=== PATIENT | female | born 1940 | race Caucasian/White ===

== ENCOUNTER 2017-04-09 18:56 | Emergency (ER) | payer MEDICARE, OTHER ==
--- NOTE | 2017-04-09 20:33 | EDM.PDOC ---
ED HPI GENERAL MEDICAL PROBLEM - General Chief Complaint: Neurological Problem Stated Complaint: CONFUSED JUST RELEASED FROM THE HOSPITAL MONDAY Time Seen by Provider: 04/09/17 19:30 Source of Information: Reports: Patient, Family, RN Notes Reviewed History Limitations: Reports: Altered Mental Status (Patient is confused, and unable to meaningfully contribute to her history) - History of Present Illness INITIAL COMMENTS - FREE TEXT/NARRATIVE: The patient underwent a lumbar fusion for scoliosis per Dr. Humphreys on Monday , 04/04/2017. She was discharged home on 04/07/2017 with prescriptions for [place] 5/325, 1 tab po Q4 hrs and Valium 5 mg po Q6 hrs. The family now brings the patient to the ED because of confusion and sleepiness since yesterday, 04/08/2017. She has had decreased oral intake. Fearing that her symptoms were due to overmedication, her last Valium dose was last night, although she has continued to receive [place]. The family also notes that her metformin has not been restarted since she was discharged, and may not have been given during her entire hospitalization. Here in the ED, Accu-Chek is 148. She appears to be in atrial fibrillation on the monitor, although she states that she is unaware of any palpitations. The patient's PCP is Hawa Ralph. - Related Data Allergies Allergy/AdvReac Type Severity Reaction Status Date / Time contrast dye Allergy Hives Uncoded 04/09/17 20:29 Home Meds: Home Meds Omeprazole 20 mg PO DAILY 03/21/16 [History] metFORMIN [Glucophage] 500 mg PO DAILY 03/21/16 [History] Calcium Citrate/Vitamin D3 [Citracal + D Maximum [place]] 1 tab PO DAILY [History] Cyanocobalamin (Vitamin B12) [Vitamin B12] 1,000 mcg PO DAILY 04/09/17 [History] Diazepam [Valium] 5 mg PO Q6H PRN 04/09/17 [History] Forteo. 20 mcg SUBCUT DAILY 04/09/17 [History] Furosemide [Lasix] 20 mg PO DAILY PRN 04/09/17 [History] Hydrocodone/Acetaminophen [Hydrocodon-Acetaminophen 5-325] 1 - 2 tab PO Q4H PRN 04/09/17 [History] Lisinopril [Zestril] 40 mg PO DAILY 04/09/17 [History] Nicotine [Nicotine Patch] 1 patch TOP Q24H 04/09/17 [History] Polyethylene Glycol 3350 [MiraLAX] 17 gm PO DAILY 04/09/17 [History] Pravastatin [Pravachol] 20 mg PO BEDTIME 04/09/17 [History] Sennosides/Docusate Sodium [Senna-Docusate Sodium] 1 tab PO BID 04/09/17 [ History] Past Medical History Cardiovascular History: Reports: High Cholesterol, Hypertension Gastrointestinal History: Reports: GERD Genitourinary History: Reports: Urinary Incontinence (stress incontinence) [employer] History: Reports: Musculoskeletal History: Reports: Back Pain, Chronic (scoliosis) Endocrine/Metabolic History: Reports: Diabetes, Type II - Past Surgical History HEENT Surgical History: Reports: Cataract Surgery, Tonsillectomy GI Surgical History: Reports: Cholecystectomy Neurological Surgical History: Reports: Lumbar Spine (fusion) Musculoskeletal Surgical History: Reports: Knee Replacement (bilateral) Social & Family History - Tobacco Use Smoking Status *Q: Current Every Day Smoker Years of Tobacco use: 63 Packs/Tins Daily: 0.5 Packs/Tins Daily Comment: Down from 1 ppd - Alcohol Use Alcohol Use History: No - Recreational Drug Use Recreational Drug Use: No - Living Situation & Occupation Living situation: Reports: , with Family (Son) Occupation: Retired ED ROS GENERAL - Review of Systems Review Of Systems: See Below Constitutional: Reports: No Symptoms HEENT: Reports: No Symptoms Respiratory: Reports: No Symptoms Cardiovascular: Reports: No Symptoms Endocrine: Reports: No Symptoms GI/Abdominal: Reports: No Symptoms : Reports: No Symptoms Musculoskeletal: Reports: No Symptoms Skin: Reports: No Symptoms Neurological: Reports: No Symptoms Psychiatric: Reports: No Symptoms Hematologic/Lymphatic: Reports: No Symptoms Immunologic: Reports: No Symptoms ED EXAM, GENERAL - Physical Exam Exam: See Below Exam Limited By: No Limitations General Appearance: Alert, WD/WN, No Apparent Distress Eye Exam: Bilateral Eye: Normal Inspection Ears: Normal External Exam, Hearing Grossly Normal Nose: Normal Inspection, No Blood Throat/Mouth: Normal Inspection, Normal Lips, Normal Voice, No Airway Compromise Head: Atraumatic, Normocephalic Neck: Normal Inspection, Full Range of Motion Respiratory/Chest: No Respiratory Distress, Lungs Clear, Normal Breath Sounds, No Accessory Muscle Use. No: Crackles, Rhonchi, Wheezing Cardiovascular: Normal Peripheral Pulses, No Gallop, No JVD, No Murmur, No Rub, Tachycardia, Irregularly Irregular, Other (Distant heart tones) Peripheral Pulses: 3+: Radial (L), Radial (R) GI/Abdominal: Normal Bowel Sounds, Soft, Non-Tender, No Organomegaly, No Distention, No Abnormal Bruit, No Mass (Female) Exam: Deferred Rectal (Female) Exam: Deferred Extremities: Normal Inspection, Normal Range of Motion, No Pedal Edema, Normal Capillary Refill Neurological: No Motor/Sensory Deficits, Confused, Other (Somnolent, but arousable to verbal tonight) Psychiatric: Normal Affect Skin Exam: Warm, Dry, Intact, Normal Color, No Rash EKG INTERPRETATION EKG Date: 04/09/17 Time: 19:48 Rhythm: A-Fib Rate (Beats/Min): 126 [place]: Normal P-Wave: Absent QRS: Normal (Single PVC) ST-T: Normal QT: Normal Comparison: Change From Previous EKG (03/21/2016) Course - Vital Signs Last Recorded V/S: Last Vital Signs Temp 36.7 C 04/09/17 20:29 Pulse 130 H 04/09/17 20:29 Resp 24 H 04/09/17 20:29 BP 115/76 04/09/17 20:29 Pulse Ox 79 L 04/09/17 20:29 - Orders/Labs/Meds Orders: Active Orders 24 hr Category Date Time Status EKG Documentation Completion [RC] STAT Care 04/09/17 19:42 Active Chest 1V Frontal [CR] Stat Exams 04/09/17 19:44 Taken CULTURE BLOOD [BC] Stat Lab 04/09/17 20:15 Received CULTURE BLOOD [BC] Stat Lab 04/09/17 20:25 Received Diltiazem 125 mg Med 04/09/17 20:45 Active Sodium Chloride 0.9% [Normal Saline] 100 ml IV TITRATE Blood Culture x2 Reflex Set [OM.PC] Stat Oth 04/09/17 19:42 Ordered Medication Orders Diltiazem HCl 125 mg/ Sodium (Chloride) 125 mls @ 10 mls/hr IV TITRATE KAYLEE; 10 MG/HR PRN Reason: Protocol Last Admin: 04/09/17 21:13 Dose: 10 mg/hr, 10 mls/hr Labs: Laboratory Tests 04/09/17 04/09/17 04/09/17 Range/Units 19:35 19:35 19:35 WBC 13.27 H (3.98-10.04) K/mm3 RBC 3.10 L (3.98-5.22) M/mm3 Hgb 9.4 L (11.2-15.7) gm/L Hct 28.4 L (34.1-44.9) % MCV 91.6 (79.4-94.8) fl MCH 30.3 (25.6-32.2) pg MCHC 33.1 (32.2-35.5) g/dl RDW Std Deviation 43.7 (36.4-46.3) fL Plt Count 392 H (182-369) K/mm3 MPV 9.8 (9.4-12.3) fl Neutrophils % (Manual) 68 H (40-60) % Band Neutrophils % 0 (0-10) % Lymphocytes % (Manual) 17 L (20-40) % Atypical Lymphs % 0 % Monocytes % (Manual) 15 H (2-10) % Eosinophils % (Manual) 0 L (0.7-5.8) % Basophils % (Manual) 0 L (0.1-1.2) Platelet Estimate Adequate Polychromasia Few Anisocytosis 1+ slight Macrocytosis 1+ slight Ovalocytes Few RBC Morph Comment Not Reportable PT 12.9 (8.0-13.0) SECONDS INR 1.17 APTT 32 (22-36) SECONDS D-Dimer, Quantitative 2.39 H (0.19-0.59) mg/L Puncture Site ABG pH (7.35-7.45) ABG pCO2 (35.0-45.0) mmHg ABG pO2 (80.0-100.0) mmHg ABG HCO3 (22.0-26.0) meq/L ABG O2 Saturation (96.0-97.0) % ABG Base Excess (-2-2.0) A-a Gradient mmHg FiO2 (21.00-100.00) % Sodium 132 L (136-145) mEq/L Potassium 4.0 (3.5-5.1) mEq/L Chloride 94 L (98-107) mEq/L Carbon Dioxide 28 (21-32) mEq/L Anion Gap 14.0 (5-15) BUN 49 H (7-18) mg/dL Creatinine 1.7 H (0.55-1.02) mg/dL Est Cr Clr Drug Dosing TNP Estimated GFR (MDRD) 29 (>60) mL/min BUN/Creatinine Ratio 28.8 H (14-18) Glucose 115 (83-115) mg/dL POC Glucose (83-110) mg/dL Lactic Acid (0.4-2.0) mmol/L Calcium 9.9 (8.5-10.1) mg/dL Total Bilirubin 0.6 (0.2-1.0) mg/dL AST 41 H (15-37) U/L ALT 19 (14-59) U/L Alkaline Phosphatase 73 (46-116) U/L Troponin I 0.572 H* (0.00-0.056) ng/mL NT-Pro-B Natriuret Pep 77221 H (0-450) pg/mL Total Protein 6.4 (6.4-8.2) g/dl Albumin 3.1 L (3.4-5.0) g/dl Globulin 3.3 gm/dL Albumin/Globulin Ratio 0.9 L (1-2) 04/09/17 04/09/17 04/09/17 Range/Units 19:37 19:53 20:15 WBC (3.98-10.04) K/mm3 RBC (3.98-5.22) M/mm3 Hgb (11.2-15.7) gm/L Hct (34.1-44.9) % MCV (79.4-94.8) fl MCH (25.6-32.2) pg MCHC (32.2-35.5) g/dl RDW Std Deviation (36.4-46.3) fL Plt Count (182-369) K/mm3 MPV (9.4-12.3) fl Neutrophils % (Manual) (40-60) % Band Neutrophils % (0-10) % Lymphocytes % (Manual) (20-40) % Atypical Lymphs % % Monocytes % (Manual) (2-10) % Eosinophils % (Manual) (0.7-5.8) % Basophils % (Manual) (0.1-1.2) Platelet Estimate Polychromasia Anisocytosis Macrocytosis Ovalocytes RBC Morph Comment PT (8.0-13.0) SECONDS INR APTT (22-36) SECONDS D-Dimer, Quantitative (0.19-0.59) mg/L Puncture Site Rt brachial ABG pH 7.40 (7.35-7.45) ABG pCO2 40.3 (35.0-45.0) mmHg ABG pO2 57.0 L (80.0-100.0) mmHg ABG HCO3 24.5 (22.0-26.0) meq/L ABG O2 Saturation 83.2 L (96.0-97.0) % ABG Base Excess 0.2 (-2-2.0) A-a Gradient 27 mmHg FiO2 21.00 (21.00-100.00) % Sodium (136-145) mEq/L Potassium (3.5-5.1) mEq/L Chloride (98-107) mEq/L Carbon Dioxide (21-32) mEq/L Anion Gap (5-15) BUN (7-18) mg/dL Creatinine (0.55-1.02) mg/dL Est Cr Clr Drug Dosing Estimated GFR (MDRD) (>60) mL/min BUN/Creatinine Ratio (14-18) Glucose (83-115) mg/dL POC Glucose 148 H (83-110) mg/dL Lactic Acid 1.3 (0.4-2.0) mmol/L Calcium (8.5-10.1) mg/dL Total Bilirubin (0.2-1.0) mg/dL AST (15-37) U/L ALT (14-59) U/L Alkaline Phosphatase (46-116) U/L Troponin I (0.00-0.056) ng/mL NT-Pro-B Natriuret Pep (0-450) pg/mL Total Protein (6.4-8.2) g/dl Albumin (3.4-5.0) g/dl Globulin gm/dL Albumin/Globulin Ratio (1-2) Meds: Medications Generic Name Dose Route Start Last Admin Trade Name Freq PRN Reason Stop Dose Admin Diltiazem HCl 125 mg/ Sodium 125 mls @ 10 mls/hr 04/09/17 20:45 04/09/17 21: 13 Chloride IV 10 mg/hr TITRATE KAYLEE 10 mls/hr Protocol Administration 10 MG/HR Discontinued Medications Generic Name Dose Route Start Last Admin Trade Name Lin PRN Reason Stop Dose Admin Aspirin 324 mg 04/09/17 20:39 04/09/17 21:17 Aspirin PO 04/09/17 20:40 324 mg ONETIME STA Administration Diltiazem HCl 10 mg 04/09/17 20:36 04/09/17 20:46 Diltiazem IVPUSH 04/09/17 20:37 10 mg ONETIME STA Administration Enoxaparin Sodium 65 mg 04/09/17 20:39 04/09/17 21:21 Lovenox SUBCUT 04/09/17 20:40 65 mg ONETIME STA Administration Metoprolol Tartrate 5 mg 04/09/17 20:39 Lopressor IVPUSH 04/09/17 20:40 ONETIME ONE - Re-Assessments/Exams Free Text/Narrative Re-Assessment/Exam: 04/09/17 20:29 Portable chest radiograph reviewed. There is likely cardiomegaly. No pulmonary vascular congestion. No pleural effusions seen on this AP view. No focal infiltrate. No pneumothorax. New lumbar fusion hardware since prior chest radiograph dated 03/21/2016. Formal read per the Radiologist pending. 04/09/17 20:40 The patient's WBC count is elevated at 13.27, but with 0% bandemia. Her H/H are depressed at 9.4/28.4, down from 11.8/35.2 on 03/21/2017. The patient's BUN/Cr are elevated at 49/1.7, down from 23/2.2 on 03/21/2016. The patient's ECG demonstrates atrial fibrillation at 126 BPM. This is new since her prior ECG dated 03/21/2016, however, the patient is not aware of her heartbeat, therefore the duration of her atrial fibrillation is unknown. I have ordered Cardizem 10 mg IVP and a Cardizem drip at 10 mg/hr, along with Lovenox 65 mg SQ. The patient's troponin is elevated at 0.572. Her troponin was normal on 2015. This elevation may be due at least in part to her renal insufficiency, however, I cannot exclude a recent coronary event. I have ordered aspirin 324 mg and Lopressor 5 mg IVP. The patient's D-dimer is elevated at 2.39. There are no prior D-dimer is for comparison. This elevation may be because of her recent lumbar surgery, however , I cannot rule out a PE, as the patient reports an allergy to iodinated contrast. I have therefore ordered the aforementioned Lovenox 65 mg SQ. The patient's BNP is substantially elevated at 20,036. There are no prior BNP's for comparison. As above, no pulmonary vascular congestion seen on the chest radiograph, to suggest decompensated CHF. This elevation is likely do to the patient's renal insufficiency. 04/09/17 21:05 Test results discussed with the patient and numerous family members. I am recommending that we transfer her to [place], as there are too many issues to be managed at this facility, and, as it turns out, we are on ICU diversion anyway. The family is in agreement. They like transfer to [facility], as that is where the patient's [facility] Di[facility] is. 04/09/17 21:[address] Monet, Hospitalist at [facility], at 21:17. The patient does not actually have a [employer]attle [employer]. She saw Dr. Padilla for a stress test. Dr. Monet feels the patient would be better served to return to [facility], where her lumbar surgery was performed, however, if [place] is unable or unwilling to accept the patient, Dr. Monet is willing to accept her. 04/09/17 21:[address] Coronel, emergency physician at [facility], at 21 :36. He accepts the patient for transfer. Departure - Departure Time of Disposition: 21:45 Disposition: DC/Tfer to Acute Hospital 02 Condition: Fair Clinical Impression: New onset atrial fibrillation, Elevated d-dimer, Elevated troponin, Chronic kidney disease, Lethargy - Discharge Information - My Orders Last 24 Hours: My Active Orders 04/09/17 19:42 EKG Documentation Completion [RC] STAT Blood Culture x2 Reflex Set [OM.PC] Stat 04/09/17 19:44 Chest 1V Frontal [CR] Stat 04/09/17 20:15 CULTURE BLOOD [BC] Stat 04/09/17 20:25 CULTURE BLOOD [BC] Stat 04/09/17 20:45 Diltiazem 125 mg Sodium Chloride 0.9% [Normal Saline] 100 ml IV TITRATE - Assessment/Plan Last 24 Hours: My Active Orders 04/09/17 19:42 EKG Documentation Completion [RC] STAT Blood Culture x2 Reflex Set [OM.PC] Stat 04/09/17 19:44 Chest 1V Frontal [CR] Stat 04/09/17 20:15 CULTURE BLOOD [BC] Stat 04/09/17 20:25 CULTURE BLOOD [BC] Stat 04/09/17 20:45 Diltiazem 125 mg Sodium Chloride 0.9% [Normal Saline] 100 ml IV TITRATE
[2017-04-09] MEDS ORDERED: Diltiazem 25 MG/5 ML SDV IVPUSH STA (20:36)
[2017-04-09] MEDS ORDERED: Enoxaparin 80 MG/0.8 ML Syringe SUBCUT STA (20:39)
[2017-04-09] MEDS ORDERED: Aspirin 81 MG Tab.Chew PO STA (20:39)
[2017-04-09] MEDS ORDERED: Metoprolol Tartrate 5 MG/5 ML SDV IVPUSH ONE (20:39)
[2017-04-09] MEDS ORDERED: Diltiazem 125 MG in Sodium Chloride 0.9% 100 ML IV SCH (20:45)
[2017-04-09 22:03] VITALS: BP 94/61
--- NOTE | 2017-04-10 09:47 | CR ---
Chest: Portable view of the chest was obtained. Comparison: Prior chest x-ray of 03/21/16. Previous lumbar spine surgery is noted as an interval change from previous exam. Vertebroplasty noted within the lower thoracic spine which is an interval change from prior study. Skin laura are present within the upper back. Heart size is normal. Tortuous thoracic aorta is seen. Lungs are clear. Scoliosis noted within the spine. Bony structures are slightly osteopenic. Impression: 1. Incidental findings as noted above. Nothing acute is appreciated. Diagnostic code #2
== END 2017-04-09 22:18 ==
LOC: JD.ED 18:56
DX: I48.91 Unspecified atrial fibrillation (principal); I12.9 Hypertensive chronic kidney disease with stage 1 through stage 4 chronic kidney disease, or unspecified chronic kidney disease; N18.9 Chronic kidney disease, unspecified; R79.89 Other specified abnormal findings of blood chemistry; R79.1 Abnormal coagulation profile; E78.00 Pure hypercholesterolemia, unspecified; E11.22 Type 2 diabetes mellitus with diabetic chronic kidney disease; F17.210 Nicotine dependence, cigarettes, uncomplicated; Z96.653 Presence of artificial knee joint, bilateral; Z79.899 Other long term (current) drug therapy; Z91.041 Radiographic dye allergy status
CPT/HCPCS: 36415; 36600; 71010; 80053; 82803; 82962; 83605; 83880; 84484; 85025; 85379; 85610; 85730; 87040; 93005; 99285; A9270; J1650; J3490; J7030; 93010

== ENCOUNTER 2018-07-23 09:15 | Emergency (ER) | payer MEDICARE, OTHER ==
[2018-07-23 09:32] VITALS: BP 164/99
[2018-07-23] MEDS ORDERED: Sodium Chloride 0.9% 10 ML Syringe FLUSH PRN (09:47)
--- NOTE | 2018-07-23 10:16 | CT ---
Head CT Technique: Multiple axial sections through the brain were obtained. Intravenous contrast was not utilized. Comparison: Prior head CT study of 03/21/16. Findings: Skin lesion showing calcification is noted within the upper right parietal region which appears fairly similar to prior study having maximum measurements of around 2.0 cm. Several other smaller scalp lesions are also noted which appears stable. Ventricles along with basal cisterns and sulci over the convexities are mildly prominent. Diminished density is noted within the periventricular and subcortical white matter compatible with small vessel ischemic demyelination change. No other abnormal parenchymal densities are seen. No evidence of intracranial hemorrhage. No midline shift or mass effect is seen. Atherosclerotic calcification is seen within the carotid siphon and within the vertebral vessels. Rounded soft tissue finding is seen inferiorly within the right maxillary sinus compatible with incidental retention cyst is noted. No acute calvarial abnormality is seen. Impression: 1. Senescent change as noted above. Other incidental findings. 2. Nothing acute is appreciated on noncontrast head CT exam. Diagnostic code #2
--- NOTE | 2018-07-23 10:19 | CR ---
Chest: Portable view of the chest was obtained. Comparison: Prior chest x-ray of 04/09/17. Heart is mildly enlarged. Tortuous thoracic aorta is seen. Questionable nodule behind the aorta noted within the left upper lung measuring 1.5 cm. Lungs otherwise are clear. Previous spine surgery is noted. Impression: 1. Possible 1.5 cm nodule posterior to the aorta. Noncontrast chest CT recommended to further evaluate. 2. Other incidental findings. Nothing acute is otherwise seen. Diagnostic code #9
--- NOTE | 2018-07-23 12:49 | EDM.PDOC ---
ED HPI GENERAL MEDICAL PROBLEM - General Chief Complaint: Cardiovascular Problem Stated Complaint: RETAINING FLUIDS /DIZZY Time Seen by Provider: 07/23/18 09:26 Source of Information: Reports: Patient, Family History Limitations: Reports: No Limitations - History of Present Illness INITIAL COMMENTS - FREE TEXT/NARRATIVE: The patient presents with dizziness and confusion. She also has some nausea. Her daughter called her this morning and felt she was confused. The patient also told her she was dizzy and off balance slightly. They went to the walk in clinic and she was sent over here. She denies fever, chills, cough, congestion , runny nose, chest pain or shortness of breath. She was diagnosed with A-fib a while back. She was taken off of her metformin and her lasix was stopped. She has no edema in her legs. Onset: Gradual Duration: Hour(s): Improves with: Reports: None Worsens with: Reports: None Associated Symptoms: Denies: Chest Pain, Cough, Fever/Chills, Headaches, Nausea/ Vomiting, Shortness of Breath - Related Data Allergies Allergy/AdvReac Type Severity Reaction Status Date / Time contrast dye Allergy Hives Uncoded 04/09/17 20:29 Home Meds: Home Meds Calcium Citrate/Vitamin D3 [Citracal + D Maximum Caplet] 1 tab PO DAILY [History] Cyanocobalamin (Vitamin B12) [Vitamin B12] 1,000 mcg PO DAILY 04/09/17 [History] Forteo. 20 mcg SUBCUT DAILY 04/09/17 [History] Furosemide [Lasix] 20 mg PO BID PRN 04/09/17 [History] Pravastatin [Pravachol] 20 mg PO BEDTIME 04/09/17 [History] Apixaban [Eliquis] 2.5 mg PO BID 07/23/18 [History] Diltiazem [Dilacor XR] 240 mg pe PO DAILY 07/23/18 [History] Metoprolol Succinate [Toprol Xl] 50 mg PO DAILY 07/23/18 [History] Potassium Chloride 20 meq PO DAILY 07/23/18 [History] Past Medical History Cardiovascular History: Reports: High Cholesterol, Hypertension Gastrointestinal History: Reports: GERD Genitourinary History: Reports: Urinary Incontinence [employer] History: Reports: Musculoskeletal History: Reports: Back Pain, Chronic Other Musculoskeletal History: back surgery Endocrine/Metabolic History: Reports: Diabetes, Type II, Obesity/BMI 30+ - Past Surgical History HEENT Surgical History: Reports: Cataract Surgery, Tonsillectomy GI Surgical History: Reports: Cholecystectomy Neurological Surgical History: Reports: Lumbar Spine Other Neurological Surgeries/Procedures: back surgery Musculoskeletal Surgical History: Reports: Knee Replacement Social & Family History - Tobacco Use Smoking Status *Q: Current Every Day Smoker Years of Tobacco use: 70 Packs/Tins Daily: 0.2 - Caffeine Use Caffeine Use: Reports: Soda - Recreational Drug Use Recreational Drug Use: No - Living Situation & Occupation Living situation: Reports: , with Family (Son) Occupation: Retired ED ROS GENERAL - Review of Systems Review Of Systems: See Below Constitutional: Reports: No Symptoms HEENT: Reports: Vertigo Respiratory: Reports: No Symptoms Cardiovascular: Reports: No Symptoms Endocrine: Reports: No Symptoms GI/Abdominal: Reports: No Symptoms : Reports: No Symptoms Musculoskeletal: Reports: No Symptoms ED EXAM, GENERAL - Physical Exam Exam: See Below Exam Limited By: No Limitations General Appearance: Alert, No Apparent Distress Ears: Normal External Exam Nose: Normal Inspection Head: Atraumatic, Normocephalic Neck: Normal Inspection, Supple, Non-Tender Respiratory/Chest: No Respiratory Distress, Lungs Clear, Normal Breath Sounds Cardiovascular: Regular Rate, Rhythm, No Edema, No Murmur GI/Abdominal: Soft, Non-Tender, No Organomegaly, No Mass Back Exam: Normal Inspection Extremities: Normal Inspection EKG INTERPRETATION EKG Date: 07/23/18 Time: 10:26 Rhythm: A-Fib Rate (Beats/Min): 101 Valentine: Normal QRS: Normal ST-T: Normal QT: Normal Course - Vital Signs Last Recorded V/S: Last Vital Signs Temp 98.6 F 07/23/18 09:28 Pulse 105 H 07/23/18 09:28 Resp 16 07/23/18 09:28 BP 164/99 H 07/23/18 09:28 Pulse Ox 92 L 07/23/18 09:28 - Orders/Labs/Meds Orders: Active Orders 24 hr Category Date Time Status Cardiac Monitoring [RC] . DIRECTED Care 07/23/18 09:47 Active EKG Documentation Completion [RC] STAT Care 07/23/18 09:49 Active Oxygen Therapy [RC] PRN Care 07/23/18 09:48 Active Peripheral IV Care [RC] . DIRECTED Care 07/23/18 09:48 Active PRO B-TYPE NATRIUR PEPT,BNPPRO [CHEM] Stat Lab 07/23/18 10:26 Received Peripheral IV Insertion Adult [OM.PC] Stat Oth 07/23/18 09:47 Ordered Labs: Laboratory Tests 07/23/18 07/23/18 07/23/18 Range/Units 10:26 10:26 10:26 WBC 6.44 (3.98-10.04) K/mm3 RBC 4.05 (3.98-5.22) M/mm3 Hgb 12.0 (11.2-15.7) gm/L Hct 38.6 (34.1-44.9) % MCV 95.3 H (79.4-94.8) fl MCH 29.6 (25.6-32.2) pg MCHC 31.1 L (32.2-35.5) g/dl RDW Std Deviation 52.7 H (36.4-46.3) fL Plt Count 204 (182-369) K/mm3 MPV 10.7 (9.4-12.3) fl Neut % (Auto) 79.2 H (34.0-71.1) % Lymph % (Auto) 9.5 L (19.3-51.7) % [place] % (Auto) 9.3 (4.7-12.5) % Eos % (Auto) 1.1 (0.7-5.8) Baso % (Auto) 0.3 (0.1-1.2) % Neut # (Auto) 5.10 (1.56-6.13) K/mm3 Lymph # (Auto) 0.61 L (1.18-3.74) K/mm3 [place] # (Auto) 0.60 H (0.24-0.36) K/mm3 Eos # (Auto) 0.07 (0.04-0.36) K/mm3 Baso # (Auto) 0.02 (0.01-0.08) K/mm3 Manual Slide Review Normal smear ESR 28 H (0-20) mm/hr Sodium 139 (136-145) mEq/L Potassium 3.9 (3.5-5.1) mEq/L Chloride 101 (98-107) mEq/L Carbon Dioxide 31 (21-32) mEq/L Anion Gap 10.9 (5-15) BUN 23 H (7-18) mg/dL Creatinine 2.1 H (0.55-1.02) mg/dL Est Cr Clr Drug Dosing 17.67 mL/min Estimated GFR (MDRD) 23 (>60) mL/min BUN/Creatinine Ratio 11.0 L (14-18) Glucose 99 (83-115) mg/dL Calcium 8.9 (8.5-10.1) mg/dL Total Bilirubin 0.6 (0.2-1.0) mg/dL AST 20 (15-37) U/L ALT 15 (14-59) U/L Alkaline Phosphatase 78 (46-116) U/L Troponin I < 0.017 (0.00-0.056) ng/mL C-Reactive Protein 0.6 (<1.0) mg/dL Total Protein 6.7 (6.4-8.2) g/dl Albumin 3.4 (3.4-5.0) g/dl Globulin 3.3 gm/dL Albumin/Globulin Ratio 1.0 (1-2) Urine Color (Yellow) Urine Appearance (Clear) Urine pH (5.0-8.0) Ur Specific [place] (1.005-1.030) Urine Protein (Negative) Urine Glucose (UA) (Negative) Urine Ketones (Negative) Urine Occult Blood (Negative) Urine Nitrite (Negative) Urine Bilirubin (Negative) Urine Urobilinogen (0.2-1.0) Ur Leukocyte Esterase (Negative) Urine RBC (0-5) /hpf Urine WBC (0-5) /hpf Ur Epithelial Cells (0-5) /hpf Amorphous Sediment (NOT SEEN) /hpf Urine Bacteria (FEW) /hpf Hyaline Casts (0-5) /lpf Urine Mucus (FEW) /hpf // Range/Units 11:13 WBC (3.98-10.04) K/mm3 RBC (3.98-5.22) M/mm3 Hgb (11.2-15.7) gm/L Hct (34.1-44.9) % MCV (79.4-94.8) fl MCH (25.6-32.2) pg MCHC (32.2-35.5) g/dl RDW Std Deviation (36.4-46.3) fL Plt Count (182-369) K/mm3 MPV (9.4-12.3) fl Neut % (Auto) (34.0-71.1) % Lymph % (Auto) (19.3-51.7) % [place] % (Auto) (4.7-12.5) % Eos % (Auto) (0.7-5.8) Baso % (Auto) (0.1-1.2) % Neut # (Auto) (1.56-6.13) K/mm3 Lymph # (Auto) (1.18-3.74) K/mm3 [place] # (Auto) (0.24-0.36) K/mm3 Eos # (Auto) (0.04-0.36) K/mm3 Baso # (Auto) (0.01-0.08) K/mm3 Manual Slide Review ESR (0-20) mm/hr Sodium (136-145) mEq/L Potassium (3.5-5.1) mEq/L Chloride (98-107) mEq/L Carbon Dioxide (21-32) mEq/L Anion Gap (5-15) BUN (7-18) mg/dL Creatinine (0.55-1.02) mg/dL Est Cr Clr Drug Dosing mL/min Estimated GFR (MDRD) (>60) mL/min BUN/Creatinine Ratio (14-18) Glucose (83-115) mg/dL Calcium (8.5-10.1) mg/dL Total Bilirubin (0.2-1.0) mg/dL AST (15-37) U/L ALT (14-59) U/L Alkaline Phosphatase (46-116) U/L Troponin I (0.00-0.056) ng/mL C-Reactive Protein (<1.0) mg/dL Total Protein (6.4-8.2) g/dl Albumin (3.4-5.0) g/dl Globulin gm/dL Albumin/Globulin Ratio (1-2) Urine Color Yellow (Yellow) Urine Appearance Slt cloudy H (Clear) Urine pH 6.0 (5.0-8.0) Ur Specific [place] 1.020 (1.005-1.030) Urine Protein 1+ H (Negative) Urine Glucose (UA) Negative (Negative) Urine Ketones Negative (Negative) Urine Occult Blood Negative (Negative) Urine Nitrite Negative (Negative) Urine Bilirubin Negative (Negative) Urine Urobilinogen 0.2 (0.2-1.0) Ur Leukocyte Esterase Negative (Negative) Urine RBC 0-5 (0-5) /hpf Urine WBC 0-5 (0-5) /hpf Ur Epithelial Cells 5-10 H (0-5) /hpf Amorphous Sediment Few H (NOT SEEN) /hpf Urine Bacteria Few (FEW) /hpf Hyaline Casts 0-5 (0-5) /lpf Urine Mucus Few (FEW) /hpf Meds: Medications Discontinued Medications Generic Name Dose Route Start Last Admin Trade Name Freq PRN Reason Stop Dose Admin Sodium Chloride 10 ml 07/23/18 09:47 07/23/18 10:27 Saline Flush FLUSH 10 ml ASDIRECTED PRN Administration Keep Vein Open - Re-Assessments/Exams Free Text/Narrative Re-Assessment/Exam: 07/23/18 12:50 I ordered an IV saline lock, EGK, CXR, labs, UA and a CT of her head. Her EKG shows A-fib with no acute changes. Her CXR shows a 1.5cm nodule behind the aorta but no thing acute. I have ordered a CT of her chest. Her CBC looks good. Her creatinine is elevated at 2.1. Her GFR was low at 23. She was at 1.7 about a month ago. She is going to follow up with a liaison officer. Her troponin was negative. Her UA shows no UTI. The CT of her chest shows senescent change. Nothing acute is seen. I am waiting on the CT of her chest. 07/23/18 12:52 She is not confused now and she is doing good. I am not sure what cause the symptoms this morning. I will have her follow up with her doctor within a week. 07/23/18 16:[address] looks good. Departure - Departure Time of Disposition: 13:00 Disposition: Home, Self-Care 01 Condition: Good Clinical Impression: Dizziness, Confusion Instructions: Confusion Referrals: Valery Ralph MD [Primary Care Provider] - 1 Week Forms: ED Department Discharge Additional Instructions: Keep taking your medication as prescribed. Follow up with Dr Ralph or one of her partners in 1 week. Please return if you are worse. - My Orders Last 24 Hours: My Active Orders 07/23/18 09:47 Cardiac Monitoring [RC] . DIRECTED Peripheral IV Insertion Adult [OM.PC] Stat 07/23/18 09:48 Oxygen Therapy [RC] PRN Peripheral IV Care [RC] . DIRECTED 07/23/18 09:49 EKG Documentation Completion [RC] STAT 07/23/18 10:26 PRO B-TYPE NATRIUR PEPT,BNPPRO [CHEM] Stat - Assessment/Plan Last 24 Hours: My Active Orders 07/23/18 09:47 Cardiac Monitoring [RC] . DIRECTED Peripheral IV Insertion Adult [OM.PC] Stat 07/23/18 09:48 Oxygen Therapy [RC] PRN Peripheral IV Care [RC] . DIRECTED 07/23/18 09:49 EKG Documentation Completion [RC] STAT 07/23/18 10:26 PRO B-TYPE NATRIUR PEPT,BNPPRO [CHEM] Stat
--- NOTE | 2018-07-23 13:28 | CT ---
CT chest Technique: Multiple axial sections through the chest were obtained. Intravenous contrast was not utilized. Comparison: Prior chest x-ray performed earlier on the same day (9:59 AM). Findings: Atherosclerotic calcification is noted within the thoracic aorta and branch vessels. No mediastinal adenopathy or hilar adenopathy is seen. Mild coronary artery calcification is seen. No pericardial thickening is seen. Small portion of the visualized upper abdominal structures are within normal limits. Previous upper lumbar spine surgery is noted with orthopedic hardware in place. Lungs are clear. No nodule is confirmed as questioned on previous plain film study. This finding on chest x-ray is therefore most likely due to atherosclerotic plaque or vascular confluence as the etiology. Bone window settings show mild scattered degenerative change within the spine. Several areas of prior vertebroplasty are seen within the lower thoracic spine and upper lumbar spine. Impression: 1. Nodule seen on chest x-ray is not confirmed as a real finding on chest CT. Nodule seen on chest x-ray likely is caused by artifact from atherosclerotic calcification within the thoracic aorta or due to vascular confluence. 2. Other incidental findings. Nothing acute is seen. Diagnostic code #2
== END 2018-07-23 13:04 | disposition home or self-care (01) ==
LOC: JD.ED 09:15
DX: R41.0 Disorientation, unspecified (principal); R42 Dizziness and giddiness; K21.9 Gastro-esophageal reflux disease without esophagitis; E78.00 Pure hypercholesterolemia, unspecified; I10 Essential (primary) hypertension; F17.210 Nicotine dependence, cigarettes, uncomplicated; Z91.041 Radiographic dye allergy status; Z79.899 Other long term (current) drug therapy; Z79.01 Long term (current) use of anticoagulants
CPT/HCPCS: 36415; 70450; 70450-26; 71045; 71045-26; 71250; 71250-26; 80053; 81001; 83880; 84484; 85025; 85652; 86140; 93005; 93010; 99284; 99284-25

== ENCOUNTER 2018-07-24 14:19 | Inpatient (IN) | payer MEDICARE, OTHER ==
--- NOTE | 2018-07-24 15:23 | EDM.PDOC ---
ED HPI GENERAL MEDICAL PROBLEM - General Chief Complaint: Respiratory Problem Stated Complaint: DIZZINESS Time Seen by Provider: 07/24/18 14:48 Source of Information: Reports: Patient History Limitations: Reports: No Limitations - History of Present Illness INITIAL COMMENTS - FREE TEXT/NARRATIVE: 78-year-old female presents to the ED with many family members. Apparently she was seen through the ED last night. Chief complaint today is shortness of breath dizziness when she stands and central chest heaviness. Her shows that she is in atrial flutter with rapid ventricular rate up as high as 1 70/m. She apparently she has chronic age fibrillation and doesn't always take her medications as she supposed to. She is supposed to be on Cardizem 240 mg extended release daily. She is also on metoprolol succinate or atenolol 50 mg daily for rate control. Also on Eliquis 2.5 mg twice a day. She does have a productive sounding cough and a low-grade fever of 99.9 today. does not feel well no appetite .Short of breath .Was up most of last night. Denies any diarrhea. States she does have urinary frequency and she is on Lasix. Initial blood pressure was 107/87. However second blood pressure was 93/53. [employer] she is not a candidate for aggressive Cardizem management or nitro drip. Onset: Gradual Onset Date: 07/28/18 Duration: Day(s):, Getting Worse Location: Reports: Chest (Feeling more congested in her chest with central chest discomfort which I "Bri to be angina. This is due to rapid heart rate of 270/m due to atrial fib.) Quality: Reports: Ache, Pressure Severity: Moderate (Pressure central chest with no radiation rates it as a 4 out of 10.) Improves with: Reports: None Worsens with: Reports: Movement Context: Denies: Activity (Probably worse with exertion. Feels pretty lightheaded and dizzy with standing), Exercise, Lifting, Sick Contact, Trauma, Other Associated Symptoms: Reports: Chest Pain, Cough, cough w sputum, Fever/Chills, Loss of Appetite, Malaise, Shortness of Breath, Weakness. 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 20 mcg SUBCUT DAILY 04/09/17 [History] Furosemide [Lasix] 20 mg PO BID PRN 04/09/17 [History] Pravastatin [Pravachol] 20 mg PO BEDTIME 04/09/17 [History] Apixaban [Eliquis] 2.5 mg PO BID 07/23/18 [History] Diltiazem [Dilacor XR] 240 mg pe PO DAILY 07/23/18 [History] Metoprolol Succinate [Toprol Xl] 50 mg PO DAILY 07/23/18 [History] Potassium Chloride 20 meq PO DAILY 07/23/18 [History] Past Medical History Cardiovascular History: Reports: Afib (He is on diltiazem 240 mg extended release daily and atenolol 50 mg once daily for rate control. 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: Musculoskeletal History: Reports: Back Pain, Chronic Other Musculoskeletal History: back surgery Endocrine/Metabolic History: Reports: Diabetes, Type II, Obesity/BMI 30+ - Past Surgical History HEENT Surgical History: Reports: Cataract Surgery, Tonsillectomy GI Surgical History: Reports: Cholecystectomy Neurological Surgical History: Reports: Lumbar Spine Other Neurological Surgeries/Procedures: back surgery Musculoskeletal Surgical History: Reports: Knee Replacement Social & Family History - Tobacco Use Smoking Status *Q: Current Every Day Smoker Years of Tobacco use: 70 Packs/Tins Daily: 0.2 - Caffeine Use Caffeine Use: Reports: Coffee - Recreational Drug Use Recreational Drug Use: No - Living Situation & Occupation Living situation: Reports: , with Family (Son) Occupation: Retired ED ROS GENERAL - Review of Systems Review Of Systems: See Below Constitutional: Reports: Fever, Malaise, Weakness, Fatigue, Decreased Appetite HEENT: Reports: Glasses, Other Respiratory: Reports: Shortness of Breath (Has had previous cataract extractions.), Wheezing, Cough, Sputum. Denies: Pleuritic Chest Pain Cardiovascular: Reports: Chest Pain (Occasionally will get up a little bit of sputum but hasn't looked at the color.), Blood Pressure Problem ( Chest discomfort with the atrial for being so fast.), Dyspnea on Exertion ( apparently legs were quite edematous last week but now are better.), Edema ( Especially with standing today), Lightheadedness, Palpitations. Denies: Claudication, Orthopnea (often runs a bit on the low side ) Endocrine: Reports: Fatigue (She is aware of palpitations at times) GI/Abdominal: Reports: Constipation, Decreased Appetite : Reports: Frequency (Occasional positive constipation), Urgency (Post stress and urge components) Musculoskeletal: Reports: Joint Pain (Knees hips low back shoulders and neck at times) Skin: Reports: Bruising (Bruise easily as she is on aspirin and Eliquis.) Neurological: Reports: Dizziness, Difficulty Walking, Weakness (Due to weakness) . Denies: Confusion, Headache, Numbness, Pre-Existing Deficit, Seizure, Syncope , Tingling, Trouble Speaking, Change in Speech, Gait Disturbance Psychiatric: Denies: Agitation, Anxiety, Confusion, Cravings, Depression, Homicidal Ideation, Mood Lability, Suicidal Ideation Hematologic/Lymphatic: Reports: No Symptoms Immunologic: Reports: No Symptoms ED EXAM, GENERAL - Physical Exam Exam: See Below Exam Limited By: No Limitations General Appearance: Alert, WD/WN, Mild Distress, Other (She does have a temperature of 99.9 most apparent on filling her back and abdomen. Her face feels normal. She is obviously dyspneic at rest. Respiratory distress 23/m with sats of only 90% on room air.) Eye Exam: Bilateral Eye: Normal Inspection (Previous cataract extractions bilaterally.) Ears: Normal TMs Throat/Mouth: Normal Inspection, Normal Oropharynx, Other Head: Atraumatic (Tongue is slightly dry and coated), Normocephalic Neck: Normal Inspection, Limited Range of Motion, Tender Lateral (Tender laterally due to last arthritic changes.). No: Full Range of Motion Respiratory/Chest: Respiratory Distress, Decreased Breath Sounds (Tachypnea At rest 23-26/m.), Rales ( These breath sounds to the lower 40% lung meza bilaterally with rhonchi more in the right lung base and on the left. Also scattered rales throughout both posterior lung meza), Rhonchi. No: Pleural Rub Cardiovascular: No Edema, No Murmur, No Rub, Tachycardia, Irregularly Irregular (Monitor shows irregular regular rhythm compatible with atrial fibrillation with a rate anywhere from 100-170/m.). No: Normal Peripheral Pulses, Regular Rate, Rhythm Peripheral Pulses: 1+: Posterior Tibial (L) (Pulses are barely palpable in her feet. They're quite cool to touch), Posterior Tibial (R), Dorsalis Pedis (L), Dorsalis Pedis (R) GI/Abdominal: Normal Bowel Sounds, No Organomegaly (Mildly distended and tympanitic to percussion of her abdomen compliant about with mild aerophagia), No Abnormal Bruit, No Mass, Pelvis Stable, Distended Back Exam: Normal Inspection, Full Range of Motion, Other (Mild kyphosis thoracic spine). No: CVA Tenderness (L), CVA Tenderness (R) Extremities: Other. No: Pedal Edema (Evidence of posterior 30 changes both knees and both hips. No dependent edema.) Neurological: Alert, Oriented, CN II-XII Intact, Normal Cognition Psychiatric: Normal Affect, Normal Mood Skin Exam: Warm, Dry, Intact, Normal Color, No Rash EKG INTERPRETATION EKG Date: 07/24/18 Time: 15:28 Rhythm: A-Fib (Atrial fib with a rate of 96 270/m.) Rate (Beats/Min): 132 [place]: Normal P-Wave: Absent QRS: Other (Decreased voltage in the limb leads.) ST-T: Other (There is mild diffuse repolarization abnormality versus mild ST segment depression V2 to V6 cannot rule out ischemia in the anterior apical wall ) QT: Normal EKG Interpretation Comments: Abnormal ECG Course - Vital Signs Last Recorded V/S: Last Vital Signs Temp 37.2 C 07/24/18 16:01 Pulse 136 H 07/24/18 14:29 Resp 23 H 07/24/18 14:29 BP 107/87 07/24/18 14:29 Pulse Ox 90 L 07/24/18 14:29 - Orders/Labs/Meds Orders: Active Orders 24 hr Category Date Time Status EKG 12 Lead [EKG Documentation Completion] [RC] STAT Care 07/24/18 14:39 Active EKG Documentation Completion [RC] STAT Care 07/24/18 15:38 Active EKG Documentation Completion [RC] STAT Care 07/24/18 15:39 Active Oxygen Therapy [RC] ASDIRECTED Care 07/24/18 15:39 Active Peripheral IV Care [RC] Q2HR Care 07/24/18 15:40 Active Chest 1V Frontal [CR] Stat Exams 07/24/18 15:38 Taken CULTURE BLOOD [BC] Stat Lab 07/24/18 15:55 Received CULTURE BLOOD [BC] Stat Lab 07/24/18 16:01 Received Diltiazem 125 mg Med 07/24/18 15:45 Active Sodium Chloride 0.9% [Normal Saline] 100 ml IV TITRATE Sodium Chloride 0.9% [Saline Flush] Med 07/24/18 15:40 Active 10 ml FLUSH ASDIRECTED PRN Blood Culture x2 Reflex Set [OM.PC] Stat Oth 07/24/18 15:39 Ordered Peripheral IV Insertion Adult [OM.PC] Stat Oth 07/24/18 15:40 Ordered Medication Orders Diltiazem HCl 125 mg/ Sodium (Chloride) 125 mls @ 5 mls/hr IV TITRATE KAYLEE; Protocol Last Admin: 07/24/18 16:03 Dose: 5 mg/hr, 5 mls/hr Sodium Chloride (Saline Flush) 10 ml FLUSH ASDIRECTED PRN PRN Reason: Keep Vein Open Last Admin: 07/24/18 16:07 Dose: 10 ml Labs: Laboratory Tests 07/24/18 07/24/18 07/24/18 Range/Units 15:55 15:55 15:55 WBC 7.10 (3.98-10.04) K/mm3 RBC 4.34 (3.98-5.22) M/mm3 Hgb 12.8 (11.2-15.7) gm/L Hct 40.7 (34.1-44.9) % MCV 93.8 (79.4-94.8) fl MCH 29.5 (25.6-32.2) pg MCHC 31.4 L (32.2-35.5) g/dl RDW Std Deviation 52.2 H (36.4-46.3) fL Plt Count 197 (182-369) K/mm3 MPV 11.0 (9.4-12.3) fl Neutrophils % (Manual) 74 H (40-60) % Band Neutrophils % 1 (0-10) % Lymphocytes % (Manual) 17 L (20-40) % Atypical Lymphs % 0 % Monocytes % (Manual) 8 (2-10) % Eosinophils % (Manual) 0 L (0.7-5.8) % Basophils % (Manual) 0 L (0.1-1.2) Platelet Estimate Adequate RBC Morph Comment Normal ESR (0-20) mm/hr PT 12.5 H (9.5-12.1) SECONDS INR 1.15 APTT (24-31) SECONDS Sodium 135 L (136-145) mEq/L Potassium 4.1 (3.5-5.1) mEq/L Chloride 94 L (98-107) mEq/L Carbon Dioxide 30 (21-32) mEq/L Anion Gap 15.1 H (5-15) BUN 25 H (7-18) mg/dL Creatinine 2.1 H (0.55-1.02) mg/dL Est Cr Clr Drug Dosing 17.67 mL/min Estimated GFR (MDRD) 23 (>60) mL/min BUN/Creatinine Ratio 11.9 L (14-18) Glucose 107 (83-115) mg/dL Lactic Acid (0.4-2.0) mmol/L Calcium 9.9 (8.5-10.1) mg/dL Magnesium 1.2 L (1.8-2.4) mg/dl Total Bilirubin 0.8 (0.2-1.0) mg/dL AST 35 (15-37) U/L ALT 18 (14-59) U/L Alkaline Phosphatase 78 (46-116) U/L CK-MB (CK-2) 1.0 (0-3.6) ng/ml Troponin I 0.030 (0.00-0.056) ng/mL C-Reactive Protein 1.6 H* (<1.0) mg/dL NT-Pro-B Natriuret Pep (0-450) pg/mL Total Protein 7.0 (6.4-8.2) g/dl Albumin 3.6 (3.4-5.0) g/dl Globulin 3.4 gm/dL Albumin/Globulin Ratio 1.1 (1-2) Mycoplasma pneumon IgM Negative (NEGATIVE) 07/24/18 07/24/18 07/24/18 Range/Units 15:55 15:55 15:55 WBC (3.98-10.04) K/mm3 RBC (3.98-5.22) M/mm3 Hgb (11.2-15.7) gm/L Hct (34.1-44.9) % MCV (79.4-94.8) fl MCH (25.6-32.2) pg MCHC (32.2-35.5) g/dl RDW Std Deviation (36.4-46.3) fL Plt Count (182-369) K/mm3 MPV (9.4-12.3) fl Neutrophils % (Manual) (40-60) % Band Neutrophils % (0-10) % Lymphocytes % (Manual) (20-40) % Atypical Lymphs % % Monocytes % (Manual) (2-10) % Eosinophils % (Manual) (0.7-5.8) % Basophils % (Manual) (0.1-1.2) Platelet Estimate RBC Morph Comment ESR 22 H (0-20) mm/hr PT (9.5-12.1) SECONDS INR APTT 36 H (24-31) SECONDS Sodium (136-145) mEq/L Potassium (3.5-5.1) mEq/L Chloride (98-107) mEq/L Carbon Dioxide (21-32) mEq/L Anion Gap (5-15) BUN (7-18) mg/dL Creatinine (0.55-1.02) mg/dL Est Cr Clr Drug Dosing mL/min Estimated GFR (MDRD) (>60) mL/min BUN/Creatinine Ratio (14-18) Glucose (83-115) mg/dL Lactic Acid (0.4-2.0) mmol/L Calcium (8.5-10.1) mg/dL Magnesium (1.8-2.4) mg/dl Total Bilirubin (0.2-1.0) mg/dL AST (15-37) U/L ALT (14-59) U/L Alkaline Phosphatase (46-116) U/L CK-MB (CK-2) (0-3.6) ng/ml Troponin I (0.00-0.056) ng/mL C-Reactive Protein (<1.0) mg/dL NT-Pro-B Natriuret Pep 7414 H (0-450) pg/mL Total Protein (6.4-8.2) g/dl Albumin (3.4-5.0) g/dl Globulin gm/dL Albumin/Globulin Ratio (1-2) Mycoplasma pneumon IgM (NEGATIVE) 07/24/18 Range/Units 15:55 WBC (3.98-10.04) K/mm3 RBC (3.98-5.22) M/mm3 Hgb (11.2-15.7) gm/L Hct (34.1-44.9) % MCV (79.4-94.8) fl MCH (25.6-32.2) pg MCHC (32.2-35.5) g/dl RDW Std Deviation (36.4-46.3) fL Plt Count (182-369) K/mm3 MPV (9.4-12.3) fl Neutrophils % (Manual) (40-60) % Band Neutrophils % (0-10) % Lymphocytes % (Manual) (20-40) % Atypical Lymphs % % Monocytes % (Manual) (2-10) % Eosinophils % (Manual) (0.7-5.8) % Basophils % (Manual) (0.1-1.2) Platelet Estimate RBC Morph Comment ESR (0-20) mm/hr PT (9.5-12.1) SECONDS INR APTT (24-31) SECONDS Sodium (136-145) mEq/L Potassium (3.5-5.1) mEq/L Chloride (98-107) mEq/L Carbon Dioxide (21-32) mEq/L Anion Gap (5-15) BUN (7-18) mg/dL Creatinine (0.55-1.02) mg/dL Est Cr Clr Drug Dosing mL/min Estimated GFR (MDRD) (>60) mL/min BUN/Creatinine Ratio (14-18) Glucose (83-115) mg/dL Lactic Acid 1.4 (0.4-2.0) mmol/L Calcium (8.5-10.1) mg/dL Magnesium (1.8-2.4) mg/dl Total Bilirubin (0.2-1.0) mg/dL AST (15-37) U/L ALT (14-59) U/L Alkaline Phosphatase (46-116) U/L CK-MB (CK-2) (0-3.6) ng/ml Troponin I (0.00-0.056) ng/mL C-Reactive Protein (<1.0) mg/dL NT-Pro-B Natriuret Pep (0-450) pg/mL Total Protein (6.4-8.2) g/dl Albumin (3.4-5.0) g/dl Globulin gm/dL Albumin/Globulin Ratio (1-2) Mycoplasma pneumon IgM (NEGATIVE) Meds: Medications Generic Name Dose Route Start Last Admin Trade Name Freq PRN Reason Stop Dose Admin Diltiazem HCl 125 mg/ Sodium 125 mls @ 5 mls/hr 07/24/18 15:45 07/24/18 16:03 Chloride IV 5 mg/hr TITRATE KAYLEE 5 mls/hr Administration Protocol 5 MG/HR Sodium Chloride 10 ml 07/24/18 15:40 07/24/18 16:07 Saline Flush FLUSH 10 ml ASDIRECTED PRN Administration Keep Vein Open Discontinued Medications Generic Name Dose Route Start Last Admin Trade Name Freq PRN Reason Stop Dose Admin Acetaminophen 650 mg 07/24/18 15:41 07/24/18 16:01 Tylenol PO 07/24/18 15:42 650 mg NOW ONE Administration Diltiazem HCl 5 mg 07/24/18 15:40 07/24/18 16:02 Cardizem IVPUSH 07/24/18 15:41 5 mg ONETIME ONE Administration Furosemide 40 mg 07/24/18 15:52 07/24/18 16:11 Lasix IVPUSH 07/24/18 15:53 40 mg NOW ONE Administration Oseltamivir Phosphate 75 mg 07/24/18 16:26 07/24/18 16:46 Tamiflu PO 07/24/18 16:27 75 mg ONETIME ONE Administration - Radiology Interpretation Free Text/Narrative:: 78-year-old female presents to the ED for reevaluation of development of fever generalized weakness worsening cough and loss of appetite. On examination she was found to be in atrial fibrillation with rapid ventricular rate up to 1 70/ m. He has chronic atrial fibrillation and states that most time she remains to take her medications which is Cardizem 240 mg extended release daily with atenolol 50 mg daily. She's also on Eliquis 2.5 mg twice a day. Examination reveals her to be diffusely wheezy and few crackles in both bases suggestive of exacerbation of heart failure. She also experiencing retrosternal chest pressure which I interpreted as angina due to the rate. His rate is 135/m. She does indeed have a low-grade fever. Was 99.9. Therefore she will have a septic workup including influenza screen and mycoplasma screen. One view chest x-ray to be done. She'll be given 5 mg of Cardizem IV bolus since her blood pressure is 99 systolic. MB started on a drip at 5 mg per hour. - Re-Assessments/Exams Free Text/Narrative Re-Assessment/Exam: 07/24/18 16:24 chest x-ray done portably reveals marked cardiomegaly with blunted left costophrenic angle I believe from pericardial fat but could be also a bit of fluid. Rotated slightly to the right. There is a tortuous thoracic aorta. 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 There is very mild vascular congestion. No pleural effusions. Heart rate is currently down to 1 03/22/12 atrial fibrillation. Sats are 92-94% on 3 L/m. influenza A positive. Family members advised that she is influenza A positive and that should likely leave prior to becoming infected. She states her chest pressure discomfort is gone. She still has a terrible paroxysmal cough. 07/24/18 17:11 Labs reveal a normal white count at 7.10. Differential 74% neutrophils 1% band cells. Hemoglobin is 12.8 with hematocrit of 40.7. MCV is 93.8. Platelet callus 197,000. Sedimentation rate is 22. PT is 12.5 with an INR of 1.15. PTT is 36. Sodium 135 with a potassium of 4.1. Chloride 94 the bicarbonate 30. Anion gap is 15.1 minimally elevated BUN is 25 with a creatinine of 2.1. Glucose is 107 with a lactic acid of 1.4. Calcium is 9.9 with a magnesium of 1.2 by a quite low. Bilirubin is 0.8. AST is 35 ALT of 18. Alk phosphatase 78. CK-MB fraction is 1.0. Troponin I is less than 0.030. C- reactive protein is 1.6. BNP [place] elevated at 7414. Total protein is 7.0 with an albumin fraction of 3.6. Mycoplasma pneumonia IgM is negative. I have discussed the findings with the patient and her children were in the room. Stefano for admission to the hospital due to hypoxemia and congestive heart failure prognosis is always guarded when she has significant renal insufficiency and poor cardiac output. After discussion she is code level III which means DO NOT RESUSCITATE-DO NOT INTUBATE 07/24/18 18:40: Pressure dropped into the upper 80s and her heart rate is staying in the 60s. Therefore the Cardizem drip will be discontinued before she is admitted to the intensive care unit. I have discussed the case with Dr. Jenkins and Dr. Jenkins the hospitalist has seen her in the ED and agrees to admission to the intensive care unit. Of note she is influenza A positive and as noted above I did give her the first dose of Tamiflu 75 mg in the ED. She has voided a good deal with the 40 mg of Lasix IV as well. Departure - Departure Time of Disposition: 18:45 Disposition: Admitted As Inpatient 64 Condition: Poor Clinical Impression: Chronic atrial fibrillation with RVR, Influenza A, Acute febrile illness, Chronic renal insufficiency, stage IV (severe), Hypoxia Acute exacerbation of congestive heart failure Qualifiers: Heart failure type: diastolic Qualified Code(s): I50.33 - Acute on chronic diastolic (congestive) heart failure - Discharge Information - My Orders Last 24 Hours: My Active Orders 07/24/18 15:38 EKG Documentation Completion [RC] STAT Chest 1V Frontal [CR] Stat 07/24/18 15:39 EKG Documentation Completion [RC] STAT Oxygen Therapy [RC] ASDIRECTED Blood Culture x2 Reflex Set [OM.PC] Stat 07/24/18 15:40 Peripheral IV Care [RC] Q2HR Sodium Chloride 0.9% [Saline Flush] 10 ml FLUSH ASDIRECTED PRN Peripheral IV Insertion Adult [OM.PC] Stat 07/24/18 15:45 Diltiazem 125 mg Sodium Chloride 0.9% [Normal Saline] 100 ml IV TITRATE 07/24/18 15:55 CULTURE BLOOD [BC] Stat 07/24/18 16:01 CULTURE BLOOD [BC] Stat - Assessment/Plan Last 24 Hours: My Active Orders 07/24/18 15:38 EKG Documentation Completion [RC] STAT Chest 1V Frontal [CR] Stat 07/24/18 15:39 EKG Documentation Completion [RC] STAT Oxygen Therapy [RC] ASDIRECTED Blood Culture x2 Reflex Set [OM.PC] Stat 07/24/18 15:40 Peripheral IV Care [RC] Q2HR Sodium Chloride 0.9% [Saline Flush] 10 ml FLUSH ASDIRECTED PRN Peripheral IV Insertion Adult [OM.PC] Stat 07/24/18 15:45 Diltiazem 125 mg Sodium Chloride 0.9% [Normal Saline] 100 ml IV TITRATE 07/24/18 15:55 CULTURE BLOOD [BC] Stat 07/24/18 16:01 CULTURE BLOOD [BC] Stat
[2018-07-24] MEDS ORDERED: Sodium Chloride 0.9% 10 ML Syringe FLUSH PRN (15:40)
[2018-07-24] MEDS ORDERED: Diltiazem 50 MG/10 ML SDV IVPUSH ONE (15:40)
[2018-07-24] MEDS ORDERED: Acetaminophen 325 MG Tab PO ONE (15:41)
[2018-07-24] MEDS ORDERED: Furosemide 40 MG/4 ML VIAL IVPUSH ONE (15:52)
[2018-07-24] MEDS: Diltiazem 125 MG in Sodium Chloride 0.9% 100 ML IV SCH (16:03)
[2018-07-24] MEDS ORDERED: Oseltamivir 75 MG Cap PO ONE (16:26)
--- NOTE | 2018-07-24 19:42 | PCM.HP ---
H&P History of Present Illness - General Date of Service: 07/24/18 Admit Problem/Dx: Admission Diagnosis/Problem Admission Diagnosis/Problem Influenza due to influenza A virus Source of Information: Provider History Limitations: Reports: No Limitations - History of Present Illness Initial Comments - Free Text/Narative: 78 year old female with a PMH that includes chronic A Fib presents with A Fib with RVR. She complains of chest pain, it is associated with shortness of breath. Additionally the patient has been dizzy, she has tested positive for Influenza A. The patient has received TamiFlu in the ED. She has been started on a Cardizem drip, and will be admitted to ICU per protocol. It has been reported that the patient may be non compliant with her medical regimen. She was seen approximately 24 hours prior to returning to the ED. Code status, DNR/ DNI. Previous presentation, July 23, 2018 reported a change in meds. At that time, she reported no longer taking Metformin or Lasix. Onset of Symptoms: Reports: Gradual Duration of Symptoms: Reports: Day(s):, Getting Worse Location: Reports: Chest, Generalized Quality: Reports: Same as Previous Episode Improves with: Reports: Medication Worsens with: Reports: Other (medical non compliance) Associated Symptoms: Reports: Chest Pain, cough w sputum, Malaise, Nausea/ Vomiting, Shortness of Breath, Weakness Lower Back Pain Score (Numeric/FACES): 4 - Related Data Allergies/Adverse Reactions: Allergies Allergy/AdvReac Type Severity Reaction Status Date / Time contrast dye Allergy Hives Uncoded 07/24/18 22:19 Home Medications: Home Meds Calcium Citrate/Vitamin D3 [Citracal + D Maximum Caplet] 1 tab PO BEDTIME [History] Cyanocobalamin (Vitamin B12) [Vitamin B12] 1,000 mcg PO DAILY 04/09/17 [History] Forteo. 600 mcg SUBCUT DAILY 04/09/17 [History] Furosemide [Lasix] 20 mg PO BID 04/09/17 [History] Pravastatin [Pravachol] 20 mg PO BEDTIME 04/09/17 [History] Apixaban [Eliquis] 2.5 mg PO BID 07/23/18 [History] Diltiazem [Dilacor XR] 240 mg PO DAILY 07/23/18 [History] Metoprolol Succinate [Toprol Xl] 50 mg PO BEDTIME 07/23/18 [History] Potassium Chloride 20 meq PO DAILY 07/23/18 [History] Omeprazole 20 mg PO DAILY 07/24/18 [History] Past Medical History Cardiovascular History: Reports: Afib (He is on diltiazem 240 mg extended release daily and atenolol 50 mg once daily for rate control. 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: Musculoskeletal History: Reports: Back Pain, Chronic Other Musculoskeletal History: back surgery Endocrine/Metabolic History: Reports: Diabetes, Type II, Obesity/BMI 30+ - Past Surgical History HEENT Surgical History: Reports: Cataract Surgery, Tonsillectomy GI Surgical History: Reports: Cholecystectomy Neurological Surgical History: Reports: Lumbar Spine Other Neurological Surgeries/Procedures: back surgery Musculoskeletal Surgical History: Reports: Knee Replacement Social & Family History - Tobacco Use Smoking Status *Q: Current Every Day Smoker Years of Tobacco use: 70 Packs/Tins Daily: 0.2 - Caffeine Use Caffeine Use: Reports: Coffee - Recreational Drug Use Recreational Drug Use: No - Living Situation & Occupation Living situation: Reports: , with Family (Son) Occupation: Retired H&P Review of Systems - Review of Systems: Review Of Systems: See Below General: Reports: Malaise, Weakness, Fatigue HEENT: Reports: Sore Throat Pulmonary: Reports: Shortness of Breath, Wheezing, Cough, Sputum Cardiovascular: Reports: Palpitations, Lightheadedness Gastrointestinal: Reports: No Symptoms Genitourinary: Reports: No Symptoms Musculoskeletal: Reports: No Symptoms Skin: Reports: No Symptoms Psychiatric: Reports: Anxiety, Other (impulsive) Neurological: Reports: No Symptoms Hematologic/Lymphatic: Reports: No Symptoms Immunologic: Reports: No Symptoms Exam - Exam Exam: See Below - Vital Signs Vital Signs: Last Vital Signs Temp 37.2 C 07/24/18 16:01 Pulse 136 H 07/24/18 14:29 Resp 23 H 07/24/18 14:29 BP 107/87 07/24/18 14:29 Pulse Ox 90 L 07/24/18 14:29 Weight: 80.286 kg - Exam Quality Assessment: Supplemental Oxygen, DVT Prophylaxis General: Alert, Oriented, Cooperative, Mild Distress HEENT: Mucosa Moist & [place], Nares Patent, Normal Nasal Septum, Pupils Equal, Pupils Reactive, PERRLA Neck: Trachea Midline Lungs: Normal Respiratory Effort, Decreased Breath Sounds, Wheezing Cardiovascular: Regular Rate, Irregular Rhythm, Tachycardia GI/Abdominal Exam: Normal Bowel Sounds, Soft, Non-Tender, No Organomegaly, No Distention (Female) Exam: Deferred Rectal (Female) Exam: Deferred Back Exam: Normal Inspection Extremities: Normal Inspection, Non-Tender, Normal Capillary Refill Skin: Warm Neurological: Cranial Nerves Intact Neuro Extensive - Mental Status: Alert, Oriented x3 Neuro Extensive - Motor, Sensory, Reflexes: CN II-XII Intact Psychiatric: Alert, Anxious - Patient Data Lab Results Last 24 hrs: Laboratory Results - last 24 hr 07/24/18 07/24/18 07/24/18 Range/Units 15:55 15:55 15:55 WBC 7.10 (3.98-10.04) K/mm3 RBC 4.34 (3.98-5.22) M/mm3 Hgb 12.8 (11.2-15.7) gm/L Hct 40.7 (34.1-44.9) % MCV 93.8 (79.4-94.8) fl MCH 29.5 (25.6-32.2) pg MCHC 31.4 L (32.2-35.5) g/dl RDW Std Deviation 52.2 H (36.4-46.3) fL Plt Count 197 (182-369) K/mm3 MPV 11.0 (9.4-12.3) fl Neutrophils % (Manual) 74 H (40-60) % Band Neutrophils % 1 (0-10) % Lymphocytes % (Manual) 17 L (20-40) % Atypical Lymphs % 0 % Monocytes % (Manual) 8 (2-10) % Eosinophils % (Manual) 0 L (0.7-5.8) % Basophils % (Manual) 0 L (0.1-1.2) Platelet Estimate Adequate RBC Morph Comment Normal ESR (0-20) mm/hr PT 12.5 H (9.5-12.1) SECONDS INR 1.15 APTT (24-31) SECONDS Sodium 135 L (136-145) mEq/L Potassium 4.1 (3.5-5.1) mEq/L Chloride 94 L (98-107) mEq/L Carbon Dioxide 30 (21-32) mEq/L Anion Gap 15.1 H (5-15) BUN 25 H (7-18) mg/dL Creatinine 2.1 H (0.55-1.02) mg/dL Est Cr Clr Drug Dosing 17.67 mL/min Estimated GFR (MDRD) 23 (>60) mL/min BUN/Creatinine Ratio 11.9 L (14-18) Glucose 107 (83-115) mg/dL Lactic Acid (0.4-2.0) mmol/L Calcium 9.9 (8.5-10.1) mg/dL Magnesium 1.2 L (1.8-2.4) mg/dl Total Bilirubin 0.8 (0.2-1.0) mg/dL AST 35 (15-37) U/L ALT 18 (14-59) U/L Alkaline Phosphatase 78 (46-116) U/L CK-MB (CK-2) 1.0 (0-3.6) ng/ml Troponin I 0.030 (0.00-0.056) ng/mL C-Reactive Protein 1.6 H* (<1.0) mg/dL NT-Pro-B Natriuret Pep (0-450) pg/mL Total Protein 7.0 (6.4-8.2) g/dl Albumin 3.6 (3.4-5.0) g/dl Globulin 3.4 gm/dL Albumin/Globulin Ratio 1.1 (1-2) Mycoplasma pneumon IgM Negative (NEGATIVE) 07/24/18 07/24/18 07/24/18 Range/Units 15:55 15:55 15:55 WBC (3.98-10.04) K/mm3 RBC (3.98-5.22) M/mm3 Hgb (11.2-15.7) gm/L Hct (34.1-44.9) % MCV (79.4-94.8) fl MCH (25.6-32.2) pg MCHC (32.2-35.5) g/dl RDW Std Deviation (36.4-46.3) fL Plt Count (182-369) K/mm3 MPV (9.4-12.3) fl Neutrophils % (Manual) (40-60) % Band Neutrophils % (0-10) % Lymphocytes % (Manual) (20-40) % Atypical Lymphs % % Monocytes % (Manual) (2-10) % Eosinophils % (Manual) (0.7-5.8) % Basophils % (Manual) (0.1-1.2) Platelet Estimate RBC Morph Comment ESR 22 H (0-20) mm/hr PT (9.5-12.1) SECONDS INR APTT 36 H (24-31) SECONDS Sodium (136-145) mEq/L Potassium (3.5-5.1) mEq/L Chloride (98-107) mEq/L Carbon Dioxide (21-32) mEq/L Anion Gap (5-15) BUN (7-18) mg/dL Creatinine (0.55-1.02) mg/dL Est Cr Clr Drug Dosing mL/min Estimated GFR (MDRD) (>60) mL/min BUN/Creatinine Ratio (14-18) Glucose (83-115) mg/dL Lactic Acid (0.4-2.0) mmol/L Calcium (8.5-10.1) mg/dL Magnesium (1.8-2.4) mg/dl Total Bilirubin (0.2-1.0) mg/dL AST (15-37) U/L ALT (14-59) U/L Alkaline Phosphatase (46-116) U/L CK-MB (CK-2) (0-3.6) ng/ml Troponin I (0.00-0.056) ng/mL C-Reactive Protein (<1.0) mg/dL NT-Pro-B Natriuret Pep 7414 H (0-450) pg/mL Total Protein (6.4-8.2) g/dl Albumin (3.4-5.0) g/dl Globulin gm/dL Albumin/Globulin Ratio (1-2) Mycoplasma pneumon IgM (NEGATIVE) 07/24/18 Range/Units 15:55 WBC (3.98-10.04) K/mm3 RBC (3.98-5.22) M/mm3 Hgb (11.2-15.7) gm/L Hct (34.1-44.9) % MCV (79.4-94.8) fl MCH (25.6-32.2) pg MCHC (32.2-35.5) g/dl RDW Std Deviation (36.4-46.3) fL Plt Count (182-369) K/mm3 MPV (9.4-12.3) fl Neutrophils % (Manual) (40-60) % Band Neutrophils % (0-10) % Lymphocytes % (Manual) (20-40) % Atypical Lymphs % % Monocytes % (Manual) (2-10) % Eosinophils % (Manual) (0.7-5.8) % Basophils % (Manual) (0.1-1.2) Platelet Estimate RBC Morph Comment ESR (0-20) mm/hr PT (9.5-12.1) SECONDS INR APTT (24-31) SECONDS Sodium (136-145) mEq/L Potassium (3.5-5.1) mEq/L Chloride (98-107) mEq/L Carbon Dioxide (21-32) mEq/L Anion Gap (5-15) BUN (7-18) mg/dL Creatinine (0.55-1.02) mg/dL Est Cr Clr Drug Dosing mL/min Estimated GFR (MDRD) (>60) mL/min BUN/Creatinine Ratio (14-18) Glucose (83-115) mg/dL Lactic Acid 1.4 (0.4-2.0) mmol/L Calcium (8.5-10.1) mg/dL Magnesium (1.8-2.4) mg/dl Total Bilirubin (0.2-1.0) mg/dL AST (15-37) U/L ALT (14-59) U/L Alkaline Phosphatase (46-116) U/L CK-MB (CK-2) (0-3.6) ng/ml Troponin I (0.00-0.056) ng/mL C-Reactive Protein (<1.0) mg/dL NT-Pro-B Natriuret Pep (0-450) pg/mL Total Protein (6.4-8.2) g/dl Albumin (3.4-5.0) g/dl Globulin gm/dL Albumin/Globulin Ratio (1-2) Mycoplasma pneumon IgM (NEGATIVE) Result Diagrams: 07/26/18 06:12 07/26/18 06:12 [place] Results Last 24 hrs: Microbiology 07/24/18 15:49 Influenza Type A Antigen Screen - Final Nasal Aspirate, Unspecified Positive Influenza A Ag Influenza Type B Antigen Screen - Final NEGATIVE INFLUENZA B VIRUS AG - Problem List (1) Acute exacerbation of congestive heart failure SNOMED Code(s): 82036420 ICD Code: I50.9 - HEART FAILURE, UNSPECIFIED Status: Acute Current Visit : Yes Qualifiers: Heart failure type: diastolic Qualified Code(s): I50.33 - Acute on chronic diastolic (congestive) heart failure (2) Chronic renal insufficiency, stage IV (severe) SNOMED Code(s): 08048431 ICD Code: N18.4 - CHRONIC KIDNEY DISEASE, STAGE 4 (SEVERE) Status: Acute Current Visit: Yes (3) Hypoxia SNOMED Code(s): 614188736 ICD Code: R09.02 - HYPOXEMIA Status: Acute Current Visit: Yes (4) Influenza A SNOMED Code(s): 351947092 ICD Code: J10.1 - FLU DUE TO OTH IDENT INFLUENZA VIRUS W OTH RESP MANIFEST Status: Acute Current Visit: Yes (5) Confusion SNOMED Code(s): 715642836 ICD Code: R41.0 - DISORIENTATION, UNSPECIFIED Status: Acute Current Visit : No (6) Dizziness SNOMED Code(s): 275979128, 984158201 ICD Code: R42 - DIZZINESS AND GIDDINESS Status: Acute Current Visit: No Problem List Initiated/Reviewed/Updated: Yes Orders Last 24hrs: Active Orders 24 hr Category Date Time Status Admission Status [Patient Status] [ADT] Routine ADT 07/24/18 17:49 Active EKG 12 Lead [EKG Documentation Completion] [RC] STAT Care 07/24/18 14:39 Active EKG Documentation Completion [RC] STAT Care 07/24/18 15:38 Active EKG Documentation Completion [RC] STAT Care 07/24/18 15:39 Active Oxygen Therapy [RC] ASDIRECTED Care 07/24/18 15:39 Active Peripheral IV Care [RC] Q2HR Care 07/24/18 15:40 Active Chest 1V Frontal [CR] Stat Exams 07/24/18 15:38 Taken CULTURE BLOOD [BC] Stat Lab 07/24/18 15:55 Received CULTURE BLOOD [BC] Stat Lab 07/24/18 16:01 Received Diltiazem 125 mg Med 07/24/18 15:45 Active Sodium Chloride 0.9% [Normal Saline] 100 ml IV TITRATE Sodium Chloride 0.9% [Saline Flush] Med 07/24/18 15:40 Active 10 ml FLUSH ASDIRECTED PRN Blood Culture x2 Reflex Set [OM.PC] Stat Oth 07/24/18 15:39 Ordered Peripheral IV Insertion Adult [OM.PC] Stat Oth 07/24/18 15:40 Ordered Medication Orders Diltiazem HCl 125 mg/ Sodium (Chloride) 125 mls @ 5 mls/hr IV TITRATE KAYLEE; Protocol Last Admin: 07/24/18 16:03 Dose: 5 mg/hr, 5 mls/hr Sodium Chloride (Saline Flush) 10 ml FLUSH ASDIRECTED PRN PRN Reason: Keep Vein Open Last Admin: 07/24/18 16:07 Dose: 10 ml Assessment/Plan Comment:: Impression: Influenza A positive Query bacterial PNA Hypoxia Acute decompensated CHF, LVEF, unknown A fib with RVR; NOAC, Eliquis Acute on chronic kidney disease Chronic DM type 2, recent med changes HTN HLD GERD Tobacco dependence COPD Plan: TamiFlu, renal dose Resp work up Lasix gtt Cardizem gtt Restart home meds Daily Labs Diurese as tolerated Follow renal function 2D echo Droplet isolation Correct electrolytes Tobacco cessation CHF education Diabetic ed Consult PT/OT/CM DVT/GI prophylaxis
[2018-07-24] MEDS ORDERED: Levalbuterol HCl 1.25 MG/3 ML Neb NEB SCH (21:00)
[2018-07-24] MEDS: Ipratropium 0.02% 0.5 MG/2.5 ML Neb Soln NEB PRN (21:08)
[2018-07-24] MEDS: Furosemide 100 MG in Sodium Chloride 0.9% 90 ML IV SCH (21:10)
[2018-07-24] MEDS: Nicotine 21 MG/24 Hr Patch TRDERM SCH (21:10)
[2018-07-24] MEDS: Simvastatin 10 MG Tab PO SCH (21:17)
[2018-07-24] MEDS: Apixaban 5 MG Tab PO SCH (21:17)
[2018-07-24] MEDS: Temazepam 7.5 MG Cap PO PRN (21:18)
[2018-07-24] MEDS ORDERED: Magnesium Sulfate/Water 4 GM in Premix Bag 1 BAG IV ONE (23:30)
[2018-07-25] MEDS: Magnesium Sulfate/Water 2 GM in Premix Bag 1 BAG IV ONE ×2 (02:01→05:43)
[2018-07-25] MEDS: Levalbuterol HCl 1.25 MG/3 ML Neb NEB SCH ×4 (05:20→20:24)
[2018-07-25] MEDS: Ipratropium 0.02% 0.5 MG/2.5 ML Neb Soln NEB PRN (05:20)
--- NOTE | 2018-07-25 06:24 | CR ---
Chest: Frontal view of the chest was obtained utilizing portable technique. Comparison: Prior chest x-ray and chest CT dated 07/23/18. Heart size is slightly enlarged. Tortuous thoracic aorta is noted. Lungs are clear with no acute parenchymal change. Previous lumbar spine surgery is noted. Scoliosis is present within the spine. Degenerative change is noted within both shoulders. Impression: 1. Incidental findings. Nothing acute is appreciated on portable chest x-ray. Diagnostic code #2
[2018-07-25] MEDS: Pantoprazole 40 MG Tab.CR PO SCH (06:36)
[2018-07-25] MEDS ORDERED: Oseltamivir 30 MG Cap PO SCH (08:00)
[2018-07-25] MEDS: Nicotine 21 MG/24 Hr Patch TRDERM SCH (09:18)
[2018-07-25] MEDS: Apixaban 5 MG Tab PO SCH ×2 (09:19→20:37)
[2018-07-25] MEDS ORDERED: Sodium Chloride 0.9% 250 ML IV SCH (09:30)
[2018-07-25] MEDS ORDERED: Sodium Chloride 0.9% 250 ML IV ONE (09:45)
[2018-07-25] MEDS: Diltiazem 125 MG in Sodium Chloride 0.9% 100 ML IV SCH (09:49)
[2018-07-25] MEDS: Diltiazem IR 30 MG Tab PO SCH ×3 (09:51→20:37)
[2018-07-25] MEDS: Acetaminophen 325 MG Tab PO PRN (11:14)
[2018-07-25] MEDS ORDERED: Sodium Chloride 0.9% 1,000 ML IV ONE (11:59)
[2018-07-25] MEDS ORDERED: Sodium Chloride 0.9% 1,000 ML IV SCH ×3 (12:15→21:00)
[2018-07-25] MEDS: Norepinephrine 4 MG in Dextrose 5% in Water 246 ML IV SCH ×2 (12:39)
[2018-07-25] MEDS: Oseltamivir 30 MG Cap PO SCH (15:43)
--- NOTE | 2018-07-25 19:40 | PCM.PN ---
- General Info Date of Service: 07/25/18 Functional Status: Reports: Pain Controlled, Tolerating Diet, Ambulating, Urinating - Review of Systems General: Reports: Weakness, Malaise HEENT: Reports: No Symptoms Pulmonary: Reports: Shortness of Breath, Cough Cardiovascular: Reports: No Symptoms Gastrointestinal: Reports: No Symptoms Genitourinary: Reports: No Symptoms Musculoskeletal: Reports: No Symptoms Skin: Reports: No Symptoms Neurological: Reports: No Symptoms Psychiatric: Reports: No Symptoms - Patient Data Vitals - Most Recent: Last Vital Signs Temp 36.8 C 07/25/18 16:00 Pulse 82 07/25/18 18:51 Resp 16 07/25/18 16:00 BP 114/94 H 07/25/18 18:51 Pulse Ox 93 L 07/25/18 16:00 Weight - Most Recent: 76.476 kg I&O - Last 24 Hours: Intake & Output 07/25/18 07/25/18 07/25/18 06:59 14:59 22:59 Intake Total 177 320 685 Output Total 1000 425 425 Balance -823 -105 260 Lab Results Last 24 Hours: Laboratory Results - last 24 hr 07/24/18 07/25/18 07/25/18 Range/Units 21:35 04:25 04:25 WBC 11.22 H (3.98-10.04) K/mm3 RBC 4.37 (3.98-5.22) M/mm3 Hgb 13.0 (11.2-15.7) gm/L Hct 40.5 (34.1-44.9) % MCV 92.7 (79.4-94.8) fl MCH 29.7 (25.6-32.2) pg MCHC 32.1 L (32.2-35.5) g/dl RDW Std Deviation 51.9 H (36.4-46.3) fL Plt Count 190 (182-369) K/mm3 MPV 11.1 (9.4-12.3) fl Neut % (Auto) 85.3 H (34.0-71.1) % Lymph % (Auto) 7.0 L (19.3-51.7) % [place] % (Auto) 7.2 (4.7-12.5) % Eos % (Auto) 0 L (0.7-5.8) Baso % (Auto) 0.2 (0.1-1.2) % Neut # (Auto) 9.57 H (1.56-6.13) K/mm3 Lymph # (Auto) 0.79 L (1.18-3.74) K/mm3 [place] # (Auto) 0.81 H (0.24-0.36) K/mm3 Eos # (Auto) 0.00 L (0.04-0.36) K/mm3 Baso # (Auto) 0.02 (0.01-0.08) K/mm3 Manual Slide Review Abnormal smear Puncture Site ABG pH (7.35-7.45) ABG pCO2 (35.0-45.0) mmHg ABG pO2 (80.0-100.0) mmHg ABG HCO3 (22.0-26.0) meq/L ABG O2 Saturation (96.0-97.0) % ABG Base Excess (-2-2.0) A-a Gradient mmHg O2 Delivery Device Oxygen Flow Rate FiO2 (21.00-100.00) % Sodium 134 L (136-145) mEq/L Potassium 3.7 (3.5-5.1) mEq/L Chloride 93 L (98-107) mEq/L Carbon Dioxide 30 (21-32) mEq/L Anion Gap 14.7 (5-15) BUN 29 H (7-18) mg/dL Creatinine 2.4 H (0.55-1.02) mg/dL Est Cr Clr Drug Dosing 15.46 mL/min Estimated GFR (MDRD) 19 (>60) mL/min BUN/Creatinine Ratio 12.1 L (14-18) Glucose 125 H (83-115) mg/dL Lactic Acid (0.4-2.0) mmol/L Calcium 9.5 (8.5-10.1) mg/dL Magnesium 3.9 H (1.8-2.4) mg/dl Troponin I 0.033 (0.00-0.056) ng/mL C-Reactive Protein 2.7 H* (<1.0) mg/dL Urine Color Yellow (Yellow) Urine Appearance Clear (Clear) Urine pH 5.5 (5.0-8.0) Ur Specific Jermyn 1.020 (1.005-1.030) Urine Protein Negative (Negative) Urine Glucose (UA) Negative (Negative) Urine Ketones Negative (Negative) Urine Occult Blood Negative (Negative) Urine Nitrite Negative (Negative) Urine Bilirubin Negative (Negative) Urine Urobilinogen 0.2 (0.2-1.0) Ur Leukocyte Esterase Negative (Negative) Urine RBC 0-5 (0-5) /hpf Urine WBC 0-5 (0-5) /hpf Ur Epithelial Cells 0-5 (0-5) /hpf Urine Bacteria Not seen (FEW) /hpf Hyaline Casts 0-5 (0-5) /lpf Fine Granular Casts 0-5 (0-5) /lpf Urine Mucus Rare H (FEW) /hpf 07/25/18 07/25/18 07/25/18 Range/Units 04:25 06:13 13:04 WBC (3.98-10.04) K/mm3 RBC (3.98-5.22) M/mm3 Hgb (11.2-15.7) gm/L Hct (34.1-44.9) % MCV (79.4-94.8) fl MCH (25.6-32.2) pg MCHC (32.2-35.5) g/dl RDW Std Deviation (36.4-46.3) fL Plt Count (182-369) K/mm3 MPV (9.4-12.3) fl Neut % (Auto) (34.0-71.1) % Lymph % (Auto) (19.3-51.7) % [place] % (Auto) (4.7-12.5) % Eos % (Auto) (0.7-5.8) Baso % (Auto) (0.1-1.2) % Neut # (Auto) (1.56-6.13) K/mm3 Lymph # (Auto) (1.18-3.74) K/mm3 [place] # (Auto) (0.24-0.36) K/mm3 Eos # (Auto) (0.04-0.36) K/mm3 Baso # (Auto) (0.01-0.08) K/mm3 Manual Slide Review Puncture Site Rt radial ABG pH 7.46 H (7.35-7.45) ABG pCO2 39.9 (35.0-45.0) mmHg ABG pO2 64.0 L (80.0-100.0) mmHg ABG HCO3 27.8 H (22.0-26.0) meq/L ABG O2 Saturation 91.5 L (96.0-97.0) % ABG Base Excess 4.0 H (-2-2.0) A-a Gradient 91 mmHg O2 Delivery Device Nasal cannula Oxygen Flow Rate 3.0 FiO2 32.00 (21.00-100.00) % Sodium (136-145) mEq/L Potassium (3.5-5.1) mEq/L Chloride (98-107) mEq/L Carbon Dioxide (21-32) mEq/L Anion Gap (5-15) BUN (7-18) mg/dL Creatinine (0.55-1.02) mg/dL Est Cr Clr Drug Dosing mL/min Estimated GFR (MDRD) (>60) mL/min BUN/Creatinine Ratio (14-18) Glucose (83-115) mg/dL Lactic Acid 1.0 (0.4-2.0) mmol/L Calcium (8.5-10.1) mg/dL Magnesium 3.3 H (1.8-2.4) mg/dl Troponin I (0.00-0.056) ng/mL C-Reactive Protein (<1.0) mg/dL Urine Color (Yellow) Urine Appearance (Clear) Urine pH (5.0-8.0) Ur Specific Jermyn (1.005-1.030) Urine Protein (Negative) Urine Glucose (UA) (Negative) Urine Ketones (Negative) Urine Occult Blood (Negative) Urine Nitrite (Negative) Urine Bilirubin (Negative) Urine Urobilinogen (0.2-1.0) Ur Leukocyte Esterase (Negative) Urine RBC (0-5) /hpf Urine WBC (0-5) /hpf Ur Epithelial Cells (0-5) /hpf Urine Bacteria (FEW) /hpf Hyaline Casts (0-5) /lpf Fine Granular Casts (0-5) /lpf Urine Mucus (FEW) /hpf Roverto Results Last 24 Hours: Microbiology 07/24/18 16:01 Aerobic Blood Culture - Preliminary Blood - Venous NO GROWTH AFTER 1 DAY Anaerobic Blood Culture - Final 07/24/18 15:55 Aerobic Blood Culture - Preliminary Blood - Venous - Lab Draw NO GROWTH AFTER 1 DAY Anaerobic Blood Culture - Preliminary NO GROWTH AFTER 1 DAY 07/24/18 15:49 Influenza Type A Antigen Screen - Final Nasal Aspirate, Unspecified Positive Influenza A Ag Influenza Type B Antigen Screen - Final NEGATIVE INFLUENZA B VIRUS AG Med Orders - Current: Current Medications Acetaminophen (Tylenol) 650 mg PO Q4H PRN PRN Reason: Pain/Fever Last Admin: 07/25/18 11:14 Dose: 650 mg Apixaban (Eliquis) 2.5 mg PO BID [facility] Last Admin: 07/25/18 09:19 Dose: 2.5 mg Diltiazem HCl (Cardizem) 30 mg PO Q6H KAYLEE Last Admin: 07/25/18 15:43 Dose: 30 mg Diltiazem HCl 125 mg/ Sodium (Chloride) 125 mls @ 10 mls/hr IV TITRATE [facility]; Protocol Last Titration: 07/25/18 17:03 Dose: 2.5 mg/hr, 2.5 mls/hr Furosemide 100 mg/ Sodium (Chloride) 100 mls @ 4 mls/hr IV TITRATE KAYLEE Stop: 07/26/18 20:31 Last Admin: 07/24/18 21:10 Dose: 4 mls/hr Norepinephrine Bitartrate 4 mg (/ Dextrose/Water) 250 mls @ 7.5 mls/hr IV TITRATE [facility]; Protocol Last Titration: 07/25/18 19:37 Dose: 6 mcg/min, 22.5 mls/hr Ipratropium [place] (Atrovent) 0.5 mg NEB Q8HRRT PRN PRN Reason: Shortness of Breath Last Admin: 07/25/18 05:20 Dose: 0.5 mg Levalbuterol HCl (Xopenex) 1.25 mg NEB QIDRT [facility] Last Admin: 07/25/18 15:29 Dose: 1.25 mg Nicotine (Habitrol) 21 mg TRDERM DAILY [facility] Last Admin: 07/25/18 09:18 Dose: Not Given Oseltamivir Phosphate (Tamiflu) 30 mg PO Q24H [facility] Last Admin: 07/25/18 15:43 Dose: 30 mg Pantoprazole Sodium (Protonix) 40 mg PO DAILY@0700 [facility] Last Admin: 07/25/18 06:36 Dose: 40 mg Simvastatin (Zocor) 10 mg PO BEDTIME [facility] Last Admin: 07/24/18 21:17 Dose: 10 mg Sodium Chloride (Saline Flush) 10 ml FLUSH ASDIRECTED PRN PRN Reason: Keep Vein Open Last Admin: 07/24/18 16:07 Dose: 10 ml Temazepam (Restoril) 7.5 mg PO BEDTIME PRN PRN Reason: Insomnia Last Admin: 07/24/18 21:18 Dose: 7.5 mg Discontinued Medications Acetaminophen (Tylenol) 650 mg PO NOW ONE Stop: 07/24/18 15:42 Last Admin: 07/24/18 16:01 Dose: 650 mg Diltiazem HCl (Cardizem) 5 mg IVPUSH ONETIME ONE Stop: 07/24/18 15:41 Last Admin: 07/24/18 16:02 Dose: 5 mg Furosemide (Lasix) 40 mg IVPUSH NOW ONE Stop: 07/24/18 15:53 Last Admin: 07/24/18 16:11 Dose: 40 mg Magnesium Sulfate 4 gm/ Premix 100 mls @ 25 mls/hr IV ONETIME ONE Stop: 07/25/18 03:29 Last Admin: 07/24/18 23:25 Dose: 50 mls/hr Magnesium Sulfate 2 gm/ Premix 50 mls @ 25 mls/hr IV ONETIME ONE Stop: 07/25/18 05:29 Last Admin: 07/25/18 05:43 Dose: Not Given Sodium Chloride (Normal Saline) 250 mls @ 999 mls/hr IV ASDIRECTED KAYLEE Sodium Chloride (Normal Saline) 250 mls @ 999 mls/hr IV .BOLUS ONE Stop: 07/25/18 10:00 Last Admin: 07/25/18 09:51 Dose: 999 mls/hr Sodium Chloride (Normal Saline) 1,000 mls @ 999 mls/hr IV .BOLUS ONE Stop: 07/25/18 12:59 Last Admin: 07/25/18 12:07 Dose: 999 mls/hr Sodium Chloride (Normal Saline) 1,000 mls @ 75 mls/hr IV ASDIRECTED KAYLEE Levalbuterol HCl (Xopenex) 1.25 mg NEB QID [facility] Last Admin: 07/24/18 21:08 Dose: 1.25 mg Oseltamivir Phosphate (Tamiflu) 75 mg PO ONETIME ONE Stop: 07/24/18 16:27 Last Admin: 07/24/18 16:46 Dose: 75 mg - Exam Quality Assessment: Supplemental Oxygen, DVT Prophylaxis General: Alert, Oriented, Cooperative, No Acute Distress HEENT: Pupils Equal, Pupils Reactive, EOMI Neck: Trachea Midline, No JVD Lungs: Normal Respiratory Effort Cardiovascular: Regular Rate, Irregular Rhythm, Tachycardia GI/Abdominal Exam: Normal Bowel Sounds, Soft, Non-Tender, No Organomegaly, No Distention (Female) Exam: Deferred Back Exam: Normal Inspection Extremities: Normal Inspection, Non-Tender, Normal Capillary Refill Skin: Warm Neurological: No New Focal Deficit Psy/Mental Status: Alert, Normal Affect, Normal Mood - Problem List Review Problem List Initiated/Reviewed/Updated: Yes - My Orders Last 24 Hours: My Active Orders 07/24/18 20:16 Code Status [Resuscitation Status] Routine 07/24/18 20:18 RT Aerosol Therapy [RC] .PRN Ipratropium [Atrovent] 0.5 mg NEB Q8HRRT PRN 07/24/18 20:22 Urinary Catheter Assessment [RC] Q4HR 07/24/18 20:23 Isolation [COMM] Routine 07/24/18 20:24 Temazepam [Restoril] 7.5 mg PO BEDTIME PRN 07/24/18 20:30 Insert Enrique Catheter [Insert Urinary Catheter] [OM.PC] Q24H Furosemide [Lasix] 100 mg Sodium Chloride 0.9% [Normal Saline] 90 ml IV TITRATE 07/24/18 21:00 Apixaban [Eliquis] 2.5 mg PO BID Nicotine [Habitrol] 21 mg TRDERM DAILY Simvastatin [Zocor] 10 mg PO BEDTIME 07/24/18 21:35 STREP PNEUMONIAE ANTIGEN [MREF] Routine 07/24/18 21:46 RESPIRATORY PANEL Routine 07/24/18 22:59 RT Chest Physiotherapy [RC] ASDIRECTED 07/24/18 23:50 Up With Assistance [RC] ASDIRECTED Up ad Nicole [RC] ASDIRECTED 07/25/18 06:00 Levalbuterol HCl [Xopenex] 1.25 mg NEB QIDRT 07/25/18 07:00 Pantoprazole [ProTONIX] 40 mg PO DAILY@0700 07/25/18 09:30 Diltiazem IR [Cardizem] 30 mg PO Q6H 07/25/18 11:10 Acetaminophen [Tylenol] 650 mg PO Q4H PRN 07/25/18 12:30 Norepinephrine [Levophed] 4 mg Dextrose 5% in Water 246 ml IV TITRATE 07/25/18 16:00 Oseltamivir [Tamiflu] 30 mg PO Q24H 07/25/18 Breakfast Heart Healthy Diet [DIET] 07/25/18 Lunch Fluid Restriction [DIET] 07/26/18 05:00 BMP [BASIC METABOLIC PANEL,BMP] [CHEM] DAILY CBC WITH AUTO DIFF [HEME] DAILY CRP [C-REACTIVE PROTEIN] [CHEM] DAILY LACTIC ACID [CHEM] DAILY MAGNESIUM [CHEM] DAILY PRO B-TYPE NATRIUR PEPT,BNPPRO [CHEM] Routine 07/26/18 08:00 CXR [Chest 2V] [CR] Routine 07/27/18 05:00 BMP [BASIC METABOLIC PANEL,BMP] [CHEM] DAILY CBC WITH AUTO DIFF [HEME] DAILY CRP [C-REACTIVE PROTEIN] [CHEM] DAILY LACTIC ACID [CHEM] DAILY MAGNESIUM [CHEM] DAILY 07/28/18 05:00 BMP [BASIC METABOLIC PANEL,BMP] [CHEM] DAILY CBC WITH AUTO DIFF [HEME] DAILY CRP [C-REACTIVE PROTEIN] [CHEM] DAILY LACTIC ACID [CHEM] DAILY MAGNESIUM [CHEM] DAILY 07/29/18 05:00 BMP [BASIC METABOLIC PANEL,BMP] [CHEM] DAILY CBC WITH AUTO DIFF [HEME] DAILY CRP [C-REACTIVE PROTEIN] [CHEM] DAILY LACTIC ACID [CHEM] DAILY MAGNESIUM [CHEM] DAILY - Plan Plan:: Impression: Influenza A positive Query bacterial PNA Hypoxia Acute decompensated CHF, LVEF, unknown A fib with RVR; NOAC, Eliquis Acute on chronic kidney disease, fluid bolus as needed. Chronic DM type 2, recent med changes HTN HLD GERD Tobacco dependence COPD Plan: TamiFlu, renal dose Resp work up Lasix gtt, ~48 hours as tolerated 2 liter fluid restriction Cardizem gtt, 2.5-5 mg/ for rate control, avoid hypotension Titrate O2, keep sat >92% Restart home meds, resume Cardizem-->use shorter acting. Daily Labs Diurese as tolerated Follow renal function 2D echo Droplet isolation Correct electrolytes Tobacco cessation CHF education Diabetic ed Consult PT/OT/CM DVT/GI prophylaxis
[2018-07-25] MEDS: Furosemide 100 MG in Sodium Chloride 0.9% 90 ML IV SCH (19:59)
[2018-07-25] MEDS: Simvastatin 10 MG Tab PO SCH (20:37)
[2018-07-25] MEDS: Temazepam 7.5 MG Cap PO PRN (20:37)
[2018-07-25] MEDS ORDERED: DOPamine/Dextrose 5%-Water 400 MG/250 ML BAG IV SCH (20:45)
[2018-07-25] MEDS ORDERED: Temazepam 7.5 MG Cap PO ONE (23:03)
[2018-07-26] MEDS: Morphine 2 MG/ML Syringe IVPUSH PRN ×2 (00:32→15:56)
[2018-07-26] MEDS: Norepinephrine 4 MG in Dextrose 5% in Water 246 ML IV SCH ×6 (01:09→21:32)
[2018-07-26] MEDS: Diltiazem IR 30 MG Tab PO SCH ×4 (03:43→21:31)
[2018-07-26] MEDS: Levalbuterol HCl 1.25 MG/3 ML Neb NEB SCH ×4 (05:22→22:07)
[2018-07-26] MEDS: Pantoprazole 40 MG Tab.CR PO SCH (05:59)
[2018-07-26] MEDS: Acetaminophen 325 MG Tab PO PRN (07:10)
[2018-07-26] MEDS: Apixaban 5 MG Tab PO SCH ×2 (08:15→20:28)
--- NOTE | 2018-07-26 10:02 | CR ---
Chest: PA and lateral views of the chest were obtained. Comparison: Prior chest x-ray of 07/23/[address] of 07/23/18. Heart is mildly enlarged. Tortuous thoracic aorta is seen. Lungs show no acute parenchymal change. Prior lower thoracic and lumbar spine surgery is noted. Degenerative change and mild scoliosis are present within the thoracic spine. Impression: 1. Findings as noted above. Nothing acute is appreciated. Diagnostic code #2
[2018-07-26] MEDS: Nicotine 21 MG/24 Hr Patch TRDERM SCH ×2 (10:26→15:41)
[2018-07-26] MEDS: Potassium Chloride 20 MEQ Tab.ER PO SCH ×2 (10:57→20:29)
[2018-07-26] MEDS: Ondansetron 4 MG/2 ML SDV IVPUSH PRN ×2 (11:16→17:54)
--- NOTE | 2018-07-26 14:09 | PCM.PN ---
- General Info Date of Service: 07/26/18 Subjective Update: Patient tries to get up without assistance, needs redirection. Functional Status: Reports: Pain Controlled, Tolerating Diet, Ambulating, Urinating - Review of Systems General: Reports: Weakness HEENT: Reports: No Symptoms Pulmonary: Reports: No Symptoms Cardiovascular: Reports: No Symptoms Gastrointestinal: Reports: No Symptoms Genitourinary: Reports: No Symptoms Musculoskeletal: Reports: No Symptoms Skin: Reports: No Symptoms Neurological: Reports: No Symptoms Psychiatric: Reports: No Symptoms - Patient Data Vitals - Most Recent: Last Vital Signs Temp 36.3 C 07/26/18 08:00 Pulse 94 07/26/18 10:00 Resp 18 07/26/18 08:00 BP 87/52 L 07/26/18 12:00 Pulse Ox 95 07/26/18 11:00 Weight - Most Recent: 80.286 kg I&O - Last 24 Hours: Intake & Output 07/25/18 07/26/18 07/26/18 22:59 06:59 14:59 Intake Total 685 1195 Output Total 550 710 150 Balance 135 485 -150 Lab Results Last 24 Hours: Laboratory Results - last 24 hr 07/24/18 07/26/18 07/26/18 Range/Units 21:46 06:12 06:12 WBC 12.12 H (3.98-10.04) K/mm3 RBC 4.26 (3.98-5.22) M/mm3 Hgb 12.5 (11.2-15.7) gm/L Hct 39.4 (34.1-44.9) % MCV 92.5 (79.4-94.8) fl MCH 29.3 (25.6-32.2) pg MCHC 31.7 L (32.2-35.5) g/dl RDW Std Deviation 52.4 H (36.4-46.3) fL Plt Count 205 (182-369) K/mm3 MPV 11.4 (9.4-12.3) fl Neut % (Auto) 75.1 H (34.0-71.1) % Lymph % (Auto) 16.0 L (19.3-51.7) % [place] % (Auto) 8.3 (4.7-12.5) % Eos % (Auto) 0.1 L (0.7-5.8) Baso % (Auto) 0.2 (0.1-1.2) % Neut # (Auto) 9.11 H (1.56-6.13) K/mm3 Lymph # (Auto) 1.94 (1.18-3.74) K/mm3 [place] # (Auto) 1.00 H (0.24-0.36) K/mm3 Eos # (Auto) 0.01 L (0.04-0.36) K/mm3 Baso # (Auto) 0.02 (0.01-0.08) K/mm3 Sodium 131 L (136-145) mEq/L Potassium 3.3 L (3.5-5.1) mEq/L Chloride 92 L (98-107) mEq/L Carbon Dioxide 29 (21-32) mEq/L Anion Gap 13.3 (5-15) BUN 34 H (7-18) mg/dL Creatinine 2.8 H (0.55-1.02) mg/dL Est Cr Clr Drug Dosing 13.26 mL/min Estimated GFR (MDRD) 16 (>60) mL/min BUN/Creatinine Ratio 12.1 L (14-18) Glucose 159 H (83-115) mg/dL Lactic Acid (0.4-2.0) mmol/L Calcium 8.7 (8.5-10.1) mg/dL Magnesium 2.4 (1.8-2.4) mg/dl C-Reactive Protein 6.9 H* (<1.0) mg/dL NT-Pro-B Natriuret Pep (0-450) pg/mL Adenovirus (PCR) Not detected (Not Detected) B. pertussis DNA (PCR) Not detected (Not Detected) B.parapertussis DNA PCR Not detected (Not Detected) C. pneumoniae DNA (PCR) Not detected (Not Detected) Coronavirus (PCR) Not detected (Not Detected) Human Metapneumovir PCR Not detected (Not Detected) Influ A (H1N1/09) PCR Detected H (Not Detected) Influenza B (RT-PCR) Not detected (Not Detected) M. pneumoniae (PCR) Not detected (Not Detected) Parainfluen 1,2,3,4 PCR Not detected (Not Detected) RSV (PCR) Not detected (Not Detected) Entero/Rhino (PCR) Not detected (Not Detected) 07/26/18 07/26/18 Range/Units 06:12 06:12 WBC (3.98-10.04) K/mm3 RBC (3.98-5.22) M/mm3 Hgb (11.2-15.7) gm/L Hct (34.1-44.9) % MCV (79.4-94.8) fl MCH (25.6-32.2) pg MCHC (32.2-35.5) g/dl RDW Std Deviation (36.4-46.3) fL Plt Count (182-369) K/mm3 MPV (9.4-12.3) fl Neut % (Auto) (34.0-71.1) % Lymph % (Auto) (19.3-51.7) % [place] % (Auto) (4.7-12.5) % Eos % (Auto) (0.7-5.8) Baso % (Auto) (0.1-1.2) % Neut # (Auto) (1.56-6.13) K/mm3 Lymph # (Auto) (1.18-3.74) K/mm3 [place] # (Auto) (0.24-0.36) K/mm3 Eos # (Auto) (0.04-0.36) K/mm3 Baso # (Auto) (0.01-0.08) K/mm3 Sodium (136-145) mEq/L Potassium (3.5-5.1) mEq/L Chloride (98-107) mEq/L Carbon Dioxide (21-32) mEq/L Anion Gap (5-15) BUN (7-18) mg/dL Creatinine (0.55-1.02) mg/dL Est Cr Clr Drug Dosing mL/min Estimated GFR (MDRD) (>60) mL/min BUN/Creatinine Ratio (14-18) Glucose (83-115) mg/dL Lactic Acid 1.5 (0.4-2.0) mmol/L Calcium (8.5-10.1) mg/dL Magnesium (1.8-2.4) mg/dl C-Reactive Protein (<1.0) mg/dL NT-Pro-B Natriuret Pep 1165 H (0-450) pg/mL Adenovirus (PCR) (Not Detected) B. pertussis DNA (PCR) (Not Detected) B.parapertussis DNA PCR (Not Detected) C. pneumoniae DNA (PCR) (Not Detected) Coronavirus (PCR) (Not Detected) Human Metapneumovir PCR (Not Detected) Influ A (H1N1/09) PCR (Not Detected) Influenza B (RT-PCR) (Not Detected) M. pneumoniae (PCR) (Not Detected) Parainfluen 1,2,3,4 PCR (Not Detected) RSV (PCR) (Not Detected) Entero/Rhino (PCR) (Not Detected) [facility] Results Last 24 Hours: Microbiology 07/24/18 21:35 Streptococcus pneumoniae Antigen (M - Final Urine 07/24/18 16:01 Aerobic Blood Culture - Preliminary Blood - Venous NO GROWTH AFTER 1 DAY Anaerobic Blood Culture - Final 07/24/18 15:55 Aerobic Blood Culture - Preliminary Blood - Venous - Lab Draw NO GROWTH AFTER 1 DAY Anaerobic Blood Culture - Preliminary NO GROWTH AFTER 1 DAY Med Orders - Current: Current Medications Acetaminophen (Tylenol) 650 mg PO Q4H PRN PRN Reason: Pain/Fever Last Admin: 07/26/18 07:10 Dose: 650 mg Apixaban (Eliquis) 2.5 mg PO BID K[facility]LEE Last Admin: 07/26/18 08:15 Dose: 2.5 mg Diltiazem HCl (Cardizem) 30 mg PO Q6H [facility]LEE Last Admin: 07/26/18 08:15 Dose: 30 mg Diltiazem HCl 125 mg/ Sodium (Chloride) 125 mls @ 10 mls/hr IV TITRATE KAYLEE; Protocol Last Titration: 07/26/18 03:57 Dose: 0 mg/hr, 0 mls/hr Furosemide 100 mg/ Sodium (Chloride) 100 mls @ 4 mls/hr IV TITRATE [facility]LEE Stop: 07/26/18 20:31 Last Infusion: 07/26/18 01:15 Dose: 4 mls/hr Norepinephrine Bitartrate 4 mg (/ Dextrose/Water) 250 mls @ 7.5 mls/hr IV TITRATE KAYLEE; Protocol Last Admin: 07/26/18 10:23 Dose: 9 mcg/min, 33.75 mls/hr Dopamine HCl/Dextrose (Dopamine In D5w 400 Mg/250 Ml) 400 mg in 250 mls @ 8.604 mls/hr IV TITRATE KAYLEE; Protocol Ipratropium [place] (Atrovent) 0.5 mg NEB Q8HRRT PRN PRN Reason: Shortness of Breath Last Admin: 07/25/18 05:20 Dose: 0.5 mg Levalbuterol HCl (Xopenex) 1.25 mg NEB QIDRT [facility] Last Admin: 07/26/18 09:42 Dose: 1.25 mg Morphine Sulfate (Morphine) 2 mg IVPUSH Q6HR PRN PRN Reason: Dyspnea Last Admin: 07/26/18 00:32 Dose: 2 mg Nicotine (Habitrol) 21 mg TRDERM DAILY [facility] Last Admin: 07/26/18 10:26 Dose: Not Given Ondansetron HCl (Zofran) 4 mg IVPUSH Q6H PRN PRN Reason: Nausea Last Admin: 07/26/18 11:16 Dose: 4 mg Oseltamivir Phosphate (Tamiflu) 30 mg PO Q24H [facility] Last Admin: 07/25/18 15:43 Dose: 30 mg Pantoprazole Sodium (Protonix) 40 mg PO DAILY@0700 [facility] Last Admin: 07/26/18 05:59 Dose: 40 mg Potassium Chloride (Klor-Con M20) 40 meq PO BID [facility] Stop: 07/27/18 09:01 Last Admin: 07/26/18 10:57 Dose: 40 meq Simvastatin (Zocor) 10 mg PO BEDTIME [facility] Last Admin: 07/25/18 20:37 Dose: 10 mg Sodium Chloride (Saline Flush) 10 ml FLUSH ASDIRECTED PRN PRN Reason: Keep Vein Open Last Admin: 07/24/18 16:07 Dose: 10 ml Temazepam (Restoril) 7.5 mg PO BEDTIME PRN PRN Reason: Insomnia Last Admin: 07/25/18 20:37 Dose: 7.5 mg Discontinued Medications Acetaminophen (Tylenol) 650 mg PO NOW ONE Stop: 07/24/18 15:42 Last Admin: 07/24/18 16:01 Dose: 650 mg Diltiazem HCl (Cardizem) 5 mg IVPUSH ONETIME ONE Stop: 07/24/18 15:41 Last Admin: 07/24/18 16:02 Dose: 5 mg Furosemide (Lasix) 40 mg IVPUSH NOW ONE Stop: 07/24/18 15:53 Last Admin: 07/24/18 16:11 Dose: 40 mg Magnesium Sulfate 4 gm/ Premix 100 mls @ 25 mls/hr IV ONETIME ONE Stop: 07/25/18 03:29 Last Admin: 07/24/18 23:25 Dose: 50 mls/hr Magnesium Sulfate 2 gm/ Premix 50 mls @ 25 mls/hr IV ONETIME ONE Stop: 07/25/18 05:29 Last Admin: 07/25/18 05:43 Dose: Not Given Sodium Chloride (Normal Saline) 250 mls @ 999 mls/hr IV ASDIRECTED [facility]AYLEE Sodium Chloride (Normal Saline) 250 mls @ 999 mls/hr IV .BOLUS ONE Stop: 07/25/18 10:00 Last Admin: 07/25/18 09:51 Dose: 999 mls/hr Sodium Chloride (Normal Saline) 1,000 mls @ 999 mls/hr IV .BOLUS ONE Stop: 07/25/18 12:59 Last Admin: 07/25/18 12:07 Dose: 999 mls/hr Sodium Chloride (Normal Saline) 1,000 mls @ 75 mls/hr IV ASDIRECTED KAYLEE Sodium Chloride (Normal Saline) 1,000 mls @ 100 mls/hr IV ASDIRECTED [facility]LEE Stop: 07/26/18 01:00 Last Admin: 07/25/18 21:09 Dose: 100 mls/hr Levalbuterol HCl (Xopenex) 1.25 mg NEB QID [facility] Last Admin: 07/24/18 21:08 Dose: 1.25 mg Oseltamivir Phosphate (Tamiflu) 75 mg PO ONETIME ONE Stop: 07/24/18 16:27 Last Admin: 07/24/18 16:46 Dose: 75 mg Temazepam (Restoril) 7.5 mg PO ONETIME ONE Stop: 07/25/18 23:04 Last Admin: 07/25/18 23:38 Dose: 7.5 mg - Exam Quality Assessment: Supplemental Oxygen, DVT Prophylaxis General: Alert, Oriented, Cooperative, No Acute Distress HEENT: Pupils Equal, Pupils Reactive, EOMI Neck: Trachea Midline, No JVD Lungs: Normal Respiratory Effort, Decreased Breath Sounds Cardiovascular: Regular Rate, Irregular Rhythm, Tachycardia GI/Abdominal Exam: Normal Bowel Sounds, Soft, Non-Tender, No Organomegaly, No Distention (Female) Exam: Deferred Back Exam: Normal Inspection Extremities: Normal Inspection, Non-Tender, Normal Capillary Refill Skin: Warm Neurological: No New Focal Deficit, Normal Gait, Normal Speech Psy/Mental Status: Alert, Normal Affect, Normal Mood - Problem List & Annotations (1) Acute exacerbation of congestive heart failure SNOMED Code(s): 16075272 Code(s): I50.9 - HEART FAILURE, UNSPECIFIED Status: Acute Current Visit: Yes Qualifiers: Heart failure type: diastolic Qualified Code(s): I50.33 - Acute on chronic diastolic (congestive) heart failure (2) Chronic renal insufficiency, stage IV (severe) SNOMED Code(s): 38092905 Code(s): N18.4 - CHRONIC KIDNEY DISEASE, STAGE 4 (SEVERE) Status: Acute Current Visit: Yes (3) Hypoxia SNOMED Code(s): 001585768 Code(s): R09.02 - HYPOXEMIA Status: Acute Current Visit: Yes (4) Influenza A SNOMED Code(s): 194508710 Code(s): J10.1 - FLU DUE TO OTH IDENT INFLUENZA VIRUS W OTH RESP MANIFEST Status: Acute Current Visit: Yes (5) Confusion SNOMED Code(s): 609252467 Code(s): R41.0 - DISORIENTATION, UNSPECIFIED Status: Acute Current Visit : No (6) Dizziness SNOMED Code(s): 043567145, 461899614 Code(s): R42 - DIZZINESS AND GIDDINESS Status: Acute Current Visit: No - Problem List Review Problem List Initiated/Reviewed/Updated: Yes - My Orders Last 24 Hours: My Active Orders 07/25/18 16:00 Oseltamivir [Tamiflu] 30 mg PO Q24H 07/25/18 19:45 Morphine 2 mg IVPUSH Q6HR PRN 07/25/18 20:45 DOPamine/Dextrose 5%-Water [DOPamine in D5W 400 MG/250 ML] 400 mg in 250 ml IV TITRATE 07/26/18 09:45 Consult to Occupational Therapy [OT Evaluation and Treatment] [CONS] Routine Consult to Physical Therapy [PT Evaluation and Treatment] [CONS] Routine 07/26/18 10:00 Potassium Chloride [Klor-Con M20] 40 meq PO BID 07/26/18 11:06 Ondansetron [Zofran] 4 mg IVPUSH Q6H PRN 07/26/18 14:08 Echo Comp wo Cont [US] Routine 07/27/18 05:00 BMP [BASIC METABOLIC PANEL,BMP] [CHEM] DAILY CBC WITH AUTO DIFF [HEME] DAILY CRP [C-REACTIVE PROTEIN] [CHEM] DAILY LACTIC ACID [CHEM] DAILY MAGNESIUM [CHEM] DAILY 07/28/18 05:00 BMP [BASIC METABOLIC PANEL,BMP] [CHEM] DAILY CBC WITH AUTO DIFF [HEME] DAILY CRP [C-REACTIVE PROTEIN] [CHEM] DAILY LACTIC ACID [CHEM] DAILY MAGNESIUM [CHEM] DAILY 07/29/18 05:00 BMP [BASIC METABOLIC PANEL,BMP] [CHEM] DAILY CBC WITH AUTO DIFF [HEME] DAILY CRP [C-REACTIVE PROTEIN] [CHEM] DAILY LACTIC ACID [CHEM] DAILY MAGNESIUM [CHEM] DAILY - Plan Plan:: Impression: Influenza A positive Query bacterial PNA Hypoxia Acute decompensated CHF, LVEF, unknown A fib with RVR; NOAC, Eliquis Acute on chronic kidney disease Chronic DM type 2, recent med changes HTN HLD GERD Tobacco dependence COPD Plan: TamiFlu, renal dose Resp work up Lasix gtt, ~48 hours as tolerated 2 liter fluid restriction Cardizem gtt, 2.5-5 mg/ for rate control, avoid hypotension Titrate O2, keep sat >92% Restart home meds, resume Cardizem-->use shorter acting. Daily Labs Diurese as tolerated Follow renal function 2D echo Droplet isolation Correct electrolytes Tobacco cessation CHF education Diabetic ed Consult PT/OT/CM DVT/GI prophylaxis
[2018-07-26] MEDS: Oseltamivir 30 MG Cap PO SCH (15:39)
[2018-07-26] MEDS ORDERED: Scopolamine 1.5 MG Transdermal Patch TRDERM PRN (17:42)
[2018-07-26] MEDS ORDERED: LORazepam 2 MG/ML SDV IVPUSH PRN (17:42)
[2018-07-26] MEDS: Simvastatin 10 MG Tab PO SCH (20:28)
[2018-07-26] MEDS: Temazepam 7.5 MG Cap PO PRN (21:31)
[2018-07-27] MEDS: Diltiazem IR 30 MG Tab PO SCH ×4 (03:52→20:30)
[2018-07-27] MEDS: Ondansetron 4 MG/2 ML SDV IVPUSH PRN ×2 (03:52→10:00)
[2018-07-27] MEDS: Levalbuterol HCl 1.25 MG/3 ML Neb NEB SCH ×4 (05:20→20:04)
[2018-07-27] MEDS: Pantoprazole 40 MG Tab.CR PO SCH (06:03)
[2018-07-27] MEDS ORDERED: Metoclopramide 10 MG/2 ML SDV IVPUSH PRN (09:51)
[2018-07-27] MEDS ORDERED: Sodium Chloride 0.9% 1,000 ML IV SCH ×2 (10:00→20:30)
[2018-07-27] MEDS: Apixaban 5 MG Tab PO SCH ×2 (10:18→20:30)
[2018-07-27] MEDS: Potassium Chloride 20 MEQ Tab.ER PO SCH (10:19)
[2018-07-27] MEDS: Nicotine 21 MG/24 Hr Patch TRDERM SCH (10:20)
--- NOTE | 2018-07-27 11:48 | PCM.PN ---
- General Info Date of Service: 07/27/18 Subjective Update: Tolerates diet but has occasional N/V, will start IVF. Improving with PT with greater ability to ambulate. Functional Status: Reports: Pain Controlled, Tolerating Diet, Urinating - Review of Systems General: Reports: Weakness, Malaise HEENT: Reports: No Symptoms Pulmonary: Reports: No Symptoms Cardiovascular: Reports: No Symptoms Gastrointestinal: Reports: No Symptoms Genitourinary: Reports: No Symptoms Musculoskeletal: Reports: No Symptoms Skin: Reports: No Symptoms Neurological: Reports: No Symptoms Psychiatric: Reports: No Symptoms - Patient Data Vitals - Most Recent: Last Vital Signs Temp 36.5 C 07/27/18 09:32 Pulse 96 07/27/18 06:28 Resp 20 07/27/18 11:36 BP 91/60 07/27/18 11:36 Pulse Ox 95 07/27/18 11:36 Weight - Most Recent: 76.204 kg I&O - Last 24 Hours: Intake & Output 07/26/18 07/27/18 07/27/18 22:59 06:59 14:59 Intake Total 725 936 60 Output Total 640 450 120 Balance 85 486 -60 Lab Results Last 24 Hours: Laboratory Results - last 24 hr 07/26/18 07/26/18 07/27/18 Range/Units 21:02 21:02 05:25 WBC 7.28 (3.98-10.04) K/mm3 RBC 4.26 (3.98-5.22) M/mm3 Hgb 12.4 (11.2-15.7) gm/L Hct 39.4 (34.1-44.9) % MCV 92.5 (79.4-94.8) fl MCH 29.1 (25.6-32.2) pg MCHC 31.5 L (32.2-35.5) g/dl RDW Std Deviation 52.1 H (36.4-46.3) fL Plt Count 204 (182-369) K/mm3 MPV 11.5 (9.4-12.3) fl Neut % (Auto) 75.9 H (34.0-71.1) % Lymph % (Auto) 15.8 L (19.3-51.7) % [place] % (Auto) 7.6 (4.7-12.5) % Eos % (Auto) 0.1 L (0.7-5.8) Baso % (Auto) 0.3 (0.1-1.2) % Neut # (Auto) 5.53 (1.56-6.13) K/mm3 Lymph # (Auto) 1.15 L (1.18-3.74) K/mm3 [place] # (Auto) 0.55 H (0.24-0.36) K/mm3 Eos # (Auto) 0.01 L (0.04-0.36) K/mm3 Baso # (Auto) 0.02 (0.01-0.08) K/mm3 Sodium 131 L (136-145) mEq/L Potassium 4.1 (3.5-5.1) mEq/L Chloride 93 L (98-107) mEq/L Carbon Dioxide 29 (21-32) mEq/L Anion Gap 13.1 (5-15) BUN 33 H (7-18) mg/dL Creatinine 2.8 H (0.55-1.02) mg/dL Est Cr Clr Drug Dosing 13.26 mL/min Estimated GFR (MDRD) 16 (>60) mL/min BUN/Creatinine Ratio 11.8 L (14-18) Glucose 149 H (83-115) mg/dL Lactic Acid (0.4-2.0) mmol/L Calcium 9.1 (8.5-10.1) mg/dL Magnesium (1.8-2.4) mg/dl C-Reactive Protein (<1.0) mg/dL NT-Pro-B Natriuret Pep 714 H (0-450) pg/mL 07/27/18 07/27/18 Range/Units 05:25 05:25 WBC (3.98-10.04) K/mm3 RBC (3.98-5.22) M/mm3 Hgb (11.2-15.7) gm/L Hct (34.1-44.9) % MCV (79.4-94.8) fl MCH (25.6-32.2) pg MCHC (32.2-35.5) g/dl RDW Std Deviation (36.4-46.3) fL Plt Count (182-369) K/mm3 MPV (9.4-12.3) fl Neut % (Auto) (34.0-71.1) % Lymph % (Auto) (19.3-51.7) % [place] % (Auto) (4.7-12.5) % Eos % (Auto) (0.7-5.8) Baso % (Auto) (0.1-1.2) % Neut # (Auto) (1.56-6.13) K/mm3 Lymph # (Auto) (1.18-3.74) K/mm3 [place] # (Auto) (0.24-0.36) K/mm3 Eos # (Auto) (0.04-0.36) K/mm3 Baso # (Auto) (0.01-0.08) K/mm3 Sodium 131 L (136-145) mEq/L Potassium 4.5 (3.5-5.1) mEq/L Chloride 93 L (98-107) mEq/L Carbon Dioxide 29 (21-32) mEq/L Anion Gap 13.5 (5-15) BUN 33 H (7-18) mg/dL Creatinine 2.5 H (0.55-1.02) mg/dL Est Cr Clr Drug Dosing 14.85 mL/min Estimated GFR (MDRD) 19 (>60) mL/min BUN/Creatinine Ratio 13.2 L (14-18) Glucose 118 H (83-115) mg/dL Lactic Acid 0.9 (0.4-2.0) mmol/L Calcium 9.6 (8.5-10.1) mg/dL Magnesium 2.0 (1.8-2.4) mg/dl C-Reactive Protein 5.5 H* (<1.0) mg/dL NT-Pro-B Natriuret Pep (0-450) pg/mL [facility] Results Last 24 Hours: Microbiology 07/24/18 16:01 Aerobic Blood Culture - Preliminary Blood - Venous NO GROWTH AFTER 2 DAYS Anaerobic Blood Culture - Final 07/24/18 15:55 Aerobic Blood Culture - Preliminary Blood - Venous - Lab Draw NO GROWTH AFTER 2 DAYS Anaerobic Blood Culture - Preliminary NO GROWTH AFTER 2 DAYS 07/24/18 21:35 Streptococcus pneumoniae Antigen (M - Final Urine Med Orders - Current: Current Medications Acetaminophen (Tylenol) 650 mg PO Q4H PRN PRN Reason: Pain/Fever Last Admin: 07/26/18 07:10 Dose: 650 mg Apixaban (Eliquis) 2.5 mg PO BID KAYLEE Last Admin: 07/27/18 10:18 Dose: 2.5 mg Diltiazem HCl (Cardizem) 30 mg PO Q6H [facility]E Last Admin: 07/27/18 10:19 Dose: Not Given Diltiazem HCl 125 mg/ Sodium (Chloride) 125 mls @ 10 mls/hr IV TITRATE KAYLEE; Protocol Last Titration: 07/26/18 03:57 Dose: 0 mg/hr, 0 mls/hr Norepinephrine Bitartrate 4 mg (/ Dextrose/Water) 250 mls @ 7.5 mls/hr IV TITRATE KAYLEE; Protocol Last Titration: 07/27/18 11:37 Dose: 3 mcg/min, 11.25 mls/hr Dopamine HCl/Dextrose (Dopamine In D5w 400 Mg/250 Ml) 400 mg in 250 mls @ 8.604 mls/hr IV TITRATE KAYLEE; Protocol Sodium Chloride (Normal Saline) 1,000 mls @ 50 mls/hr IV ASDIRECTED KAYLEE Last Admin: 07/27/18 10:55 Dose: 50 mls/hr Ipratropium [place] (Atrovent) 0.5 mg NEB Q8HRRT PRN PRN Reason: Shortness of Breath Last Admin: 07/25/18 05:20 Dose: 0.5 mg Levalbuterol HCl (Xopenex) 1.25 mg NEB QIDRT [facility]E Last Admin: 07/27/18 09:41 Dose: 1.25 mg Lorazepam (Ativan) 0.25 mg IVPUSH Q6H PRN PRN Reason: Anxiety Metoclopramide HCl (Reglan) 10 mg IVPUSH Q6H PRN PRN Reason: Nausea/Vomiting Miscellaneous Information (Remove Patch) 1 ea TRDERM Q72H [facility]E Last Admin: 07/26/18 17:55 Dose: Not Given Morphine Sulfate (Morphine) 2 mg IVPUSH Q6HR PRN PRN Reason: Dyspnea Last Admin: 07/26/18 15:56 Dose: 2 mg Nicotine (Habitrol) 21 mg TRDERM DAILY [facility] Last Admin: 07/27/18 10:20 Dose: 21 mg Ondansetron HCl (Zofran) 4 mg IVPUSH Q6H PRN PRN Reason: Nausea Last Admin: 07/27/18 03:52 Dose: 4 mg Oseltamivir Phosphate (Tamiflu) 30 mg PO Q24H [facility] Last Admin: 07/26/18 15:39 Dose: 30 mg Pantoprazole Sodium (Protonix) 40 mg PO DAILY@0700 [facility] Last Admin: 07/27/18 06:03 Dose: 40 mg Scopolamine (Transderm-Scop) 1.5 mg TRDERM Q72H PRN PRN Reason: Nausea Last Admin: 07/26/18 17:54 Dose: 1.5 mg Simvastatin (Zocor) 10 mg PO BEDTIME [facility]E Last Admin: 07/26/18 20:28 Dose: 10 mg Sodium Chloride (Saline Flush) 10 ml FLUSH ASDIRECTED PRN PRN Reason: Keep Vein Open Last Admin: 07/24/18 16:07 Dose: 10 ml Temazepam (Restoril) 7.5 mg PO BEDTIME PRN PRN Reason: Insomnia Last Admin: 07/26/18 21:31 Dose: 7.5 mg Discontinued Medications Acetaminophen (Tylenol) 650 mg PO NOW ONE Stop: 07/24/18 15:42 Last Admin: 07/24/18 16:01 Dose: 650 mg Diltiazem HCl (Cardizem) 5 mg IVPUSH ONETIME ONE Stop: 07/24/18 15:41 Last Admin: 07/24/18 16:02 Dose: 5 mg Furosemide (Lasix) 40 mg IVPUSH NOW ONE Stop: 07/24/18 15:53 Last Admin: 07/24/18 16:11 Dose: 40 mg Furosemide 100 mg/ Sodium (Chloride) 100 mls @ 4 mls/hr IV TITRATE KAYLEE Stop: 07/26/18 20:31 Last Infusion: 07/26/18 01:15 Dose: 4 mls/hr Magnesium Sulfate 4 gm/ Premix 100 mls @ 25 mls/hr IV ONETIME ONE Stop: 07/25/18 03:29 Last Admin: 07/24/18 23:25 Dose: 50 mls/hr Magnesium Sulfate 2 gm/ Premix 50 mls @ 25 mls/hr IV ONETIME ONE Stop: 07/25/18 05:29 Last Admin: 07/25/18 05:43 Dose: Not Given Sodium Chloride (Normal Saline) 250 mls @ 999 mls/hr IV ASDIRECTED KAYLEE Sodium Chloride (Normal Saline) 250 mls @ 999 mls/hr IV .BOLUS ONE Stop: 07/25/18 10:00 Last Admin: 07/25/18 09:51 Dose: 999 mls/hr Sodium Chloride (Normal Saline) 1,000 mls @ 999 mls/hr IV .BOLUS ONE Stop: 07/25/18 12:59 Last Admin: 07/25/18 12:07 Dose: 999 mls/hr Sodium Chloride (Normal Saline) 1,000 mls @ 75 mls/hr IV ASDIRECTED KAYLEE Sodium Chloride (Normal Saline) 1,000 mls @ 100 mls/hr IV ASDIRECTED KAYLEE Stop: 07/26/18 01:00 Last Admin: 07/25/18 21:09 Dose: 100 mls/hr Levalbuterol HCl (Xopenex) 1.25 mg NEB QID [facility] Last Admin: 07/24/18 21:08 Dose: 1.25 mg Oseltamivir Phosphate (Tamiflu) 75 mg PO ONETIME ONE Stop: 07/24/18 16:27 Last Admin: 07/24/18 16:46 Dose: 75 mg Potassium Chloride (Klor-Con M20) 40 meq PO BID K[facility]LEE Stop: 07/27/18 09:01 Last Admin: 07/27/18 10:19 Dose: 40 meq Temazepam (Restoril) 7.5 mg PO ONETIME ONE Stop: 07/25/18 23:04 Last Admin: 07/25/18 23:38 Dose: 7.5 mg - Exam Quality Assessment: Supplemental Oxygen, DVT Prophylaxis General: Alert, Oriented, Cooperative HEENT: Pupils Equal, Pupils Reactive, EOMI Neck: Trachea Midline, No JVD Lungs: Normal Respiratory Effort, Decreased Breath Sounds Cardiovascular: Regular Rate, Irregular Rhythm GI/Abdominal Exam: Normal Bowel Sounds, Soft, Non-Tender, No Organomegaly, No Distention (Female) Exam: Deferred Back Exam: Normal Inspection Extremities: Normal Inspection, Non-Tender, Normal Capillary Refill Skin: Warm Neurological: No New Focal Deficit, Normal Gait, Normal Speech Psy/Mental Status: Alert, Anxious - Problem List Review Problem List Initiated/Reviewed/Updated: Yes - My Orders Last 24 Hours: My Active Orders 07/26/18 11:06 Ondansetron [Zofran] 4 mg IVPUSH Q6H PRN 07/26/18 17:00 Remove Patch 1 ea TRDERM Q72H 07/26/18 17:42 LORazepam [Ativan] 0.25 mg IVPUSH Q6H PRN Scopolamine [Transderm-Scop] 1.5 mg TRDERM Q72H PRN 07/27/18 09:51 Metoclopramide [Reglan] 10 mg IVPUSH Q6H PRN 07/27/18 10:00 Sodium Chloride 0.9% [Normal Saline] 1,000 ml IV ASDIRECTED 07/28/18 05:00 BMP [BASIC METABOLIC PANEL,BMP] [CHEM] DAILY CBC WITH AUTO DIFF [HEME] DAILY CRP [C-REACTIVE PROTEIN] [CHEM] DAILY LACTIC ACID [CHEM] DAILY MAGNESIUM [CHEM] DAILY 07/29/18 05:00 BMP [BASIC METABOLIC PANEL,BMP] [CHEM] DAILY CBC WITH AUTO DIFF [HEME] DAILY CRP [C-REACTIVE PROTEIN] [CHEM] DAILY LACTIC ACID [CHEM] DAILY MAGNESIUM [CHEM] DAILY - Plan Plan:: Impression: Influenza A positive Query bacterial PNA Hypoxia Acute decompensated CHF, LVEF, unknown; resolved A fib with RVR; NOAC, Eliquis Acute on chronic kidney disease, fluid bolus as needed. Hypotension--->bolus and IVF timed Chronic DM type 2, recent med changes HTN HLD GERD Tobacco dependence COPD Plan: TamiFlu, renal dose Resp work up Lasix gtt, ~48 hours as tolerated 2 liter fluid restriction Cardizem gtt, 2.5-5 mg/ for rate control, avoid hypotension Titrate O2, keep sat >92% Restart home meds, resume Cardizem-->use shorter acting. Daily Labs Diurese as tolerated Follow renal function 2D echo Droplet isolation Correct electrolytes Tobacco cessation CHF education Diabetic ed Consult PT/OT/CM DVT/GI prophylaxis LOS>96 hours for A Fib/Influenza treatment
[2018-07-27] MEDS: Ipratropium 0.02% 0.5 MG/2.5 ML Neb Soln NEB PRN (13:40)
[2018-07-27] MEDS: Norepinephrine 4 MG in Dextrose 5% in Water 246 ML IV SCH ×2 (14:03)
[2018-07-27] MEDS: Oseltamivir 30 MG Cap PO SCH (16:51)
[2018-07-27] MEDS: methylPREDNISolone Sodium Succinate 40 MG/1 ML SDV IVPUSH SCH (17:42)
[2018-07-27] MEDS ORDERED: Sodium Chloride 0.9% 250 ML IV SCH (20:15)
[2018-07-27] MEDS: Temazepam 7.5 MG Cap PO PRN (20:30)
[2018-07-27] MEDS: Simvastatin 10 MG Tab PO SCH (20:30)
[2018-07-27] MEDS: Acetaminophen 325 MG Tab PO PRN (20:30)
[2018-07-28] MEDS: Diltiazem IR 30 MG Tab PO SCH ×4 (02:53→20:31)
[2018-07-28] MEDS: Pantoprazole 40 MG Tab.CR PO SCH (06:01)
[2018-07-28] MEDS: Levalbuterol HCl 1.25 MG/3 ML Neb NEB SCH ×4 (06:09→20:26)
[2018-07-28] MEDS: Nicotine 21 MG/24 Hr Patch TRDERM SCH (08:40)
[2018-07-28] MEDS: methylPREDNISolone Sodium Succinate 40 MG/1 ML SDV IVPUSH SCH (08:40)
[2018-07-28] MEDS: Apixaban 5 MG Tab PO SCH ×2 (08:40→20:17)
[2018-07-28] MEDS ORDERED: Magnesium Sulfate/Water 2 GM in Premix Bag 1 BAG IV ONE (11:30)
[2018-07-28] MEDS ORDERED: Sodium Chloride 0.9% 1,000 ML IV SCH (11:30)
--- NOTE | 2018-07-28 13:08 | PCM.PN ---
- General Info Date of Service: 07/28/18 Functional Status: Reports: Tolerating Diet, Ambulating, Urinating - Review of Systems General: Reports: Weakness (decreased), Fatigue (none), Malaise (none) Pulmonary: Reports: Shortness of Breath (minimal ) Cardiovascular: Reports: No Symptoms Gastrointestinal: Reports: No Symptoms Genitourinary: Reports: No Symptoms Musculoskeletal: Reports: No Symptoms Skin: Reports: No Symptoms Neurological: Reports: No Symptoms Psychiatric: Reports: No Symptoms - Patient Data Vitals - Most Recent: Last Vital Signs Temp 36.2 C 07/28/18 11:54 Pulse 96 07/27/18 06:28 Resp 20 07/28/18 11:54 BP 103/52 L 07/28/18 11:54 Pulse Ox 95 07/28/18 11:54 Weight - Most Recent: 76.204 kg I&O - Last 24 Hours: Intake & Output 07/27/18 07/28/18 07/28/18 22:59 06:59 14:59 Intake Total 1517 1100 180 Output Total 750 900 226 Balance 767 200 -46 Lab Results Last 24 Hours: Laboratory Results - last 24 hr 07/28/18 07/28/18 07/28/18 Range/Units 05:18 05:18 05:18 WBC 4.52 (3.98-10.04) K/mm3 RBC 4.07 (3.98-5.22) M/mm3 Hgb 11.9 (11.2-15.7) gm/L Hct 38.3 (34.1-44.9) % MCV 94.1 (79.4-94.8) fl MCH 29.2 (25.6-32.2) pg MCHC 31.1 L (32.2-35.5) g/dl RDW Std Deviation 51.7 H (36.4-46.3) fL Plt Count 198 (182-369) K/mm3 MPV 11.3 (9.4-12.3) fl Neut % (Auto) 85.4 H (34.0-71.1) % Lymph % (Auto) 11.3 L (19.3-51.7) % [place] % (Auto) 2.2 L (4.7-12.5) % Eos % (Auto) 0 L (0.7-5.8) Baso % (Auto) 0.2 (0.1-1.2) % Neut # (Auto) 3.86 (1.56-6.13) K/mm3 Lymph # (Auto) 0.51 L (1.18-3.74) K/mm3 [place] # (Auto) 0.10 L (0.24-0.36) K/mm3 Eos # (Auto) 0.00 L (0.04-0.36) K/mm3 Baso # (Auto) 0.01 (0.01-0.08) K/mm3 Manual Slide Review Abnormal smear Sodium 133 L (136-145) mEq/L Potassium 5.7 H (3.5-5.1) mEq/L Chloride 98 (98-107) mEq/L Carbon Dioxide 29 (21-32) mEq/L Anion Gap 11.7 (5-15) BUN 27 H (7-18) mg/dL Creatinine 2.2 H (0.55-1.02) mg/dL Est Cr Clr Drug Dosing 16.87 mL/min Estimated GFR (MDRD) 21 (>60) mL/min BUN/Creatinine Ratio 12.3 L (14-18) Glucose 138 H (83-115) mg/dL Lactic Acid 1.4 (0.4-2.0) mmol/L Calcium 9.7 (8.5-10.1) mg/dL Magnesium 1.9 (1.8-2.4) mg/dl C-Reactive Protein 2.6 H* (<1.0) mg/dL 07/28/18 Range/Units 10:29 WBC (3.98-10.04) K/mm3 RBC (3.98-5.22) M/mm3 Hgb (11.2-15.7) gm/L Hct (34.1-44.9) % MCV (79.4-94.8) fl MCH (25.6-32.2) pg MCHC (32.2-35.5) g/dl RDW Std Deviation (36.4-46.3) fL Plt Count (182-369) K/mm3 MPV (9.4-12.3) fl Neut % (Auto) (34.0-71.1) % Lymph % (Auto) (19.3-51.7) % [place] % (Auto) (4.7-12.5) % Eos % (Auto) (0.7-5.8) Baso % (Auto) (0.1-1.2) % Neut # (Auto) (1.56-6.13) K/mm3 Lymph # (Auto) (1.18-3.74) K/mm3 [place] # (Auto) (0.24-0.36) K/mm3 Eos # (Auto) (0.04-0.36) K/mm3 Baso # (Auto) (0.01-0.08) K/mm3 Manual Slide Review Sodium (136-145) mEq/L Potassium 5.4 H (3.5-5.1) mEq/L Chloride (98-107) mEq/L Carbon Dioxide (21-32) mEq/L Anion Gap (5-15) BUN (7-18) mg/dL Creatinine (0.55-1.02) mg/dL Est Cr Clr Drug Dosing mL/min Estimated GFR (MDRD) (>60) mL/min BUN/Creatinine Ratio (14-18) Glucose (83-115) mg/dL Lactic Acid (0.4-2.0) mmol/L Calcium (8.5-10.1) mg/dL Magnesium (1.8-2.4) mg/dl C-Reactive Protein (<1.0) mg/dL [place] Results Last 24 Hours: Microbiology 07/24/18 16:01 Aerobic Blood Culture - Preliminary Blood - Venous NO GROWTH AFTER 3 DAYS Anaerobic Blood Culture - Final 07/24/18 15:55 Aerobic Blood Culture - Preliminary Blood - Venous - Lab Draw NO GROWTH AFTER 3 DAYS Anaerobic Blood Culture - Preliminary NO GROWTH AFTER 3 DAYS Med Orders - Current: Current Medications Acetaminophen (Tylenol) 650 mg PO Q4H PRN PRN Reason: Pain/Fever Last Admin: 07/27/18 20:30 Dose: 650 mg Apixaban (Eliquis) 2.5 mg PO BID KAYLEE Last Admin: 07/28/18 08:40 Dose: 2.5 mg Diltiazem HCl (Cardizem) 30 mg PO Q6H KAYLEE Last Admin: 07/28/18 08:39 Dose: 30 mg Diltiazem HCl 125 mg/ Sodium (Chloride) 125 mls @ 10 mls/hr IV TITRATE KAYLEE; Protocol Last Titration: 07/26/18 03:57 Dose: 0 mg/hr, 0 mls/hr Norepinephrine Bitartrate 4 mg (/ Dextrose/Water) 250 mls @ 7.5 mls/hr IV TITRATE KAYLEE; Protocol Last Titration: 07/27/18 14:30 Dose: 0 mcg/min, 0 mls/hr Dopamine HCl/Dextrose (Dopamine In D5w 400 Mg/250 Ml) 400 mg in 250 mls @ 8.604 mls/hr IV TITRATE KAYLEE; Protocol Sodium Chloride (Normal Saline) 1,000 mls @ 75 mls/hr IV ASDIRECTED KAYLEE Stop: 07/28/18 17:30 Magnesium Sulfate 2 gm/ Premix 50 mls @ 25 mls/hr IV ONETIME ONE Stop: 07/28/18 13:29 Last Admin: 07/28/18 12:08 Dose: 25 mls/hr Ipratropium [place] (Atrovent) 0.5 mg NEB Q8HRRT PRN PRN Reason: Shortness of Breath Last Admin: 07/27/18 13:40 Dose: 0.5 mg Levalbuterol HCl (Xopenex) 1.25 mg NEB QIDRT KAYLEE Last Admin: 07/28/18 09:16 Dose: 1.25 mg Lorazepam (Ativan) 0.25 mg IVPUSH Q6H PRN PRN Reason: Anxiety Metoclopramide HCl (Reglan) 10 mg IVPUSH Q6H PRN PRN Reason: Nausea/Vomiting Last Admin: 07/27/18 13:24 Dose: 10 mg Miscellaneous Information (Remove Patch) 1 ea TRDERM Q72H [facility] Last Admin: 07/26/18 17:55 Dose: Not Given Morphine Sulfate (Morphine) 2 mg IVPUSH Q6HR PRN PRN Reason: Dyspnea Last Admin: 07/26/18 15:56 Dose: 2 mg Nicotine (Habitrol) 21 mg TRDERM DAILY [facility] Last Admin: 07/28/18 08:40 Dose: 21 mg Ondansetron HCl (Zofran) 4 mg IVPUSH Q6H PRN PRN Reason: Nausea Last Admin: 07/27/18 10:00 Dose: 4 mg Oseltamivir Phosphate (Tamiflu) 30 mg PO Q24H KAYLEE Last Admin: 07/27/18 16:51 Dose: 30 mg Pantoprazole Sodium (Protonix) 40 mg PO DAILY@0700 KAYLEE Last Admin: 07/28/18 06:01 Dose: 40 mg Scopolamine (Transderm-Scop) 1.5 mg TRDERM Q72H PRN PRN Reason: Nausea Last Admin: 07/26/18 17:54 Dose: 1.5 mg Simvastatin (Zocor) 10 mg PO BEDTIME KAYLEE Last Admin: 07/27/18 20:30 Dose: 10 mg Sodium Chloride (Saline Flush) 10 ml FLUSH ASDIRECTED PRN PRN Reason: Keep Vein Open Last Admin: 07/24/18 16:07 Dose: 10 ml Temazepam (Restoril) 7.5 mg PO BEDTIME PRN PRN Reason: Insomnia Last Admin: 07/27/18 20:30 Dose: 7.5 mg Discontinued Medications Acetaminophen (Tylenol) 650 mg PO NOW ONE Stop: 07/24/18 15:42 Last Admin: 07/24/18 16:01 Dose: 650 mg Diltiazem HCl (Cardizem) 5 mg IVPUSH ONETIME ONE Stop: 07/24/18 15:41 Last Admin: 07/24/18 16:02 Dose: 5 mg Furosemide (Lasix) 40 mg IVPUSH NOW ONE Stop: 07/24/18 15:53 Last Admin: 07/24/18 16:11 Dose: 40 mg Furosemide 100 mg/ Sodium (Chloride) 100 mls @ 4 mls/hr IV TITRATE KAYLEE Stop: 07/26/18 20:31 Last Infusion: 07/26/18 01:15 Dose: 4 mls/hr Magnesium Sulfate 4 gm/ Premix 100 mls @ 25 mls/hr IV ONETIME ONE Stop: 07/25/18 03:29 Last Admin: 07/24/18 23:25 Dose: 50 mls/hr Magnesium Sulfate 2 gm/ Premix 50 mls @ 25 mls/hr IV ONETIME ONE Stop: 07/25/18 05:29 Last Admin: 07/25/18 05:43 Dose: Not Given Sodium Chloride (Normal Saline) 250 mls @ 999 mls/hr IV ASDIRECTED KAYLEE Sodium Chloride (Normal Saline) 250 mls @ 999 mls/hr IV .BOLUS ONE Stop: 07/25/18 10:00 Last Admin: 07/25/18 09:51 Dose: 999 mls/hr Sodium Chloride (Normal Saline) 1,000 mls @ 999 mls/hr IV .BOLUS ONE Stop: 07/25/18 12:59 Last Admin: 07/25/18 12:07 Dose: 999 mls/hr Sodium Chloride (Normal Saline) 1,000 mls @ 75 mls/hr IV ASDIRECTED KAYLEE Sodium Chloride (Normal Saline) 1,000 mls @ 100 mls/hr IV ASDIRECTED KAYLEE Stop: 07/26/18 01:00 Last Admin: 07/25/18 21:09 Dose: 100 mls/hr Sodium Chloride (Normal Saline) 1,000 mls @ 50 mls/hr IV ASDIRECTED [facility] Last Admin: 07/27/18 10:55 Dose: 50 mls/hr Sodium Chloride (Normal Saline) 250 mls @ 999 mls/hr IV ASDIRECTED [facility] Stop: 07/27/18 20:30 Last Infusion: 07/27/18 20:30 Dose: Infused Sodium Chloride (Normal Saline) 1,000 mls @ 75 mls/hr IV ASDIRECTED [facility] Stop: 07/28/18 02:30 Last Admin: 07/28/18 00:00 Dose: 75 mls/hr Levalbuterol HCl (Xopenex) 1.25 mg NEB QID [facility] Last Admin: 07/24/18 21:08 Dose: 1.25 mg Methylprednisolone Sodium Succinate (Solu-Medrol) 40 mg IVPUSH DAILY [facility] Stop: 07/28/18 09:01 Last Admin: 07/28/18 08:40 Dose: 40 mg Oseltamivir Phosphate (Tamiflu) 75 mg PO ONETIME ONE Stop: 07/24/18 16:27 Last Admin: 07/24/18 16:46 Dose: 75 mg Potassium Chloride (Klor-Con M20) 40 meq PO BID [facility] Stop: 07/27/18 09:01 Last Admin: 07/27/18 10:19 Dose: 40 meq Temazepam (Restoril) 7.5 mg PO ONETIME ONE Stop: 07/25/18 23:04 Last Admin: 07/25/18 23:38 Dose: 7.5 mg - Exam Quality Assessment: Supplemental Oxygen (activity), DVT Prophylaxis General: Alert, Oriented, Cooperative, No Acute Distress HEENT: Pupils Equal, Pupils Reactive, EOMI Neck: Trachea Midline, No JVD Lungs: Normal Respiratory Effort Cardiovascular: Regular Rate, Irregular Rhythm, Tachycardia GI/Abdominal Exam: Normal Bowel Sounds, Soft, Non-Tender, No Organomegaly, No Distention (Female) Exam: Deferred Back Exam: Normal Inspection Extremities: Normal Inspection, Non-Tender, Normal Capillary Refill, Pedal Edema (trace) Skin: Warm Neurological: No New Focal Deficit, Normal Gait, Normal Speech Psy/Mental Status: Alert, Normal Affect, Normal Mood, Anxious - Problem List Review Problem List Initiated/Reviewed/Updated: Yes - My Orders Last 24 Hours: My Active Orders 07/27/18 13:00 Heart Failure Education [OM.PC] Routine 07/28/18 11:30 Magnesium Sulfate/Water [Magnesium Sulfate 2 GM in Water 50 ML] 2 gm Premix Bag 1 bag IV ONETIME Sodium Chloride 0.9% [Normal Saline] 1,000 ml IV ASDIRECTED 07/29/18 05:00 BMP [BASIC METABOLIC PANEL,BMP] [CHEM] DAILY CBC WITH AUTO DIFF [HEME] DAILY CRP [C-REACTIVE PROTEIN] [CHEM] DAILY LACTIC ACID [CHEM] DAILY MAGNESIUM [CHEM] DAILY PRO B-TYPE NATRIUR PEPT,BNPPRO [CHEM] Routine - Plan Plan:: Impression: Influenza A positive Query bacterial PNA Hypoxia Acute decompensated CHF, LVEF, unknown; resolved A fib with RVR; NOAC, Eliquis Acute on chronic kidney disease, fluid bolus as needed. Hypotension--->bolus and IVF timed Chronic DM type 2, recent med changes HTN HLD GERD Tobacco dependence COPD Plan: TamiFlu, renal dose Resp work up Lasix gtt, ~48 hours as tolerated 2 liter fluid restriction Cardizem gtt, 2.5-5 mg/ for rate control, avoid hypotension Titrate O2, keep sat >92% Restart home meds, resume Cardizem-->use shorter acting. Daily Labs Diurese as tolerated Follow renal function 2D echo Droplet isolation Correct electrolytes Tobacco cessation CHF education Diabetic ed Consult PT/OT/CM DVT/GI prophylaxis LOS>96 hours for A Fib/Influenza treatment
[2018-07-28] MEDS: Oseltamivir 30 MG Cap PO SCH (15:05)
[2018-07-28] MEDS: Simvastatin 10 MG Tab PO SCH (20:15)
[2018-07-28] MEDS: Acetaminophen 325 MG Tab PO PRN (20:24)
[2018-07-28] MEDS: Diltiazem IR 60 MG Tab PO SCH (21:29)
[2018-07-28] MEDS: Temazepam 7.5 MG Cap PO PRN (23:25)
[2018-07-29] MEDS: Diltiazem IR 60 MG Tab PO SCH ×3 (03:22→14:13)
[2018-07-29] MEDS: Acetaminophen 325 MG Tab PO PRN (03:22)
[2018-07-29] MEDS: Levalbuterol HCl 1.25 MG/3 ML Neb NEB SCH ×2 (06:13→10:29)
[2018-07-29] MEDS: Pantoprazole 40 MG Tab.CR PO SCH (06:33)
[2018-07-29] MEDS: Nicotine 21 MG/24 Hr Patch TRDERM SCH (08:03)
[2018-07-29] MEDS: Apixaban 5 MG Tab PO SCH (08:04)
[2018-07-29] MEDS ORDERED: Furosemide 20 MG/2 ML VIAL IVPUSH ONE (08:22)
[2018-07-29] MEDS ORDERED: Metoprolol Tartrate 25 MG Tab PO SCH (09:00)
--- NOTE | 2018-07-29 11:51 | PCM.DCSUM1 ---
Discharge Summary - Hospital Course Free Text/Narrative:: 78 year old female was diagnosed with Influenza A, also required treatment for heart failure, DHF. And A Fib with RVR resulted in a Cardizem drip for rate control. She was hypoxic during her stay, and at DC required oxygen 1 l/m for activity. Overall she has declined in her ability to take care of her daily needs. Thus Home Health is being requested. She required 96 hours of ICU care before improvement, HR was finally stabilized without the need for a Cardizem drip. A Lasix drip was used for CHF treatment. Home Health Consult Home Health was needed due to Diastolic heart Failure, she demonstrated rapid improvement over the weekend. Recommend HH for assessment of functional needs in light of remarkable recovery from Influenza A, A Fib with RVR and CHF. Required 1 l/m of O2 with activity, will probably needed for less than 15 days. PCP, Dr Ralph Primary Dx Influenza A DHF, HFpEF/LVEF >55% Respiratory Distress Hypoxia A Fib with RVR Hyperkalemia Meds TamiFlu 30 mg daily for 4 days Lopressor changed to 25 mg BID; home dose Toprol 50 mg daily Potassium supplement held until BMP is repeated on , 07/31 Labs 07/31/18 BMP re: K HPI Initial Comments: 78 year old female with a PMH that includes chronic A Fib presents with A Fib with RVR. She complains of chest pain, it is associated with shortness of breath. Additionally the patient has been dizzy, she has tested positive for Influenza A. The patient has received TamiFlu in the ED. She has been started on a Cardizem drip, and will be admitted to ICU per protocol. It has been reported that the patient may be non compliant with her medical regimen. She was seen approximately 24 hours prior to returning to the ED. Code status, DNR/ DNI. Previous presentation, July 23, 2018 reported a change in meds. At that time, she reported no longer taking Metformin or Lasix. Diagnosis: Stroke: No - Discharge Data Discharge Date: 07/29/18 Discharge Disposition: Home, Self-Care 01 Condition: Good - Patient Summary/Data Consults: Consultations 07/26/18 09:45 Consult to Occupational Therapy [OT Evaluation and Treatment] [CONS] Routine Consult to Physical Therapy [PT Evaluation and Treatment] [CONS] Routine 07/27/18 11:50 Consult to Dean Of Education [Consult to Diabetic Nurse Specialist] [CONS] Routine - Patient Instructions Diet: Diabetic Diet Activity: As Tolerated Driving: Do Not Drive Showering/Bathing: May Shower Notify Provider of: Fever, Increased Pain, Nausea and/or Vomiting - Discharge Plan *PRESCRIPTION DRUG MONITORING PROGRAM REVIEWED*: Not Applicable *COPY OF PRESCRIPTION DRUG MONITORING REPORT IN PATIENT JEREMY: Not Applicable Prescriptions/Med Rec: Metoprolol Tartrate [Lopressor] 25 mg PO Q12H #60 tablet Nicotine [Habitrol] 21 mg TRDERM DAILY #30 patch Oseltamivir [Tamiflu] 30 mg PO Q24H #4 cap Home Medications: Home Meds Calcium Citrate/Vitamin D3 [Citracal + D Maximum Caplet] 1 tab PO BEDTIME [History] Cyanocobalamin (Vitamin B12) [Vitamin B12] 1,000 mcg PO DAILY 04/09/17 [History] Forteo. 600 mcg SUBCUT DAILY 04/09/17 [History] Furosemide [Lasix] 20 mg PO BID 04/09/17 [History] Pravastatin [Pravachol] 20 mg PO BEDTIME 04/09/17 [History] Apixaban [Eliquis] 2.5 mg PO BID 07/23/18 [History] Diltiazem [Dilacor XR] 240 mg PO DAILY 07/23/18 [History] Omeprazole 20 mg PO DAILY 07/24/18 [History] Metoprolol Tartrate [Lopressor] 25 mg PO Q12H #60 tablet 07/29/18 [Rx] Nicotine [Habitrol] 21 mg TRDERM DAILY #30 patch 07/29/18 [Rx] Oseltamivir [Tamiflu] 30 mg PO Q24H #4 cap 07/29/18 [Rx] Potassium Chloride 20 meq PO DAILY #0 07/29/18 [Rx] Other Amb Orders: BASIC METABOLIC PANEL,BMP [CHEM] Time Frame: 07/31/18, Location: None Selected Oxygen Therapy Mode: Nasal Cannula Oxygen Flow Rate (L/min): 1 (use with activity) Patient Handouts: Heart Failure, [id number], Steps to Quit Smoking, Atrial Fibrillation, [id number] Forms: ED Department Discharge Referrals: Valery Ralph MD [Primary Care Provider] - (Please call and schedule a follow up apt. with Dr. Ralph in 7-10 days.) - Discharge Summary/Plan Comment DC Time >30 min.: No Discharge Summary/Plan Comment: mpression: Influenza A positive Query bacterial PNA Hypoxia Acute decompensated CHF, LVEF, unknown; resolved DHF/HFpEF, LVEF >55% A fib with RVR; NOAC, Eliquis Acute on chronic kidney disease, fluid bolus as needed. Hypotension--->bolus and IVF timed Chronic DM type 2, recent med changes HTN HLD GERD Tobacco dependence COPD Plan: TamiFlu, renal dose Resp work up Lasix gtt, ~48 hours as tolerated 2 liter fluid restriction Cardizem gtt, 2.5-5 mg/ for rate control, avoid hypotension Titrate O2, keep sat >92% Restart home meds, resume Cardizem-->use shorter acting. Daily Labs Diurese as tolerated Follow renal function 2D echo Droplet isolation Correct electrolytes Tobacco cessation CHF education Diabetic ed Consult PT/OT/CM DVT/GI prophylaxis LOS>96 hours for A Fib/Influenza treatment Home Health faxed on 07/28/18; DC 07/29/18; improvement exceed expectations, thus for assessment only. O2 assessment on DC at rest/activity--needs 1 l/m Tamiflu 30 mg daily for 4 days. - General Info Date of Service: 07/24/18 Functional Status: Reports: Pain Controlled, Tolerating Diet, Ambulating, Urinating - Review of Systems General: Reports: No Symptoms HEENT: Reports: No Symptoms Pulmonary: Reports: No Symptoms Cardiovascular: Reports: No Symptoms Gastrointestinal: Reports: No Symptoms Genitourinary: Reports: No Symptoms Musculoskeletal: Reports: No Symptoms Skin: Reports: No Symptoms Neurological: Reports: No Symptoms Psychiatric: Reports: No Symptoms - Patient Data Vitals - Most Recent: Last Vital Signs Temp 36.9 C 07/29/18 07:22 Pulse 72 07/29/18 08:05 Resp 20 07/29/18 07:22 BP 112/83 07/29/18 08:05 Pulse Ox 92 L 07/29/18 10:29 Weight - Most Recent: 76.204 kg I&O - Last 24 hours: Intake & Output 07/28/18 07/29/18 07/29/18 21:59 06:59 14:59 Intake Total 180 Output Total Balance 180 Lab Results - Last 24 hrs: Laboratory Results - last 24 hr 07/28/18 07/29/18 07/29/18 Range/Units 10:29 06:28 06:28 WBC 10.20 H (3.98-10.04) K/mm3 RBC 3.94 L (3.98-5.22) M/mm3 Hgb 11.4 (11.2-15.7) gm/L Hct 36.9 (34.1-44.9) % MCV 93.7 (79.4-94.8) fl MCH 28.9 (25.6-32.2) pg MCHC 30.9 L (32.2-35.5) g/dl RDW Std Deviation 51.1 H (36.4-46.3) fL Plt Count 228 (182-369) K/mm3 MPV 10.9 (9.4-12.3) fl Neut % (Auto) 80.6 H (34.0-71.1) % Lymph % (Auto) 11.1 L (19.3-51.7) % [place] % (Auto) 7.0 (4.7-12.5) % Eos % (Auto) 0 L (0.7-5.8) Baso % (Auto) 0.2 (0.1-1.2) % Neut # (Auto) 8.23 H (1.56-6.13) K/mm3 Lymph # (Auto) 1.13 L (1.18-3.74) K/mm3 [place] # (Auto) 0.71 H (0.24-0.36) K/mm3 Eos # (Auto) 0.00 L (0.04-0.36) K/mm3 Baso # (Auto) 0.02 (0.01-0.08) K/mm3 Manual Slide Review Abnormal smear Sodium 133 L (136-145) mEq/L Potassium 5.4 H 5.9 H (3.5-5.1) mEq/L Chloride 97 L (98-107) mEq/L Carbon Dioxide 29 (21-32) mEq/L Anion Gap 12.9 (5-15) BUN 28 H (7-18) mg/dL Creatinine 1.9 H (0.55-1.02) mg/dL Est Cr Clr Drug Dosing 19.53 mL/min Estimated GFR (MDRD) 25 (>60) mL/min BUN/Creatinine Ratio 14.7 (14-18) Glucose 112 (83-115) mg/dL Lactic Acid (0.4-2.0) mmol/L Calcium 10.2 H (8.5-10.1) mg/dL Magnesium 2.0 (1.8-2.4) mg/dl C-Reactive Protein 1.1 H* (<1.0) mg/dL NT-Pro-B Natriuret Pep (0-450) pg/mL 07/29/18 07/29/18 07/29/18 Range/Units 06:28 06:28 11:06 WBC (3.98-10.04) K/mm3 RBC (3.98-5.22) M/mm3 Hgb (11.2-15.7) gm/L Hct (34.1-44.9) % MCV (79.4-94.8) fl MCH (25.6-32.2) pg MCHC (32.2-35.5) g/dl RDW Std Deviation (36.4-46.3) fL Plt Count (182-369) K/mm3 MPV (9.4-12.3) fl Neut % (Auto) (34.0-71.1) % Lymph % (Auto) (19.3-51.7) % [place] % (Auto) (4.7-12.5) % Eos % (Auto) (0.7-5.8) Baso % (Auto) (0.1-1.2) % Neut # (Auto) (1.56-6.13) K/mm3 Lymph # (Auto) (1.18-3.74) K/mm3 [place] # (Auto) (0.24-0.36) K/mm3 Eos # (Auto) (0.04-0.36) K/mm3 Baso # (Auto) (0.01-0.08) K/mm3 Manual Slide Review Sodium (136-145) mEq/L Potassium 5.5 H (3.5-5.1) mEq/L Chloride (98-107) mEq/L Carbon Dioxide (21-32) mEq/L Anion Gap (5-15) BUN (7-18) mg/dL Creatinine (0.55-1.02) mg/dL Est Cr Clr Drug Dosing mL/min Estimated GFR (MDRD) (>60) mL/min BUN/Creatinine Ratio (14-18) Glucose (83-115) mg/dL Lactic Acid 2.5 H (0.4-2.0) mmol/L Calcium (8.5-10.1) mg/dL Magnesium (1.8-2.4) mg/dl C-Reactive Protein (<1.0) mg/dL NT-Pro-B Natriuret Pep 3490 H (0-450) pg/mL 07/29/18 Range/Units 11:06 WBC (3.98-10.04) K/mm3 RBC (3.98-5.22) M/mm3 Hgb (11.2-15.7) gm/L Hct (34.1-44.9) % MCV (79.4-94.8) fl MCH (25.6-32.2) pg MCHC (32.2-35.5) g/dl RDW Std Deviation (36.4-46.3) fL Plt Count (182-369) K/mm3 MPV (9.4-12.3) fl Neut % (Auto) (34.0-71.1) % Lymph % (Auto) (19.3-51.7) % [place] % (Auto) (4.7-12.5) % Eos % (Auto) (0.7-5.8) Baso % (Auto) (0.1-1.2) % Neut # (Auto) (1.56-6.13) K/mm3 Lymph # (Auto) (1.18-3.74) K/mm3 [place] # (Auto) (0.24-0.36) K/mm3 Eos # (Auto) (0.04-0.36) K/mm3 Baso # (Auto) (0.01-0.08) K/mm3 Manual Slide Review Sodium (136-145) mEq/L Potassium (3.5-5.1) mEq/L Chloride (98-107) mEq/L Carbon Dioxide (21-32) mEq/L Anion Gap (5-15) BUN (7-18) mg/dL Creatinine (0.55-1.02) mg/dL Est Cr Clr Drug Dosing mL/min Estimated GFR (MDRD) (>60) mL/min BUN/Creatinine Ratio (14-18) Glucose (83-115) mg/dL Lactic Acid 2.9 H (0.4-2.0) mmol/L Calcium (8.5-10.1) mg/dL Magnesium (1.8-2.4) mg/dl C-Reactive Protein (<1.0) mg/dL NT-Pro-B Natriuret Pep (0-450) pg/mL LAURIE Results - Last 24 hrs: Microbiology 07/24/18 16:01 Aerobic Blood Culture - Preliminary Blood - Venous NO GROWTH AFTER 4 DAYS Anaerobic Blood Culture - Final 07/24/18 15:55 Aerobic Blood Culture - Preliminary Blood - Venous - Lab Draw NO GROWTH AFTER 4 DAYS Anaerobic Blood Culture - Preliminary NO GROWTH AFTER 4 DAYS Med Orders - Current: Current Medications Acetaminophen (Tylenol) 650 mg PO Q4H PRN PRN Reason: Pain/Fever Last Admin: 07/29/18 03:22 Dose: 650 mg Apixaban (Eliquis) 2.5 mg PO BID [facility] Last Admin: 07/29/18 08:04 Dose: 2.5 mg Diltiazem HCl (Cardizem) 60 mg PO Q6H [facility] Last Admin: 07/29/18 08:05 Dose: 60 mg Dopamine HCl/Dextrose (Dopamine In D5w 400 Mg/250 Ml) 400 mg in 250 mls @ 8.604 mls/hr IV TITRATE [facility]; Protocol Ipratropium [place] (Atrovent) 0.5 mg NEB Q8HRRT PRN PRN Reason: Shortness of Breath Last Admin: 07/27/18 13:40 Dose: 0.5 mg Levalbuterol HCl (Xopenex) 1.25 mg NEB QIDRT [facility] Last Admin: 07/29/18 10:29 Dose: Not Given Lorazepam (Ativan) 0.25 mg IVPUSH Q6H PRN PRN Reason: Anxiety Metoclopramide HCl (Reglan) 10 mg IVPUSH Q6H PRN PRN Reason: Nausea/Vomiting Last Admin: 07/27/18 13:24 Dose: 10 mg Metoprolol Tartrate (Lopressor) 25 mg PO Q12H [facility] Last Admin: 07/29/18 08:05 Dose: 25 mg Miscellaneous Information (Remove Patch) 1 ea TRDERM Q72H [facility] Last Admin: 07/26/18 17:55 Dose: Not Given Nicotine (Habitrol) 21 mg TRDERM DAILY [facility] Last Admin: 07/29/18 08:03 Dose: 21 mg Ondansetron HCl (Zofran) 4 mg IVPUSH Q6H PRN PRN Reason: Nausea Last Admin: 07/27/18 10:00 Dose: 4 mg Oseltamivir Phosphate (Tamiflu) 30 mg PO Q24H [facility] Last Admin: 07/28/18 15:05 Dose: 30 mg Pantoprazole Sodium (Protonix) 40 mg PO DAILY@0700 [facility] Last Admin: 07/29/18 06:33 Dose: 40 mg Scopolamine (Transderm-Scop) 1.5 mg TRDERM Q72H PRN PRN Reason: Nausea Last Admin: 07/26/18 17:54 Dose: 1.5 mg Simvastatin (Zocor) 10 mg PO BEDTIME [facility]E Last Admin: 07/28/18 20:15 Dose: 10 mg Sodium Chloride (Saline Flush) 10 ml FLUSH ASDIRECTED PRN PRN Reason: Keep Vein Open Last Admin: 07/24/18 16:07 Dose: 10 ml Temazepam (Restoril) 7.5 mg PO BEDTIME PRN PRN Reason: Insomnia Last Admin: 07/28/18 23:25 Dose: 7.5 mg Discontinued Medications Acetaminophen (Tylenol) 650 mg PO NOW ONE Stop: 07/24/18 15:42 Last Admin: 07/24/18 16:01 Dose: 650 mg Diltiazem HCl (Cardizem) 5 mg IVPUSH ONETIME ONE Stop: 07/24/18 15:41 Last Admin: 07/24/18 16:02 Dose: 5 mg Diltiazem HCl (Cardizem) 30 mg PO Q6H [facility] Last Admin: 07/28/18 20:31 Dose: 30 mg Furosemide (Lasix) 40 mg IVPUSH NOW ONE Stop: 07/24/18 15:53 Last Admin: 07/24/18 16:11 Dose: 40 mg Furosemide (Lasix) 20 mg IVPUSH NOW ONE Stop: 07/29/18 08:23 Last Admin: 07/29/18 10:00 Dose: 20 mg Diltiazem HCl 125 mg/ Sodium (Chloride) 125 mls @ 10 mls/hr IV TITRATE [facility]; Protocol Last Titration: 07/26/18 03:57 Dose: 0 mg/hr, 0 mls/hr Furosemide 100 mg/ Sodium (Chloride) 100 mls @ 4 mls/hr IV TITRATE [facility] Stop: 07/26/18 20:31 Last Infusion: 07/26/18 01:15 Dose: 4 mls/hr Magnesium Sulfate 4 gm/ Premix 100 mls @ 25 mls/hr IV ONETIME ONE Stop: 07/25/18 03:29 Last Admin: 07/24/18 23:25 Dose: 50 mls/hr Magnesium Sulfate 2 gm/ Premix 50 mls @ 25 mls/hr IV ONETIME ONE Stop: 07/25/18 05:29 Last Admin: 07/25/18 05:43 Dose: Not Given Sodium Chloride (Normal Saline) 250 mls @ 999 mls/hr IV ASDIRECTED [facility]AYLEE Sodium Chloride (Normal Saline) 250 mls @ 999 mls/hr IV .BOLUS ONE Stop: 07/25/18 10:00 Last Admin: 07/25/18 09:51 Dose: 999 mls/hr Sodium Chloride (Normal Saline) 1,000 mls @ 999 mls/hr IV .BOLUS ONE Stop: 07/25/18 12:59 Last Admin: 07/25/18 12:07 Dose: 999 mls/hr Sodium Chloride (Normal Saline) 1,000 mls @ 75 mls/hr IV ASDIRECTED [facility]AYLEE Norepinephrine Bitartrate 4 mg (/ Dextrose/Water) 250 mls @ 7.5 mls/hr IV TITRATE [facility]; Protocol Last Titration: 07/27/18 14:30 Dose: 0 mcg/min, 0 mls/hr Sodium Chloride (Normal Saline) 1,000 mls @ 100 mls/hr IV ASDIRECTED [facility]E Stop: 07/26/18 01:00 Last Admin: 07/25/18 21:09 Dose: 100 mls/hr Sodium Chloride (Normal Saline) 1,000 mls @ 50 mls/hr IV ASDIRECTED [facility]AYLEE Last Admin: 07/27/18 10:55 Dose: 50 mls/hr Sodium Chloride (Normal Saline) 250 mls @ 999 mls/hr IV ASDIRECTED [facility]AYLEE Stop: 07/27/18 20:30 Last Infusion: 07/27/18 20:30 Dose: Infused Sodium Chloride (Normal Saline) 1,000 mls @ 75 mls/hr IV ASDIRECTED [facility] Stop: 07/28/18 02:30 Last Admin: 07/28/18 00:00 Dose: 75 mls/hr Sodium Chloride (Normal Saline) 1,000 mls @ 75 mls/hr IV ASDIRECTED [facility] Stop: 07/28/18 17:30 Magnesium Sulfate 2 gm/ Premix 50 mls @ 25 mls/hr IV ONETIME ONE Stop: 07/28/18 13:29 Last Admin: 07/28/18 12:08 Dose: 25 mls/hr Levalbuterol HCl (Xopenex) 1.25 mg NEB QID [facility] Last Admin: 07/24/18 21:08 Dose: 1.25 mg Methylprednisolone Sodium Succinate (Solu-Medrol) 40 mg IVPUSH DAILY [facility] Stop: 07/28/18 09:01 Last Admin: 07/28/18 08:40 Dose: 40 mg Morphine Sulfate (Morphine) 2 mg IVPUSH Q6HR PRN PRN Reason: Dyspnea Last Admin: 07/26/18 15:56 Dose: 2 mg Oseltamivir Phosphate (Tamiflu) 75 mg PO ONETIME ONE Stop: 07/24/18 16:27 Last Admin: 07/24/18 16:46 Dose: 75 mg Potassium Chloride (Klor-Con M20) 40 meq PO BID [facility] Stop: 07/27/18 09:01 Last Admin: 07/27/18 10:19 Dose: 40 meq Temazepam (Restoril) 7.5 mg PO ONETIME ONE Stop: 07/25/18 23:04 Last Admin: 07/25/18 23:38 Dose: 7.5 mg - Exam Quality Assessment: Reports: DVT Prophylaxis General: Reports: Alert, Oriented, Cooperative, No Acute Distress HEENT: Reports: Pupils Equal, Pupils Reactive, EOMI Neck: Reports: Trachea Midline, No JVD Lungs: Reports: Normal Respiratory Effort Cardiovascular: Reports: Regular Rate, Irregular Rhythm GI/Abdominal Exam: Normal Bowel Sounds, Soft, Non-Tender, No Organomegaly, No Distention (Female) Exam: Deferred Rectal (Female) Exam: Deferred Back Exam: Reports: Normal Inspection Extremities: Normal Inspection, Non-Tender, Normal Capillary Refill Skin: Reports: Warm Neurological: Reports: No New Focal Deficit Psy/Mental Status: Reports: Alert, Normal Affect, Normal Mood
[2018-07-29 14:34] VITALS: BP 107/78
== END 2018-07-29 14:20 | disposition home or self-care (01) | DRG 193 ==
LOC: JD.ED 14:19 → JD.ICU 17:49 → JD.MS 07-28 15:01
PROVIDERS: ADMIT Internal Medicine Cardiovascular Disease; ATTEND Internal Medicine Cardiovascular Disease
DX: J10.1 Influenza due to other identified influenza virus with other respiratory manifestations (principal); I50.33 Acute on chronic diastolic (congestive) heart failure; I13.0 Hypertensive heart and chronic kidney disease with heart failure and stage 1 through stage 4 chronic kidney disease, or unspecified chronic kidney disease; N18.4 Chronic kidney disease, stage 4 (severe); I48.92 Unspecified atrial flutter; R09.02 Hypoxemia; I48.2 Chronic atrial fibrillation; I25.10 Atherosclerotic heart disease of native coronary artery without angina pectoris; E78.00 Pure hypercholesterolemia, unspecified; K21.9 Gastro-esophageal reflux disease without esophagitis; E11.9 Type 2 diabetes mellitus without complications; E66.9 Obesity, unspecified; F17.210 Nicotine dependence, cigarettes, uncomplicated; K59.00 Constipation, unspecified; R32 Unspecified urinary incontinence; M54.5 Low back pain; G89.29 Other chronic pain; N28.9 Disorder of kidney and ureter, unspecified; E78.5 Hyperlipidemia, unspecified; J44.9 Chronic obstructive pulmonary disease, unspecified; R06.03 Acute respiratory distress; E87.5 Hyperkalemia; I95.9 Hypotension, unspecified; Z79.82 Long term (current) use of aspirin; R26.2 Difficulty in walking, not elsewhere classified; R39.15 Urgency of urination; Z66 Do not resuscitate; M25.552 Pain in left hip; M25.551 Pain in right hip; M25.562 Pain in left knee; M25.561 Pain in right knee; M25.512 Pain in left shoulder; R07.9 Chest pain, unspecified; R06.02 Shortness of breath; R42 Dizziness and giddiness; R05 Cough; R50.9 Fever, unspecified; R53.81 Other malaise; R06.2 Wheezing; R06.00 Dyspnea, unspecified; R60.9 Edema, unspecified; R53.1 Weakness; M25.511 Pain in right shoulder; M54.2 Cervicalgia; R06.82 Tachypnea, not elsewhere classified; Z91.041 Radiographic dye allergy status; Z79.01 Long term (current) use of anticoagulants; Z79.899 Other long term (current) drug therapy; Z90.49 Acquired absence of other specified parts of digestive tract; Z96.659 Presence of unspecified artificial knee joint; Z91.14 Patient's other noncompliance with medication regimen
CPT/HCPCS: 36415; 71045; 80053; 82553; 83605; 83735; 83880; 84484; 85007; 85027; 85610; 85652; 85730; 86140; 86738; 87040 ×2; 87804 ×2; 93005 ×2; A9270 ×2; J1940; J3490 ×2; J7030; 36600; 51702; 71046; 71046-26; 80048; 81001; 82803; 84132; 85025; 87486; 87581; 87632; 87798; 87899; 93306; 94640; 94667; 94668; 94760; 94761; 97112-GP; 97116-GP; 97162-GP; 97166-GO; 97530-GP; 97535-GO; J2270; J2405; J2765; J2920; J3475; J7040; J7050; J7060; J7612-GY

== ENCOUNTER 2018-07-29 21:10 | Emergency (ER) | payer MEDICARE, OTHER ==
[2018-07-29 21:39] VITALS: BP 127/71
--- NOTE | 2018-07-29 22:01 | EDM.PDOCBH ---
ED HPI GENERAL MEDICAL PROBLEM - General Chief Complaint: Behavioral/Psych Stated Complaint: ANXIETY POSSIBLE LOW OXYGEN RELEASED TODAY Time Seen by Provider: 07/29/18 22:00 - History of Present Illness INITIAL COMMENTS - FREE TEXT/NARRATIVE: 78-year-old female returns emergency room with a few concerns. She is getting over the flu and was started on oxygen. She has not slept well the last couple of nights she is a little anxious. She denies any chest pressure or pain no breathing difficulties or shortness of breath she's just a little concerned whether she'll be able to sleep tonight. She has no other complaints. - Related Data Allergies Allergy/AdvReac Type Severity Reaction Status Date / Time contrast dye Allergy Hives Uncoded 07/24/18 22:19 Home Meds: Home Meds Calcium Citrate/Vitamin D3 [Citracal + D Maximum Caplet] 1 tab PO BEDTIME [History] Cyanocobalamin (Vitamin B12) [Vitamin B12] 1,000 mcg PO DAILY 04/09/17 [History] Forteo. 600 mcg SUBCUT DAILY 04/09/17 [History] Furosemide [Lasix] 20 mg PO BID 04/09/17 [History] Pravastatin [Pravachol] 20 mg PO BEDTIME 04/09/17 [History] Apixaban [Eliquis] 2.5 mg PO BID 07/23/18 [History] Diltiazem [Dilacor XR] 240 mg PO DAILY 07/23/18 [History] Omeprazole 20 mg PO DAILY 07/24/18 [History] Metoprolol Tartrate [Lopressor] 25 mg PO Q12H #60 tablet 07/29/18 [Rx] Nicotine [Habitrol] 21 mg TRDERM DAILY #30 patch 07/29/18 [Rx] Oseltamivir [Tamiflu] 30 mg PO Q24H #4 cap 07/29/18 [Rx] Potassium Chloride 20 meq PO DAILY #0 07/29/18 [Rx] Past Medical History HEENT History: Reports: Impaired Vision Cardiovascular History: Reports: Afib, CAD, Heart Failure, High Cholesterol, Hypertension Gastrointestinal History: Reports: GERD Genitourinary History: Reports: Urinary Incontinence [employer] History: Reports: Musculoskeletal History: Reports: Back Pain, Chronic Other Musculoskeletal History: back surgery Endocrine/Metabolic History: Reports: Diabetes, Type II, Obesity/BMI 30+ Other Endocrine/Metabolic History: pt no longer on DM meds. - Past Surgical History HEENT Surgical History: Reports: Cataract Surgery, Tonsillectomy GI Surgical History: Reports: Cholecystectomy Neurological Surgical History: Reports: Lumbar Spine Other Neurological Surgeries/Procedures: back surgery Musculoskeletal Surgical History: Reports: Knee Replacement Social & Family History - Tobacco Use Smoking Status *Q: Former Smoker Used Tobacco, but Quit: Yes Month/Year Tobacco Last Used: t-5 - Caffeine Use Caffeine Use: Reports: Coffee - Recreational Drug Use Recreational Drug Use: No - Living Situation & Occupation Living situation: Reports: , with Family (Son) Occupation: Retired ED ROS GENERAL - Review of Systems Review Of Systems: Unable To Obtain HEENT: Reports: No Symptoms Respiratory: Reports: Other (Proving cough) Cardiovascular: Reports: No Symptoms GI/Abdominal: Reports: No Symptoms ED EXAM, BEHAVIORAL HEALTH - Physical Exam Exam: See Below Exam Limited By: No Limitations General Appearance: Mild Distress, Moderate Distress Head: Atraumatic, Normocephalic Neck: Normal Inspection, Supple, Non-Tender, Full Range of Motion Respiratory/Chest: No Respiratory Distress, Lungs Clear, Normal Breath Sounds Cardiovascular: Regular Rate, Rhythm, No Edema, No Murmur GI/Abdominal: Normal Bowel Sounds, Soft, Non-Tender, No Organomegaly Neurological: Alert, Normal Mood/Affect, Normal Cognition Psychiatric: Other (He is a little anxious). No: Restless, Tearful, Agitated, Homicidal Thoughts, Suicidal Thoughts COURSE, BEHAVIORAL HEALTH COMP - Course Vital Signs: Last Vital Signs Temp 36.7 C 07/29/18 21:30 Pulse 86 07/29/18 21:30 Resp 20 07/29/18 21:30 BP 127/71 07/29/18 21:30 Pulse Ox 97 07/29/18 21:30 Orders, Labs, Meds: Medications Discontinued Medications Generic Name Dose Route Start Last Admin Trade Name Freq PRN Reason Stop Dose Admin Lorazepam 0.5 mg 07/29/18 22:19 07/29/18 22:27 Ativan PO 07/29/18 22:20 0.5 mg ONETIME ONE Administration Medical Clearance: 07/29/18 22:40 Gases situation in detail with the patient and her family and she will do much better if she gets some sleep tonight. Will give her half milligram of Ativan discharge Departure - Departure Time of Disposition: 22:41 Disposition: Home, Self-Care 01 Condition: Good Clinical Impression: Anxiety - Discharge Information Referrals: Valery Ralph MD [Primary Care Provider] - Forms: ED Department Discharge Additional Instructions: Return to emergency room if any questions problems worsening symptoms. Follow-up with your regular provider early this next week
[2018-07-29] MEDS ORDERED: LORazepam 0.5 MG Tab PO ONE (22:19)
== END 2018-07-29 22:50 | disposition home or self-care (01) ==
LOC: JD.ED 21:10
DX: F41.9 Anxiety disorder, unspecified (principal); I11.0 Hypertensive heart disease with heart failure; I50.9 Heart failure, unspecified; I25.10 Atherosclerotic heart disease of native coronary artery without angina pectoris; I48.91 Unspecified atrial fibrillation; K21.9 Gastro-esophageal reflux disease without esophagitis; Z87.891 Personal history of nicotine dependence
CPT/HCPCS: 99283; A9270

== ENCOUNTER 2018-08-04 10:35 | Inpatient (IN) | payer MEDICARE, OTHER ==
[2018-08-04] MEDS ORDERED: Sodium Chloride 0.9% 500 ML IV ONE (11:04)
[2018-08-04] MEDS ORDERED: Sodium Chloride 0.9% 10 ML Syringe FLUSH PRN (11:04)
[2018-08-04] MEDS ORDERED: Albuterol/Ipratropium 3.0-0.5 MG/3 ML Neb Soln NEB ONE (11:04)
[2018-08-04] MEDS ORDERED: Sodium Chloride 0.9% 500 ML IV SCH ×2 (11:47→13:15)
[2018-08-04] MEDS ORDERED: cefTRIAXone 1 GM in Sodium Chloride 0.9% 100 ML IV ONE (12:13)
--- NOTE | 2018-08-04 12:16 | EDM.PDOC ---
ED HPI GENERAL MEDICAL PROBLEM - General Chief Complaint: Respiratory Problem Stated Complaint: LOW BP AND O2 Time Seen by Provider: 08/04/18 10:52 Source of Information: Reports: Patient, Family, RN Notes Reviewed (Daughter) - History of Present Illness INITIAL COMMENTS - FREE TEXT/NARRATIVE: 78-year-old female brought in by daughter with symptoms of cough, dizziness, generalized weakness and shortness of breath. She was admitted to this hospital about a week to 10 days ago with similar symptoms, found to have influenza but also in atrial fib with RVR. She was treated with Tamiflu, did get better and according to daughter was released about 5 or 6 days ago. Patient states she was doing okay yesterday but this morning the coughing, shortness of breath, weakness and dizziness became much worse. She has been using oxygen at 1 L nasal cannula since going home. She also is on at least a couple of medications for rate control for her chronic atrial fib. She felt like she was having chills during the night, states she had to sleep "above the covers". Appetite has been poor since going home. No current chest or abdominal pain. No nausea vomiting. Her daughter states that she is DNR, DNI. Generalized Pain Score (Numeric/FACES): 5 - Related Data Allergies Allergy/AdvReac Type Severity Reaction Status Date / Time contrast dye Allergy Hives Uncoded 08/04/18 11:18 Home Meds: Home Meds Calcium Citrate/Vitamin D3 [Citracal + D Maximum Caplet] 1 tab PO BEDTIME [History] Cyanocobalamin (Vitamin B12) [Vitamin B12] 1,000 mcg PO DAILY 04/09/17 [History] Forteo. 600 mcg SUBCUT DAILY 04/09/17 [History] Furosemide [Lasix] 20 mg PO BID 04/09/17 [History] Pravastatin [Pravachol] 20 mg PO BEDTIME 04/09/17 [History] Apixaban [Eliquis] 2.5 mg PO BID 07/23/18 [History] Diltiazem [Dilacor XR] 240 mg PO DAILY 07/23/18 [History] Omeprazole 20 mg PO DAILY 07/24/18 [History] Metoprolol Tartrate [Lopressor] 25 mg PO Q12H #60 tablet 07/29/18 [Rx] Potassium Chloride 20 meq PO DAILY #0 07/29/18 [Rx] Cyclobenzaprine [Flexeril] 10 mg PO TID 08/04/18 [History] metFORMIN [Glucophage XR] 500 mg PO TIDMEALS 08/04/18 [History] Past Medical History HEENT History: Reports: Impaired Vision Cardiovascular History: Reports: Afib, CAD, Heart Failure, High Cholesterol, Hypertension Gastrointestinal History: Reports: GERD Genitourinary History: Reports: Urinary Incontinence [employer] REPA[employer]ER History: Reports: Musculoskeletal History: Reports: Back Pain, Chronic Other Musculoskeletal History: back surgery Endocrine/Metabolic History: Reports: Diabetes, Type II, Obesity/BMI 30+ Other Endocrine/Metabolic History: pt no longer on DM meds. - Past Surgical History HEENT Surgical History: Reports: Cataract Surgery, Tonsillectomy GI Surgical History: Reports: Cholecystectomy Neurological Surgical History: Reports: Lumbar Spine Other Neurological Surgeries/Procedures: back surgery Musculoskeletal Surgical History: Reports: Knee Replacement Social & Family History - Tobacco Use Smoking Status *Q: Current Every Day Smoker Years of Tobacco use: 75 Packs/Tins Daily: 1 - Caffeine Use Caffeine Use: Reports: Coffee, Soda - Recreational Drug Use Recreational Drug Use: No - Living Situation & Occupation Living situation: Reports: , with Family (Son) Occupation: Retired ED ROS GENERAL - Review of Systems Review Of Systems: See Below Constitutional: Reports: Fever, Chills (Possible low-grade during the night) HEENT: Denies: Rhinitis, Sinus Problem, Throat Pain Respiratory: Reports: Shortness of Breath, Wheezing, Cough, Sputum Cardiovascular: Reports: Lightheadedness. Denies: Chest Pain (Mostly nonproductive), Syncope Endocrine: Reports: Fatigue GI/Abdominal: Reports: Decreased Appetite. Denies: Abdominal Pain, Nausea, Vomiting Musculoskeletal: Reports: Other (Generalized achiness) Skin: Denies: Rash Neurological: Reports: Dizziness, Weakness (Worse when standing or walking). Denies: Trouble Speaking ( generalized) ED EXAM, GENERAL - Physical Exam Exam: See Below General Appearance: Alert, Mild Distress Eye Exam: Bilateral Eye: PERRL Throat/Mouth: Other (Oral mucosa is very dry) Head: No: Facial Swelling Neck: Supple, Other (No JVD) Respiratory/Chest: Respiratory Distress, Rhonchi (Right base), Wheezing ( Moderate tachypnea mild) Cardiovascular: Irregularly Irregular GI/Abdominal: Soft, Non-Tender Extremities: No: Pedal Edema, Leg Pain, Increased Warmth, Redness Neurological: Alert, Oriented, No Motor/Sensory Deficits Skin Exam: Warm, Dry, Normal Color EKG INTERPRETATION EKG Date: 08/04/18 Rhythm: A-Fib Rate (Beats/Min): 83 P-Wave: Absent QRS: Normal ST-T: Normal Course - Vital Signs Last Recorded V/S: Last Vital Signs Temp 98.0 F 08/04/18 10:48 Pulse 75 08/04/18 10:48 Resp 18 08/04/18 10:48 BP 77/57 L 08/04/18 10:48 Pulse Ox 96 08/04/18 12:20 - Orders/Labs/Meds Orders: Active Orders 24 hr Category Date Time Status EKG 12 Lead [EKG Documentation Completion] [RC] STAT Care 08/04/18 13:46 Active Oxygen Therapy [RC] ASDIRECTED Care 08/04/18 11:04 Active Peripheral IV Care [RC] . DIRECTED Care 08/04/18 11:04 Active RT Aerosol Therapy [RC] ASDIRECTED Care 08/04/18 11:04 Active Chest 1V Frontal [CR] Stat Exams 08/04/18 11:02 Taken CULTURE BLOOD [BC] Stat Lab 08/04/18 12:15 Received CULTURE BLOOD [BC] Stat Lab 08/04/18 12:20 Received Sodium Chloride 0.9% [Normal Saline] 1,000 ml Med 08/04/18 14:45 Active IV ASDIRECTED Sodium Chloride 0.9% [Normal Saline] 1,000 ml Med 08/04/18 14:45 Active IV ASDIRECTED Sodium Chloride 0.9% [Normal Saline] 500 ml Med 08/04/18 11:47 Active IV ASDIRECTED Sodium Chloride 0.9% [Normal Saline] 500 ml Med 08/04/18 13:15 Active IV ASDIRECTED Sodium Chloride 0.9% [Saline Flush] Med 08/04/18 11:04 Active 10 ml FLUSH ASDIRECTED PRN Peripheral IV Insertion Adult [OM.PC] Stat Oth 08/04/18 11:04 Ordered Medication Orders Sodium Chloride (Normal Saline) 500 mls @ 999 mls/hr IV ASDIRECTED [facility] Last Admin: 08/04/18 13:10 Dose: 999 mls/hr Sodium Chloride (Normal Saline) 500 mls @ 999 mls/hr IV ASDIRECTED KAYLEE Last Admin: 08/04/18 11:50 Dose: 999 mls/hr Sodium Chloride (Normal Saline) 1,000 mls @ 150 mls/hr IV ASDIRECTED KAYLEE Last Admin: 08/04/18 14:42 Dose: 150 mls/hr Sodium Chloride (Normal Saline) 1,000 mls @ 150 mls/hr IV ASDIRECTED KAYLEE Sodium Chloride (Saline Flush) 10 ml FLUSH ASDIRECTED PRN PRN Reason: Keep Vein Open Last Admin: 08/04/18 11:16 Dose: 10 ml Labs: Laboratory Tests 08/04/18 08/04/18 08/04/18 Range/Units 11:15 11:50 11:50 WBC 23.64 H (3.98-10.04) K/mm3 RBC 4.17 (3.98-5.22) M/mm3 Hgb 12.4 (11.2-15.7) gm/L Hct 38.6 (34.1-44.9) % MCV 92.6 (79.4-94.8) fl MCH 29.7 (25.6-32.2) pg MCHC 32.1 L (32.2-35.5) g/dl RDW Std Deviation 51.3 H (36.4-46.3) fL Plt Count 439 H (182-369) K/mm3 MPV 10.2 (9.4-12.3) fl Neut % (Auto) 87.3 H (34.0-71.1) % Lymph % (Auto) 4.2 L (19.3-51.7) % [place] % (Auto) 7.4 (4.7-12.5) % Eos % (Auto) 0.2 L (0.7-5.8) Baso % (Auto) 0.1 (0.1-1.2) % Neut # (Auto) 20.64 H (1.56-6.13) K/mm3 Lymph # (Auto) 1.00 L (1.18-3.74) K/mm3 [place] # (Auto) 1.75 H (0.24-0.36) K/mm3 Eos # (Auto) 0.04 (0.04-0.36) K/mm3 Baso # (Auto) 0.03 (0.01-0.08) K/mm3 Manual Slide Review Normal smear Puncture Site ABG pH (7.35-7.45) ABG pCO2 (35.0-45.0) mmHg ABG pO2 (80.0-100.0) mmHg ABG HCO3 (22.0-26.0) meq/L ABG O2 Saturation (96.0-97.0) % ABG Base Excess (-2-2.0) Hoang Test A-a Gradient mmHg O2 Delivery Device Oxygen Flow Rate FiO2 (21.00-100.00) % Sodium 132 L (136-145) mEq/L Potassium 4.4 (3.5-5.1) mEq/L Chloride 95 L (98-107) mEq/L Carbon Dioxide 29 (21-32) mEq/L Anion Gap 12.4 (5-15) BUN 51 H (7-18) mg/dL Creatinine 3.3 H (0.55-1.02) mg/dL Est Cr Clr Drug Dosing 11.25 mL/min Estimated GFR (MDRD) 13 (>60) mL/min BUN/Creatinine Ratio 15.5 (14-18) Glucose 124 H (83-115) mg/dL Lactic Acid (0.4-2.0) mmol/L Calcium 9.2 (8.5-10.1) mg/dL Total Bilirubin 0.7 (0.2-1.0) mg/dL AST 16 (15-37) U/L ALT 18 (14-59) U/L Alkaline Phosphatase 80 (46-116) U/L C-Reactive Protein 18.5 H* (<1.0) mg/dL Total Protein 6.5 (6.4-8.2) g/dl Albumin 2.7 L (3.4-5.0) g/dl Globulin 3.8 gm/dL Albumin/Globulin Ratio 0.7 L (1-2) 08/04/18 08/04/18 Range/Units 12:20 15:00 WBC (3.98-10.04) K/mm3 RBC (3.98-5.22) M/mm3 Hgb (11.2-15.7) gm/L Hct (34.1-44.9) % MCV (79.4-94.8) fl MCH (25.6-32.2) pg MCHC (32.2-35.5) g/dl RDW Std Deviation (36.4-46.3) fL Plt Count (182-369) K/mm3 MPV (9.4-12.3) fl Neut % (Auto) (34.0-71.1) % Lymph % (Auto) (19.3-51.7) % [place] % (Auto) (4.7-12.5) % Eos % (Auto) (0.7-5.8) Baso % (Auto) (0.1-1.2) % Neut # (Auto) (1.56-6.13) K/mm3 Lymph # (Auto) (1.18-3.74) K/mm3 [place] # (Auto) (0.24-0.36) K/mm3 Eos # (Auto) (0.04-0.36) K/mm3 Baso # (Auto) (0.01-0.08) K/mm3 Manual Slide Review Puncture Site Rt radial ABG pH 7.42 (7.35-7.45) ABG pCO2 40.1 (35.0-45.0) mmHg ABG pO2 57.0 L (80.0-100.0) mmHg ABG HCO3 25.4 (22.0-26.0) meq/L ABG O2 Saturation 92.4 L (96.0-97.0) % ABG Base Excess 1.4 (-2-2.0) Hoang Test Positive A-a Gradient 97 mmHg O2 Delivery Device Nasal cannula Oxygen Flow Rate 3.0 FiO2 32.00 (21.00-100.00) % Sodium (136-145) mEq/L Potassium (3.5-5.1) mEq/L Chloride (98-107) mEq/L Carbon Dioxide (21-32) mEq/L Anion Gap (5-15) BUN (7-18) mg/dL Creatinine (0.55-1.02) mg/dL Est Cr Clr Drug Dosing mL/min Estimated GFR (MDRD) (>60) mL/min BUN/Creatinine Ratio (14-18) Glucose (83-115) mg/dL Lactic Acid 0.8 (0.4-2.0) mmol/L Calcium (8.5-10.1) mg/dL Total Bilirubin (0.2-1.0) mg/dL AST (15-37) U/L ALT (14-59) U/L Alkaline Phosphatase (46-116) U/L C-Reactive Protein (<1.0) mg/dL Total Protein (6.4-8.2) g/dl Albumin (3.4-5.0) g/dl Globulin gm/dL Albumin/Globulin Ratio (1-2) Meds: Medications Generic Name Dose Route Start Last Admin Trade Name Lin PRN Reason Stop Dose Admin Sodium Chloride 500 mls @ 999 mls/hr 08/04/18 13:15 08/04/18 13:10 Normal Saline IV 999 mls/hr ASDIRECTED KAYLEE Administration Sodium Chloride 500 mls @ 999 mls/hr 08/04/18 11:47 08/04/18 11:50 Normal Saline IV 999 mls/hr ASDIRECTED KAYLEE Administration Sodium Chloride 1,000 mls @ 150 mls/hr 08/04/18 14:45 08/04/18 14:42 Normal Saline IV 150 mls/hr ASDIRECTED KAYLEE Administration Sodium Chloride 1,000 mls @ 150 mls/hr 08/04/18 14:45 Normal Saline IV ASDIRECTED KAYLEE Sodium Chloride 10 ml 08/04/18 11:04 08/04/18 11:16 Saline Flush FLUSH 10 ml ASDIRECTED PRN Administration Keep Vein Open Discontinued Medications Generic Name Dose Route Start Last Admin Trade Name Lin PRN Reason Stop Dose Admin Albuterol/Ipratropium 3 ml 08/04/18 11:04 08/04/18 12:18 Duoneb 3.0-0.5 Mg/3 Ml NEB 08/04/18 11:05 3 ml ONETIME ONE Administration Sodium Chloride 500 mls @ 999 mls/hr 08/04/18 11:04 08/04/18 11:15 Normal Saline IV 08/04/18 11:34 999 mls/hr .BOLUS ONE Administration Ceftriaxone Sodium 1 gm/ 100 mls @ 200 mls/hr 08/04/18 12:13 08/04/18 12:26 Sodium Chloride IV 08/04/18 12:42 200 mls/hr ONETIME ONE Administration Sodium Chloride Confirm 08/04/18 13:07 08/04/18 13:12 Normal Saline Administered 08/04/18 13:08 Not Given Dose 1,000 mls @ as directed .ROUTE .[facility] ONE - Re-Assessments/Exams Free Text/Narrative Re-Assessment/Exam: 08/04/18 12:13 Chest x-ray shows a right lower lobe infiltrate. Have an x-ray when admitted about a week ago and chest x-ray at that time was clear. As noted she did have influenza and was treated with Tamiflu prior to release. She was afebrile on arrival to ED today. Sats were in the low 90s with oxygen. She was not tachycardic. Her she did not meet sepsis criteria at the time of triage or my initial visit. Now that I am aware she does have pneumonia blood cultures 2 have been ordered. Ordered Rocephin 1 g IV to be started as soon as the blood cultures have been obtained. Still awaiting chemistries. Did order a 500 mL normal saline bolus. With her history of atrial fib, coronary artery disease, renal insufficiency I am not going to bolus her with a full liter at this time until I do see her chemistries and see how she responds to the 500 mL normal saline. 08/04/18 13:12. Blood pressure did come up into the 90s with the initial fluid bolus but now has dropped back down into the 70s again, will give another 500 mL normal saline IV. Heart rate hasbeen running in the low 60s. I see that she is on diltiazem and metoprolol for blood pressure control. She may be somewhat overmedicated. Also her creatinine has increased from 1.9-3.5 and BUN from 28- 51 so she is somewhat dehydrated at this time. What blood count 23,000 640, C- reactive protein 18.5. I did confirm with daughter that she is DNR/DNI. Rocephin 1 g IV has been given. Patient will be admitted for further treatment. Discussed with Dr Aden, He has asked that I contact Dr De La Torre who is also electronics research engineer for Hospitalist duty today. He does accept patient for admission. He would like to have her admitted to ICU. They have a patient that will be moved out to [facility] to make room and then she will be sent over. Departure - Departure Time of Disposition: 15:20 Disposition: Admitted As Inpatient 64 Condition: Serious Clinical Impression: Renal insufficiency Pneumonia Qualifiers: Pneumonia type: due to unspecified organism Laterality: right Lung location: lower lobe of lung Qualified Code(s): J18.1 - Lobar pneumonia, unspecified organism Hypotension Qualifiers: Hypotension type: unspecified hypotension type Qualified Code(s): I95.9 - Hypotension, unspecified - Discharge Information Referrals: Valery Ralph MD [Primary Care Provider] - Forms: ED Department Discharge - My Orders Last 24 Hours: My Active Orders 08/04/18 11:02 Chest 1V Frontal [CR] Stat 08/04/18 11:04 Oxygen Therapy [RC] ASDIRECTED Peripheral IV Care [RC] . DIRECTED RT Aerosol Therapy [RC] ASDIRECTED Sodium Chloride 0.9% [Saline Flush] 10 ml FLUSH ASDIRECTED PRN Peripheral IV Insertion Adult [OM.PC] Stat 08/04/18 11:47 Sodium Chloride 0.9% [Normal Saline] 500 ml IV ASDIRECTED 08/04/18 12:15 CULTURE BLOOD [BC] Stat 08/04/18 12:20 CULTURE BLOOD [BC] Stat 08/04/18 13:15 Sodium Chloride 0.9% [Normal Saline] 500 ml IV ASDIRECTED 08/04/18 13:46 EKG 12 Lead [EKG Documentation Completion] [RC] STAT 08/04/18 14:45 Sodium Chloride 0.9% [Normal Saline] 1,000 ml IV ASDIRECTED Sodium Chloride 0.9% [Normal Saline] 1,000 ml IV ASDIRECTED - Assessment/Plan Last 24 Hours: My Active Orders 08/04/18 11:02 Chest 1V Frontal [CR] Stat 08/04/18 11:04 Oxygen Therapy [RC] ASDIRECTED Peripheral IV Care [RC] . DIRECTED RT Aerosol Therapy [RC] ASDIRECTED Sodium Chloride 0.9% [Saline Flush] 10 ml FLUSH ASDIRECTED PRN Peripheral IV Insertion Adult [OM.PC] Stat 08/04/18 11:47 Sodium Chloride 0.9% [Normal Saline] 500 ml IV ASDIRECTED 08/04/18 12:15 CULTURE BLOOD [BC] Stat 08/04/18 12:20 CULTURE BLOOD [BC] Stat 08/04/18 13:15 Sodium Chloride 0.9% [Normal Saline] 500 ml IV ASDIRECTED 08/04/18 13:46 EKG 12 Lead [EKG Documentation Completion] [RC] STAT 08/04/18 14:45 Sodium Chloride 0.9% [Normal Saline] 1,000 ml IV ASDIRECTED Sodium Chloride 0.9% [Normal Saline] 1,000 ml IV ASDIRECTED
[2018-08-04] MEDS ORDERED: Sodium Chloride 0.9% 1,000 ML ONE (13:07)
[2018-08-04] MEDS: Sodium Chloride 0.9% 1,000 ML IV SCH ×2 (14:42→19:38)
[2018-08-04] MEDS ORDERED: Sodium Chloride 0.9% 1,000 ML IV SCH (14:45)
--- NOTE | 2018-08-04 15:47 | PCM.HP ---
H&P History of Present Illness - General Date of Service: 08/04/18 Admit Problem/Dx: RLL Pneumonia - History of Present Illness Initial Comments - Free Text/Narative: This is a 78-year-old female who was recently discharged from our hospital on July 29, 2018 for influenza, diastolic heart failure, and atrial fibrillation with RVR was brought into the emergency room with cough, shortness of breath, chills, and general weakness and dizziness. Patient has had the above symptoms over the last couple of days. At time of discharge patient's white count was 10.2, creatinine of 1.9, and a C-reactive protein of 1.1. Patient had blood work done on July 31, 2018 and her creatinine had increased to 0.8 mg/dL. She was seen by her pediatric rn in the middle of the week. Patient was discharged on diltiazem 240 mg daily and a new prescription for metoprolol tartrate 25 mg twice a day was given. Patient was not on antibiotics during her hospitalization. In the emergency room patient was found to be afebrile with no significant shortness of breath. Initially respiratory rate was slightly elevated at 18 and blood pressure was 77/57. Blood pressure improved with 1.5 L of normal saline so that her MAP was greater than 65. Patient was conversant and alert during the entire emergency room visit. White count did return significantly elevated at greater than 23,000. C-reactive protein was 18.5 and her creatinine increased to 3.3. BUN was 51 and sodium of 132. Lactic acid was negative at 0.8. ABGs were performed showing a pH of 7.42, PCO2 of 40.1, PaO2 of 57.0, HCO3 25.4 and O2 saturation of 90.4% on 3 L nasal cannula. Emergency room physician called for admission. Generalized Pain Score (Numeric/FACES): 5 - Related Data Allergies/Adverse Reactions: Allergies Allergy/AdvReac Type Severity Reaction Status Date / Time morphine Allergy Confusion Verified 08/04/18 18:21 contrast dye Allergy Hives Uncoded 08/04/18 11:18 Home Medications: Home Meds Calcium Citrate/Vitamin D3 [Citracal + D Maximum Caplet] 1 tab PO BEDTIME [History] Cyanocobalamin (Vitamin B12) [Vitamin B12] 1,000 mcg PO DAILY 04/09/17 [History] Forteo. 600 mcg SUBCUT DAILY 04/09/17 [History] Furosemide [Lasix] 20 mg PO BID 04/09/17 [History] Pravastatin [Pravachol] 20 mg PO BEDTIME 04/09/17 [History] Apixaban [Eliquis] 2.5 mg PO BID 07/23/18 [History] Diltiazem [Dilacor XR] 240 mg PO DAILY 07/23/18 [History] Omeprazole 20 mg PO DAILY 07/24/18 [History] Metoprolol Tartrate [Lopressor] 25 mg PO Q12H #60 tablet 07/29/18 [Rx] Potassium Chloride 20 meq PO DAILY #0 07/29/18 [Rx] Cyclobenzaprine [Flexeril] 10 mg PO TID 08/04/18 [History] metFORMIN [Glucophage XR] 500 mg PO TIDMEALS 08/04/18 [History] Past Medical History HEENT History: Reports: Impaired Vision Cardiovascular History: Reports: Afib, CAD, Heart Failure, High Cholesterol, Hypertension Gastrointestinal History: Reports: GERD Genitourinary History: Reports: Urinary Incontinence 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 - Past Surgical History HEENT Surgical History: Reports: Cataract Surgery, Tonsillectomy GI Surgical History: Reports: Cholecystectomy Neurological Surgical History: Reports: Lumbar Spine Other Neurological Surgeries/Procedures: back surgery Musculoskeletal Surgical History: Reports: Knee Replacement Social & Family History - Tobacco Use Smoking Status *Q: Current Every Day Smoker Years of Tobacco use: 75 Packs/Tins Daily: 1 - Caffeine Use Caffeine Use: Reports: Coffee, Soda - Recreational Drug Use Recreational Drug Use: No - Living Situation & Occupation Living situation: Reports: , with Family (Son) Occupation: Retired H&P Review of Systems - Review of Systems: Review Of Systems: See Below General: Reports: Chills, Weakness, Fatigue. Denies: Fever, Diaphoresis HEENT: Reports: No Symptoms. Denies: Sinus Congestion Pulmonary: Reports: Cough. Denies: Shortness of Breath Cardiovascular: Reports: Orthopnea, Lightheadedness. Denies: Chest Pain, Palpitations Gastrointestinal: Reports: No Symptoms. Denies: Abdominal Pain, Distension, Vomiting Genitourinary: Reports: No Symptoms. Denies: Dysuria, Frequency Musculoskeletal: Reports: No Symptoms Skin: Reports: No Symptoms Neurological: Reports: Dizziness. Denies: Confusion, Numbness Hematologic/Lymphatic: Reports: No Symptoms Immunologic: Reports: No Symptoms Exam - Exam Exam: See Below - Vital Signs Vital Signs: Last Vital Signs Temp 98.0 F 08/04/18 10:48 Pulse 75 08/04/18 10:48 Resp 18 08/04/18 10:48 BP 77/57 L 08/04/18 10:48 Pulse Ox 96 08/04/18 12:20 Weight: 160 lb - Exam Quality Assessment: Supplemental Oxygen General: Alert, Oriented, Cooperative, Mild Distress HEENT: Conjunctiva Clear, Mucosa Moist & [place] Neck: Supple, Trachea Midline Lungs: Rales, Rhonchi (Bibasilar rhonchi) Cardiovascular: Irregular Rhythm. No: Regular Rate GI/Abdominal Exam: Normal Bowel Sounds, Soft, Non-Tender, No Organomegaly, No Distention Back Exam: Normal Inspection Extremities: Normal Inspection, No Pedal Edema, Normal Capillary Refill Peripheral Pulses: 2+: Posterior Tibial (L), Posterior Tibial (R), Dorsalis Pedis (L), Dorsalis Pedis (R) Skin: Warm, Dry, Intact Neurological: Cranial Nerves Intact Neuro Extensive - Mental Status: Alert, Oriented x3, Normal Mood/Affect, Normal Cognition, Memory Intact Neuro Extensive - Motor, Sensory, Reflexes: CN II-XII Intact Psychiatric: Alert, Normal Affect, Normal Mood - Patient Data Lab Results Last 24 hrs: Laboratory Results - last 24 hr 08/04/18 08/04/18 08/04/18 Range/Units 11:15 11:50 11:50 WBC 23.64 H (3.98-10.04) K/mm3 RBC 4.17 (3.98-5.22) M/mm3 Hgb 12.4 (11.2-15.7) gm/L Hct 38.6 (34.1-44.9) % MCV 92.6 (79.4-94.8) fl MCH 29.7 (25.6-32.2) pg MCHC 32.1 L (32.2-35.5) g/dl RDW Std Deviation 51.3 H (36.4-46.3) fL Plt Count 439 H (182-369) K/mm3 MPV 10.2 (9.4-12.3) fl Neut % (Auto) 87.3 H (34.0-71.1) % Lymph % (Auto) 4.2 L (19.3-51.7) % Bailey % (Auto) 7.4 (4.7-12.5) % Eos % (Auto) 0.2 L (0.7-5.8) Baso % (Auto) 0.1 (0.1-1.2) % Neut # (Auto) 20.64 H (1.56-6.13) K/mm3 Lymph # (Auto) 1.00 L (1.18-3.74) K/mm3 Bailey # (Auto) 1.75 H (0.24-0.36) K/mm3 Eos # (Auto) 0.04 (0.04-0.36) K/mm3 Baso # (Auto) 0.03 (0.01-0.08) K/mm3 Manual Slide Review Normal smear Puncture Site ABG pH (7.35-7.45) ABG pCO2 (35.0-45.0) mmHg ABG pO2 (80.0-100.0) mmHg ABG HCO3 (22.0-26.0) meq/L ABG O2 Saturation (96.0-97.0) % ABG Base Excess (-2-2.0) Hoang Test A-a Gradient mmHg O2 Delivery Device Oxygen Flow Rate FiO2 (21.00-100.00) % Sodium 132 L (136-145) mEq/L Potassium 4.4 (3.5-5.1) mEq/L Chloride 95 L (98-107) mEq/L Carbon Dioxide 29 (21-32) mEq/L Anion Gap 12.4 (5-15) BUN 51 H (7-18) mg/dL Creatinine 3.3 H (0.55-1.02) mg/dL Est Cr Clr Drug Dosing 11.25 mL/min Estimated GFR (MDRD) 13 (>60) mL/min BUN/Creatinine Ratio 15.5 (14-18) Glucose 124 H (83-115) mg/dL Lactic Acid (0.4-2.0) mmol/L Calcium 9.2 (8.5-10.1) mg/dL Total Bilirubin 0.7 (0.2-1.0) mg/dL AST 16 (15-37) U/L ALT 18 (14-59) U/L Alkaline Phosphatase 80 (46-116) U/L C-Reactive Protein 18.5 H* (<1.0) mg/dL Total Protein 6.5 (6.4-8.2) g/dl Albumin 2.7 L (3.4-5.0) g/dl Globulin 3.8 gm/dL Albumin/Globulin Ratio 0.7 L (1-2) 08/04/18 08/04/18 Range/Units 12:20 15:00 WBC (3.98-10.04) K/mm3 RBC (3.98-5.22) M/mm3 Hgb (11.2-15.7) gm/L Hct (34.1-44.9) % MCV (79.4-94.8) fl MCH (25.6-32.2) pg MCHC (32.2-35.5) g/dl RDW Std Deviation (36.4-46.3) fL Plt Count (182-369) K/mm3 MPV (9.4-12.3) fl Neut % (Auto) (34.0-71.1) % Lymph % (Auto) (19.3-51.7) % Bailey % (Auto) (4.7-12.5) % Eos % (Auto) (0.7-5.8) Baso % (Auto) (0.1-1.2) % Neut # (Auto) (1.56-6.13) K/mm3 Lymph # (Auto) (1.18-3.74) K/mm3 Bailey # (Auto) (0.24-0.36) K/mm3 Eos # (Auto) (0.04-0.36) K/mm3 Baso # (Auto) (0.01-0.08) K/mm3 Manual Slide Review Puncture Site Rt radial ABG pH 7.42 (7.35-7.45) ABG pCO2 40.1 (35.0-45.0) mmHg ABG pO2 57.0 L (80.0-100.0) mmHg ABG HCO3 25.4 (22.0-26.0) meq/L ABG O2 Saturation 92.4 L (96.0-97.0) % ABG Base Excess 1.4 (-2-2.0) Hoang Test Positive A-a Gradient 97 mmHg O2 Delivery Device Nasal cannula Oxygen Flow Rate 3.0 FiO2 32.00 (21.00-100.00) % Sodium (136-145) mEq/L Potassium (3.5-5.1) mEq/L Chloride (98-107) mEq/L Carbon Dioxide (21-32) mEq/L Anion Gap (5-15) BUN (7-18) mg/dL Creatinine (0.55-1.02) mg/dL Est Cr Clr Drug Dosing mL/min Estimated GFR (MDRD) (>60) mL/min BUN/Creatinine Ratio (14-18) Glucose (83-115) mg/dL Lactic Acid 0.8 (0.4-2.0) mmol/L Calcium (8.5-10.1) mg/dL Total Bilirubin (0.2-1.0) mg/dL AST (15-37) U/L ALT (14-59) U/L Alkaline Phosphatase (46-116) U/L C-Reactive Protein (<1.0) mg/dL Total Protein (6.4-8.2) g/dl Albumin (3.4-5.0) g/dl Globulin gm/dL Albumin/Globulin Ratio (1-2) Result Diagrams: 08/04/18 11:50 08/04/18 18:24 - Problem List (1) Sepsis associated hypotension SNOMED Code(s): 67082746 ICD Code: A41.9 - SEPSIS, UNSPECIFIED ORGANISM; I95.9 - HYPOTENSION, UNSPECIFIED Status: Acute Current Visit: Yes (2) Renal failure (ARF), acute on chronic SNOMED Code(s): 263025180 ICD Code: N17.9 - ACUTE KIDNEY FAILURE, UNSPECIFIED; N18.9 - CHRONIC KIDNEY DISEASE, UNSPECIFIED Status: Acute Current Visit: Yes (3) Respiratory failure with hypoxia SNOMED Code(s): 39969826096221191 ICD Code: J96.91 - RESPIRATORY FAILURE, UNSPECIFIED WITH HYPOXIA Status: Acute Current Visit: Yes (4) Pneumonia SNOMED Code(s): 408318157 ICD Code: J18.9 - PNEUMONIA, UNSPECIFIED ORGANISM Status: Acute Current Visit: Yes Qualifiers: Pneumonia type: due to unspecified organism Laterality: right Lung location: lower lobe of lung Qualified Code(s): J18.1 - Lobar pneumonia, unspecified organism (5) Hypotension SNOMED Code(s): 42941854 ICD Code: I95.9 - HYPOTENSION, UNSPECIFIED Status: Acute Current Visit: Yes Qualifiers: Hypotension type: unspecified hypotension type Qualified Code(s): I95.9 - Hypotension, unspecified (6) Chronic kidney disease SNOMED Code(s): 006567994 ICD Code: N18.9 - CHRONIC KIDNEY DISEASE, UNSPECIFIED Status: Acute Current Visit: No Problem List Initiated/Reviewed/Updated: Yes Orders Last 24hrs: Active Orders 24 hr Category Date Time Status EKG 12 Lead [EKG Documentation Completion] [RC] STAT Care 08/04/18 13:46 Active Oxygen Therapy [RC] ASDIRECTED Care 08/04/18 11:04 Active Peripheral IV Care [RC] . DIRECTED Care 08/04/18 11:04 Active RT Aerosol Therapy [RC] ASDIRECTED Care 08/04/18 11:04 Active Chest 1V Frontal [CR] Stat Exams 08/04/18 11:02 Taken CULTURE BLOOD [BC] Stat Lab 08/04/18 12:15 Received CULTURE BLOOD [BC] Stat Lab 08/04/18 12:20 Received Sodium Chloride 0.9% [Normal Saline] 1,000 ml Med 08/04/18 14:45 Active IV ASDIRECTED Sodium Chloride 0.9% [Normal Saline] 1,000 ml Med 08/04/18 14:45 Active IV ASDIRECTED Sodium Chloride 0.9% [Normal Saline] 500 ml Med 08/04/18 11:47 Active IV ASDIRECTED Sodium Chloride 0.9% [Normal Saline] 500 ml Med 08/04/18 13:15 Active IV ASDIRECTED Sodium Chloride 0.9% [Saline Flush] Med 08/04/18 11:04 Active 10 ml FLUSH ASDIRECTED PRN Peripheral IV Insertion Adult [OM.PC] Stat Oth 08/04/18 11:04 Ordered Medication Orders Sodium Chloride (Normal Saline) 500 mls @ 999 mls/hr IV ASDIRECTED KAYLEE Last Admin: 08/04/18 13:10 Dose: 999 mls/hr Sodium Chloride (Normal Saline) 500 mls @ 999 mls/hr IV ASDIRECTED KAYLEE Last Admin: 08/04/18 11:50 Dose: 999 mls/hr Sodium Chloride (Normal Saline) 1,000 mls @ 150 mls/hr IV ASDIRECTED KAYLEE Last Admin: 08/04/18 14:42 Dose: 150 mls/hr Sodium Chloride (Normal Saline) 1,000 mls @ 150 mls/hr IV ASDIRECTED [facility] Sodium Chloride (Saline Flush) 10 ml FLUSH ASDIRECTED PRN PRN Reason: Keep Vein Open Last Admin: 08/04/18 11:16 Dose: 10 ml Assessment/Plan Comment:: Right lower lobe pneumonia - Patient was given 1 g Rocephin in the emergency room. - Patient will be started on cefepime, vancomycin, and Levaquin. DC Rocephin. - Sputum cultures - Chest x-ray in the morning Sepsis - Hypotension has improved with fluid resuscitation. Patient received over 2 L in the emergency room of normal saline - Monitor in the ICU - Appropriate antibiotic coverage - Keep MAP above 65 Acute on chronic renal failure - Repeat creatinine shows a decreased from 3.3 in the emergency room to 2.8. BUN decreased from 51-44. - Continue fluid replacement and monitor blood pressure to keep MAP above 65 Respiratory failure with hypoxia - FiO2 to keep pulse ox above 92%. - Monitor in the ICU. - Patient does not want to be intubated. Hypotension/hypovolemia - Appropriate volume resuscitation occurred in the emergency room. - Continue normal saline at 150 mL per hour overnight. Diastolic heart failure - Because patient is going to continue to get fluids overnight we will monitor her I's and O's very closely with a Enrique catheter and daily weights. - Decrease metoprolol because of the low blood pressure overnight. Atrial fibrillation with history of rapid ventricular response - Patient will be placed on short acting and lower dose diltiazem and metoprolol. - Because of the patient's hypotension and atrial fibrillation we will need to monitor her blood pressure and rate closely. - Continue on Eliquis 2.5 mg twice a day VTE prophylaxis with Eliquis
[2018-08-04] MEDS ORDERED: Bisacodyl 5 MG Tab PO PRN (18:04)
[2018-08-04] MEDS ORDERED: Docusate Sodium 100 MG Cap PO PRN (18:04)
[2018-08-04] MEDS ORDERED: 50% Dextrose in Water 50 ML Syringe IVPUSH PRN (18:44)
[2018-08-04] MEDS ORDERED: VANCOMYCIN IV ONE (19:45)
[2018-08-04] MEDS ORDERED: SODIUM CHLORIDE 0.9% IV ONE (19:45)
[2018-08-04] MEDS: Metoprolol Tartrate 25 MG Tab PO SCH (19:49)
[2018-08-04] MEDS ORDERED: Vancomycin 2 GM in Sodium Chloride 0.9% 500 ML IV ONE (20:00)
[2018-08-04] MEDS ORDERED: Cefepime 2 GM in Premix Bag 1 BAG IV ONE (20:00)
[2018-08-04] MEDS: Levofloxacin 750 MG Tab PO SCH (20:20)
[2018-08-04] MEDS: Apixaban 5 MG Tab PO SCH (20:20)
[2018-08-04] MEDS: Insulin Lispro 100 Units/ML 3 ML Vial SUBCUT SCH (21:18)
[2018-08-04] MEDS: Temazepam 7.5 MG Cap PO PRN (21:19)
[2018-08-04] MEDS: Diltiazem IR 30 MG Tab PO SCH (22:54)
[2018-08-05] MEDS: Acetaminophen 325 MG Tab PO PRN (00:36)
[2018-08-05] MEDS: guaiFENesin/Dextromethorphan 100-10 MG/5 ML Soln 5 ML Cup PO PRN ×2 (00:36→12:52)
[2018-08-05] MEDS: Benzocaine/Cetylpyridinium/Menthol Lozenge MUCMEM PRN (00:36)
[2018-08-05] MEDS: Levalbuterol HCl 1.25 MG/3 ML Neb NEB PRN (00:50)
[2018-08-05] MEDS: Temazepam 7.5 MG Cap PO PRN (02:21)
[2018-08-05] MEDS: Sodium Chloride 0.9% 1,000 ML IV SCH ×3 (03:38→12:36)
[2018-08-05] MEDS: hydrOXYzine HCl 25 MG Tab PO PRN ×2 (03:39→21:02)
[2018-08-05] MEDS: Diltiazem IR 30 MG Tab PO SCH ×3 (06:27→21:01)
[2018-08-05] MEDS: Insulin Lispro 100 Units/ML 3 ML Vial SUBCUT SCH (06:28)
[2018-08-05] MEDS: Metoprolol Tartrate 25 MG Tab PO SCH ×2 (06:29→17:59)
--- NOTE | 2018-08-05 07:08 | CR ---
Chest: Portable view of the chest was obtained. Comparison: Prior chest x-ray of 07/26/18. New area of parenchymal density is seen within the right lung base when compared to prior exam. Scarring is noted within the left mid and lower lung. Mild increased lung markings are seen also and felt to be chronic. Heart size is normal. Tortuous thoracic aorta is seen. Spinal fixation rods are noted within the lumbar spine. Mild degenerative change is noted within both shoulders. Minimal scoliosis is noted. Impression: 1. New area of parenchymal density within the right lung base most likely representing small area of pneumonia. 2. Other findings as noted above which are felt to be chronic. Diagnostic code #3
[2018-08-05] MEDS ORDERED: Magnesium Sulfate/Water 4 GM in Premix Bag 1 BAG IV ONE (07:50)
--- NOTE | 2018-08-05 08:02 | CR ---
Chest: Portable view of the chest was obtained. Comparison: Prior chest x-ray at 08/04/18. Slight area of parenchymal density remains within the right lung base. Heart is slightly more prominent than on previous exam. Tortuous thoracic aorta is seen. Questionable increased pulmonary vascular congestion is noted from prior study. Spinal fixation rods are seen. Scoliosis noted within the spine. Degenerative change is seen within both shoulders. Impression: 1. Slight parenchymal opacity within the right lung base which appears fairly stable. Findings most likely due to small area of pneumonia although follow-up recommended to make sure this resolves after clinical therapy. 2. Heart size is slightly more prominent on current exam with questionable pulmonary vascular congestion raising the possibility of fluid overload or early CHF. Diagnostic code #3
[2018-08-05] MEDS: Apixaban 5 MG Tab PO SCH ×2 (08:17→21:00)
[2018-08-05] MEDS ORDERED: Furosemide 40 MG/4 ML VIAL IVPUSH ONE ×2 (10:14→13:00)
[2018-08-05] MEDS ORDERED: Sodium Chloride 0.9% 10 ML Syringe FLUSH PRN (13:25)
--- NOTE | 2018-08-05 14:57 | PCM.PN ---
- General Info Date of Service: 08/05/18 Admission Dx/Problem (Free Text): RLL Pneumonia Subjective Update: Patient did well overnight and pulse stayed well below 100. Blood pressures were well tolerated and patient has generally improved. Patient was transferred out of the ICU and on to telemetry. Patient only complains of dry mouth at this time. She did have some difficulty in the middle the night with anxiety and difficulty sleeping. - Review of Systems General: Reports: Fatigue HEENT: Reports: Other (Dry mouth) Pulmonary: Reports: Cough. Denies: Shortness of Breath Cardiovascular: Reports: No Symptoms. Denies: Palpitations Gastrointestinal: Reports: No Symptoms. Denies: Diarrhea - Patient Data Vitals - Most Recent: Last Vital Signs Temp 98.2 F 08/05/18 14:27 Pulse 92 08/05/18 14:27 Resp 20 08/05/18 14:27 BP 104/72 08/05/18 14:27 Pulse Ox 92 L 08/05/18 14:27 Weight - Most Recent: 172 lb 1.6 oz I&O - Last 24 Hours: Intake & Output 08/04/18 08/05/18 08/05/18 22:59 06:59 14:59 Intake Total 540 1998 1706 Output Total 897 038 5244 Balance 360 1398 106 Lab Results Last 24 Hours: Laboratory Results - last 24 hr 08/04/18 08/04/18 08/04/18 Range/Units 15:00 18:24 21:02 WBC (3.98-10.04) K/mm3 RBC (3.98-5.22) M/mm3 Hgb (11.2-15.7) gm/L Hct (34.1-44.9) % MCV (79.4-94.8) fl MCH (25.6-32.2) pg MCHC (32.2-35.5) g/dl RDW Std Deviation (36.4-46.3) fL Plt Count (182-369) K/mm3 MPV (9.4-12.3) fl Neut % (Auto) (34.0-71.1) % Lymph % (Auto) (19.3-51.7) % [place] % (Auto) (4.7-12.5) % Eos % (Auto) (0.7-5.8) Baso % (Auto) (0.1-1.2) % Neut # (Auto) (1.56-6.13) K/mm3 Lymph # (Auto) (1.18-3.74) K/mm3 [place] # (Auto) (0.24-0.36) K/mm3 Eos # (Auto) (0.04-0.36) K/mm3 Baso # (Auto) (0.01-0.08) K/mm3 Manual Slide Review Puncture Site Rt radial ABG pH 7.42 (7.35-7.45) ABG pCO2 40.1 (35.0-45.0) mmHg ABG pO2 57.0 L (80.0-100.0) mmHg ABG HCO3 25.4 (22.0-26.0) meq/L ABG O2 Saturation 92.4 L (96.0-97.0) % ABG Base Excess 1.4 (-2-2.0) Hoang Test Positive A-a Gradient 97 mmHg O2 Delivery Device Nasal cannula Oxygen Flow Rate 3.0 FiO2 32.00 (21.00-100.00) % Sodium 135 L (136-145) mEq/L Potassium 4.0 (3.5-5.1) mEq/L Chloride 100 (98-107) mEq/L Carbon Dioxide 28 (21-32) mEq/L Anion Gap 11.0 (5-15) BUN 44 H (7-18) mg/dL Creatinine 2.8 H (0.55-1.02) mg/dL Est Cr Clr Drug Dosing 13.26 mL/min Estimated GFR (MDRD) 16 (>60) mL/min BUN/Creatinine Ratio 15.7 (14-18) Glucose 122 H (83-115) mg/dL POC Glucose 167 H (83-110) mg/dL Lactic Acid (0.4-2.0) mmol/L Calcium 8.9 (8.5-10.1) mg/dL Phosphorus (2.6-4.7) mg/dL Magnesium (1.8-2.4) mg/dl Total Bilirubin (0.2-1.0) mg/dL AST (15-37) U/L ALT (14-59) U/L Alkaline Phosphatase (46-116) U/L C-Reactive Protein (<1.0) mg/dL NT-Pro-B Natriuret Pep (0-450) pg/mL Total Protein (6.4-8.2) g/dl Albumin (3.4-5.0) g/dl Globulin gm/dL Albumin/Globulin Ratio (1-2) 08/05/18 08/05/18 08/05/18 Range/Units 06:24 06:40 06:40 WBC 18.21 H (3.98-10.04) K/mm3 RBC 3.43 L (3.98-5.22) M/mm3 Hgb 10.3 L (11.2-15.7) gm/L Hct 32.7 L (34.1-44.9) % MCV 95.3 H (79.4-94.8) fl MCH 30.0 (25.6-32.2) pg MCHC 31.5 L (32.2-35.5) g/dl RDW Std Deviation 52.0 H (36.4-46.3) fL Plt Count 297 (182-369) K/mm3 MPV 9.7 (9.4-12.3) fl Neut % (Auto) 93.3 H (34.0-71.1) % Lymph % (Auto) 2.8 L (19.3-51.7) % [place] % (Auto) 3.1 L (4.7-12.5) % Eos % (Auto) 0.1 L (0.7-5.8) Baso % (Auto) 0.1 (0.1-1.2) % Neut # (Auto) 17.01 H (1.56-6.13) K/mm3 Lymph # (Auto) 0.51 L (1.18-3.74) K/mm3 [place] # (Auto) 0.56 H (0.24-0.36) K/mm3 Eos # (Auto) 0.01 L (0.04-0.36) K/mm3 Baso # (Auto) 0.01 (0.01-0.08) K/mm3 Manual Slide Review Abnormal smear Puncture Site ABG pH (7.35-7.45) ABG pCO2 (35.0-45.0) mmHg ABG pO2 (80.0-100.0) mmHg ABG HCO3 (22.0-26.0) meq/L ABG O2 Saturation (96.0-97.0) % ABG Base Excess (-2-2.0) Hoang Test A-a Gradient mmHg O2 Delivery Device Oxygen Flow Rate FiO2 (21.00-100.00) % Sodium 137 (136-145) mEq/L Potassium 4.2 (3.5-5.1) mEq/L Chloride 103 (98-107) mEq/L Carbon Dioxide 26 (21-32) mEq/L Anion Gap 12.2 (5-15) BUN 34 H (7-18) mg/dL Creatinine 2.2 H (0.55-1.02) mg/dL Est Cr Clr Drug Dosing 16.87 mL/min Estimated GFR (MDRD) 21 (>60) mL/min BUN/Creatinine Ratio 15.5 (14-18) Glucose 91 (83-115) mg/dL POC Glucose 101 (83-110) mg/dL Lactic Acid (0.4-2.0) mmol/L Calcium 8.8 (8.5-10.1) mg/dL Phosphorus 2.9 (2.6-4.7) mg/dL Magnesium 1.2 L (1.8-2.4) mg/dl Total Bilirubin 0.5 (0.2-1.0) mg/dL AST 16 (15-37) U/L ALT 16 (14-59) U/L Alkaline Phosphatase 68 (46-116) U/L C-Reactive Protein 20.4 H* (<1.0) mg/dL NT-Pro-B Natriuret Pep (0-450) pg/mL Total Protein 5.6 L (6.4-8.2) g/dl Albumin 2.2 L (3.4-5.0) g/dl Globulin 3.4 gm/dL Albumin/Globulin Ratio 0.7 L (1-2) 08/05/18 08/05/18 Range/Units 06:40 10:30 WBC (3.98-10.04) K/mm3 RBC (3.98-5.22) M/mm3 Hgb (11.2-15.7) gm/L Hct (34.1-44.9) % MCV (79.4-94.8) fl MCH (25.6-32.2) pg MCHC (32.2-35.5) g/dl RDW Std Deviation (36.4-46.3) fL Plt Count (182-369) K/mm3 MPV (9.4-12.3) fl Neut % (Auto) (34.0-71.1) % Lymph % (Auto) (19.3-51.7) % [place] % (Auto) (4.7-12.5) % Eos % (Auto) (0.7-5.8) Baso % (Auto) (0.1-1.2) % Neut # (Auto) (1.56-6.13) K/mm3 Lymph # (Auto) (1.18-3.74) K/mm3 [place] # (Auto) (0.24-0.36) K/mm3 Eos # (Auto) (0.04-0.36) K/mm3 Baso # (Auto) (0.01-0.08) K/mm3 Manual Slide Review Puncture Site ABG pH (7.35-7.45) ABG pCO2 (35.0-45.0) mmHg ABG pO2 (80.0-100.0) mmHg ABG HCO3 (22.0-26.0) meq/L ABG O2 Saturation (96.0-97.0) % ABG Base Excess (-2-2.0) Hoang Test A-a Gradient mmHg O2 Delivery Device Oxygen Flow Rate FiO2 (21.00-100.00) % Sodium (136-145) mEq/L Potassium (3.5-5.1) mEq/L Chloride (98-107) mEq/L Carbon Dioxide (21-32) mEq/L Anion Gap (5-15) BUN (7-18) mg/dL Creatinine (0.55-1.02) mg/dL Est Cr Clr Drug Dosing mL/min Estimated GFR (MDRD) (>60) mL/min BUN/Creatinine Ratio (14-18) Glucose (83-115) mg/dL POC Glucose (83-110) mg/dL Lactic Acid 1.6 (0.4-2.0) mmol/L Calcium (8.5-10.1) mg/dL Phosphorus (2.6-4.7) mg/dL Magnesium (1.8-2.4) mg/dl Total Bilirubin (0.2-1.0) mg/dL AST (15-37) U/L ALT (14-59) U/L Alkaline Phosphatase (46-116) U/L C-Reactive Protein (<1.0) mg/dL NT-Pro-B Natriuret Pep 4172 H (0-450) pg/mL Total Protein (6.4-8.2) g/dl Albumin (3.4-5.0) g/dl Globulin gm/dL Albumin/Globulin Ratio (1-2) Roverto Results Last 24 Hours: Microbiology 08/04/18 12:20 Aerobic Blood Culture - Preliminary Blood NO GROWTH AFTER 1 DAY Anaerobic Blood Culture - Preliminary NO GROWTH AFTER 1 DAY 08/04/18 12:15 Aerobic Blood Culture - Preliminary Blood NO GROWTH AFTER 1 DAY Anaerobic Blood Culture - Preliminary NO GROWTH AFTER 1 DAY Med Orders - Current: Current Medications Acetaminophen (Tylenol) 650 mg PO Q4H PRN PRN Reason: Pain/Fever Last Admin: 08/05/18 00:36 Dose: 650 mg Apixaban (Eliquis) 2.5 mg PO BID [facility] Last Admin: 08/05/18 08:17 Dose: 2.5 mg Benzocaine/Menthol (Cepacol Sore Throat) 1 lozenge MUCMEM Q2HR PRN PRN Reason: Sore Throat Last Admin: 08/05/18 00:36 Dose: 1 lozenge Bisacodyl (Dulcolax) 5 mg PO DAILY PRN PRN Reason: Constipation Dextrose/Water (Dextrose 50% In Water) 50 ml IVPUSH ASDIRECTED PRN PRN Reason: Hypoglycemia Diltiazem HCl (Cardizem) 30 mg PO Q8HR [facility] Last Admin: 08/05/18 13:04 Dose: 30 mg Docusate Sodium (Colace) 100 mg PO BID PRN PRN Reason: Constipation Furosemide (Lasix) 20 mg IVPUSH ONETIME ONE Stop: 08/05/18 17:31 Guaifenesin/Phenylephrine HCl (Robitussin Dm) 10 ml PO QID PRN PRN Reason: Cough Last Admin: 08/05/18 12:52 Dose: 10 ml Hydroxyzine HCl (Atarax) 25 mg PO Q4H PRN PRN Reason: Anxiety Last Admin: 08/05/18 03:39 Dose: 25 mg Cefepime HCl 1 gm/ Premix 50 mls @ 100 mls/hr IV Q24H [facility] Vancomycin HCl 1 gm/Vancomycin HCl 500 mg/ Sodium Chloride 500 mls @ 333.333 mls/hr IV Q48H [facility] Levalbuterol HCl (Xopenex) 1.25 mg NEB Q6HRRT PRN PRN Reason: Dyspnea Last Admin: 08/05/18 00:50 Dose: 1.25 mg Levofloxacin (Levaquin) 750 mg PO Q48H [facility] Last Admin: 08/04/18 20:20 Dose: 750 mg Metoprolol Tartrate (Lopressor) 12.5 mg PO Q12H [facility] Last Admin: 08/05/18 06:29 Dose: 12.5 mg Sodium Chloride (Saline Flush) 10 ml FLUSH ASDIRECTED PRN PRN Reason: Keep Vein Open Last Admin: 08/04/18 11:16 Dose: 10 ml Sodium Chloride (Saline Flush) 10 ml FLUSH ASDIRECTED PRN PRN Reason: Keep Vein Open Temazepam (Restoril) 7.5 mg PO BEDTIME PRN PRN Reason: Sleep Last Admin: 08/05/18 02:21 Dose: 7.5 mg Vancomycin HCl (Pharmacy To Dose - Vancomycin) 1 dose .XX ASDIRECTED KAYLEE Discontinued Medications Albuterol/Ipratropium (Duoneb 3.0-0.5 Mg/3 Ml) 3 ml NEB ONETIME ONE Stop: 08/04/18 11:05 Last Admin: 08/04/18 12:18 Dose: 3 ml Furosemide (Lasix) 40 mg IVPUSH NOW ONE Stop: 08/05/18 10:15 Last Admin: 08/05/18 12:55 Dose: Not Given Furosemide (Lasix) 40 mg IVPUSH NOW ONE Stop: 08/05/18 13:01 Last Admin: 08/05/18 12:54 Dose: 40 mg Sodium Chloride (Normal Saline) 500 mls @ 999 mls/hr IV .BOLUS ONE Stop: 08/04/18 11:34 Last Admin: 08/04/18 11:15 Dose: 999 mls/hr Ceftriaxone Sodium 1 gm/ (Sodium Chloride) 100 mls @ 200 mls/hr IV ONETIME ONE Stop: 08/04/18 12:42 Last Admin: 08/04/18 12:26 Dose: 200 mls/hr Sodium Chloride (Normal Saline) Confirm Administered Dose 1,000 mls @ as directed .ROUTE .STK-MED ONE Stop: 08/04/18 13:08 Last Admin: 08/04/18 13:12 Dose: Not Given Sodium Chloride (Normal Saline) 500 mls @ 999 mls/hr IV ASDIRECTED [facility] Last Admin: 08/04/18 13:10 Dose: 999 mls/hr Sodium Chloride (Normal Saline) 500 mls @ 999 mls/hr IV ASDIRECTED [facility] Last Admin: 08/04/18 11:50 Dose: 999 mls/hr Sodium Chloride (Normal Saline) 1,000 mls @ 150 mls/hr IV ASDIRECTED [facility] Last Admin: 08/05/18 03:38 Dose: 150 mls/hr Sodium Chloride (Normal Saline) 1,000 mls @ 150 mls/hr IV ASDIRECTED [facility] Vancomycin HCl 1.75 gm/ Sodium (Chloride) 500 mls @ 250 mls/hr IV ONETIME ONE Stop: 08/04/18 21:44 Last Admin: 08/04/18 20:49 Dose: Not Given Cefepime HCl 2 gm/ Premix 50 mls @ 100 mls/hr IV ONETIME ONE Stop: 08/04/18 20:29 Last Admin: 08/04/18 19:47 Dose: 100 mls/hr Vancomycin HCl 2 gm/ Sodium (Chloride) 500 mls @ 250 mls/hr IV ONETIME ONE Stop: 08/04/18 21:59 Last Admin: 08/04/18 20:20 Dose: 250 mls/hr Magnesium Sulfate 4 gm/ Premix 100 mls @ 25 mls/hr IV ONETIME ONE Stop: 08/05/18 07:51 Last Admin: 08/05/18 08:17 Dose: 25 mls/hr Sodium Chloride (Normal Saline) 1,000 mls @ 75 mls/hr IV ASDIRECTED [facility] Last Admin: 08/05/18 12:36 Dose: 75 mls/hr Insulin Human Lispro (Humalog) 0 unit SUBCUT QIDACANDBED [facility]; Protocol Last Admin: 08/05/18 06:28 Dose: Not Given - Exam Quality Assessment: Supplemental Oxygen General: Alert, Oriented HEENT: Pupils Equal, Mucous Membr. Moist/[place] Neck: Supple Lungs: Normal Respiratory Effort, Rhonchi (Bibasilar) GI/Abdominal Exam: Normal Bowel Sounds, Soft, Non-Tender Extremities: Normal Inspection, No Pedal Edema Skin: Warm, Dry Neurological: No New Focal Deficit Psy/Mental Status: Alert, Anxious - Problem List & Annotations (1) Sepsis associated hypotension SNOMED Code(s): 21031217 Code(s): A41.9 - SEPSIS, UNSPECIFIED ORGANISM; I95.9 - HYPOTENSION, UNSPECIFIED Status: Acute Current Visit: Yes (2) Renal failure (ARF), acute on chronic SNOMED Code(s): 256974337 Code(s): N17.9 - ACUTE KIDNEY FAILURE, UNSPECIFIED; N18.9 - CHRONIC KIDNEY DISEASE, UNSPECIFIED Status: Acute Current Visit: Yes (3) Respiratory failure with hypoxia SNOMED Code(s): 74059475166233652 Code(s): J96.91 - RESPIRATORY FAILURE, UNSPECIFIED WITH HYPOXIA Status: Acute Current Visit: Yes (4) Pneumonia SNOMED Code(s): 427545599 Code(s): J18.9 - PNEUMONIA, UNSPECIFIED ORGANISM Status: Acute Current Visit: Yes Qualifiers: Pneumonia type: due to unspecified organism Laterality: right Lung location: lower lobe of lung Qualified Code(s): J18.1 - Lobar pneumonia, unspecified organism (5) Hypotension SNOMED Code(s): 60249380 Code(s): I95.9 - HYPOTENSION, UNSPECIFIED Status: Acute Current Visit: Yes Qualifiers: Hypotension type: unspecified hypotension type Qualified Code(s): I95.9 - Hypotension, unspecified (6) Chronic kidney disease SNOMED Code(s): 980699723 Code(s): N18.9 - CHRONIC KIDNEY DISEASE, UNSPECIFIED Status: Acute Current Visit: No - Problem List Review Problem List Initiated/Reviewed/Updated: Yes - My Orders Last 24 Hours: My Active Orders 08/04/18 18:04 Bedrest Bedside Commode [RC] ASDIRECTED Height and Weight [RC] 04 Up With Assistance [RC] ASDIRECTED VTE/DVT Education [RC] Vital Signs [RC] Q4HR Consult to Case Management/Donor Recruitment Manager [CONS] Routine PT Evaluation and Treatment [CONS] Routine CULTURE SPUTUM + SMEAR [RM] Stat Bisacodyl [Dulcolax] 5 mg PO DAILY PRN Docusate Sodium [Colace] 100 mg PO BID PRN Temazepam [Restoril] 7.5 mg PO BEDTIME PRN Resuscitation Status Routine 08/04/18 18:07 Cardiac Monitoring [RC] CONTINUOUS Intake and Output [RC] Q2HR Pulse Oximetry [RC] CONTINUOUS 08/04/18 18:44 Dextrose 50% in Water 50 ml IVPUSH ASDIRECTED PRN 08/04/18 18:51 Levalbuterol HCl [Xopenex] 1.25 mg NEB Q6HRRT PRN 08/04/18 18:54 Urinary Catheter Assessment [RC] Q4HR 08/04/18 19:00 Enrique Catheter Insertion [Insert Urinary Catheter] [OM.PC] Q24H Metoprolol Tartrate [Lopressor] 12.5 mg PO Q12H Pharmacy to Dose - Vancomycin 1 dose .XX ASDIRECTED levoFLOXacin [Levaquin] 750 mg PO Q48H 08/04/18 21:00 Apixaban [Eliquis] 2.5 mg PO BID 08/04/18 22:00 Diltiazem IR [Cardizem] 30 mg PO Q8HR 08/04/18 Dinner Consistent Carbohydrate Diet [DIET] 08/05/18 00:10 Dextromethorphan/guaiFENesin [Robitussin DM] 10 ml PO QID PRN 08/05/18 00:12 Acetaminophen [Tylenol] 650 mg PO Q4H PRN Benzocaine/Cetylpyrd/Menthol [Cepacol Sore Throat] 1 lozenge MUCMEM Q2HR PRN 08/05/18 03:30 hydrOXYzine HCl [Atarax] 25 mg PO Q4H PRN 08/05/18 07:49 Patient Status [ADT] Routine 08/05/18 13:25 Sodium Chloride 0.9% [Saline Flush] 10 ml FLUSH ASDIRECTED PRN Convert IV to Saline Lock [OM.PC] Routine 08/05/18 17:30 Furosemide [Lasix] 20 mg IVPUSH ONETIME ONE 08/05/18 20:00 Cefepime [Maxipime in D5W 1 GM/50 ML] 1 gm Premix Bag 1 bag IV Q24H 08/05/18 Lunch Heart Healthy Diet [DIET] 08/06/18 05:11 CBC WITH AUTO DIFF [HEME] AM CMP [COMPREHENSIVE METABOLIC PN,CMP] [CHEM] AM LACTIC ACID [CHEM] AM MAGNESIUM [CHEM] AM PHOSPHORUS [CHEM] AM PRO B-TYPE NATRIUR PEPT,BNPPRO [CHEM] Routine 08/06/18 20:00 Vancomycin 1 gm Vancomycin 500 mg Sodium Chloride 0.9% [Normal Saline] 500 ml IV Q48H - Plan Plan:: Right lower lobe pneumonia - Patient was given 1 g Rocephin in the emergency room. - Patient will be started on cefepime, vancomycin, and Levaquin. DC Rocephin. - Sputum cultures - Chest x-ray in the morning Sepsis - Resolved - Hypotension has improved with fluid resuscitation. - Transfer to floor - Appropriate antibiotic coverage Acute on chronic renal failure - Repeat creatinine shows a decreased from 3.3 in the emergency room to 2.8, and now is 2.2 Respiratory failure with hypoxia - FiO2 to keep pulse ox above 92%. - Monitor in telemetry. - Patient does not want to be intubated. Hypotension/hypovolemia - Corrected Diastolic heart failure - Chest x-ray shows some pulmonary vascular congestion. - Saline lock IV - Lasix 40 mg IV now and then 20 mg IV this evening - Continue with Enrique catheter to monitor intake and output - Decrease metoprolol because of the low blood pressure overnight. Atrial fibrillation with history of rapid ventricular response - Patient will be placed on short acting and lower dose diltiazem and metoprolol. - Because of the patient's hypotension and atrial fibrillation we will need to monitor her blood pressure and rate closely. - Continue on Eliquis 2.5 mg twice a day VTE prophylaxis with Eliquis
[2018-08-05] MEDS ORDERED: Furosemide 20 MG/2 ML VIAL IVPUSH ONE (17:30)
[2018-08-05] MEDS ORDERED: Temazepam 15 MG Cap PO PRN (18:33)
[2018-08-05] MEDS: Cefepime 1 GM in Premix Bag 1 BAG IV SCH (20:50)
[2018-08-05] MEDS: Nicotine 21 MG/24 Hr Patch TRDERM SCH (21:01)
[2018-08-06] MEDS: guaiFENesin/Dextromethorphan 100-10 MG/5 ML Soln 5 ML Cup PO PRN ×3 (01:16→15:35)
[2018-08-06] MEDS: Levalbuterol HCl 1.25 MG/3 ML Neb NEB PRN ×3 (01:30→20:24)
[2018-08-06] MEDS: Diltiazem IR 30 MG Tab PO SCH (06:51)
[2018-08-06] MEDS: Metoprolol Tartrate 25 MG Tab PO SCH ×2 (06:54→19:53)
[2018-08-06] MEDS: Apixaban 5 MG Tab PO SCH ×2 (09:00→20:02)
[2018-08-06] MEDS ORDERED: Diltiazem 180 MG Cap.CD PO SCH (09:00)
[2018-08-06] MEDS: Nicotine 21 MG/24 Hr Patch TRDERM SCH (09:01)
[2018-08-06] MEDS: Remove Patch*NICOTINE TRDERM SCH (09:04)
--- NOTE | 2018-08-06 10:06 | CR ---
Chest: Portable view of the chest was obtained. Comparison: Prior chest x-ray of 08/05/18. Continuing parenchymal densities are noted within both lung bases. Lungs otherwise are clear. Heart size is normal. Tortuous thoracic aorta is seen. Bony structures show degenerative change within the spine. Previous spine surgery is noted. Impression: 1. Pulmonary vessels appear less congested than on prior exam. Continuing parenchymal densities within both lung bases most likely representing stable pneumonia. 2. Other incidental findings. Diagnostic code #3
[2018-08-06] MEDS ORDERED: Amiodarone In Dextrose,Iso-Osm 150 MG in Premix Bag 1 BAG IV ONE ×4 (13:09→15:00)
[2018-08-06] MEDS: Acetaminophen 325 MG Tab PO PRN (13:47)
[2018-08-06] MEDS ORDERED: Furosemide 20 MG Tab PO SCH (14:00)
--- NOTE | 2018-08-06 15:01 | PCM.PN ---
- General Info Date of Service: 08/06/18 Admission Dx/Problem (Free Text): RLL Pneumonia Subjective Update: August 06, 2018 Overnight patient did fairly well, except her pulse continues to run in the 90s to low 100. She did have approximate 6 pound weight loss with 1600 mL negative output. Patient's blood pressure has been difficult to maintain and has often dropped into the 80s systolic. This morning patient complained of sharp, severe left upper chest pain so an EKG and chest x-ray were performed. No significant changes on the EKG were found and chest x-ray demonstrated improved pulmonary vasculature and no left upper lobe abnormality. After a couple of hours the pain did seem to resolve. Patient did have an increase in her BNP of approximately 4000. BNP went up from 4172 to 8321. Patient's oxygen requirements have essentially stayed even. She denies any worsening shortness of breath or edema. Chest pain did not radiate into the arm or up the jaw. It did not radiate into her back. August 05, 2018 Patient did well overnight and pulse stayed well below 100. Blood pressures were well tolerated and patient has generally improved. Patient was transferred out of the ICU and on to telemetry. Patient only complains of dry mouth at this time. She did have some difficulty in the middle the night with anxiety and difficulty sleeping. - Review of Systems General: Reports: Weakness, Fatigue HEENT: Reports: Sore Throat Pulmonary: Reports: Shortness of Breath, Cough Cardiovascular: Reports: Chest Pain Gastrointestinal: Reports: No Symptoms - Patient Data Vitals - Most Recent: Last Vital Signs Temp 98.2 F 08/06/18 11:36 Pulse 90 08/06/18 11:36 Resp 22 H 08/06/18 11:36 BP 83/41 L 08/06/18 11:36 Pulse Ox 91 L 08/06/18 13:41 Weight - Most Recent: 166 lb 8 oz I&O - Last 24 Hours: Intake & Output 08/05/18 08/06/18 08/06/18 22:59 06:59 14:59 Intake Total 480 450 60 Output Total 8883 525 245 Balance -1695 -75 -185 Lab Results Last 24 Hours: Laboratory Results - last 24 hr 08/06/18 08/06/18 08/06/18 Range/Units 06:40 06:40 06:40 WBC 21.44 H (3.98-10.04) K/mm3 RBC 3.53 L (3.98-5.22) M/mm3 Hgb 10.6 L (11.2-15.7) gm/L Hct 33.4 L (34.1-44.9) % MCV 94.6 (79.4-94.8) fl MCH 30.0 (25.6-32.2) pg MCHC 31.7 L (32.2-35.5) g/dl RDW Std Deviation 52.2 H (36.4-46.3) fL Plt Count 322 (182-369) K/mm3 MPV 9.9 (9.4-12.3) fl Neut % (Auto) 93.2 H (34.0-71.1) % Lymph % (Auto) 2.9 L (19.3-51.7) % [place] % (Auto) 2.9 L (4.7-12.5) % Eos % (Auto) 0.2 L (0.7-5.8) Baso % (Auto) 0.1 (0.1-1.2) % Neut # (Auto) 19.97 H (1.56-6.13) K/mm3 Lymph # (Auto) 0.62 L (1.18-3.74) K/mm3 [place] # (Auto) 0.63 H (0.24-0.36) K/mm3 Eos # (Auto) 0.04 (0.04-0.36) K/mm3 Baso # (Auto) 0.03 (0.01-0.08) K/mm3 Manual Slide Review Abnormal smear Sodium 136 (136-145) mEq/L Potassium 3.8 (3.5-5.1) mEq/L Chloride 101 (98-107) mEq/L Carbon Dioxide 28 (21-32) mEq/L Anion Gap 10.8 (5-15) BUN 24 H (7-18) mg/dL Creatinine 1.7 H (0.55-1.02) mg/dL Est Cr Clr Drug Dosing 21.83 mL/min Estimated GFR (MDRD) 29 (>60) mL/min BUN/Creatinine Ratio 14.1 (14-18) Glucose 99 (83-115) mg/dL Lactic Acid (0.4-2.0) mmol/L Calcium 9.4 (8.5-10.1) mg/dL Phosphorus 2.7 (2.6-4.7) mg/dL Magnesium 1.9 (1.8-2.4) mg/dl Total Bilirubin 0.5 (0.2-1.0) mg/dL AST 20 (15-37) U/L ALT 9 L (14-59) U/L Alkaline Phosphatase 79 (46-116) U/L NT-Pro-B Natriuret Pep 8321 H (0-450) pg/mL Total Protein 5.8 L (6.4-8.2) g/dl Albumin 2.1 L (3.4-5.0) g/dl Globulin 3.7 gm/dL Albumin/Globulin Ratio 0.6 L (1-2) 08/06/18 Range/Units 06:40 WBC (3.98-10.04) K/mm3 RBC (3.98-5.22) M/mm3 Hgb (11.2-15.7) gm/L Hct (34.1-44.9) % MCV (79.4-94.8) fl MCH (25.6-32.2) pg MCHC (32.2-35.5) g/dl RDW Std Deviation (36.4-46.3) fL Plt Count (182-369) K/mm3 MPV (9.4-12.3) fl Neut % (Auto) (34.0-71.1) % Lymph % (Auto) (19.3-51.7) % [place] % (Auto) (4.7-12.5) % Eos % (Auto) (0.7-5.8) Baso % (Auto) (0.1-1.2) % Neut # (Auto) (1.56-6.13) K/mm3 Lymph # (Auto) (1.18-3.74) K/mm3 [place] # (Auto) (0.24-0.36) K/mm3 Eos # (Auto) (0.04-0.36) K/mm3 Baso # (Auto) (0.01-0.08) K/mm3 Manual Slide Review Sodium (136-145) mEq/L Potassium (3.5-5.1) mEq/L Chloride (98-107) mEq/L Carbon Dioxide (21-32) mEq/L Anion Gap (5-15) BUN (7-18) mg/dL Creatinine (0.55-1.02) mg/dL Est Cr Clr Drug Dosing mL/min Estimated GFR (MDRD) (>60) mL/min BUN/Creatinine Ratio (14-18) Glucose (83-115) mg/dL Lactic Acid 0.8 (0.4-2.0) mmol/L Calcium (8.5-10.1) mg/dL Phosphorus (2.6-4.7) mg/dL Magnesium (1.8-2.4) mg/dl Total Bilirubin (0.2-1.0) mg/dL AST (15-37) U/L ALT (14-59) U/L Alkaline Phosphatase (46-116) U/L NT-Pro-B Natriuret Pep (0-450) pg/mL Total Protein (6.4-8.2) g/dl Albumin (3.4-5.0) g/dl Globulin gm/dL Albumin/Globulin Ratio (1-2) Roverto Results Last 24 Hours: Microbiology 08/04/18 12:20 Aerobic Blood Culture - Preliminary Blood NO GROWTH AFTER 2 DAYS Anaerobic Blood Culture - Preliminary NO GROWTH AFTER 2 DAYS 08/04/18 12:15 Aerobic Blood Culture - Preliminary Blood NO GROWTH AFTER 2 DAYS Anaerobic Blood Culture - Preliminary NO GROWTH AFTER 2 DAYS 08/06/18 09:58 Gram Stain - Final Sputum - Expectorated Sputum Culture - Final 08/05/18 18:23 Gram Stain - Final Sputum - Expectorated Sputum Culture - Final Med Orders - Current: Current Medications Acetaminophen (Tylenol) 650 mg PO Q4H PRN PRN Reason: Pain/Fever Last Admin: 08/06/18 13:47 Dose: 650 mg Apixaban (Eliquis) 2.5 mg PO BID KAYLEE Last Admin: 08/06/18 09:00 Dose: 2.5 mg Benzocaine/Menthol (Cepacol Sore Throat) 1 lozenge MUCMEM Q2HR PRN PRN Reason: Sore Throat Last Admin: 08/05/18 00:36 Dose: 1 lozenge Bisacodyl (Dulcolax) 5 mg PO DAILY PRN PRN Reason: Constipation Dextrose/Water (Dextrose 50% In Water) 50 ml IVPUSH ASDIRECTED PRN PRN Reason: Hypoglycemia Docusate Sodium (Colace) 100 mg PO BID PRN PRN Reason: Constipation Guaifenesin/Phenylephrine HCl (Robitussin Dm) 10 ml PO QID PRN PRN Reason: Cough Last Admin: 08/06/18 09:25 Dose: 10 ml Hydroxyzine HCl (Atarax) 25 mg PO Q4H PRN PRN Reason: Anxiety Last Admin: 08/05/18 21:02 Dose: 25 mg Cefepime HCl 1 gm/ Premix 50 mls @ 100 mls/hr IV Q24H KAYLEE Last Admin: 08/05/18 20:50 Dose: 100 mls/hr Vancomycin HCl 1 gm/Vancomycin HCl 500 mg/ Sodium Chloride 500 mls @ 333.333 mls/hr IV Q48H KAYLEE Amiodarone HCl/Dextrose 150 mg (/ Premix) 100 mls @ 600 mls/hr IV .BOLUS ONE; Protocol Stop: 08/06/18 15:09 Amiodarone HCl/Dextrose (Nexterone In Dextrose 360 Mg/200 Ml) 200 mls @ 33.333 mls/hr IV ASDIRECTED [facility]; Protocol Levalbuterol HCl (Xopenex) 1.25 mg NEB Q6HRRT PRN PRN Reason: Dyspnea Last Admin: 08/06/18 13:38 Dose: 1.25 mg Levofloxacin (Levaquin) [address] [facility] Last Admin: 08/04/18 20:20 Dose: 750 mg Metoprolol Tartrate (Lopressor) 12.[address] [facility] Last Admin: 08/06/18 06:54 Dose: 12.5 mg Miscellaneous Information (Remove Patch) [address] [facility] Last Admin: 08/06/18 09:04 Dose: 1 ea Nicotine (Habitrol) [address] [facility] Last Admin: 08/06/18 09:01 Dose: 21 mg Sodium Chloride (Saline Flush) 10 ml FLUSH ASDIRECTED PRN PRN Reason: Keep Vein Open Last Admin: 08/04/18 11:16 Dose: 10 ml Sodium Chloride (Saline Flush) 10 ml FLUSH ASDIRECTED PRN PRN Reason: Keep Vein Open Temazepam (Restoril) 15 mg PO BEDTIME PRN PRN Reason: Sleep Last Admin: 08/05/18 21:02 Dose: 15 mg Vancomycin HCl (Pharmacy To Dose - Vancomycin) 1 dose .XX ASDIRECTED KAYLEE Discontinued Medications Albuterol/Ipratropium (Duoneb 3.0-0.5 Mg/3 Ml) 3 ml NEB ONETIME ONE Stop: 08/04/18 11:05 Last Admin: 08/04/18 12:18 Dose: 3 ml Diltiazem HCl (Cardizem) 30 mg PO Q8HR KAYLEE Last Admin: 08/06/18 06:51 Dose: 30 mg Diltiazem HCl (Cardizem Cd) [address] [facility] Last Admin: 08/06/18 09:00 Dose: Not Given Furosemide (Lasix) 40 mg IVPUSH NOW ONE Stop: 08/05/18 10:15 Last Admin: 08/05/18 12:55 Dose: Not Given Furosemide (Lasix) 40 mg IVPUSH NOW ONE Stop: 08/05/18 13:01 Last Admin: 08/05/18 12:54 Dose: 40 mg Furosemide (Lasix) 20 mg IVPUSH ONETIME ONE Stop: 08/05/18 17:31 Last Admin: 08/05/18 17:52 Dose: Not Given Furosemide (Lasix) 20 mg PO BIDDIURETIC KAYLEE Sodium Chloride (Normal Saline) 500 mls @ 999 mls/hr IV .BOLUS ONE Stop: 08/04/18 11:34 Last Admin: 08/04/18 11:15 Dose: 999 mls/hr Ceftriaxone Sodium 1 gm/ (Sodium Chloride) 100 mls @ 200 mls/hr IV ONETIME ONE Stop: 08/04/18 12:42 Last Admin: 08/04/18 12:26 Dose: 200 mls/hr Sodium Chloride (Normal Saline) Confirm Administered Dose 1,000 mls @ as directed .ROUTE .STK-MED ONE Stop: 08/04/18 13:08 Last Admin: 08/04/18 13:12 Dose: Not Given Sodium Chloride (Normal Saline) 500 mls @ 999 mls/hr IV ASDIRECTED KAYLEE Last Admin: 08/04/18 13:10 Dose: 999 mls/hr Sodium Chloride (Normal Saline) 500 mls @ 999 mls/hr IV ASDIRECTED KAYLEE Last Admin: 08/04/18 11:50 Dose: 999 mls/hr Sodium Chloride (Normal Saline) 1,000 mls @ 150 mls/hr IV ASDIRECTED KAYLEE Last Admin: 08/05/18 03:38 Dose: 150 mls/hr Sodium Chloride (Normal Saline) 1,000 mls @ 150 mls/hr IV ASDIRECTED KAYLEE Vancomycin HCl 1.75 gm/ Sodium (Chloride) 500 mls @ 250 mls/hr IV ONETIME ONE Stop: 08/04/18 21:44 Last Admin: 08/04/18 20:49 Dose: Not Given Cefepime HCl 2 gm/ Premix 50 mls @ 100 mls/hr IV ONETIME ONE Stop: 08/04/18 20:29 Last Admin: 08/04/18 19:47 Dose: 100 mls/hr Vancomycin HCl 2 gm/ Sodium (Chloride) 500 mls @ 250 mls/hr IV ONETIME ONE Stop: 08/04/18 21:59 Last Admin: 08/04/18 20:20 Dose: 250 mls/hr Magnesium Sulfate 4 gm/ Premix 100 mls @ 25 mls/hr IV ONETIME ONE Stop: 08/05/18 07:51 Last Admin: 08/05/18 08:17 Dose: 25 mls/hr Sodium Chloride (Normal Saline) 1,000 mls @ 75 mls/hr IV ASDIRECTED [facility] Last Admin: 08/05/18 12:36 Dose: 75 mls/hr Albumin Human (Flexbumin 25%) 25 gm in 100 mls @ 100 mls/hr IV STAT ONE Stop: 08/06/18 10:02 Last Admin: 08/06/18 09:24 Dose: 100 mls/hr Amiodarone HCl/Dextrose 150 mg (/ Premix) 100 mls @ 600 mls/hr IV .BOLUS ONE; Protocol Stop: 08/06/18 13:18 Last Admin: 08/06/18 14:55 Dose: Not Given Insulin Human Lispro (Humalog) [address] [facility]; Protocol Last Admin: 08/05/18 06:28 Dose: Not Given Temazepam (Restoril) 7.5 mg PO BEDTIME PRN PRN Reason: Sleep Last Admin: 08/05/18 02:21 Dose: 7.5 mg - Exam Quality Assessment: Supplemental Oxygen General: Alert, Oriented, Cooperative, No Acute Distress HEENT: Pupils Equal Neck: Supple Lungs: Decreased Breath Sounds, Rales, Rhonchi GI/Abdominal Exam: Normal Bowel Sounds, Soft, Non-Tender, No Distention Extremities: Pedal Edema (1 but 2+ pitting edema in lower extremities.) Skin: Warm, Dry, Intact EKG INTERPRETATION EKG Date: 08/06/18 EKG Interpretation Comments: Atrial fibrillation with a rate of 86 with no acute findings. - Problem List & Annotations (1) Acute exacerbation of congestive heart failure SNOMED Code(s): 58121912 Code(s): I50.9 - HEART FAILURE, UNSPECIFIED Status: Acute Current Visit: No Qualifiers: Heart failure type: diastolic Qualified Code(s): I50.33 - Acute on chronic diastolic (congestive) heart failure (2) Sepsis associated hypotension SNOMED Code(s): 98613142 Code(s): A41.9 - SEPSIS, UNSPECIFIED ORGANISM; I95.9 - HYPOTENSION, UNSPECIFIED Status: Acute Current Visit: Yes (3) Renal failure (ARF), acute on chronic SNOMED Code(s): 095879039 Code(s): N17.9 - ACUTE KIDNEY FAILURE, UNSPECIFIED; N18.9 - CHRONIC KIDNEY DISEASE, UNSPECIFIED Status: Acute Current Visit: Yes (4) Respiratory failure with hypoxia SNOMED Code(s): 58367815291682149 Code(s): J96.91 - RESPIRATORY FAILURE, UNSPECIFIED WITH HYPOXIA Status: Acute Current Visit: Yes (5) Pneumonia SNOMED Code(s): 775255644 Code(s): J18.9 - PNEUMONIA, UNSPECIFIED ORGANISM Status: Acute Current Visit: Yes Qualifiers: Pneumonia type: due to unspecified organism Laterality: right Lung location: lower lobe of lung Qualified Code(s): J18.1 - Lobar pneumonia, unspecified organism (6) Hypotension SNOMED Code(s): 14266841 Code(s): I95.9 - HYPOTENSION, UNSPECIFIED Status: Acute Current Visit: Yes Qualifiers: Hypotension type: unspecified hypotension type Qualified Code(s): I95.9 - Hypotension, unspecified (7) Chronic kidney disease SNOMED Code(s): 370682500 Code(s): N18.9 - CHRONIC KIDNEY DISEASE, UNSPECIFIED Status: Acute Current Visit: No - Problem List Review Problem List Initiated/Reviewed/Updated: Yes - My Orders Last 24 Hours: My Active Orders 08/05/18 18:33 Temazepam [Restoril] 15 mg PO BEDTIME PRN 08/05/18 20:00 Cefepime [Maxipime in D5W 1 GM/50 ML] 1 gm Premix Bag 1 bag IV Q24H 08/05/18 21:00 Nicotine [Habitrol] 21 mg TRDERM DAILY 08/06/18 09:00 Remove Patch 1 ea TRDERM DAILY 08/06/18 12:14 RT Incentive Spirometry [RC] Q2HWA 08/06/18 13:09 Patient Status [ADT] Routine 08/06/18 13:50 METH-RESIST S.AUR,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 [MOLEC] Routine 08/06/18 15:00 Amiodarone In Dextrose,Iso-Osm [Nexterone in Dextrose 150 MG/100 ML] 150 mg Premix Bag 1 bag IV .BOLUS Amiodarone In Dextrose,Iso-Osm [Nexterone in Dextrose 360 MG/200 ML] 200 ml IV ASDIRECTED 08/06/18 20:00 Vancomycin 1 gm Vancomycin 500 mg Sodium Chloride 0.9% [Normal Saline] 500 ml IV Q48H 08/06/18 22:00 BIPAP Adult [RT BiPAP/CPAP] [RC] ASDIRECTED 08/07/18 05:11 Chest 1V Frontal [CR] AM CBC WITH AUTO DIFF [HEME] AM CMP [COMPREHENSIVE METABOLIC PN,CMP] [CHEM] AM MAGNESIUM [CHEM] AM PRO B-TYPE NATRIUR PEPT,BNPPRO [CHEM] Routine - Plan Plan:: Diastolic heart failure - Her heart failure is very rate dependent. Her pulse has been in the 90s to low 100 and her blood pressure has also been low. This is made it difficult to control her blood pressure with her current medications of Cardizem and metoprolol. - Patient will be transferred to the ICU to start on amiodarone drip. We are going to DC Cardizem, continue metoprolol at the low dose of 12.5 mg twice a day at this time. - Hold Lasix at this time because of her blood pressure and her diastolic dysfunction appears to be rate related - Trial of BiPAP tonight secondary to her significant pulmonary resistance - Chest x-ray shows improvement in pulmonary vascular congestion, repeat in the morning. - Continue with Enrique catheter to monitor intake and output Atrial fibrillation with rapid ventricular response - As above, DC Cardizem and start amiodarone drip, continue metoprolol - Because of the patient's hypotension and atrial fibrillation we will need to monitor her blood pressure and rate closely. * - Continue on Eliquis 2.5 mg twice a day Respiratory failure with hypoxia - FiO2 to keep pulse ox above 92%. - Patient does not want to be intubated, but has agreed to BiPAP if necessary. Right lower lobe pneumonia - Patient will continue on cefepime, vancomycin, and Levaquin. - Sputum cultures - Chest x-ray in the morning - White count increased slightly overnight, monitor CBC in the morning Sepsis - Resolved - Appropriate antibiotic coverage Acute on chronic renal failure - Repeat creatinine shows a decreased from 3.3 in the emergency room to 2.8, to 2.2, is 1.7 this morning I had a long discussion with the patient and her family in regards to her prognosis. Patient has multisystem dysfunction and understands that her prognosis is guarded. Patient does not want to be intubated or have CPR performed. She is in agreement with our current measures of medical management. She also is in agreement with BiPAP, but if she becomes agitated or does not tolerate BiPAP she is in agreement with comfort measures at that time. Family was present during the conversation. Case management was also present. VTE prophylaxis with Eliquis
[2018-08-06] MEDS: Levofloxacin 750 MG Tab PO SCH (19:53)
[2018-08-06] MEDS: Nicotine 7 MG/24 Hr Patch TRDERM SCH (19:54)
[2018-08-06] MEDS: Cefepime 1 GM in Premix Bag 1 BAG IV SCH (19:56)
[2018-08-06] MEDS ORDERED: Vancomycin 1 GM, Vancomycin 500 MG in Sodium Chloride 0.9% 500 ML IV SCH (20:00)
[2018-08-06] MEDS: Benzonatate 100 MG Cap PO SCH (20:02)
[2018-08-07] MEDS: guaiFENesin/Dextromethorphan 100-10 MG/5 ML Soln 5 ML Cup PO PRN ×3 (00:35→11:25)
[2018-08-07] MEDS: hydrOXYzine HCl 25 MG Tab PO PRN ×2 (00:35→17:38)
[2018-08-07] MEDS: Metoprolol Tartrate 25 MG Tab PO SCH ×2 (06:18→20:03)
--- NOTE | 2018-08-07 07:59 | CR ---
Chest: Portable view of the chest was obtained. Comparison: Prior chest x-ray of 08/06/18. Pulmonary vessels appear increased. Slight parenchymal density within both lung bases is noted. Findings appear without significant change from previous exam. Heart size slightly enlarged. Tortuous thoracic aorta is seen. Previous spine surgery is noted. Impression: 1. Findings as noted above. No significant change from previous study is seen. Diagnostic code #3
[2018-08-07] MEDS: Apixaban 5 MG Tab PO SCH ×2 (08:02→20:03)
[2018-08-07] MEDS: Benzonatate 100 MG Cap PO SCH ×3 (08:02→20:03)
[2018-08-07] MEDS: Nicotine 7 MG/24 Hr Patch TRDERM SCH (08:06)
[2018-08-07] MEDS: Nicotine 21 MG/24 Hr Patch TRDERM SCH (08:13)
[2018-08-07] MEDS: Remove Patch*NICOTINE TRDERM SCH (08:20)
[2018-08-07] MEDS ORDERED: Remove Patch*NICOTINE PATCH TRDERM SCH (09:00)
--- NOTE | 2018-08-07 12:15 | PCM.PN ---
- General Info Date of Service: 08/07/18 Admission Dx/Problem (Free Text): RLL Pneumonia Subjective Update: August 07, 2018 Patient states that she is feeling well and her cough has not worsened. She complains of less shortness of breath. Patient was tried on BiPAP last night and she only tolerated for approximately 2 hours per nursing. Patient also was placed on amiodarone drip and her blood pressure has improved and her pulse is in the 90s and sometimes in the low 100s. She denies any chest pain today. She continues to have some difficulty with sleeping at night. She required hydroxyzine. August 06, 2018 Overnight patient did fairly well, except her pulse continues to run in the 90s to low 100. She did have approximate 6 pound weight loss with 1600 mL negative output. Patient's blood pressure has been difficult to maintain and has often dropped into the 80s systolic. This morning patient complained of sharp, severe left upper chest pain so an EKG and chest x-ray were performed. No significant changes on the EKG were found and chest x-ray demonstrated improved pulmonary vasculature and no left upper lobe abnormality. After a couple of hours the pain did seem to resolve. Patient did have an increase in her BNP of approximately 4000. BNP went up from 4172 to 8321. Patient's oxygen requirements have essentially stayed even. She denies any worsening shortness of breath or edema. Chest pain did not radiate into the arm or up the jaw. It did not radiate into her back. August 05, 2018 Patient did well overnight and pulse stayed well below 100. Blood pressures were well tolerated and patient has generally improved. Patient was transferred out of the ICU and on to telemetry. Patient only complains of dry mouth at this time. She did have some difficulty in the middle the night with anxiety and difficulty sleeping. - Review of Systems General: Reports: Fatigue HEENT: Reports: No Symptoms Pulmonary: Reports: Shortness of Breath, Cough Cardiovascular: Denies: Chest Pain Gastrointestinal: Reports: No Symptoms. Denies: Abdominal Pain Psychiatric: Reports: Confusion - Patient Data Vitals - Most Recent: Last Vital Signs Temp 97.8 F 08/07/18 08:30 Pulse 106 H 08/07/18 11:00 Resp 20 08/06/18 21:00 BP 119/75 08/07/18 11:00 Pulse Ox 95 08/07/18 11:00 Weight - Most Recent: 171 lb 6.4 oz I&O - Last 24 Hours: Intake & Output 08/06/18 08/07/18 08/07/18 22:59 06:59 14:59 Intake Total 241 938 Output Total 230 410 90 Balance 11 528 -90 Lab Results Last 24 Hours: Laboratory Results - last 24 hr 08/06/18 08/06/18 08/07/18 Range/Units 13:50 18:26 05:55 WBC 12.68 H (3.98-10.04) K/mm3 RBC 3.58 L (3.98-5.22) M/mm3 Hgb 10.5 L (11.2-15.7) gm/L Hct 33.7 L (34.1-44.9) % MCV 94.1 (79.4-94.8) fl MCH 29.3 (25.6-32.2) pg MCHC 31.2 L (32.2-35.5) g/dl RDW Std Deviation 52.6 H (36.4-46.3) fL Plt Count 298 (182-369) K/mm3 MPV 9.6 (9.4-12.3) fl Neut % (Auto) 86.3 H (34.0-71.1) % Lymph % (Auto) 5.9 L (19.3-51.7) % Bibb % (Auto) 5.0 (4.7-12.5) % Eos % (Auto) 0.5 L (0.7-5.8) Baso % (Auto) 0.2 (0.1-1.2) % Neut # (Auto) 10.95 H (1.56-6.13) K/mm3 Lymph # (Auto) 0.75 L (1.18-3.74) K/mm3 Bibb # (Auto) 0.63 H (0.24-0.36) K/mm3 Eos # (Auto) 0.06 (0.04-0.36) K/mm3 Baso # (Auto) 0.02 (0.01-0.08) K/mm3 Manual Slide Review Abnormal smear Sodium (136-145) mEq/L Potassium (3.5-5.1) mEq/L Chloride (98-107) mEq/L Carbon Dioxide (21-32) mEq/L Anion Gap (5-15) BUN (7-18) mg/dL Creatinine (0.55-1.02) mg/dL Est Cr Clr Drug Dosing mL/min Estimated GFR (MDRD) (>60) mL/min BUN/Creatinine Ratio (14-18) Glucose (83-115) mg/dL Calcium (8.5-10.1) mg/dL Magnesium (1.8-2.4) mg/dl Total Bilirubin (0.2-1.0) mg/dL AST (15-37) U/L ALT (14-59) U/L Alkaline Phosphatase (46-116) U/L Troponin I < 0.017 (0.00-0.056) ng/mL NT-Pro-B Natriuret Pep (0-450) pg/mL Total Protein (6.4-8.2) g/dl Albumin (3.4-5.0) g/dl Globulin gm/dL Albumin/Globulin Ratio (1-2) MRSA (PCR) Negative 08/07/18 08/07/18 08/07/18 Range/Units 05:55 05:55 05:55 WBC (3.98-10.04) K/mm3 RBC (3.98-5.22) M/mm3 Hgb (11.2-15.7) gm/L Hct (34.1-44.9) % MCV (79.4-94.8) fl MCH (25.6-32.2) pg MCHC (32.2-35.5) g/dl RDW Std Deviation (36.4-46.3) fL Plt Count (182-369) K/mm3 MPV (9.4-12.3) fl Neut % (Auto) (34.0-71.1) % Lymph % (Auto) (19.3-51.7) % Bibb % (Auto) (4.7-12.5) % Eos % (Auto) (0.7-5.8) Baso % (Auto) (0.1-1.2) % Neut # (Auto) (1.56-6.13) K/mm3 Lymph # (Auto) (1.18-3.74) K/mm3 Bibb # (Auto) (0.24-0.36) K/mm3 Eos # (Auto) (0.04-0.36) K/mm3 Baso # (Auto) (0.01-0.08) K/mm3 Manual Slide Review Sodium 135 L (136-145) mEq/L Potassium 3.8 (3.5-5.1) mEq/L Chloride 99 (98-107) mEq/L Carbon Dioxide 28 (21-32) mEq/L Anion Gap 11.8 (5-15) BUN 19 H (7-18) mg/dL Creatinine 1.5 H (0.55-1.02) mg/dL Est Cr Clr Drug Dosing 24.74 mL/min Estimated GFR (MDRD) 33 (>60) mL/min BUN/Creatinine Ratio 12.7 L (14-18) Glucose 105 (83-115) mg/dL Calcium 9.8 (8.5-10.1) mg/dL Magnesium 1.6 L (1.8-2.4) mg/dl Total Bilirubin 0.4 (0.2-1.0) mg/dL AST 25 (15-37) U/L ALT 23 (14-59) U/L Alkaline Phosphatase 75 (46-116) U/L Troponin I < 0.017 (0.00-0.056) ng/mL NT-Pro-B Natriuret Pep 5395 H (0-450) pg/mL Total Protein 5.9 L (6.4-8.2) g/dl Albumin 2.3 L (3.4-5.0) g/dl Globulin 3.6 gm/dL Albumin/Globulin Ratio 0.6 L (1-2) MRSA (PCR) Roverto Results Last 24 Hours: Microbiology 08/04/18 12:20 Aerobic Blood Culture - Preliminary Blood NO GROWTH AFTER 2 DAYS Anaerobic Blood Culture - Preliminary NO GROWTH AFTER 2 DAYS 08/04/18 12:15 Aerobic Blood Culture - Preliminary Blood NO GROWTH AFTER 2 DAYS Anaerobic Blood Culture - Preliminary NO GROWTH AFTER 2 DAYS 08/06/18 09:58 Gram Stain - Final Sputum - Expectorated Sputum Culture - Final 08/05/18 18:23 Gram Stain - Final Sputum - Expectorated Sputum Culture - Final Med Orders - Current: Current Medications Acetaminophen (Tylenol) 650 mg PO Q4H PRN PRN Reason: Pain/Fever Last Admin: 08/06/18 13:47 Dose: 650 mg Amiodarone HCl (Cordarone) 200 mg PO BID [facility] Apixaban (Eliquis) 2.5 mg PO BID [facility] Last Admin: 08/07/18 08:02 Dose: 2.5 mg Benzocaine/Menthol (Cepacol Sore Throat) 1 lozenge MUCMEM Q2HR PRN PRN Reason: Sore Throat Last Admin: 08/05/18 00:36 Dose: 1 lozenge Benzonatate (Tessalon Perles) 100 mg PO TID KAYLEE Last Admin: 08/07/18 08:02 Dose: 100 mg Bisacodyl (Dulcolax) 5 mg PO DAILY PRN PRN Reason: Constipation Dextrose/Water (Dextrose 50% In Water) 50 ml IVPUSH ASDIRECTED PRN PRN Reason: Hypoglycemia Docusate Sodium (Colace) 100 mg PO BID PRN PRN Reason: Constipation Last Admin: 08/07/18 08:02 Dose: 100 mg Guaifenesin/Phenylephrine HCl (Robitussin Dm) 10 ml PO QID PRN PRN Reason: Cough Last Admin: 08/07/18 11:25 Dose: 10 ml Hydroxyzine HCl (Atarax) 25 mg PO Q4H PRN PRN Reason: Anxiety Last Admin: 08/07/18 00:35 Dose: 25 mg Cefepime HCl 1 gm/ Premix 50 mls @ 100 mls/hr IV Q24H [facility] Last Admin: 08/06/18 19:56 Dose: 100 mls/hr Vancomycin HCl 1 gm/Vancomycin HCl 500 mg/ Sodium Chloride 500 mls @ 333.333 mls/hr IV Q48H [facility] Last Admin: 08/06/18 20:57 Dose: 333.333 mls/hr Amiodarone HCl/Dextrose (Nexterone In Dextrose 360 Mg/200 Ml) 360 mg in 200 mls @ 33.333 mls/hr IV ASDIRECTED [facility]; Protocol Last Admin: 08/07/18 08:14 Dose: 16.7 mls/hr Levalbuterol HCl (Xopenex) 1.25 mg NEB Q6HRRT PRN PRN Reason: Dyspnea Last Admin: 08/06/18 20:24 Dose: 1.25 mg Levofloxacin (Levaquin) 750 mg PO Q48H [facility] Last Admin: 08/06/18 19:53 Dose: 750 mg Metoprolol Tartrate (Lopressor) 12.5 mg PO ONETIME ONE Stop: 08/07/18 11:44 Metoprolol Tartrate (Lopressor) 25 mg PO Q12H [facility] Miscellaneous Information (Remove Patch) 1 ea TRDERM DAILY [facility] Last Admin: 08/07/18 08:20 Dose: 1 ea Miscellaneous Information (Remove Patch) 1 ea TRDERM DAILY [facility] Last Admin: 08/07/18 08:19 Dose: 1 ea Nicotine (Habitrol) 21 mg TRDERM DAILY [facility] Last Admin: 08/07/18 08:13 Dose: 21 mg Nicotine (Habitrol) 7 mg TRDERM DAILY [facility] Last Admin: 08/07/18 08:06 Dose: 7 mg Sodium Chloride (Saline Flush) 10 ml FLUSH ASDIRECTED PRN PRN Reason: Keep Vein Open Last Admin: 08/04/18 11:16 Dose: 10 ml Sodium Chloride (Saline Flush) 10 ml FLUSH ASDIRECTED PRN PRN Reason: Keep Vein Open Temazepam (Restoril) 15 mg PO BEDTIME PRN PRN Reason: Sleep Last Admin: 08/05/18 21:02 Dose: 15 mg Vancomycin HCl (Pharmacy To Dose - Vancomycin) 1 dose .XX ASDIRECTED [facility] Discontinued Medications Albuterol/Ipratropium (Duoneb 3.0-0.5 Mg/3 Ml) 3 ml NEB ONETIME ONE Stop: 08/04/18 11:05 Last Admin: 08/04/18 12:18 Dose: 3 ml Diltiazem HCl (Cardizem) 30 mg PO Q8HR [facility] Last Admin: 08/06/18 06:51 Dose: 30 mg Diltiazem HCl (Cardizem Cd) 180 mg PO DAILY [facility] Last Admin: 08/06/18 09:00 Dose: Not Given Furosemide (Lasix) 40 mg IVPUSH NOW ONE Stop: 08/05/18 10:15 Last Admin: 08/05/18 12:55 Dose: Not Given Furosemide (Lasix) 40 mg IVPUSH NOW ONE Stop: 08/05/18 13:01 Last Admin: 08/05/18 12:54 Dose: 40 mg Furosemide (Lasix) 20 mg IVPUSH ONETIME ONE Stop: 08/05/18 17:31 Last Admin: 08/05/18 17:52 Dose: Not Given Furosemide (Lasix) 20 mg PO BIDDIURETIC KAYLEE Sodium Chloride (Normal Saline) 500 mls @ 999 mls/hr IV .BOLUS ONE Stop: 08/04/18 11:34 Last Admin: 08/04/18 11:15 Dose: 999 mls/hr Ceftriaxone Sodium 1 gm/ (Sodium Chloride) 100 mls @ 200 mls/hr IV ONETIME ONE Stop: 08/04/18 12:42 Last Admin: 08/04/18 12:26 Dose: 200 mls/hr Sodium Chloride (Normal Saline) Confirm Administered Dose 1,000 mls @ as directed .ROUTE .STK-MED ONE Stop: 08/04/18 13:08 Last Admin: 08/04/18 13:12 Dose: Not Given Sodium Chloride (Normal Saline) 500 mls @ 999 mls/hr IV ASDIRECTED KAYLEE Last Admin: 08/04/18 13:10 Dose: 999 mls/hr Sodium Chloride (Normal Saline) 500 mls @ 999 mls/hr IV ASDIRECTED [facility] Last Admin: 08/04/18 11:50 Dose: 999 mls/hr Sodium Chloride (Normal Saline) 1,000 mls @ 150 mls/hr IV ASDIRECTED KAYLEE Last Admin: 08/05/18 03:38 Dose: 150 mls/hr Sodium Chloride (Normal Saline) 1,000 mls @ 150 mls/hr IV ASDIRECTED [facility] Vancomycin HCl 1.75 gm/ Sodium (Chloride) 500 mls @ 250 mls/hr IV ONETIME ONE Stop: 08/04/18 21:44 Last Admin: 08/04/18 20:49 Dose: Not Given Cefepime HCl 2 gm/ Premix 50 mls @ 100 mls/hr IV ONETIME ONE Stop: 08/04/18 20:29 Last Admin: 08/04/18 19:47 Dose: 100 mls/hr Vancomycin HCl 2 gm/ Sodium (Chloride) 500 mls @ 250 mls/hr IV ONETIME ONE Stop: 08/04/18 21:59 Last Admin: 08/04/18 20:20 Dose: 250 mls/hr Magnesium Sulfate 4 gm/ Premix 100 mls @ 25 mls/hr IV ONETIME ONE Stop: 08/05/18 07:51 Last Admin: 08/05/18 08:17 Dose: 25 mls/hr Sodium Chloride (Normal Saline) 1,000 mls @ 75 mls/hr IV ASDIRECTED [facility] Last Admin: 08/05/18 12:36 Dose: 75 mls/hr Albumin Human (Flexbumin 25%) 25 gm in 100 mls @ 100 mls/hr IV STAT ONE Stop: 08/06/18 10:02 Last Admin: 08/06/18 09:24 Dose: 100 mls/hr Amiodarone HCl/Dextrose 150 mg (/ Premix) 100 mls @ 600 mls/hr IV .BOLUS ONE; Protocol Stop: 08/06/18 13:18 Last Admin: 08/06/18 14:55 Dose: Not Given Amiodarone HCl/Dextrose 150 mg (/ Premix) 100 mls @ 600 mls/hr IV .BOLUS ONE; Protocol Stop: 08/06/18 15:09 Last Admin: 08/06/18 15:21 Dose: 600 mls/hr Insulin Human Lispro (Humalog) 0 unit SUBCUT QIDACANDBED [facility]; Protocol Last Admin: 08/05/18 06:28 Dose: Not Given Metoprolol Tartrate (Lopressor) 12.5 mg PO Q12H [facility] Last Admin: 08/07/18 06:18 Dose: 12.5 mg Temazepam (Restoril) 7.5 mg PO BEDTIME PRN PRN Reason: Sleep Last Admin: 08/05/18 02:21 Dose: 7.5 mg - Exam Quality Assessment: Supplemental Oxygen General: Alert, Oriented HEENT: Pupils Equal Neck: Supple Lungs: Normal Respiratory Effort, Rales (Mild bibasilar rales but improved lung sounds overall) Cardiovascular: Irregular Rhythm GI/Abdominal Exam: Normal Bowel Sounds, Soft, No Distention Extremities: Normal Inspection, No Pedal Edema Skin: Warm, Dry - Problem List & Annotations (1) Acute exacerbation of congestive heart failure SNOMED Code(s): 99148329 Code(s): I50.9 - HEART FAILURE, UNSPECIFIED Status: Acute Current Visit: No Qualifiers: Heart failure type: diastolic Qualified Code(s): I50.33 - Acute on chronic diastolic (congestive) heart failure (2) Sepsis associated hypotension SNOMED Code(s): 24608319 Code(s): A41.9 - SEPSIS, UNSPECIFIED ORGANISM; I95.9 - HYPOTENSION, UNSPECIFIED Status: Acute Current Visit: Yes (3) Renal failure (ARF), acute on chronic SNOMED Code(s): 880831702 Code(s): N17.9 - ACUTE KIDNEY FAILURE, UNSPECIFIED; N18.9 - CHRONIC KIDNEY DISEASE, UNSPECIFIED Status: Acute Current Visit: Yes (4) Respiratory failure with hypoxia SNOMED Code(s): 92903930527189069 Code(s): J96.91 - RESPIRATORY FAILURE, UNSPECIFIED WITH HYPOXIA Status: Acute Current Visit: Yes (5) Pneumonia SNOMED Code(s): 792303362 Code(s): J18.9 - PNEUMONIA, UNSPECIFIED ORGANISM Status: Acute Current Visit: Yes Qualifiers: Pneumonia type: due to unspecified organism Laterality: right Lung location: lower lobe of lung Qualified Code(s): J18.1 - Lobar pneumonia, unspecified organism (6) Hypotension SNOMED Code(s): 22320347 Code(s): I95.9 - HYPOTENSION, UNSPECIFIED Status: Acute Current Visit: Yes Qualifiers: Hypotension type: unspecified hypotension type Qualified Code(s): I95.9 - Hypotension, unspecified (7) Chronic kidney disease SNOMED Code(s): 611174490 Code(s): N18.9 - CHRONIC KIDNEY DISEASE, UNSPECIFIED Status: Acute Current Visit: No - Problem List Review Problem List Initiated/Reviewed/Updated: Yes - My Orders Last 24 Hours: My Active Orders 08/06/18 12:14 RT Incentive Spirometry [RC] Q2HWA 08/06/18 13:09 Patient Status [ADT] Routine 08/06/18 15:00 Amiodarone In Dextrose,Iso-Osm [Nexterone in Dextrose 360 MG/200 ML] 360 mg in 200 ml IV ASDIRECTED 08/06/18 16:28 Isolation [COMM] Routine 08/06/18 19:30 Nicotine [Habitrol] 7 mg TRDERM DAILY 08/06/18 20:00 Vancomycin 1 gm Vancomycin 500 mg Sodium Chloride 0.9% [Normal Saline] 500 ml IV Q48H 08/06/18 21:00 Benzonatate [Tessalon Perles] 100 mg PO TID 08/06/18 22:00 BIPAP Adult [RT BiPAP/CPAP] [RC] ASDIRECTED 08/07/18 01:47 CULTURE SPUTUM + SMEAR [RM] Routine 08/07/18 09:00 Remove Patch 1 ea TRDERM DAILY 08/07/18 11:43 Metoprolol Tartrate [Lopressor] 12.5 mg PO ONETIME ONE 08/07/18 14:00 Amiodarone [Cordarone] 200 mg PO BID 08/07/18 21:00 Metoprolol Tartrate [Lopressor] 25 mg PO Q12H - Plan Plan:: Diastolic heart failure - BNP has improved with stopping Cardizem and switching to amiodarone. - Patient be switched to by mouth amiodarone 200 mg twice a day - Hold Lasix at this time because of her blood pressure and her diastolic dysfunction appears to be rate related - Trial of BiPAP again tonight secondary to her significant pulmonary resistance - Continue with Enrique catheter to monitor intake and output Atrial fibrillation with rapid ventricular response - Switched to amiodarone 200 mg twice a day by mouth - Increase metoprolol back to 25 mg twice a day. * - Continue on Eliquis 2.5 mg twice a day Respiratory failure with hypoxia - FiO2 to keep pulse ox above 92%. - Patient does not want to be intubated, but has agreed to BiPAP if necessary. Right lower lobe pneumonia - Patient will continue on cefepime, vancomycin, and Levaquin. - Sputum cultures - White count improved significantly overnight Hypomagnesemia - Replace mag today and get a repeat magnesium level tomorrow with phosphorus Sepsis - Resolved - Appropriate antibiotic coverage Acute on chronic renal failure - Repeat creatinine shows a decreased from 3.3 in the emergency room to 2.8, to 2.2, to 1.7 , and now 1.5 this morning I had a long discussion with the patient and her family in regards to her prognosis on 08/06/2018 Patient has multisystem dysfunction and understands that her prognosis is guarded. Patient does not want to be intubated or have CPR performed. She is in agreement with our current measures of medical management. She also is in agreement with BiPAP, but if she becomes agitated or does not tolerate BiPAP she is in agreement with comfort measures at that time. Family was present during the conversation. Case management was also present. VTE prophylaxis with Eliquis
[2018-08-07] MEDS ORDERED: Metoprolol Tartrate 25 MG Tab PO ONE (12:30)
[2018-08-07] MEDS: Amiodarone 200 MG Tab PO SCH ×2 (15:05→21:29)
[2018-08-07] MEDS: Cefepime 1 GM in Premix Bag 1 BAG IV SCH (19:59)
[2018-08-08] MEDS ORDERED: Magnesium Sulfate/Water 4 GM in Premix Bag 1 BAG IV ONE (07:30)
[2018-08-08] MEDS: Benzonatate 100 MG Cap PO SCH ×4 (08:06→20:13)
[2018-08-08] MEDS: Apixaban 5 MG Tab PO SCH ×3 (08:06→20:08)
[2018-08-08] MEDS: Metoprolol Tartrate 25 MG Tab PO SCH (08:06)
[2018-08-08] MEDS: Amiodarone 200 MG Tab PO SCH ×3 (08:06→20:08)
[2018-08-08] MEDS ORDERED: Metoprolol Tartrate 25 MG Tab PO ONE (09:44)
--- NOTE | 2018-08-08 11:29 | PCM.PN ---
- General Info Date of Service: 08/08/18 Admission Dx/Problem (Free Text): RLL Pneumonia Subjective Update: August 08, 2018 Patient continues to do better. Her pulse has dropped into the 80s and her blood pressure has increased also. She is not requiring any extra oxygen. She had a good night without any interruptions. She only was able to tolerate the BiPAP for 4 hours. She is tolerating both the amiodarone and the home dose of metoprolol at 25 mg twice a day. We have not given her any Lasix over the last couple of days. August 07, 2018 Patient states that she is feeling well and her cough has not worsened. She complains of less shortness of breath. Patient was tried on BiPAP last night and she only tolerated for approximately 2 hours per nursing. Patient also was placed on amiodarone drip and her blood pressure has improved and her pulse is in the 90s and sometimes in the low 100s. She denies any chest pain today. She continues to have some difficulty with sleeping at night. She required hydroxyzine. August 06, 2018 Overnight patient did fairly well, except her pulse continues to run in the 90s to low 100. She did have approximate 6 pound weight loss with 1600 mL negative output. Patient's blood pressure has been difficult to maintain and has often dropped into the 80s systolic. This morning patient complained of sharp, severe left upper chest pain so an EKG and chest x-ray were performed. No significant changes on the EKG were found and chest x-ray demonstrated improved pulmonary vasculature and no left upper lobe abnormality. After a couple of hours the pain did seem to resolve. Patient did have an increase in her BNP of approximately 4000. BNP went up from 4172 to 8321. Patient's oxygen requirements have essentially stayed even. She denies any worsening shortness of breath or edema. Chest pain did not radiate into the arm or up the jaw. It did not radiate into her back. August 05, 2018 Patient did well overnight and pulse stayed well below 100. Blood pressures were well tolerated and patient has generally improved. Patient was transferred out of the ICU and on to telemetry. Patient only complains of dry mouth at this time. She did have some difficulty in the middle the night with anxiety and difficulty sleeping. Functional Status: Reports: Tolerating Diet, Ambulating - Review of Systems General: Reports: No Symptoms HEENT: Reports: No Symptoms Pulmonary: Reports: Cough Cardiovascular: Reports: No Symptoms. Denies: Chest Pain, Palpitations Gastrointestinal: Reports: No Symptoms. Denies: Abdominal Pain, Constipation - Patient Data Vitals - Most Recent: Last Vital Signs Temp 98 F 08/08/18 08:00 Pulse 84 08/08/18 10:36 Resp 16 08/08/18 08:00 BP 119/93 H 08/08/18 10:36 Pulse Ox 95 08/08/18 08:00 Weight - Most Recent: 172 lb 4.8 oz I&O - Last 24 Hours: Intake & Output 08/07/18 08/08/18 08/08/18 22:59 06:59 14:59 Intake Total 930 350 90 Output Total 560 510 175 Balance 370 -160 -85 Lab Results Last 24 Hours: Laboratory Results - last 24 hr 08/08/18 08/08/18 08/08/18 Range/Units 04:30 04:30 04:30 WBC 9.59 (3.98-10.04) K/mm3 RBC 3.68 L (3.98-5.22) M/mm3 Hgb 11.0 L (11.2-15.7) gm/L Hct 34.6 (34.1-44.9) % MCV 94.0 (79.4-94.8) fl MCH 29.9 (25.6-32.2) pg MCHC 31.8 L (32.2-35.5) g/dl RDW Std Deviation 53.0 H (36.4-46.3) fL Plt Count 304 (182-369) K/mm3 MPV 9.6 (9.4-12.3) fl Neut % (Auto) 79.0 H (34.0-71.1) % Lymph % (Auto) 9.3 L (19.3-51.7) % [place] % (Auto) 6.7 (4.7-12.5) % Eos % (Auto) 1.3 (0.7-5.8) Baso % (Auto) 0.2 (0.1-1.2) % Neut # (Auto) 7.58 H (1.56-6.13) K/mm3 Lymph # (Auto) 0.89 L (1.18-3.74) K/mm3 [place] # (Auto) 0.64 H (0.24-0.36) K/mm3 Eos # (Auto) 0.12 (0.04-0.36) K/mm3 Baso # (Auto) 0.02 (0.01-0.08) K/mm3 Manual Slide Review Abnormal smear Sodium 136 (136-145) mEq/L Potassium 3.9 (3.5-5.1) mEq/L Chloride 100 (98-107) mEq/L Carbon Dioxide 29 (21-32) mEq/L Anion Gap 10.9 (5-15) BUN 15 (7-18) mg/dL Creatinine 1.3 H (0.55-1.02) mg/dL Est Cr Clr Drug Dosing 28.55 mL/min Estimated GFR (MDRD) 39 (>60) mL/min BUN/Creatinine Ratio 11.5 L (14-18) Glucose 104 (83-115) mg/dL Calcium 9.8 (8.5-10.1) mg/dL Phosphorus 3.0 (2.6-4.7) mg/dL Magnesium 1.4 L (1.8-2.4) mg/dl Total Bilirubin 0.4 (0.2-1.0) mg/dL AST 23 (15-37) U/L ALT 25 (14-59) U/L Alkaline Phosphatase 77 (46-116) U/L NT-Pro-B Natriuret Pep 7238 H (0-450) pg/mL Total Protein 5.9 L (6.4-8.2) g/dl Albumin 2.2 L (3.4-5.0) g/dl Globulin 3.7 gm/dL Albumin/Globulin Ratio 0.6 L (1-2) Roverto Results Last 24 Hours: Microbiology 08/04/18 12:20 Aerobic Blood Culture - Preliminary Blood NO GROWTH AFTER 3 DAYS Anaerobic Blood Culture - Preliminary NO GROWTH AFTER 3 DAYS 08/04/18 12:15 Aerobic Blood Culture - Preliminary Blood NO GROWTH AFTER 3 DAYS Anaerobic Blood Culture - Preliminary NO GROWTH AFTER 3 DAYS Med Orders - Current: Current Medications Acetaminophen (Tylenol) 650 mg PO Q4H PRN PRN Reason: Pain/Fever Last Admin: 08/06/18 13:47 Dose: 650 mg Amiodarone HCl (Cordarone) 200 mg PO BID [facility] Last Admin: 08/08/18 08:06 Dose: 200 mg Apixaban (Eliquis) 2.5 mg PO BID [facility] Last Admin: 08/08/18 08:06 Dose: 2.5 mg Benzocaine/Menthol (Cepacol Sore Throat) 1 lozenge MUCMEM Q2HR PRN PRN Reason: Sore Throat Last Admin: 08/05/18 00:36 Dose: 1 lozenge Benzonatate (Tessalon Perles) 100 mg PO TID [facility] Last Admin: 08/08/18 08:06 Dose: 100 mg Bisacodyl (Dulcolax) 5 mg PO DAILY PRN PRN Reason: Constipation Dextrose/Water (Dextrose 50% In Water) 50 ml IVPUSH ASDIRECTED PRN PRN Reason: Hypoglycemia Docusate Sodium (Colace) 100 mg PO BID PRN PRN Reason: Constipation Last Admin: 08/07/18 08:02 Dose: 100 mg Guaifenesin/Phenylephrine HCl (Robitussin Dm) 10 ml PO QID PRN PRN Reason: Cough Last Admin: 08/07/18 11:25 Dose: 10 ml Hydroxyzine HCl (Atarax) 25 mg PO Q4H PRN PRN Reason: Anxiety Last Admin: 08/07/18 17:38 Dose: 25 mg Cefepime HCl 1 gm/ Premix 50 mls @ 100 mls/hr IV Q24H [facility] Last Admin: 08/07/18 19:59 Dose: 100 mls/hr Magnesium Sulfate 4 gm/ Premix 100 mls @ 25 mls/hr IV ONETIME ONE Stop: 08/08/18 11:29 Last Admin: 08/08/18 08:06 Dose: 25 mls/hr Levalbuterol HCl (Xopenex) 1.25 mg NEB Q6HRRT PRN PRN Reason: Dyspnea Last Admin: 08/06/18 20:24 Dose: 1.25 mg Levofloxacin (Levaquin) 750 mg PO Q48H [facility] Last Admin: 08/06/18 19:53 Dose: 750 mg Metoprolol Tartrate (Lopressor) 25 mg PO Q12H [facility] Last Admin: 08/08/18 08:06 Dose: 25 mg Sodium Chloride (Saline Flush) 10 ml FLUSH ASDIRECTED PRN PRN Reason: Keep Vein Open Last Admin: 08/04/18 11:16 Dose: 10 ml Sodium Chloride (Saline Flush) 10 ml FLUSH ASDIRECTED PRN PRN Reason: Keep Vein Open Temazepam (Restoril) 15 mg PO BEDTIME PRN PRN Reason: Sleep Last Admin: 08/05/18 21:02 Dose: 15 mg Discontinued Medications Albuterol/Ipratropium (Duoneb 3.0-0.5 Mg/3 Ml) 3 ml NEB ONETIME ONE Stop: 08/04/18 11:05 Last Admin: 08/04/18 12:18 Dose: 3 ml Diltiazem HCl (Cardizem) 30 mg PO Q8HR [facility] Last Admin: 08/06/18 06:51 Dose: 30 mg Diltiazem HCl (Cardizem Cd) 180 mg PO DAILY [facility] Last Admin: 08/06/18 09:00 Dose: Not Given Furosemide (Lasix) 40 mg IVPUSH NOW ONE Stop: 08/05/18 10:15 Last Admin: 08/05/18 12:55 Dose: Not Given Furosemide (Lasix) 40 mg IVPUSH NOW ONE Stop: 08/05/18 13:01 Last Admin: 08/05/18 12:54 Dose: 40 mg Furosemide (Lasix) 20 mg IVPUSH ONETIME ONE Stop: 08/05/18 17:31 Last Admin: 08/05/18 17:52 Dose: Not Given Furosemide (Lasix) 20 mg PO BIDDIURETIC [facility] Sodium Chloride (Normal Saline) 500 mls @ 999 mls/hr IV .BOLUS ONE Stop: 08/04/18 11:34 Last Admin: 08/04/18 11:15 Dose: 999 mls/hr Ceftriaxone Sodium 1 gm/ (Sodium Chloride) 100 mls @ 200 mls/hr IV ONETIME ONE Stop: 08/04/18 12:42 Last Admin: 08/04/18 12:26 Dose: 200 mls/hr Sodium Chloride (Normal Saline) Confirm Administered Dose 1,000 mls @ as directed .ROUTE .STK-MED ONE Stop: 08/04/18 13:08 Last Admin: 08/04/18 13:12 Dose: Not Given Sodium Chloride (Normal Saline) 500 mls @ 999 mls/hr IV ASDIRECTED [facility] Last Admin: 08/04/18 13:10 Dose: 999 mls/hr Sodium Chloride (Normal Saline) 500 mls @ 999 mls/hr IV ASDIRECTED [facility] Last Admin: 08/04/18 11:50 Dose: 999 mls/hr Sodium Chloride (Normal Saline) 1,000 mls @ 150 mls/hr IV ASDIRECTED [facility] Last Admin: 08/05/18 03:38 Dose: 150 mls/hr Sodium Chloride (Normal Saline) 1,000 mls @ 150 mls/hr IV ASDIRECTED [facility] Vancomycin HCl 1.75 gm/ Sodium (Chloride) 500 mls @ 250 mls/hr IV ONETIME ONE Stop: 08/04/18 21:44 Last Admin: 08/04/18 20:49 Dose: Not Given Cefepime HCl 2 gm/ Premix 50 mls @ 100 mls/hr IV ONETIME ONE Stop: 08/04/18 20:29 Last Admin: 08/04/18 19:47 Dose: 100 mls/hr Vancomycin HCl 2 gm/ Sodium (Chloride) 500 mls @ 250 mls/hr IV ONETIME ONE Stop: 08/04/18 21:59 Last Admin: 08/04/18 20:20 Dose: 250 mls/hr Vancomycin HCl 1 gm/Vancomycin HCl 500 mg/ Sodium Chloride 500 mls @ 333.333 mls/hr IV Q48H [facility] Last Admin: 08/06/18 20:57 Dose: 333.333 mls/hr Magnesium Sulfate 4 gm/ Premix 100 mls @ 25 mls/hr IV ONETIME ONE Stop: 08/05/18 07:51 Last Admin: 08/05/18 08:17 Dose: 25 mls/hr Sodium Chloride (Normal Saline) 1,000 mls @ 75 mls/hr IV ASDIRECTED [facility] Last Admin: 08/05/18 12:36 Dose: 75 mls/hr Albumin Human (Flexbumin 25%) 25 gm in 100 mls @ 100 mls/hr IV STAT ONE Stop: 08/06/18 10:02 Last Admin: 08/06/18 09:24 Dose: 100 mls/hr Amiodarone HCl/Dextrose 150 mg (/ Premix) 100 mls @ 600 mls/hr IV .BOLUS ONE; Protocol Stop: 08/06/18 13:18 Last Admin: 08/06/18 14:55 Dose: Not Given Amiodarone HCl/Dextrose 150 mg (/ Premix) 100 mls @ 600 mls/hr IV .BOLUS ONE; Protocol Stop: 08/06/18 15:09 Last Admin: 08/06/18 15:21 Dose: 600 mls/hr Amiodarone HCl/Dextrose (Nexterone In Dextrose 360 Mg/200 Ml) 360 mg in 200 mls @ 33.333 mls/hr IV ASDIRECTED [facility]; Protocol Last Infusion: 08/07/18 15:32 Dose: 0 mls/hr Insulin Human Lispro (Humalog) 0 unit SUBCUT QIDACANDBED [facility]; Protocol Last Admin: 08/05/18 06:28 Dose: Not Given Metoprolol Tartrate (Lopressor) 12.5 mg PO Q12H [facility] Last Admin: 08/07/18 06:18 Dose: 12.5 mg Metoprolol Tartrate (Lopressor) 12.5 mg PO ONETIME ONE Stop: 08/07/18 12:31 Last Admin: 08/07/18 14:16 Dose: 12.5 mg Metoprolol Tartrate (Lopressor) 25 mg PO ONETIME ONE Stop: 08/08/18 09:45 Last Admin: 08/08/18 10:36 Dose: 25 mg Miscellaneous Information (Remove Patch) 1 ea TRDERM DAILY [facility] Last Admin: 08/07/18 08:20 Dose: 1 ea Miscellaneous Information (Remove Patch) 1 ea TRDERM DAILY [facility] Last Admin: 08/07/18 08:19 Dose: 1 ea Nicotine (Habitrol) 21 mg TRDERM DAILY [facility] Last Admin: 08/07/18 08:13 Dose: 21 mg Nicotine (Habitrol) 7 mg TRDERM DAILY [facility] Last Admin: 08/07/18 08:06 Dose: 7 mg Temazepam (Restoril) 7.5 mg PO BEDTIME PRN PRN Reason: Sleep Last Admin: 08/05/18 02:21 Dose: 7.5 mg Vancomycin HCl (Pharmacy To Dose - Vancomycin) 1 dose .XX ASDIRECTED [facility] - Exam Quality Assessment: Supplemental Oxygen General: Alert, Oriented, Cooperative, No Acute Distress Neck: Supple Lungs: Normal Respiratory Effort, Rales Cardiovascular: Regular Rate, Irregular Rhythm GI/Abdominal Exam: Normal Bowel Sounds, Soft, Non-Tender, No Distention Extremities: Normal Inspection, Pedal Edema (1+) Skin: Warm, Dry Psy/Mental Status: Alert, Normal Affect, Normal Mood - Problem List & Annotations (1) Acute exacerbation of congestive heart failure SNOMED Code(s): 47469975 Code(s): I50.9 - HEART FAILURE, UNSPECIFIED Status: Acute Current Visit: No Qualifiers: Heart failure type: diastolic Qualified Code(s): I50.33 - Acute on chronic diastolic (congestive) heart failure (2) Sepsis associated hypotension SNOMED Code(s): 99226201 Code(s): A41.9 - SEPSIS, UNSPECIFIED ORGANISM; I95.9 - HYPOTENSION, UNSPECIFIED Status: Acute Current Visit: Yes (3) Renal failure (ARF), acute on chronic SNOMED Code(s): 833788085 Code(s): N17.9 - ACUTE KIDNEY FAILURE, UNSPECIFIED; N18.9 - CHRONIC KIDNEY DISEASE, UNSPECIFIED Status: Acute Current Visit: Yes (4) Respiratory failure with hypoxia SNOMED Code(s): 15752265783056184 Code(s): J96.91 - RESPIRATORY FAILURE, UNSPECIFIED WITH HYPOXIA Status: Acute Current Visit: Yes (5) Pneumonia SNOMED Code(s): 610772032 Code(s): J18.9 - PNEUMONIA, UNSPECIFIED ORGANISM Status: Acute Current Visit: Yes Qualifiers: Pneumonia type: due to unspecified organism Laterality: right Lung location: lower lobe of lung Qualified Code(s): J18.1 - Lobar pneumonia, unspecified organism (6) Hypotension SNOMED Code(s): 78094562 Code(s): I95.9 - HYPOTENSION, UNSPECIFIED Status: Acute Current Visit: Yes Qualifiers: Hypotension type: unspecified hypotension type Qualified Code(s): I95.9 - Hypotension, unspecified (7) Chronic kidney disease SNOMED Code(s): 490034989 Code(s): N18.9 - CHRONIC KIDNEY DISEASE, UNSPECIFIED Status: Acute Current Visit: No - Problem List Review Problem List Initiated/Reviewed/Updated: Yes - My Orders Last 24 Hours: My Active Orders 08/07/18 14:00 Amiodarone [Cordarone] 200 mg PO BID 08/07/18 21:00 Metoprolol Tartrate [Lopressor] 25 mg PO Q12H 08/08/18 07:30 Magnesium Sulfate/Water [Magnesium Sulfate 4 GM in Water 100 ML] 4 gm Premix Bag 1 bag IV ONETIME 08/08/18 10:32 Patient Status [ADT] Routine - Plan Plan:: Diastolic heart failure - BNP has improved with stopping Cardizem and switching to amiodarone. - Patient was switched to by mouth amiodarone 200 mg twice a day - Increase metoprolol to reduced rate to less than 80. - Trial of Lasix if blood pressure tolerates increase dose of metoprolol - Trial of BiPAP again tonight secondary to her significant pulmonary resistance - Continue with Enrique catheter to monitor intake and output Atrial fibrillation with rapid ventricular response - Switched to amiodarone 200 mg twice a day by mouth - Increase metoprolol back to 25 mg twice a day. Continue to increase to lower pulse between 60-80. * - Continue on Eliquis 2.5 mg twice a day Respiratory failure with hypoxia - FiO2 to keep pulse ox above 92%. - Patient does not want to be intubated, but has agreed to BiPAP if necessary. Right lower lobe pneumonia - Patient will continue on cefepime and Levaquin. - D/C vancomycin - White count continues to improved Hypomagnesemia - Replace mag today and get a repeat magnesium level tomorrow. Sepsis - Resolved - Appropriate antibiotic coverage Acute on chronic renal failure - Repeat creatinine shows a decreased from 3.3 in the emergency room to 2.8, to 2.2, to 1.7 , to 1.5, and 1.3 this morning. May increase overnight with restarting lasix. I had a long discussion with the patient and her family in regards to her prognosis on 08/07/2018 Patient has multisystem dysfunction and understands that her prognosis is guarded. Patient does not want to be intubated or have CPR performed. She is in agreement with our current measures of medical management. She also is in agreement with BiPAP, but if she becomes agitated or does not tolerate BiPAP she is in agreement with comfort measures at that time. Family was present during the conversation. Case management was also present. VTE prophylaxis with Eliquis
[2018-08-08] MEDS: hydrOXYzine HCl 25 MG Tab PO PRN ×2 (12:26→21:00)
[2018-08-08] MEDS: Acetaminophen 325 MG Tab PO PRN (12:26)
[2018-08-08] MEDS: guaiFENesin/Dextromethorphan 100-10 MG/5 ML Soln 5 ML Cup PO PRN ×2 (12:26→21:11)
[2018-08-08] MEDS ORDERED: Furosemide 20 MG/2 ML VIAL IVPUSH ONE (16:31)
[2018-08-08] MEDS: Levofloxacin 750 MG Tab PO SCH (18:15)
[2018-08-08] MEDS: Metoprolol Tartrate 50 MG Tab PO SCH ×2 (19:40→20:08)
[2018-08-08] MEDS: Cefepime 1 GM in Premix Bag 1 BAG IV SCH (19:40)
[2018-08-08] MEDS: Benzocaine/Cetylpyridinium/Menthol Lozenge MUCMEM PRN (21:12)
[2018-08-09] MEDS: Benzonatate 100 MG Cap PO SCH ×3 (08:26→20:25)
[2018-08-09] MEDS: Metoprolol Tartrate 50 MG Tab PO SCH ×2 (08:26→20:18)
[2018-08-09] MEDS: Amiodarone 200 MG Tab PO SCH ×2 (08:27→20:23)
[2018-08-09] MEDS: Apixaban 5 MG Tab PO SCH ×2 (08:28→20:23)
[2018-08-09] MEDS ORDERED: Benzocaine/Cetylpyridinium/Menthol Lozenge MUCMEM PRN (09:54)
[2018-08-09] MEDS: hydrOXYzine HCl 25 MG Tab PO PRN ×3 (13:32→22:41)
--- NOTE | 2018-08-09 13:39 | PCM.PN ---
- General Info Date of Service: 08/09/18 Admission Dx/Problem (Free Text): RLL Pneumonia Subjective Update: August 09, 2018 Patient is doing well. She tolerated the increased dose of her metoprolol to 50 mg twice a day. She's had no more shortness of breath and is able to lay in the halls. August 08, 2018 Patient continues to do better. Her pulse has dropped into the 80s and her blood pressure has increased also. She is not requiring any extra oxygen. She had a good night without any interruptions. She only was able to tolerate the BiPAP for 4 hours. She is tolerating both the amiodarone and the home dose of metoprolol at 25 mg twice a day. We have not given her any Lasix over the last couple of days. August 07, 2018 Patient states that she is feeling well and her cough has not worsened. She complains of less shortness of breath. Patient was tried on BiPAP last night and she only tolerated for approximately 2 hours per nursing. Patient also was placed on amiodarone drip and her blood pressure has improved and her pulse is in the 90s and sometimes in the low 100s. She denies any chest pain today. She continues to have some difficulty with sleeping at night. She required hydroxyzine. August 06, 2018 Overnight patient did fairly well, except her pulse continues to run in the 90s to low 100. She did have approximate 6 pound weight loss with 1600 mL negative output. Patient's blood pressure has been difficult to maintain and has often dropped into the 80s systolic. This morning patient complained of sharp, severe left upper chest pain so an EKG and chest x-ray were performed. No significant changes on the EKG were found and chest x-ray demonstrated improved pulmonary vasculature and no left upper lobe abnormality. After a couple of hours the pain did seem to resolve. Patient did have an increase in her BNP of approximately 4000. BNP went up from 4172 to 8321. Patient's oxygen requirements have essentially stayed even. She denies any worsening shortness of breath or edema. Chest pain did not radiate into the arm or up the jaw. It did not radiate into her back. August 05, 2018 Patient did well overnight and pulse stayed well below 100. Blood pressures were well tolerated and patient has generally improved. Patient was transferred out of the ICU and on to telemetry. Patient only complains of dry mouth at this time. She did have some difficulty in the middle the night with anxiety and difficulty sleeping. - Review of Systems General: Reports: No Symptoms HEENT: Reports: No Symptoms Pulmonary: Reports: Cough. Denies: Shortness of Breath Cardiovascular: Reports: No Symptoms. Denies: Chest Pain, Palpitations Gastrointestinal: Reports: No Symptoms - Patient Data Vitals - Most Recent: Last Vital Signs Temp 98.2 F 08/09/18 12:00 Pulse 88 08/09/18 12:00 Resp 22 H 08/09/18 12:00 BP 103/59 L 08/09/18 12:00 Pulse Ox 96 08/09/18 12:00 Weight - Most Recent: 166 lb 11.2 oz I&O - Last 24 Hours: Intake & Output 08/08/18 08/09/18 08/09/18 22:59 06:59 14:59 Intake Total 560 300 60 Output Total 1550 1000 45 Balance -990 -700 15 Lab Results Last 24 Hours: Laboratory Results - last 24 hr 08/09/18 08/09/18 08/09/18 Range/Units 05:35 05:35 05:35 WBC 8.43 (3.98-10.04) K/mm3 RBC 3.74 L (3.98-5.22) M/mm3 Hgb 10.9 L (11.2-15.7) gm/L Hct 35.4 (34.1-44.9) % MCV 94.7 (79.4-94.8) fl MCH 29.1 (25.6-32.2) pg MCHC 30.8 L (32.2-35.5) g/dl RDW Std Deviation 52.5 H (36.4-46.3) fL Plt Count 313 (182-369) K/mm3 MPV 9.5 (9.4-12.3) fl Neut % (Auto) 76.5 H (34.0-71.1) % Lymph % (Auto) 10.8 L (19.3-51.7) % [place] % (Auto) 6.4 (4.7-12.5) % Eos % (Auto) 1.8 (0.7-5.8) Baso % (Auto) 0.2 (0.1-1.2) % Neut # (Auto) 6.45 H (1.56-6.13) K/mm3 Lymph # (Auto) 0.91 L (1.18-3.74) K/mm3 [place] # (Auto) 0.54 H (0.24-0.36) K/mm3 Eos # (Auto) 0.15 (0.04-0.36) K/mm3 Baso # (Auto) 0.02 (0.01-0.08) K/mm3 Manual Slide Review Abnormal smear Sodium 137 (136-145) mEq/L Potassium 4.0 (3.5-5.1) mEq/L Chloride 100 (98-107) mEq/L Carbon Dioxide 33 H (21-32) mEq/L Anion Gap 8.0 (5-15) BUN 14 (7-18) mg/dL Creatinine 1.5 H (0.55-1.02) mg/dL Est Cr Clr Drug Dosing 24.74 mL/min Estimated GFR (MDRD) 33 (>60) mL/min BUN/Creatinine Ratio 9.3 L (14-18) Glucose 105 (83-115) mg/dL Calcium 9.7 (8.5-10.1) mg/dL Magnesium 2.0 (1.8-2.4) mg/dl Total Bilirubin 0.4 (0.2-1.0) mg/dL AST 24 (15-37) U/L ALT 23 (14-59) U/L Alkaline Phosphatase 74 (46-116) U/L NT-Pro-B Natriuret Pep 6788 H (0-450) pg/mL Total Protein 5.8 L (6.4-8.2) g/dl Albumin 2.2 L (3.4-5.0) g/dl Globulin 3.6 gm/dL Albumin/Globulin Ratio 0.6 L (1-2) Roverto Results Last 24 Hours: Microbiology 08/04/18 12:20 Aerobic Blood Culture - Preliminary Blood NO GROWTH AFTER 5 DAYS Anaerobic Blood Culture - Preliminary NO GROWTH AFTER 5 DAYS 08/04/18 12:15 Aerobic Blood Culture - Preliminary Blood NO GROWTH AFTER 5 DAYS Anaerobic Blood Culture - Preliminary NO GROWTH AFTER 5 DAYS Med Orders - Current: Current Medications Acetaminophen (Tylenol) 650 mg PO Q4H PRN PRN Reason: Pain/Fever Last Admin: 08/08/18 12:26 Dose: 650 mg Amiodarone HCl (Cordarone) 200 mg PO BID [facility] Last Admin: 08/09/18 08:27 Dose: 200 mg Apixaban (Eliquis) 2.5 mg PO BID [facility] Last Admin: 08/09/18 08:28 Dose: 2.5 mg Benzocaine/Menthol (Cepacol Sore Throat) 1 lozenge MUCMEM Q2HR PRN PRN Reason: Sore Throat Benzonatate (Tessalon Perles) 100 mg PO TID [facility] Last Admin: 08/09/18 08:26 Dose: 100 mg Bisacodyl (Dulcolax) 5 mg PO DAILY PRN PRN Reason: Constipation Dextrose/Water (Dextrose 50% In Water) 50 ml IVPUSH ASDIRECTED PRN PRN Reason: Hypoglycemia Docusate Sodium (Colace) 100 mg PO BID PRN PRN Reason: Constipation Last Admin: 08/07/18 08:02 Dose: 100 mg Guaifenesin/Phenylephrine HCl (Robitussin Dm) 10 ml PO QID PRN PRN Reason: Cough Last Admin: 08/08/18 21:11 Dose: 10 ml Hydroxyzine HCl (Atarax) 25 mg PO Q4H PRN PRN Reason: Anxiety Last Admin: 08/09/18 13:32 Dose: 25 mg Cefepime HCl 1 gm/ Premix 50 mls @ 100 mls/hr IV Q24H [facility] Last Admin: 08/08/18 19:40 Dose: 100 mls/hr Levalbuterol HCl (Xopenex) 1.25 mg NEB Q6HRRT PRN PRN Reason: Dyspnea Last Admin: 08/06/18 20:24 Dose: 1.25 mg Levofloxacin (Levaquin) 750 mg PO Q48H [facility] Last Admin: 08/08/18 18:15 Dose: 750 mg Metoprolol Tartrate (Lopressor) 50 mg PO Q12H [facility] Last Admin: 08/09/18 08:26 Dose: 50 mg Sodium Chloride (Saline Flush) 10 ml FLUSH ASDIRECTED PRN PRN Reason: Keep Vein Open Last Admin: 08/04/18 11:16 Dose: 10 ml Sodium Chloride (Saline Flush) 10 ml FLUSH ASDIRECTED PRN PRN Reason: Keep Vein Open Temazepam (Restoril) 15 mg PO BEDTIME PRN PRN Reason: Sleep Last Admin: 08/05/18 21:02 Dose: 15 mg Discontinued Medications Albuterol/Ipratropium (Duoneb 3.0-0.5 Mg/3 Ml) 3 ml NEB ONETIME ONE Stop: 08/04/18 11:05 Last Admin: 08/04/18 12:18 Dose: 3 ml Benzocaine/Menthol (Cepacol Sore Throat) 1 lozenge MUCMEM Q2HR PRN PRN Reason: Sore Throat Last Admin: 08/08/18 21:12 Dose: 1 lozenge Diltiazem HCl (Cardizem) 30 mg PO Q8HR [facility] Last Admin: 08/06/18 06:51 Dose: 30 mg Diltiazem HCl (Cardizem Cd) 180 mg PO DAILY [facility] Last Admin: 08/06/18 09:00 Dose: Not Given Furosemide (Lasix) 40 mg IVPUSH NOW ONE Stop: 08/05/18 10:15 Last Admin: 08/05/18 12:55 Dose: Not Given Furosemide (Lasix) 40 mg IVPUSH NOW ONE Stop: 08/05/18 13:01 Last Admin: 08/05/18 12:54 Dose: 40 mg Furosemide (Lasix) 20 mg IVPUSH ONETIME ONE Stop: 08/05/18 17:31 Last Admin: 08/05/18 17:52 Dose: Not Given Furosemide (Lasix) 20 mg PO BIDDIURETIC [facility] Furosemide (Lasix) 20 mg IVPUSH ONETIME ONE Stop: 08/08/18 16:32 Last Admin: 08/08/18 16:30 Dose: 20 mg Sodium Chloride (Normal Saline) 500 mls @ 999 mls/hr IV .BOLUS ONE Stop: 08/04/18 11:34 Last Admin: 08/04/18 11:15 Dose: 999 mls/hr Ceftriaxone Sodium 1 gm/ (Sodium Chloride) 100 mls @ 200 mls/hr IV ONETIME ONE Stop: 08/04/18 12:42 Last Admin: 08/04/18 12:26 Dose: 200 mls/hr Sodium Chloride (Normal Saline) Confirm Administered Dose 1,000 mls @ as directed .ROUTE .STK-MED ONE Stop: 08/04/18 13:08 Last Admin: 08/04/18 13:12 Dose: Not Given Sodium Chloride (Normal Saline) 500 mls @ 999 mls/hr IV ASDIRECTED [facility] Last Admin: 08/04/18 13:10 Dose: 999 mls/hr Sodium Chloride (Normal Saline) 500 mls @ 999 mls/hr IV ASDIRECTED [facility] Last Admin: 08/04/18 11:50 Dose: 999 mls/hr Sodium Chloride (Normal Saline) 1,000 mls @ 150 mls/hr IV ASDIRECTED [facility] Last Admin: 08/05/18 03:38 Dose: 150 mls/hr Sodium Chloride (Normal Saline) 1,000 mls @ 150 mls/hr IV ASDIRECTED [facility] Vancomycin HCl 1.75 gm/ Sodium (Chloride) 500 mls @ 250 mls/hr IV ONETIME ONE Stop: 08/04/18 21:44 Last Admin: 08/04/18 20:49 Dose: Not Given Cefepime HCl 2 gm/ Premix 50 mls @ 100 mls/hr IV ONETIME ONE Stop: 08/04/18 20:29 Last Admin: 08/04/18 19:47 Dose: 100 mls/hr Vancomycin HCl 2 gm/ Sodium (Chloride) 500 mls @ 250 mls/hr IV ONETIME ONE Stop: 08/04/18 21:59 Last Admin: 08/04/18 20:20 Dose: 250 mls/hr Vancomycin HCl 1 gm/Vancomycin HCl 500 mg/ Sodium Chloride 500 mls @ 333.333 mls/hr IV Q48H [facility] Last Admin: 08/06/18 20:57 Dose: 333.333 mls/hr Magnesium Sulfate 4 gm/ Premix 100 mls @ 25 mls/hr IV ONETIME ONE Stop: 08/05/18 07:51 Last Admin: 08/05/18 08:17 Dose: 25 mls/hr Sodium Chloride (Normal Saline) 1,000 mls @ 75 mls/hr IV ASDIRECTED [facility] Last Admin: 08/05/18 12:36 Dose: 75 mls/hr Albumin Human (Flexbumin 25%) 25 gm in 100 mls @ 100 mls/hr IV STAT ONE Stop: 08/06/18 10:02 Last Admin: 08/06/18 09:24 Dose: 100 mls/hr Amiodarone HCl/Dextrose 150 mg (/ Premix) 100 mls @ 600 mls/hr IV .BOLUS ONE; Protocol Stop: 08/06/18 13:18 Last Admin: 08/06/18 14:55 Dose: Not Given Amiodarone HCl/Dextrose 150 mg (/ Premix) 100 mls @ 600 mls/hr IV .BOLUS ONE; Protocol Stop: 08/06/18 15:09 Last Admin: 08/06/18 15:21 Dose: 600 mls/hr Amiodarone HCl/Dextrose (Nexterone In Dextrose 360 Mg/200 Ml) 360 mg in 200 mls @ 33.333 mls/hr IV ASDIRECTED [facility]; Protocol Last Infusion: 08/07/18 15:32 Dose: 0 mls/hr Magnesium Sulfate 4 gm/ Premix 100 mls @ 25 mls/hr IV ONETIME ONE Stop: 08/08/18 11:29 Last Admin: 08/08/18 08:06 Dose: 25 mls/hr Insulin Human Lispro (Humalog) 0 unit SUBCUT QIDACANDBED [facility]; Protocol Last Admin: 08/05/18 06:28 Dose: Not Given Metoprolol Tartrate (Lopressor) 12.5 mg PO Q12H [facility] Last Admin: 08/07/18 06:18 Dose: 12.5 mg Metoprolol Tartrate (Lopressor) 12.5 mg PO ONETIME ONE Stop: 08/07/18 12:31 Last Admin: 08/07/18 14:16 Dose: 12.5 mg Metoprolol Tartrate (Lopressor) 25 mg PO Q12H [facility] Last Admin: 08/08/18 08:06 Dose: 25 mg Metoprolol Tartrate (Lopressor) 25 mg PO ONETIME ONE Stop: 08/08/18 09:45 Last Admin: 08/08/18 10:36 Dose: 25 mg Miscellaneous Information (Remove Patch) 1 ea TRDERM DAILY [facility] Last Admin: 08/07/18 08:20 Dose: 1 ea Miscellaneous Information (Remove Patch) 1 ea TRDERM DAILY [facility] Last Admin: 08/07/18 08:19 Dose: 1 ea Nicotine (Habitrol) 21 mg TRDERM DAILY [facility] Last Admin: 08/07/18 08:13 Dose: 21 mg Nicotine (Habitrol) 7 mg TRDERM DAILY [facility] Last Admin: 08/07/18 08:06 Dose: 7 mg Temazepam (Restoril) 7.5 mg PO BEDTIME PRN PRN Reason: Sleep Last Admin: 08/05/18 02:21 Dose: 7.5 mg Vancomycin HCl (Pharmacy To Dose - Vancomycin) 1 dose .XX ASDIRECTED [facility] - Exam Quality Assessment: Supplemental Oxygen General: Alert, Oriented HEENT: Pupils Equal Lungs: Normal Respiratory Effort, Rales Cardiovascular: Irregular Rhythm Extremities: Normal Inspection, Pedal Edema (Scant) Skin: Warm, Dry, Intact - Problem List & Annotations (1) Acute exacerbation of congestive heart failure SNOMED Code(s): 82459990 Code(s): I50.9 - HEART FAILURE, UNSPECIFIED Status: Acute Current Visit: No Qualifiers: Heart failure type: diastolic Qualified Code(s): I50.33 - Acute on chronic diastolic (congestive) heart failure (2) Sepsis associated hypotension SNOMED Code(s): 67367042 Code(s): A41.9 - SEPSIS, UNSPECIFIED ORGANISM; I95.9 - HYPOTENSION, UNSPECIFIED Status: Acute Current Visit: Yes (3) Renal failure (ARF), acute on chronic SNOMED Code(s): 245814769 Code(s): N17.9 - ACUTE KIDNEY FAILURE, UNSPECIFIED; N18.9 - CHRONIC KIDNEY DISEASE, UNSPECIFIED Status: Acute Current Visit: Yes (4) Respiratory failure with hypoxia SNOMED Code(s): 76365318092666084 Code(s): J96.91 - RESPIRATORY FAILURE, UNSPECIFIED WITH HYPOXIA Status: Acute Current Visit: Yes (5) Pneumonia SNOMED Code(s): 626714530 Code(s): J18.9 - PNEUMONIA, UNSPECIFIED ORGANISM Status: Acute Current Visit: Yes Qualifiers: Pneumonia type: due to unspecified organism Laterality: right Lung location: lower lobe of lung Qualified Code(s): J18.1 - Lobar pneumonia, unspecified organism (6) Hypotension SNOMED Code(s): 09700891 Code(s): I95.9 - HYPOTENSION, UNSPECIFIED Status: Acute Current Visit: Yes Qualifiers: Hypotension type: unspecified hypotension type Qualified Code(s): I95.9 - Hypotension, unspecified (7) Chronic kidney disease SNOMED Code(s): 110262543 Code(s): N18.9 - CHRONIC KIDNEY DISEASE, UNSPECIFIED Status: Acute Current Visit: No - Problem List Review Problem List Initiated/Reviewed/Updated: Yes - My Orders Last 24 Hours: My Active Orders 08/08/18 21:00 Metoprolol Tartrate [Lopressor] 50 mg PO Q12H 08/09/18 09:54 Benzocaine/Cetylpyrd/Menthol [Cepacol Sore Throat] 1 lozenge MUCMEM Q2HR PRN - Plan Plan:: Diastolic heart failure - BNP has improved with stopping Cardizem and switching to amiodarone. - Patient was switched to by mouth amiodarone 200 mg twice a day - Increased dose of metoprolol 50 mg twice a day has been well tolerated. Pulses still remained in the 80s. - 20 of Lasix last night IV gave good results for urine production. - Would recommend not to over diuresing her since her blood pressure seems to be sensitive to the Lasix - Discontinue Enrique catheter Atrial fibrillation with rapid ventricular response - Switched to amiodarone 200 mg twice a day by mouth - Increase metoprolol to 50 mg twice a day. - We may not be able to get her below 80 pulse at this hospitalization. This will likely have to be titrated as an outpatient. * - Continue on Eliquis 2.5 mg twice a day Respiratory failure with hypoxia - FiO2 to keep pulse ox above 92%. - Patient does not want to be intubated, but has agreed to BiPAP if necessary. Right lower lobe pneumonia - Patient will continue on cefepime and Levaquin. - D/C vancomycin - White count continues to improved Hypomagnesemia - Replace mag today and get a repeat magnesium level tomorrow. Sepsis - Resolved - Appropriate antibiotic coverage Acute on chronic renal failure - Patient's renal function has improved significantly. She did have a slight increase to 1.5 this morning following 20 mg Lasix. - Check BMP in the morning. I had a long discussion with the patient and her family in regards to her prognosis on 08/07/2018 Patient has multisystem dysfunction and understands that her prognosis is guarded. Patient does not want to be intubated or have CPR performed. She is in agreement with our current measures of medical management. She also is in agreement with BiPAP, but if she becomes agitated or does not tolerate BiPAP she is in agreement with comfort measures at that time. Family was present during the conversation. Case management was also present. VTE prophylaxis with Eliquis Patient's hospitalization lasted more than 96 hours because of worsening of her diastolic heart failure, hypotension, and atrial fibrillation. Plan discharge tomorrow.
[2018-08-09] MEDS: Cefepime 1 GM in Premix Bag 1 BAG IV SCH (20:26)
[2018-08-10] MEDS: Benzonatate 100 MG Cap PO SCH (09:39)
[2018-08-10] MEDS: Apixaban 5 MG Tab PO SCH (09:39)
[2018-08-10] MEDS: Levofloxacin 750 MG Tab PO SCH (09:40)
[2018-08-10] MEDS: Amiodarone 200 MG Tab PO SCH (09:40)
[2018-08-10] MEDS: Metoprolol Tartrate 50 MG Tab PO SCH (09:42)
--- NOTE | 2018-08-10 11:15 | PCM.DCSUM1 ---
Discharge Summary - Hospital Course HPI Initial Comments: This is a 78-year-old female who was recently discharged from our hospital on July 29, 2018 for influenza, diastolic heart failure, and atrial fibrillation with RVR was brought into the emergency room with cough, shortness of breath, chills, and general weakness and dizziness. Patient has had the above symptoms over the last couple of days. At time of discharge patient's white count was 10.2, creatinine of 1.9, and a C-reactive protein of 1.1. Patient had blood work done on July 31, 2018 and her creatinine had increased to 0.8 mg/dL. She was seen by her lead front end developer in the middle of the week. Patient was discharged on diltiazem 240 mg daily and a new prescription for metoprolol tartrate 25 mg twice a day was given. Patient was not on antibiotics during her hospitalization. In the emergency room patient was found to be afebrile with no significant shortness of breath. Initially respiratory rate was slightly elevated at 18 and blood pressure was 77/57. Blood pressure improved with 1.5 L of normal saline so that her MAP was greater than 65. Patient was conversant and alert during the entire emergency room visit. White count did return significantly elevated at greater than 23,000. C-reactive protein was 18.5 and her creatinine increased to 3.3. BUN was 51 and sodium of 132. Lactic acid was negative at 0.8. ABGs were performed showing a pH of 7.42, PCO2 of 40.1, PaO2 of 57.0, HCO3 25.4 and O2 saturation of 90.4% on 3 L nasal cannula. Emergency room physician called for admission. Brief History: Patient was initially transferred to the ICU. She was de- escalated, but continued to have tachycardia with rates in the 100s to 110s. It was difficult to maintain her blood pressure on Cardizem and metoprolol. Patient was then transferred to the ICU and an amiodarone drip was started. Cardizem was DC'd. Patient had improved blood pressure and heart rate on the amiodarone and increased dose of metoprolol. Patient finished 7 days of antibiotics for her pneumonia. Renal function improved significantly over the week. Her initial creatinine was 3.3 and at discharge it was 1.6. Patient continued to have some rales on discharge, but this is likely close to her baseline. [facility] - Discharge Data Discharge Date: 08/10/18 Discharge Disposition: DC/Tfer to SNF 03 Condition: Good - Discharge Diagnosis/Problem(s) (1) Acute exacerbation of congestive heart failure SNOMED Code(s): 87402724 ICD Code: I50.9 - HEART FAILURE, UNSPECIFIED Status: Acute Current Visit : No Qualifiers: Heart failure type: diastolic Qualified Code(s): I50.33 - Acute on chronic diastolic (congestive) heart failure (2) Sepsis associated hypotension SNOMED Code(s): 81150717 ICD Code: A41.9 - SEPSIS, UNSPECIFIED ORGANISM; I95.9 - HYPOTENSION, UNSPECIFIED Status: Acute Current Visit: Yes (3) Renal failure (ARF), acute on chronic SNOMED Code(s): 425281296 ICD Code: N17.9 - ACUTE KIDNEY FAILURE, UNSPECIFIED; N18.9 - CHRONIC KIDNEY DISEASE, UNSPECIFIED Status: Acute Current Visit: Yes (4) Respiratory failure with hypoxia SNOMED Code(s): 48761402842974190 ICD Code: J96.91 - RESPIRATORY FAILURE, UNSPECIFIED WITH HYPOXIA Status: Acute Current Visit: Yes (5) Pneumonia SNOMED Code(s): 385390386 ICD Code: J18.9 - PNEUMONIA, UNSPECIFIED ORGANISM Status: Acute Current Visit: Yes Qualifiers: Pneumonia type: due to unspecified organism Laterality: right Lung location: lower lobe of lung Qualified Code(s): J18.1 - Lobar pneumonia, unspecified organism (6) Hypotension SNOMED Code(s): 32611643 ICD Code: I95.9 - HYPOTENSION, UNSPECIFIED Status: Acute Current Visit: Yes Qualifiers: Hypotension type: unspecified hypotension type Qualified Code(s): I95.9 - Hypotension, unspecified (7) Chronic kidney disease SNOMED Code(s): 466176637 ICD Code: N18.9 - CHRONIC KIDNEY DISEASE, UNSPECIFIED Status: Acute Current Visit: No - Patient Summary/Data Consults: Consultations 08/04/18 18:04 Consult to Case Management/Pony Ride Operator [CONS] Routine PT Evaluation and Treatment [CONS] Routine - Patient Instructions Diet: Heart Healthy Diet Fluid Restriction: 2000 mL Activity, Other: Rehab stay. Physical therapy to evaluated and treat. Driving: Do Not Drive Showering/Bathing: May Shower Other/Special Instructions: Transfer to [facility] for [facility] stay and physical therapy in preparation for return to home. - Discharge Plan Prescriptions/Med Rec: Amiodarone [Cordarone] 200 mg PO BID 28 Days #60 tablet Furosemide [Lasix] 20 mg PO QAM PRN #30 tablet PRN Reason: Edema Metoprolol Tartrate [Lopressor] 50 mg PO Q12H #60 tablet Home Medications: Home Meds Calcium Citrate/Vitamin D3 [Citracal + D Maximum Caplet] 1 tab PO BEDTIME [History] Cyanocobalamin (Vitamin B12) [Vitamin B12] 1,000 mcg PO DAILY 04/09/17 [History] Pravastatin [Pravachol] 20 mg PO BEDTIME 04/09/17 [History] Apixaban [Eliquis] 2.5 mg PO BID 07/23/18 [History] Omeprazole 20 mg PO DAILY 07/24/18 [History] Amiodarone [Cordarone] 200 mg PO BID 28 Days #60 tablet 08/10/18 [Rx] Furosemide [Lasix] 20 mg PO QAM PRN #30 tablet 08/10/18 [Rx] Metoprolol Tartrate [Lopressor] 50 mg PO Q12H #60 tablet 08/10/18 [Rx] Other Amb Orders: PT Evaluation and Treatment [CONS] Location: None Selected COMPREHENSIVE METABOLIC PN,CMP [CHEM] Location: None Selected COMPREHENSIVE METABOLIC PN,CMP [CHEM] Time Frame: 3 Days, Location: [facility] Oxygen Therapy Mode: Nasal Cannula Oxygen Flow Rate (L/min): 2 Maintain SPO2% less than: 95 Maintain SpO2% greater than: 90 Patient Handouts: Steps to Quit Smoking, Community-Acquired Pneumonia, Adult, [id number] Referrals: Enoch Vaughan MD [Physician] - 08/17/18 11:30 am () - Discharge Summary/Plan Comment DC Time >30 min.: Yes Discharge Summary/Plan Comment: Diastolic heart failure - Significantly improved with stopping Cardizem and switching to amiodarone. - Patient was switched to by mouth amiodarone 200 mg twice a day - She should switch to amiodarone 100 mg twice a day in 2 weeks. She should follow-up with cardiology after she is seen by her primary care provider. - Increased dose of metoprolol 50 mg twice a day has been well tolerated. Pulses still remained in the 80s. - Patient will receive 20 mg of Lasix by mouth tomorrow. Then it will be for a 5 pound weight gain.. - Would recommend not to over diuresing her since her blood pressure seems to be sensitive to the Lasix Atrial fibrillation with rapid ventricular response - Switched to amiodarone 200 mg twice a day by mouth - Increase metoprolol to 50 mg twice a day. - We may not be able to get her below 80 pulse at this hospitalization. This will likely have to be titrated as an outpatient. * - Continue on Eliquis 2.5 mg twice a day Respiratory failure with hypoxia - FiO2 to keep pulse ox above 90%. - Patient does not want to be intubated, but has agreed to BiPAP if necessary. Right lower lobe pneumonia - Patient will get her last dose of Levaquin. - D/C vancomycin - White count continues to improved Hypomagnesemia - resolved. Sepsis - Resolved - Appropriate antibiotic coverage Acute on chronic renal failure - Patient's renal function has improved significantly. She did have a slight increase to 1.5 this morning following 20 mg Lasix. - Check BMP in the morning. I had a long discussion with the patient and her family in regards to her prognosis on 08/07/2018 Patient has multisystem dysfunction and understands that her prognosis is guarded. Patient does not want to be intubated or have CPR performed. She is in agreement with our current measures of medical management. She also is in agreement with BiPAP, but if she becomes agitated or does not tolerate BiPAP she is in agreement with comfort measures at that time. Family was present during the conversation. Case management was also present. - General Info Date of Service: 08/10/18 Admission Dx/Problem (Free Text: RLL Pneumonia Subjective Update: August 10, 2018 Patient continues to do well. Heart rate is still in the 80s to 90s. She is able to lay flat and slept without any PND or orthopnea. She is tolerating her amiodarone 200 mg twice a day and metoprolol 50 mg twice a day. She is ready to be transferred to [facility] for [facility] and rehabilitation stay. August 09, 2018 Patient is doing well. She tolerated the increased dose of her metoprolol to 50 mg twice a day. She's had no more shortness of breath and is able to lay in the halls. August 08, 2018 Patient continues to do better. Her pulse has dropped into the 80s and her blood pressure has increased also. She is not requiring any extra oxygen. She had a good night without any interruptions. She only was able to tolerate the BiPAP for 4 hours. She is tolerating both the amiodarone and the home dose of metoprolol at 25 mg twice a day. We have not given her any Lasix over the last couple of days. August 07, 2018 Patient states that she is feeling well and her cough has not worsened. She complains of less shortness of breath. Patient was tried on BiPAP last night and she only tolerated for approximately 2 hours per nursing. Patient also was placed on amiodarone drip and her blood pressure has improved and her pulse is in the 90s and sometimes in the low 100s. She denies any chest pain today. She continues to have some difficulty with sleeping at night. She required hydroxyzine. August 06, 2018 Overnight patient did fairly well, except her pulse continues to run in the 90s to low 100. She did have approximate 6 pound weight loss with 1600 mL negative output. Patient's blood pressure has been difficult to maintain and has often dropped into the 80s systolic. This morning patient complained of sharp, severe left upper chest pain so an EKG and chest x-ray were performed. No significant changes on the EKG were found and chest x-ray demonstrated improved pulmonary vasculature and no left upper lobe abnormality. After a couple of hours the pain did seem to resolve. Patient did have an increase in her BNP of approximately 4000. BNP went up from 4172 to 8321. Patient's oxygen requirements have essentially stayed even. She denies any worsening shortness of breath or edema. Chest pain did not radiate into the arm or up the jaw. It did not radiate into her back. August 05, 2018 Patient did well overnight and pulse stayed well below 100. Blood pressures were well tolerated and patient has generally improved. Patient was transferred out of the ICU and on to telemetry. Patient only complains of dry mouth at this time. She did have some difficulty in the middle the night with anxiety and difficulty sleeping. - Review of Systems General: Reports: No Symptoms HEENT: Reports: No Symptoms Pulmonary: Reports: No Symptoms, Cough. Denies: Shortness of Breath Cardiovascular: Reports: No Symptoms. Denies: Chest Pain, Palpitations Gastrointestinal: Reports: No Symptoms Genitourinary: Reports: No Symptoms. Denies: Dysuria Neurological: Reports: No Symptoms. Denies: Confusion, Dizziness Psychiatric: Reports: No Symptoms. Denies: Depression - Patient Data Vitals - Most Recent: Last Vital Signs Temp 97.9 F 08/10/18 02:51 Pulse 92 08/10/18 02:51 Resp 18 08/10/18 02:51 BP 107/57 L 08/10/18 02:51 Pulse Ox 95 08/10/18 02:51 Weight - Most Recent: 168 lb 1.6 oz I&O - Last 24 hours: Intake & Output 08/09/18 08/10/18 08/10/18 22:59 06:59 14:59 Intake Total 980 550 Output Total 100 800 Balance 880 -250 Lab Results - Last 24 hrs: Laboratory Results - last 24 hr 08/10/18 Range/Units 05:46 Sodium 135 L (136-145) mEq/L Potassium 4.0 (3.5-5.1) mEq/L Chloride 98 (98-107) mEq/L Carbon Dioxide 30 (21-32) mEq/L Anion Gap 11.0 (5-15) BUN 15 (7-18) mg/dL Creatinine 1.6 H (0.55-1.02) mg/dL Est Cr Clr Drug Dosing 23.20 mL/min Estimated GFR (MDRD) 31 (>60) mL/min BUN/Creatinine Ratio 9.4 L (14-18) Glucose 106 (83-115) mg/dL Calcium 9.4 (8.5-10.1) mg/dL LAURIE Results - Last 24 hrs: Microbiology 08/04/18 12:20 Aerobic Blood Culture - Preliminary Blood NO GROWTH AFTER 5 DAYS Anaerobic Blood Culture - Preliminary NO GROWTH AFTER 5 DAYS 08/04/18 12:15 Aerobic Blood Culture - Preliminary Blood NO GROWTH AFTER 5 DAYS Anaerobic Blood Culture - Preliminary NO GROWTH AFTER 5 DAYS Med Orders - Current: Current Medications Acetaminophen (Tylenol) 650 mg PO Q4H PRN PRN Reason: Pain/Fever Last Admin: 08/08/18 12:26 Dose: 650 mg Amiodarone HCl (Cordarone) 200 mg PO BID KAYLEE Last Admin: 08/10/18 09:40 Dose: 200 mg Apixaban (Eliquis) 2.5 mg PO BID [facility] Last Admin: 08/10/18 09:39 Dose: 2.5 mg Benzocaine/Menthol (Cepacol Sore Throat) 1 lozenge MUCMEM Q2HR PRN PRN Reason: Sore Throat Benzonatate (Tessalon Perles) 100 mg PO TID [facility] Last Admin: 08/10/18 09:39 Dose: 100 mg Bisacodyl (Dulcolax) 5 mg PO DAILY PRN PRN Reason: Constipation Dextrose/Water (Dextrose 50% In Water) 50 ml IVPUSH ASDIRECTED PRN PRN Reason: Hypoglycemia Docusate Sodium (Colace) 100 mg PO BID PRN PRN Reason: Constipation Last Admin: 08/07/18 08:02 Dose: 100 mg Guaifenesin/Phenylephrine HCl (Robitussin Dm) 10 ml PO QID PRN PRN Reason: Cough Last Admin: 08/08/18 21:11 Dose: 10 ml Hydroxyzine HCl (Atarax) 25 mg PO Q4H PRN PRN Reason: Anxiety Last Admin: 08/09/18 22:41 Dose: 25 mg Cefepime HCl 1 gm/ Premix 50 mls @ 100 mls/hr IV Q24H [facility] Last Admin: 08/09/18 20:26 Dose: 100 mls/hr Levalbuterol HCl (Xopenex) 1.25 mg NEB Q6HRRT PRN PRN Reason: Dyspnea Last Admin: 08/06/18 20:24 Dose: 1.25 mg Levofloxacin (Levaquin) 750 mg PO Q48H [facility] Last Admin: 08/10/18 09:40 Dose: 750 mg Metoprolol Tartrate (Lopressor) 50 mg PO Q12H [facility] Last Admin: 08/10/18 09:42 Dose: Not Given Sodium Chloride (Saline Flush) 10 ml FLUSH ASDIRECTED PRN PRN Reason: Keep Vein Open Last Admin: 08/04/18 11:16 Dose: 10 ml Sodium Chloride (Saline Flush) 10 ml FLUSH ASDIRECTED PRN PRN Reason: Keep Vein Open Temazepam (Restoril) 15 mg PO BEDTIME PRN PRN Reason: Sleep Last Admin: 08/05/18 21:02 Dose: 15 mg Discontinued Medications Albuterol/Ipratropium (Duoneb 3.0-0.5 Mg/3 Ml) 3 ml NEB ONETIME ONE Stop: 08/04/18 11:05 Last Admin: 08/04/18 12:18 Dose: 3 ml Benzocaine/Menthol (Cepacol Sore Throat) 1 lozenge MUCMEM Q2HR PRN PRN Reason: Sore Throat Last Admin: 08/08/18 21:12 Dose: 1 lozenge Diltiazem HCl (Cardizem) 30 mg PO Q8HR KAYLEE Last Admin: 08/06/18 06:51 Dose: 30 mg Diltiazem HCl (Cardizem Cd) 180 mg PO DAILY KAYLEE Last Admin: 08/06/18 09:00 Dose: Not Given Furosemide (Lasix) 40 mg IVPUSH NOW ONE Stop: 08/05/18 10:15 Last Admin: 08/05/18 12:55 Dose: Not Given Furosemide (Lasix) 40 mg IVPUSH NOW ONE Stop: 08/05/18 13:01 Last Admin: 08/05/18 12:54 Dose: 40 mg Furosemide (Lasix) 20 mg IVPUSH ONETIME ONE Stop: 08/05/18 17:31 Last Admin: 08/05/18 17:52 Dose: Not Given Furosemide (Lasix) 20 mg PO BIDDIURETIC KAYLEE Furosemide (Lasix) 20 mg IVPUSH ONETIME ONE Stop: 08/08/18 16:32 Last Admin: 08/08/18 16:30 Dose: 20 mg Sodium Chloride (Normal Saline) 500 mls @ 999 mls/hr IV .BOLUS ONE Stop: 08/04/18 11:34 Last Admin: 08/04/18 11:15 Dose: 999 mls/hr Ceftriaxone Sodium 1 gm/ (Sodium Chloride) 100 mls @ 200 mls/hr IV ONETIME ONE Stop: 08/04/18 12:42 Last Admin: 08/04/18 12:26 Dose: 200 mls/hr Sodium Chloride (Normal Saline) Confirm Administered Dose 1,000 mls @ as directed .ROUTE .STK-MED ONE Stop: 08/04/18 13:08 Last Admin: 08/04/18 13:12 Dose: Not Given Sodium Chloride (Normal Saline) 500 mls @ 999 mls/hr IV ASDIRECTED KAYLEE Last Admin: 08/04/18 13:10 Dose: 999 mls/hr Sodium Chloride (Normal Saline) 500 mls @ 999 mls/hr IV ASDIRECTED [facility] Last Admin: 08/04/18 11:50 Dose: 999 mls/hr Sodium Chloride (Normal Saline) 1,000 mls @ 150 mls/hr IV ASDIRECTED [facility] Last Admin: 08/05/18 03:38 Dose: 150 mls/hr Sodium Chloride (Normal Saline) 1,000 mls @ 150 mls/hr IV ASDIRECTED [facility] Vancomycin HCl 1.75 gm/ Sodium (Chloride) 500 mls @ 250 mls/hr IV ONETIME ONE Stop: 08/04/18 21:44 Last Admin: 08/04/18 20:49 Dose: Not Given Cefepime HCl 2 gm/ Premix 50 mls @ 100 mls/hr IV ONETIME ONE Stop: 08/04/18 20:29 Last Admin: 08/04/18 19:47 Dose: 100 mls/hr Vancomycin HCl 2 gm/ Sodium (Chloride) 500 mls @ 250 mls/hr IV ONETIME ONE Stop: 08/04/18 21:59 Last Admin: 08/04/18 20:20 Dose: 250 mls/hr Vancomycin HCl 1 gm/Vancomycin HCl 500 mg/ Sodium Chloride 500 mls @ 333.333 mls/hr IV Q48H [facility] Last Admin: 08/06/18 20:57 Dose: 333.333 mls/hr Magnesium Sulfate 4 gm/ Premix 100 mls @ 25 mls/hr IV ONETIME ONE Stop: 08/05/18 07:51 Last Admin: 08/05/18 08:17 Dose: 25 mls/hr Sodium Chloride (Normal Saline) 1,000 mls @ 75 mls/hr IV ASDIRECTED [facility] Last Admin: 08/05/18 12:36 Dose: 75 mls/hr Albumin Human (Flexbumin 25%) 25 gm in 100 mls @ 100 mls/hr IV STAT ONE Stop: 08/06/18 10:02 Last Admin: 08/06/18 09:24 Dose: 100 mls/hr Amiodarone HCl/Dextrose 150 mg (/ Premix) 100 mls @ 600 mls/hr IV .BOLUS ONE; Protocol Stop: 08/06/18 13:18 Last Admin: 08/06/18 14:55 Dose: Not Given Amiodarone HCl/Dextrose 150 mg (/ Premix) 100 mls @ 600 mls/hr IV .BOLUS ONE; Protocol Stop: 08/06/18 15:09 Last Admin: 08/06/18 15:21 Dose: 600 mls/hr Amiodarone HCl/Dextrose (Nexterone In Dextrose 360 Mg/200 Ml) 360 mg in 200 mls @ 33.333 mls/hr IV ASDIRECTED [facility]; Protocol Last Infusion: 08/07/18 15:32 Dose: 0 mls/hr Magnesium Sulfate 4 gm/ Premix 100 mls @ 25 mls/hr IV ONETIME ONE Stop: 08/08/18 11:29 Last Admin: 08/08/18 08:06 Dose: 25 mls/hr Insulin Human Lispro (Humalog) 0 unit SUBCUT QIDACANDBED [facility]; Protocol Last Admin: 08/05/18 06:28 Dose: Not Given Metoprolol Tartrate (Lopressor) 12.5 mg PO Q12H [facility] Last Admin: 08/07/18 06:18 Dose: 12.5 mg Metoprolol Tartrate (Lopressor) 12.5 mg PO ONETIME ONE Stop: 08/07/18 12:31 Last Admin: 08/07/18 14:16 Dose: 12.5 mg Metoprolol Tartrate (Lopressor) 25 mg PO Q12H [facility] Last Admin: 08/08/18 08:06 Dose: 25 mg Metoprolol Tartrate (Lopressor) 25 mg PO ONETIME ONE Stop: 08/08/18 09:45 Last Admin: 08/08/18 10:36 Dose: 25 mg Miscellaneous Information (Remove Patch) 1 ea TRDERM DAILY [facility] Last Admin: 08/07/18 08:20 Dose: 1 ea Miscellaneous Information (Remove Patch) 1 ea TRDERM DAILY [facility] Last Admin: 08/07/18 08:19 Dose: 1 ea Nicotine (Habitrol) 21 mg TRDERM DAILY [facility] Last Admin: 08/07/18 08:13 Dose: 21 mg Nicotine (Habitrol) 7 mg TRDERM DAILY [facility] Last Admin: 08/07/18 08:06 Dose: 7 mg Temazepam (Restoril) 7.5 mg PO BEDTIME PRN PRN Reason: Sleep Last Admin: 08/05/18 02:21 Dose: 7.5 mg Vancomycin HCl (Pharmacy To Dose - Vancomycin) 1 dose .XX ASDIRECTED KAYLEE - Exam Quality Assessment: Reports: Supplemental Oxygen General: Reports: Alert, Oriented HEENT: Reports: Pupils Equal Neck: Reports: Supple Lungs: Reports: Normal Respiratory Effort, Rales (Bibasilar) Cardiovascular: Reports: Irregular Rhythm GI/Abdominal Exam: Normal Bowel Sounds, Soft, Non-Tender, No Distention Extremities: Normal Inspection, No Pedal Edema Skin: Reports: Warm, Dry
[2018-08-10 15:34] VITALS: BP 94/73
== END 2018-08-10 09:48 | DRG 871 ==
LOC: JD.ED 10:35 → JD.ICU 17:09 → JD.MS 17:09 → UNDOADMIN 17:09 → JD.MS 17:10 → JD.ICU 17:36 → JD.MS 08-05 10:48 → JD.ICU 08-06 13:09 → JD.MS 08-09 00:19
PROVIDERS: ADMIT Family Medicine; ATTEND Family Medicine
PROC: 5A09357 Assistance with Respiratory Ventilation, Less than 24 Consecutive Hours, Continuous Positive Airway Pressure (ICD-10-PCS; principal; 2018-08-07)
DX: A41.9 Sepsis, unspecified organism (principal); J18.1 Lobar pneumonia, unspecified organism; J96.91 Respiratory failure, unspecified with hypoxia; I50.33 Acute on chronic diastolic (congestive) heart failure; I13.0 Hypertensive heart and chronic kidney disease with heart failure and stage 1 through stage 4 chronic kidney disease, or unspecified chronic kidney disease; I11.0 Hypertensive heart disease with heart failure; I50.9 Heart failure, unspecified; N17.9 Acute kidney failure, unspecified; E86.0 Dehydration; E86.1 Hypovolemia; E83.42 Hypomagnesemia; E11.9 Type 2 diabetes mellitus without complications; I48.91 Unspecified atrial fibrillation; I25.10 Atherosclerotic heart disease of native coronary artery without angina pectoris; E78.00 Pure hypercholesterolemia, unspecified; K21.9 Gastro-esophageal reflux disease without esophagitis; R32 Unspecified urinary incontinence; M54.9 Dorsalgia, unspecified; G89.29 Other chronic pain; E66.9 Obesity, unspecified; F17.210 Nicotine dependence, cigarettes, uncomplicated; N28.9 Disorder of kidney and ureter, unspecified; R42 Dizziness and giddiness; R50.9 Fever, unspecified; R06.2 Wheezing; R06.03 Acute respiratory distress; R06.82 Tachypnea, not elsewhere classified; R05 Cough; R06.02 Shortness of breath; R53.1 Weakness; I95.9 Hypotension, unspecified; H54.7 Unspecified visual loss; Z66 Do not resuscitate; Z91.041 Radiographic dye allergy status; Z79.899 Other long term (current) drug therapy; Z90.49 Acquired absence of other specified parts of digestive tract; Z96.659 Presence of unspecified artificial knee joint; Z79.01 Long term (current) use of anticoagulants; Z68.28 Body mass index [BMI] 28.0-28.9, adult
CPT/HCPCS: 36415; 36600; 71045; 80053; 82803; 83605; 85025; 86140; 87040 ×2; 93005; 94640; 96361; 96365; 99285; J0696; J7030; J7040 ×4; 51702; 80048; 82962; 83735; 83880; 84100; 84484; 87205; 87641; 93010; 94660; 94667; 94668; 94760; 97110-GP; 97112-GP; 97116-GP; 97162-GP; 99284; A9270-GY; J0282; J0692; J1815-GY; J1940; J3370; J3475; J7612-GY; J7620-GY; P9047

== ENCOUNTER 2018-11-07 15:45 | Inpatient (IN) | payer MEDICARE, OTHER ==
[2018-11-07] MEDS ORDERED: Sodium Chloride 0.9% 10 ML Syringe FLUSH PRN (16:26)
[2018-11-07] MEDS ORDERED: Furosemide 40 MG/4 ML VIAL IVPUSH ONE (16:27)
--- NOTE | 2018-11-07 16:30 | EDM.PDOC ---
ED HPI GENERAL MEDICAL PROBLEM - General Chief Complaint: Cardiovascular Problem Stated Complaint: LOW OXYGEN Time Seen by Provider: 11/07/18 16:25 Source of Information: Reports: Patient History Limitations: Reports: No Limitations - History of Present Illness INITIAL COMMENTS - FREE TEXT/NARRATIVE: 78-year-old female presented to the ED today after presenting to the clinic with dizziness. They identified that she was extremely hypoxic with O2 sats of 63-68%. Patient has chronic COPD with a [id number] history of smoking and still smokes cigarettes daily. She was feeling weak and dizzy today and went to the walk-in clinic. Once they identified how hypoxic she was with central looking cyanosis she was sent to the ED. 3 L by nasal cannula she is 97% and her cyanosis is dissipated. She is alert oriented and answers all questions appropriately. She denies any central chest pain. He states cough that she has is mostly nonproductive. Still smokes a half a pack of cigarettes daily and has chronic atrial fibrillation with rate control and at 86 today. Toward status is DNR/DNI. Onset: Today Duration: Chronic ( is chronic hypoxia from cigarette smoking and COPD. Reason for exacerbation days unclear.), Getting Worse Location: Reports: Chest (Shortness of breath and dizziness today.) Quality: Reports: Other (Shortness of breath with hypoxia.) Severity: Severe Improves with: Reports: Rest Worsens with: Reports: Other Context: Denies: Activity, Exercise, Lifting, Sick Contact, Trauma, Other Associated Symptoms: Reports: Cough, Malaise, Shortness of Breath, Weakness. 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 (see below) (No recent changes to any of her medications.) - Related Data Allergies Allergy/AdvReac Type Severity Reaction Status Date / Time morphine AdvReac Confusion Verified 08/08/18 07:33 contrast dye Allergy Hives Uncoded 08/04/18 11:18 Home Meds: Home Meds Calcium Citrate/Vitamin D3 [Citracal + D Maximum Caplet] 1 tab PO BEDTIME [History] Cyanocobalamin (Vitamin B12) [Vitamin B12] 1,000 mcg PO DAILY 04/09/17 [History] Pravastatin [Pravachol] 20 mg PO BEDTIME 04/09/17 [History] Apixaban [Eliquis] 2.5 mg PO BID 07/23/18 [History] Omeprazole 20 mg PO DAILY 07/24/18 [History] Amiodarone [Cordarone] 100 mg PO DAILY 11/07/18 [History] Furosemide [Lasix] 20 mg PO ASDIRECTED 11/07/18 [History] Metoprolol Tartrate [Lopressor] 50 mg PO BID 11/07/18 [History] buPROPion [buPROPion XL] 150 mg PO DAILY 11/07/18 [History] traZODone HCl [Trazodone HCl] 50 mg PO BEDTIME 11/07/18 [History] Past Medical History HEENT History: Reports: Impaired Vision Cardiovascular History: Reports: Afib (Patient is on a pixel banner Eliquis 2.5 mg twice a day.), CAD, Heart Failure, High Cholesterol, Hypertension Respiratory History: Reports: COPD Gastrointestinal History: Reports: GERD Genitourinary History: Reports: Urinary Incontinence 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 - Past Surgical History HEENT Surgical History: Reports: Cataract Surgery, Tonsillectomy GI Surgical History: Reports: Cholecystectomy Neurological Surgical History: Reports: Lumbar Spine Other Neurological Surgeries/Procedures: back surgery Musculoskeletal Surgical History: Reports: Knee Replacement Social & Family History - Tobacco Use Smoking Status *Q: Current Every Day Smoker Years of Tobacco use: 66 Packs/Tins Daily: 0.4 - Caffeine Use Caffeine Use: Reports: Soda - Recreational Drug Use Drug Use in Last 12 Months: No - Living Situation & Occupation Living situation: Reports: , with Family (Son) Occupation: Retired ED ROS GENERAL - Review of Systems Review Of Systems: See Below Constitutional: Reports: Malaise, Weakness, Fatigue. Denies: Fever, Chills HEENT: Reports: Glasses Respiratory: Reports: Shortness of Breath, Wheezing, Cough. Denies: Pleuritic Chest Pain, Sputum, Hemoptysis (Nonproductive) Cardiovascular: Reports: Blood Pressure Problem, Dyspnea on Exertion, Edema ( Occasional edema in the lower extremities.), Lightheadedness, Palpitations ( Chronically). Denies: Chest Pain, Claudication, Orthopnea (Chronic hypertension ) Endocrine: Reports: Fatigue ( sometimes aware of palpitations as she is in chronic atrial fibrillation) GI/Abdominal: Reports: Constipation. Denies: Abdominal Pain : Reports: Frequency, Incontinence (Both stress and urge components), Urgency Musculoskeletal: Reports: Joint Pain (Knees hips lower back and neck and shoulders. Usually gets around with aid of a wheelchair.) Skin: Reports: Other (At the time of presentation she was showing signs of central cyanosis. Nose and fingers were very blue) Neurological: Reports: Dizziness, Difficulty Walking, Weakness (Chronically). Denies: Headache, Numbness, Paresthesia, Seizure, Syncope, Tingling, Tremors, Trouble Speaking, Change in Speech, Gait Disturbance Psychiatric: Reports: Anxiety Hematologic/Lymphatic: Reports: No Symptoms Immunologic: Reports: No Symptoms ED EXAM, GENERAL - Physical Exam Exam: See Below Exam Limited By: Respiratory Distress General Appearance: Moderate Distress (Moderate respiratory distress with central cyanosis initially. This improved with oxygen at 3 L/m by nasal cannula. ) Eye Exam: Bilateral Eye: Normal Inspection Throat/Mouth: Normal Inspection, Normal Lips, Normal Oropharynx Head: Other (He does have a fairly large hany(sebaceous cyst) right parietal scalp.) Neck: Limited Range of Motion. No: Carotid Bruit, Lymphadenopathy (L), Lymphadenopathy (R) Respiratory/Chest: Respiratory Distress (Mild tachypnea initially 22/m. O2 sats was low 68% on room air.), Decreased Breath Sounds (Decreased breath sounds in the lower 30% of lung meza bilaterally.), Rales (She has rales in both lower lobes.) Cardiovascular: JVD (3 cm below the angle of her right mandible.), Irregularly Irregular (Atrial fibrillation and about 86/m.). No: Normal Peripheral Pulses, Regular Rate, Rhythm, No Murmur, No Rub Peripheral Pulses: 1+: Posterior Tibial (L) (Pulses are barely palpable in her lower extremities.), Posterior Tibial (R), Dorsalis Pedis (L), Dorsalis Pedis (R ) GI/Abdominal: Normal Bowel Sounds, Soft, Non-Tender, No Organomegaly, No Abnormal Bruit, No Mass, Pelvis Stable, Distended (Slightly distended and tympanitic to percussion upper abdomen compatible with some degree of aerophagia.) Back Exam: Other (Mild kyphosis thoracic spine) Extremities: Non-Tender, No Pedal Edema, Other (She had a sacral cyanosis initially improved with oxygen at 3 L per minute by nasal cannula.). No: Normal Inspection, Normal Capillary Refill Neurological: Alert, Oriented, CN II-XII Intact, Normal Cognition Psychiatric: Normal Affect, Normal Mood, Other (She tells me she is going home.) Skin Exam: Warm, Dry, Intact, Cyanosis (Initially exhibited cyanosis of the nose and a gross cyanosis of her extremities improved with oxygen at 3 L/m by nasal cannula.) EKG INTERPRETATION EKG Date: 11/07/18 Time: 16:28 Rhythm: A-Fib (With rate of 64-100/m) Rate (Beats/Min): 81 [place]: Normal P-Wave: Absent QRS: Other (Early R-wave transition compatible with right ventricular hypertrophy pattern i.e. COPD cor pulmonale pattern) ST-T: Other (Diffuse borderline repolarization abnormality.) QT: Normal EKG Interpretation Comments: Abnormal ECG Course - Vital Signs Last Recorded V/S: Last Vital Signs Temp 36.2 C 11/07/18 16:03 Pulse 90 11/07/18 16:03 Resp 16 11/07/18 16:03 BP 157/98 H 11/07/18 16:03 Pulse Ox 83 L 11/07/18 16:03 - Orders/Labs/Meds Orders: Active Orders 24 hr Category Date Time Status Admission Status [Patient Status] [ADT] Routine ADT 11/07/18 17:42 Active EKG Documentation Completion [RC] STAT Care 11/07/18 16:25 Active Oxygen Therapy [RC] ASDIRECTED Care 11/07/18 16:25 Active Peripheral IV Care [RC] . DIRECTED Care 11/07/18 16:27 Active Chest 1V Frontal [CR] Stat Exams 11/07/18 16:25 Taken Sodium Chloride 0.9% [Saline Flush] Med 11/07/18 16:26 Active 10 ml FLUSH ASDIRECTED PRN Peripheral IV Insertion Adult [OM.PC] Stat Oth 11/07/18 16:26 Ordered Medication Orders Sodium Chloride (Saline Flush) 10 ml FLUSH ASDIRECTED PRN PRN Reason: Keep Vein Open Last Admin: 11/07/18 16:36 Dose: 10 ml Labs: Laboratory Tests 11/07/18 11/07/18 11/07/18 Range/Units 16:10 16:10 16:10 WBC 10.39 H (3.98-10.04) K/mm3 RBC 3.84 L (3.98-5.22) M/mm3 Hgb 11.1 L (11.2-15.7) gm/L Hct 36.5 (34.1-44.9) % MCV 95.1 H (79.4-94.8) fl MCH 28.9 (25.6-32.2) pg MCHC 30.4 L (32.2-35.5) g/dl RDW Std Deviation 51.6 H (36.4-46.3) fL Plt Count 226 D (182-369) K/mm3 MPV 10.5 (9.4-12.3) fl Neutrophils % (Manual) 72 H (40-60) % Band Neutrophils % 0 (0-10) % Lymphocytes % (Manual) 17 L (20-40) % Atypical Lymphs % 0 % Monocytes % (Manual) 11 H (2-10) % Eosinophils % (Manual) 0 L (0.7-5.8) % Basophils % (Manual) 0 L (0.1-1.2) Platelet Estimate Adequate Plt Morphology Comment Normal RBC Morph Comment Normal PT 11.1 (9.5-12.1) SECONDS INR 1.02 Puncture Site ABG pH (7.35-7.45) ABG pCO2 (35.0-45.0) mmHg ABG pO2 (80.0-100.0) mmHg ABG HCO3 (22.0-26.0) meq/L ABG O2 Saturation (96.0-97.0) % ABG Base Excess (-2-2.0) Hoang Test O2 Delivery Device Oxygen Flow Rate FiO2 (21.00-100.00) % Sodium 138 (136-145) mEq/L Potassium 4.1 (3.5-5.1) mEq/L Chloride 98 (98-107) mEq/L Carbon Dioxide 33 H (21-32) mEq/L Anion Gap 11.1 (5-15) BUN 17 (7-18) mg/dL Creatinine 1.8 H (0.55-1.02) mg/dL Est Cr Clr Drug Dosing 20.62 mL/min Estimated GFR (MDRD) 27 (>60) mL/min BUN/Creatinine Ratio 9.4 L (14-18) Glucose 105 (83-115) mg/dL Calcium 9.6 (8.5-10.1) mg/dL Magnesium 1.6 L (1.8-2.4) mg/dl Total Bilirubin 0.8 (0.2-1.0) mg/dL AST 19 (15-37) U/L ALT 15 (14-59) U/L Alkaline Phosphatase 67 (46-116) U/L Troponin I 0.020 (0.00-0.056) ng/mL C-Reactive Protein 6.4 H* (<1.0) mg/dL NT-Pro-B Natriuret Pep (0-450) pg/mL Total Protein 6.4 (6.4-8.2) g/dl Albumin 3.4 (3.4-5.0) g/dl Globulin 3.0 gm/dL Albumin/Globulin Ratio 1.1 (1-2) 11/07/18 11/07/18 Range/Units 16:10 16:26 WBC (3.98-10.04) K/mm3 RBC (3.98-5.22) M/mm3 Hgb (11.2-15.7) gm/L Hct (34.1-44.9) % MCV (79.4-94.8) fl MCH (25.6-32.2) pg MCHC (32.2-35.5) g/dl RDW Std Deviation (36.4-46.3) fL Plt Count (182-369) K/mm3 MPV (9.4-12.3) fl Neutrophils % (Manual) (40-60) % Band Neutrophils % (0-10) % Lymphocytes % (Manual) (20-40) % Atypical Lymphs % % Monocytes % (Manual) (2-10) % Eosinophils % (Manual) (0.7-5.8) % Basophils % (Manual) (0.1-1.2) Platelet Estimate Plt Morphology Comment RBC Morph Comment PT (9.5-12.1) SECONDS INR Puncture Site Rt radial ABG pH 7.43 (7.35-7.45) ABG pCO2 47.9 H (35.0-45.0) mmHg ABG pO2 71.0 L (80.0-100.0) mmHg ABG HCO3 31.3 H (22.0-26.0) meq/L ABG O2 Saturation 95.0 L (96.0-97.0) % ABG Base Excess 6.5 H (-2-2.0) Hoang Test Positive O2 Delivery Device Nasal cannula Oxygen Flow Rate 3.0 FiO2 0.00 L (21.00-100.00) % Sodium (136-145) mEq/L Potassium (3.5-5.1) mEq/L Chloride (98-107) mEq/L Carbon Dioxide (21-32) mEq/L Anion Gap (5-15) BUN (7-18) mg/dL Creatinine (0.55-1.02) mg/dL Est Cr Clr Drug Dosing mL/min Estimated GFR (MDRD) (>60) mL/min BUN/Creatinine Ratio (14-18) Glucose (83-115) mg/dL Calcium (8.5-10.1) mg/dL Magnesium (1.8-2.4) mg/dl Total Bilirubin (0.2-1.0) mg/dL AST (15-37) U/L ALT (14-59) U/L Alkaline Phosphatase (46-116) U/L Troponin I (0.00-0.056) ng/mL C-Reactive Protein (<1.0) mg/dL NT-Pro-B Natriuret Pep 5097 H (0-450) pg/mL Total Protein (6.4-8.2) g/dl Albumin (3.4-5.0) g/dl Globulin gm/dL Albumin/Globulin Ratio (1-2) Meds: Medications Generic Name Dose Route Start Last Admin Trade Name Freq PRN Reason Stop Dose Admin Sodium Chloride 10 ml 11/07/18 16:26 11/07/18 16:36 Saline Flush FLUSH 10 ml ASDIRECTED PRN Administration Keep Vein Open Discontinued Medications Generic Name Dose Route Start Last Admin Trade Name Freq PRN Reason Stop Dose Admin Furosemide 40 mg 11/07/18 16:27 11/07/18 16:36 Lasix IVPUSH 11/07/18 16:28 40 mg NOW ONE Administration - Radiology Interpretation Free Text/Narrative:: 78-year-old female presents to the ED after presenting to the walk-in clinic complaining of dizziness. It was recognized immediately that she was actually hypoxic with O2 sats of only 63-68% on room air. She also was exhibiting central cyanosis with blueness of her nose and extremities. She has a known chronic COPD patient and still smokes cigarettes. She has a [id number] history. O2 sats improved to 97% on 3 L/m by nasal cannula. Patient is chronic atrial fibrillation at 80 per minute and well-controlled at this time. However exam reveals bilateral rales in both lower lobes compatible with congestive failure. She has very little trace edema over the ankles. Plan ABGs will be done to see what her PCO2 is. She'll be given Lasix 40 mg IV. Routine labs to be obtained including a BNP and magnesium level and serum troponin. - Re-Assessments/Exams Free Text/Narrative Re-Assessment/Exam: 11/07/18 17:03 chest x-ray reveals that she is rotated slightly to the right. She has a prominent tortuous thoracic aorta. Moderate cardiomegaly. Diffuse vascular congestion pattern without pleural effusion or pneumothorax. PH is 7.43. PCO2 is 47. PO2 is 71. O2 sats 95% on 3 L/m by nasal cannula. 11/07/18 17:16 Total white count is 10.39. Differential is pending. Hemoglobin is low 11.1 with hematocrit of 36.5. MCV is 95.1. Platelet count is 226,000. PT is 11.1 with an INR of 1.02. Chemistry shows a sodium of 138 with a potassium of 4.1. Chloride is 98 with a bicarbonate slightly elevated at 33. Anion gap is 11.1. BUN is 17 with a creatinine of 1.8. eGFR is 27-- stage 4 renal insufficiency.Glucose is 105. Calcium is 9.6. Magnesium slightly low at 1.6. Total bilirubin is 0.8 remainder the liver function is normal. Troponin I is 0.020. C-reactive protein is 6.4. BNP is elevated at 5097. Total protein 6.4 with albumin fraction of 3.4. Patient is really not keen on staying in the hospital but it is in her best interest. Essentially she stands up and walks she desaturates to 86 and 85% even on 3 L. She is going to need vigorous diuresis for a day or 2 to improve her O2 sats. She was not on oxygen at home. Apparently her Lasix dosage was recently reduced from daily use to every other day use because of renal impairment. Therefore she appears to be walking a fine line between too much diuretic and not enough diuretic. I will discuss the case with Dr. De La Torre bus transportation manager hospitalist with a view to admission to the hospital med surgery status. 11/07/18 17:40 Lasix dose was missing from her med list that we've full the pharmacy and she is currently on 20 mg every other day. Digestion from the son that she may not be compliant with medications that she can't remember if she took them or not. Therefore this too may be contributing to her congestive failure. I suspect she is going to need oxygen to go home on. I believe this is a problem is I believe she is still smoking as well. 11/07/18 17:41 I did speak with Dr. De La Torre and the patient will be admitted to the med surgery floor on telemetry. CODE STATUS was confirmed with family members. She is DNR/DNI. Departure - Departure Time of Disposition: 17:41 Disposition: Admitted As Inpatient 64 Reason for Transfer *Q: Other Condition: Poor Clinical Impression: Chronic atrial fibrillation, Hypomagnesemia, Chronic renal insufficiency, stage IV (severe) Acute exacerbation of congestive heart failure Qualifiers: Heart failure type: diastolic Qualified Code(s): I50.33 - Acute on chronic diastolic (congestive) heart failure - My Orders Last 24 Hours: My Active Orders 11/07/18 16:25 EKG Documentation Completion [RC] STAT Oxygen Therapy [RC] ASDIRECTED Chest 1V Frontal [CR] Stat 11/07/18 16:26 Sodium Chloride 0.9% [Saline Flush] 10 ml FLUSH ASDIRECTED PRN Peripheral IV Insertion Adult [OM.PC] Stat 11/07/18 16:27 Peripheral IV Care [RC] . DIRECTED 11/07/18 17:42 Admission Status [Patient Status] [ADT] Routine - Assessment/Plan Last 24 Hours: My Active Orders 11/07/18 16:25 EKG Documentation Completion [RC] STAT Oxygen Therapy [RC] ASDIRECTED Chest 1V Frontal [CR] Stat 11/07/18 16:26 Sodium Chloride 0.9% [Saline Flush] 10 ml FLUSH ASDIRECTED PRN Peripheral IV Insertion Adult [OM.PC] Stat 11/07/18 16:27 Peripheral IV Care [RC] . DIRECTED 11/07/18 17:42 Admission Status [Patient Status] [ADT] Routine
[2018-11-07] MEDS ORDERED: Ondansetron 4 MG/2 ML SDV IV PRN (19:18)
[2018-11-07] MEDS ORDERED: Ondansetron 4 MG Tab.DIS PO PRN (19:18)
[2018-11-07] MEDS ORDERED: Acetaminophen 325 MG Tab PO PRN (19:18)
--- NOTE | 2018-11-07 19:30 | PCM.HP ---
H&P History of Present Illness - General Date of Service: 11/07/18 Admit Problem/Dx: Admission Diagnosis/Problem Admission Diagnosis/Problem CHF, Congestive heart failure Source of Information: Patient, Family, Provider - History of Present Illness Initial Comments - Free Text/Narative: 78-year-old female with a history of CHF, atrial fibrillation, and known COPD presented to the clinic not feeling well. Patient has some dizziness and general malaise. When she presented she had oxygen saturations of 63-68% and they put her on 3 L O2 by nasal cannula and sent her to the emergency room. Patient continues to smoke and has a 66 pack year history. Patient is a poor historian and most of the history was received through the emergency room physician and her daughter. Patient denies any chest pain. She states that she has a nonproductive cough. Rate in the emergency room was in the 80s beats per minute. EKG showed A. fib with a rate between 6400, absent P waves with normal axis. She had early R-wave transition. BNP in the emergency room was just over 5000 and chest x-ray was consistent with pulmonary congestion with heart failure. Pertinent positive and negative labs: White count 10.39, hemoglobin 11.1, sodium 138, potassium 4.1, bicarbonate 33 with 11.1 and iron. BUN 17 with creatinine of 1.8 and GFR of 27. Magnesium 1.6 and slightly low. Patient was given 40 mg IV Lasix in the emergency room. It appears that she may not be completely compliant with all of her medications and the cause of her heart failure exacerbation. - Related Data Allergies/Adverse Reactions: Allergies Allergy/AdvReac Type Severity Reaction Status Date / Time morphine AdvReac Confusion Verified 11/07/18 19:44 contrast dye Allergy Hives Uncoded 11/07/18 19:44 Home Medications: Home Meds Calcium Citrate/Vitamin D3 [Citracal + D Maximum Caplet] 1 tab PO BEDTIME [History] Cyanocobalamin (Vitamin B12) [Vitamin B12] 1,000 mcg PO DAILY 04/09/17 [History] Pravastatin [Pravachol] 20 mg PO BEDTIME 04/09/17 [History] Apixaban [Eliquis] 2.5 mg PO BID 07/23/18 [History] Omeprazole 20 mg PO DAILY 07/24/18 [History] Amiodarone [Cordarone] 100 mg PO DAILY 11/07/18 [History] Furosemide [Lasix] 20 mg PO Q48H 11/07/18 [History] Metoprolol Tartrate [Lopressor] 50 mg PO BID 11/07/18 [History] buPROPion [buPROPion XL] 150 mg PO DAILY 11/07/18 [History] traZODone HCl [Trazodone HCl] 50 mg PO BEDTIME 11/07/18 [History] Past Medical History HEENT History: Reports: Impaired Vision Cardiovascular History: Reports: Afib (Patient is on a pixel banner Eliquis 2.5 mg twice a day.), CAD, Heart Failure, High Cholesterol, Hypertension Respiratory History: Reports: COPD Gastrointestinal History: Reports: GERD Genitourinary History: Reports: Urinary 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 - Past Surgical History HEENT Surgical History: Reports: Cataract Surgery, Tonsillectomy GI Surgical History: Reports: Cholecystectomy Neurological Surgical History: Reports: Lumbar Spine Other Neurological Surgeries/Procedures: back surgery Musculoskeletal Surgical History: Reports: Knee Replacement Social & Family History - Tobacco Use Smoking Status *Q: Current Every Day Smoker Years of Tobacco use: 66 Packs/Tins Daily: 0.3 Used Tobacco, but Quit: No - Caffeine Use Caffeine Use: Reports: Soda - Recreational Drug Use Recreational Drug Use: No Drug Use in Last 12 Months: No - Living Situation & Occupation Living situation: Reports: , with Family (Son) Occupation: Retired H&P Review of Systems - Review of Systems: Review Of Systems: ROS reveals no pertinent complaints other than HPI. Exam - Exam Exam: See Below - Vital Signs Vital Signs: Last Vital Signs Temp 97.5 F 11/07/18 18:17 Pulse 81 11/07/18 18:17 Resp 20 11/07/18 18:17 BP 148/117 H 11/07/18 18:17 Pulse Ox 100 11/07/18 18:17 Weight: 171 lb - Exam Quality Assessment: Supplemental Oxygen General: Alert, Oriented HEENT: Conjunctiva Clear, Mucosa Moist & [place], Posterior Pharynx Clear Neck: Supple, Trachea Midline Lungs: Normal Respiratory Effort, Decreased Breath Sounds, Rales (Bibasilar rales) Cardiovascular: Irregular Rhythm Extremities: Normal Inspection, Pedal Edema (1-2+ pitting edema) Skin: Warm, Dry, Intact Neuro Extensive - Mental Status: Alert, Normal Mood/Affect Neuro Extensive - Motor, Sensory, Reflexes: CN II-XII Intact Psychiatric: Alert, Normal Affect, Normal Mood - Patient Data Lab Results Last 24 hrs: Laboratory Results - last 24 hr 11/07/18 11/07/18 11/07/18 Range/Units 16:10 16:10 16:10 WBC 10.39 H (3.98-10.04) K/mm3 RBC 3.84 L (3.98-5.22) M/mm3 Hgb 11.1 L (11.2-15.7) gm/L Hct 36.5 (34.1-44.9) % MCV 95.1 H (79.4-94.8) fl MCH 28.9 (25.6-32.2) pg MCHC 30.4 L (32.2-35.5) g/dl RDW Std Deviation 51.6 H (36.4-46.3) fL Plt Count 226 D (182-369) K/mm3 MPV 10.5 (9.4-12.3) fl Neutrophils % (Manual) 72 H (40-60) % Band Neutrophils % 0 (0-10) % Lymphocytes % (Manual) 17 L (20-40) % Atypical Lymphs % 0 % Monocytes % (Manual) 11 H (2-10) % Eosinophils % (Manual) 0 L (0.7-5.8) % Basophils % (Manual) 0 L (0.1-1.2) Platelet Estimate Adequate Plt Morphology Comment Normal RBC Morph Comment Normal PT 11.1 (9.5-12.1) SECONDS INR 1.02 Puncture Site ABG pH (7.35-7.45) ABG pCO2 (35.0-45.0) mmHg ABG pO2 (80.0-100.0) mmHg ABG HCO3 (22.0-26.0) meq/L ABG O2 Saturation (96.0-97.0) % ABG Base Excess (-2-2.0) Hoang Test O2 Delivery Device Oxygen Flow Rate FiO2 (21.00-100.00) % Sodium 138 (136-145) mEq/L Potassium 4.1 (3.5-5.1) mEq/L Chloride 98 (98-107) mEq/L Carbon Dioxide 33 H (21-32) mEq/L Anion Gap 11.1 (5-15) BUN 17 (7-18) mg/dL Creatinine 1.8 H (0.55-1.02) mg/dL Est Cr Clr Drug Dosing 20.62 mL/min Estimated GFR (MDRD) 27 (>60) mL/min BUN/Creatinine Ratio 9.4 L (14-18) Glucose 105 (83-115) mg/dL Calcium 9.6 (8.5-10.1) mg/dL Magnesium 1.6 L (1.8-2.4) mg/dl Total Bilirubin 0.8 (0.2-1.0) mg/dL AST 19 (15-37) U/L ALT 15 (14-59) U/L Alkaline Phosphatase 67 (46-116) U/L Troponin I 0.020 (0.00-0.056) ng/mL C-Reactive Protein 6.4 H* (<1.0) mg/dL NT-Pro-B Natriuret Pep (0-450) pg/mL Total Protein 6.4 (6.4-8.2) g/dl Albumin 3.4 (3.4-5.0) g/dl Globulin 3.0 gm/dL Albumin/Globulin Ratio 1.1 (1-2) Urine Color (Yellow) Urine Appearance (Clear) Urine pH (5.0-8.0) Ur Specific [place] (1.005-1.030) Urine Protein (Negative) Urine Glucose (UA) (Negative) Urine Ketones (Negative) Urine Occult Blood (Negative) Urine Nitrite (Negative) Urine Bilirubin (Negative) Urine Urobilinogen (0.2-1.0) Ur Leukocyte Esterase (Negative) Urine RBC (0-5) /hpf Urine WBC (0-5) /hpf Ur Squamous Epith Cells (0-5) /hpf Urine Bacteria (FEW) /hpf Urine Mucus (FEW) /hpf 11/07/18 11/07/18 11/07/18 Range/Units 16:10 16:26 18:40 WBC (3.98-10.04) K/mm3 RBC (3.98-5.22) M/mm3 Hgb (11.2-15.7) gm/L Hct (34.1-44.9) % MCV (79.4-94.8) fl MCH (25.6-32.2) pg MCHC (32.2-35.5) g/dl RDW Std Deviation (36.4-46.3) fL Plt Count (182-369) K/mm3 MPV (9.4-12.3) fl Neutrophils % (Manual) (40-60) % Band Neutrophils % (0-10) % Lymphocytes % (Manual) (20-40) % Atypical Lymphs % % Monocytes % (Manual) (2-10) % Eosinophils % (Manual) (0.7-5.8) % Basophils % (Manual) (0.1-1.2) Platelet Estimate Plt Morphology Comment RBC Morph Comment PT (9.5-12.1) SECONDS INR Puncture Site Rt radial ABG pH 7.43 (7.35-7.45) ABG pCO2 47.9 H (35.0-45.0) mmHg ABG pO2 71.0 L (80.0-100.0) mmHg ABG HCO3 31.3 H (22.0-26.0) meq/L ABG O2 Saturation 95.0 L (96.0-97.0) % ABG Base Excess 6.5 H (-2-2.0) Hoang Test Positive O2 Delivery Device Nasal cannula Oxygen Flow Rate 3.0 FiO2 0.00 L (21.00-100.00) % Sodium (136-145) mEq/L Potassium (3.5-5.1) mEq/L Chloride (98-107) mEq/L Carbon Dioxide (21-32) mEq/L Anion Gap (5-15) BUN (7-18) mg/dL Creatinine (0.55-1.02) mg/dL Est Cr Clr Drug Dosing mL/min Estimated GFR (MDRD) (>60) mL/min BUN/Creatinine Ratio (14-18) Glucose (83-115) mg/dL Calcium (8.5-10.1) mg/dL Magnesium (1.8-2.4) mg/dl Total Bilirubin (0.2-1.0) mg/dL AST (15-37) U/L ALT (14-59) U/L Alkaline Phosphatase (46-116) U/L Troponin I (0.00-0.056) ng/mL C-Reactive Protein (<1.0) mg/dL NT-Pro-B Natriuret Pep 5097 H (0-450) pg/mL Total Protein (6.4-8.2) g/dl Albumin (3.4-5.0) g/dl Globulin gm/dL Albumin/Globulin Ratio (1-2) Urine Color Light yellow (Yellow) Urine Appearance Clear (Clear) Urine pH 7.0 (5.0-8.0) Ur Specific [place] 1.015 (1.005-1.030) Urine Protein Negative (Negative) Urine Glucose (UA) Negative (Negative) Urine Ketones Negative (Negative) Urine Occult Blood Trace-intact H (Negative) Urine Nitrite Negative (Negative) Urine Bilirubin Negative (Negative) Urine Urobilinogen 0.2 (0.2-1.0) Ur Leukocyte Esterase Trace H (Negative) Urine RBC 0-5 (0-5) /hpf Urine WBC 5-10 H (0-5) /hpf Ur Squamous Epith Cells 0-5 (0-5) /hpf Urine Bacteria Rare (FEW) /hpf Urine Mucus Not seen (FEW) /hpf Result Diagrams: 11/07/18 16:10 11/07/18 16:10 - Problem List (1) Acute exacerbation of congestive heart failure SNOMED Code(s): 191874676, 73208049830567 ICD Code: I50.9 - HEART FAILURE, UNSPECIFIED Status: Acute Current Visit : Yes Qualifiers: Heart failure type: diastolic Qualified Code(s): I50.33 - Acute on chronic diastolic (congestive) heart failure (2) Chronic atrial fibrillation SNOMED Code(s): 582955093 ICD Code: I48.2 - CHRONIC ATRIAL FIBRILLATION Status: Acute Current Visit : Yes (3) Chronic renal insufficiency, stage IV (severe) SNOMED Code(s): 84513240 ICD Code: N18.4 - CHRONIC KIDNEY DISEASE, STAGE 4 (SEVERE) Status: Acute Current Visit: Yes (4) Hypomagnesemia SNOMED Code(s): 669700269 ICD Code: E83.42 - HYPOMAGNESEMIA Status: Acute Current Visit: Yes Problem List Initiated/Reviewed/Updated: Yes Orders Last 24hrs: Active Orders 24 hr Category Date Time Status Admission Status [Patient Status] [ADT] Routine ADT 11/07/18 17:42 Active Intake and Output Strict [RC] ASDIRECTED Care 11/07/18 19:23 Ordered Oxygen Therapy [RC] ASDIRECTED Care 11/07/18 16:25 Active Oxygen Therapy [RC] PRN Care 11/07/18 19:18 Ordered Up With Assistance [RC] ASDIRECTED Care 11/07/18 19:18 Ordered VTE/DVT Education [RC] PER UNIT ROUTINE Care 11/07/18 19:18 Ordered Vital Signs [RC] Q4H Care 11/07/18 19:18 Ordered OT Evaluation and Treatment [CONS] Routine Cons 11/07/18 19:23 Ordered PT Evaluation and Treatment [CONS] Routine Cons 11/07/18 19:23 Ordered Heart Healthy Diet [DIET] Diet 11/08/18 Breakfast Ordered Chest 1V Frontal [CR] Stat Exams 11/07/18 16:25 Taken CBC WITH AUTO DIFF [HEME] AM Lab 11/08/18 05:11 Ordered COMPREHENSIVE METABOLIC PN,CMP [CHEM] AM Lab 11/08/18 05:11 Ordered MAGNESIUM [CHEM] AM Lab 11/08/18 05:11 Ordered PRO B-TYPE NATRIUR PEPT,BNPPRO [CHEM] Routine Lab 11/08/18 05:10 Ordered TROPONIN I [CHEM] AM Lab 11/08/18 05:11 Ordered Acetaminophen [Tylenol] Med 11/07/18 19:18 Ordered 650 mg PO Q4H PRN Amiodarone [Cordarone] Med 11/08/18 09:00 Ordered 100 mg PO DAILY Apixaban [Eliquis] Med 11/07/18 21:00 Ordered 2.5 mg PO BID Cyanocobalamin (Vitamin B12) [Vitamin B12] Med 11/08/18 09:00 Ordered 1,000 mcg PO DAILY Melatonin Med 11/07/18 19:18 Ordered 3 mg PO BEDTIME PRN Metoprolol Tartrate [Lopressor] Med 11/07/18 21:00 Ordered 50 mg PO BID Omeprazole [Omeprazole] Med 11/08/18 09:00 Ordered 20 mg PO DAILY Ondansetron [Zofran ODT] Med 11/07/18 19:18 Ordered 4 mg PO Q4H PRN Ondansetron [Zofran] Med 06/19/19 19:18 Ordered 4 mg IV Q4H PRN Pravastatin Med 11/07/18 21:00 Ordered 20 mg PO BEDTIME Sodium Chloride 0.9% [Saline Flush] Med 11/07/18 16:26 Active 10 ml FLUSH ASDIRECTED PRN buPROPion [Wellbutrin XL] Med 11/08/18 09:00 Ordered 150 mg PO DAILY traZODone Med 11/07/18 21:00 Ordered 50 mg PO BEDTIME Peripheral IV Insertion Adult [OM.PC] Stat Oth 11/07/18 16:26 Ordered Resuscitation Status Routine Resus Stat 11/07/18 19:18 Ordered Medication Orders Acetaminophen (Tylenol) 650 mg PO Q4H PRN PRN Reason: Pain (Mild 1-3)/fever Amiodarone HCl (Cordarone) 100 mg PO DAILY KAYLEE Apixaban (Eliquis) 2.5 mg PO BID KAYLEE Bupropion HCl (Wellbutrin Xl) 150 mg PO DAILY [facility] Cyanocobalamin (Vitamin B12) 1,000 mcg PO DAILY KAYLEE Melatonin (Melatonin) 3 mg PO BEDTIME PRN PRN Reason: Insomnia Metoprolol Tartrate (Lopressor) 50 mg PO BID [facility] Non-Formulary Medication (Omeprazole [Omeprazole]) 20 mg PO DAILY KAYLEE Non-Formulary Medication (Pravastatin) 20 mg PO BEDTIME KAYLEE Ondansetron HCl (Zofran) 4 mg IV Q4H PRN PRN Reason: Nausea/Vomiting Ondansetron HCl (Zofran Odt) 4 mg PO Q4H PRN PRN Reason: nausea, able to take PO Sodium Chloride (Saline Flush) 10 ml FLUSH ASDIRECTED PRN PRN Reason: Keep Vein Open Last Admin: 11/07/18 16:36 Dose: 10 ml Trazodone HCl (Trazodone) 50 mg PO BEDTIME [facility] Assessment/Plan Comment:: Assessment * 78-year-old female with history of CHF, COPD, stage IV chronic renal insufficiency, and A. fib in acute decompensated heart failure * Hypoxemia secondary to decompensated heart failure * Smoker and refuses nicotine replacement * Dementia * Hypomagnesemia Plan * Patient given 40 mg IV of Lasix in the emergency room * Repeat proBNP in the morning and chest x-ray * Cautiously diurese over the next 2-3 days * DuoNeb every 6 hours * Follow electrolytes closely * Magnesium 2 g IV and recheck in the morning * Restart most of her home meds except Lasix * CODE STATUS: DNR/DNI * Prognosis guarded considering her multiple medical problems and age * Refuses nicotine replacement
[2018-11-07] MEDS ORDERED: Magnesium Sulfate/Water 2 GM in Premix Bag 1 BAG IV ONE (19:51)
[2018-11-07] MEDS: traZODone 50 MG Tab PO SCH (20:09)
[2018-11-07] MEDS: Metoprolol Tartrate 50 MG Tab PO SCH (20:09)
[2018-11-07] MEDS: Apixaban 2.5 MG Tab PO SCH (20:09)
[2018-11-07] MEDS: Melatonin 3 MG Tab PO PRN (20:09)
[2018-11-07] MEDS: Simvastatin 10 MG Tab PO SCH (20:09)
[2018-11-07] MEDS: Albuterol/Ipratropium 3.0-0.5 MG/3 ML Neb Soln NEB SCH (20:59)
[2018-11-08] MEDS: Albuterol/Ipratropium 3.0-0.5 MG/3 ML Neb Soln NEB SCH ×4 (04:14→21:52)
[2018-11-08] MEDS: Pantoprazole 40 MG Tab.CR PO SCH (06:29)
--- NOTE | 2018-11-08 07:40 | CR ---
Chest: Portable view of the chest was obtained. Comparison: Prior chest x-ray of 08/07/18. Heart size is felt to be mildly enlarged. Pulmonary vessels are minimally increased which appear stable. Tortuous thoracic aorta is seen. Lungs are clear with no acute parenchymal change. Degenerative change is noted within the spine with scoliosis. Degenerative change is also noted within the right shoulder. Previous lumbar spine surgery is noted. Impression: 1. Stable findings as noted above. Nothing acute is appreciated. Diagnostic code #2
[2018-11-08] MEDS: Potassium Chloride 10 MEQ in Premix Bag 1 BAG IV SCH (08:05)
--- NOTE | 2018-11-08 08:37 | CR ---
Chest: Portable view of the chest was obtained. Comparison: Prior chest x-ray of 11/07/18. Heart is slightly enlarged. Tortuous thoracic aorta is seen. Minimal discoid atelectasis or scarring is incidentally seen within the left midlung. Lungs otherwise are clear. Prior lumbar spine surgery is noted. Impression: 1. Findings as noted above. Nothing acute is appreciated on portable chest x-ray. Diagnostic code #2
[2018-11-08] MEDS: buPROPion 150 MG Tab.ER PO SCH (09:06)
[2018-11-08] MEDS: Furosemide 20 MG Tab PO SCH (09:07)
[2018-11-08] MEDS: Potassium Chloride 20 MEQ Tab.ER PO SCH ×2 (09:07→20:04)
[2018-11-08] MEDS: Metoprolol Tartrate 50 MG Tab PO SCH ×2 (09:07→20:04)
[2018-11-08] MEDS: Apixaban 2.5 MG Tab PO SCH ×2 (09:07→20:05)
[2018-11-08] MEDS: Amiodarone 200 MG Tab PO SCH (09:07)
[2018-11-08] MEDS: Cyanocobalamin (Vitamin B12) 1,000 MCG Tab PO SCH (09:07)
--- NOTE | 2018-11-08 09:16 | PCM.PN ---
- General Info Date of Service: 11/08/18 Admission Dx/Problem (Free Text): Admission Diagnosis/Problem Admission Diagnosis/Problem CHF, Congestive heart failure Subjective Update: Patient states that she had difficulty sleeping last night. She did have one episode of tachycardia just into the 115. Patient continues on 1 L nasal cannula O2. Functional Status: Reports: Pain Controlled - Review of Systems General: Reports: No Symptoms. Denies: Fever, Weakness HEENT: Reports: No Symptoms Pulmonary: Reports: No Symptoms. Denies: Shortness of Breath, Cough Cardiovascular: Reports: No Symptoms. Denies: Chest Pain, Palpitations, Dyspnea on Exertion Gastrointestinal: Reports: No Symptoms. Denies: Abdominal Pain - Patient Data Vitals - Most Recent: Last Vital Signs Temp 97.5 F 11/08/18 07:22 Pulse 69 11/08/18 09:07 Resp 16 11/08/18 07:22 BP 131/84 11/08/18 09:07 Pulse Ox 97 11/08/18 07:22 Weight - Most Recent: 167 lb 8 oz I&O - Last 24 Hours: Intake & Output 11/07/18 11/08/18 11/08/18 22:59 06:59 14:59 Intake Total 50 350 Output Total 550 950 Balance -500 -600 Lab Results Last 24 Hours: Laboratory Results - last 24 hr 11/07/18 11/07/18 11/07/18 Range/Units 16:10 16:10 16:10 WBC 10.39 H (3.98-10.04) K/mm3 RBC 3.84 L (3.98-5.22) M/mm3 Hgb 11.1 L (11.2-15.7) gm/L Hct 36.5 (34.1-44.9) % MCV 95.1 H (79.4-94.8) fl MCH 28.9 (25.6-32.2) pg MCHC 30.4 L (32.2-35.5) g/dl RDW Std Deviation 51.6 H (36.4-46.3) fL Plt Count 226 D (182-369) K/mm3 MPV 10.5 (9.4-12.3) fl Neut % (Auto) (34.0-71.1) % Lymph % (Auto) (19.3-51.7) % Hayes % (Auto) (4.7-12.5) % Eos % (Auto) (0.7-5.8) Baso % (Auto) (0.1-1.2) % Neut # (Auto) (1.56-6.13) K/mm3 Lymph # (Auto) (1.18-3.74) K/mm3 Hayes # (Auto) (0.24-0.36) K/mm3 Eos # (Auto) (0.04-0.36) K/mm3 Baso # (Auto) (0.01-0.08) K/mm3 Neutrophils % (Manual) 72 H (40-60) % Band Neutrophils % 0 (0-10) % Lymphocytes % (Manual) 17 L (20-40) % Atypical Lymphs % 0 % Monocytes % (Manual) 11 H (2-10) % Eosinophils % (Manual) 0 L (0.7-5.8) % Basophils % (Manual) 0 L (0.1-1.2) Platelet Estimate Adequate Plt Morphology Comment Normal RBC Morph Comment Normal PT 11.1 (9.5-12.1) SECONDS INR 1.02 Puncture Site ABG pH (7.35-7.45) ABG pCO2 (35.0-45.0) mmHg ABG pO2 (80.0-100.0) mmHg ABG HCO3 (22.0-26.0) meq/L ABG O2 Saturation (96.0-97.0) % ABG Base Excess (-2-2.0) Hoang Test O2 Delivery Device Oxygen Flow Rate FiO2 (21.00-100.00) % Sodium 138 (136-145) mEq/L Potassium 4.1 (3.5-5.1) mEq/L Chloride 98 (98-107) mEq/L Carbon Dioxide 33 H (21-32) mEq/L Anion Gap 11.1 (5-15) BUN 17 (7-18) mg/dL Creatinine 1.8 H (0.55-1.02) mg/dL Est Cr Clr Drug Dosing 20.62 mL/min Estimated GFR (MDRD) 27 (>60) mL/min BUN/Creatinine Ratio 9.4 L (14-18) Glucose 105 (83-115) mg/dL Calcium 9.6 (8.5-10.1) mg/dL Magnesium 1.6 L (1.8-2.4) mg/dl Total Bilirubin 0.8 (0.2-1.0) mg/dL AST 19 (15-37) U/L ALT 15 (14-59) U/L Alkaline Phosphatase 67 (46-116) U/L Troponin I 0.020 (0.00-0.056) ng/mL C-Reactive Protein 6.4 H* (<1.0) mg/dL NT-Pro-B Natriuret Pep (0-450) pg/mL Total Protein 6.4 (6.4-8.2) g/dl Albumin 3.4 (3.4-5.0) g/dl Globulin 3.0 gm/dL Albumin/Globulin Ratio 1.1 (1-2) Urine Color (Yellow) Urine Appearance (Clear) Urine pH (5.0-8.0) Ur Specific [address] (1.005-1.030) Urine Protein (Negative) Urine Glucose (UA) (Negative) Urine Ketones (Negative) Urine Occult Blood (Negative) Urine Nitrite (Negative) Urine Bilirubin (Negative) Urine Urobilinogen (0.2-1.0) Ur Leukocyte Esterase (Negative) Urine RBC (0-5) /hpf Urine WBC (0-5) /hpf Ur Squamous Epith Cells (0-5) /hpf Urine Bacteria (FEW) /hpf Urine Mucus (FEW) /hpf 11/07/18 11/07/18 11/07/18 Range/Units 16:10 16:26 18:40 WBC (3.98-10.04) K/mm3 RBC (3.98-5.22) M/mm3 Hgb (11.2-15.7) gm/L Hct (34.1-44.9) % MCV (79.4-94.8) fl MCH (25.6-32.2) pg MCHC (32.2-35.5) g/dl RDW Std Deviation (36.4-46.3) fL Plt Count (182-369) K/mm3 MPV (9.4-12.3) fl Neut % (Auto) (34.0-71.1) % Lymph % (Auto) (19.3-51.7) % Hayes % (Auto) (4.7-12.5) % Eos % (Auto) (0.7-5.8) Baso % (Auto) (0.1-1.2) % Neut # (Auto) (1.56-6.13) K/mm3 Lymph # (Auto) (1.18-3.74) K/mm3 Hayes # (Auto) (0.24-0.36) K/mm3 Eos # (Auto) (0.04-0.36) K/mm3 Baso # (Auto) (0.01-0.08) K/mm3 Neutrophils % (Manual) (40-60) % Band Neutrophils % (0-10) % Lymphocytes % (Manual) (20-40) % Atypical Lymphs % % Monocytes % (Manual) (2-10) % Eosinophils % (Manual) (0.7-5.8) % Basophils % (Manual) (0.1-1.2) Platelet Estimate Plt Morphology Comment RBC Morph Comment PT (9.5-12.1) SECONDS INR Puncture Site Rt radial ABG pH 7.43 (7.35-7.45) ABG pCO2 47.9 H (35.0-45.0) mmHg ABG pO2 71.0 L (80.0-100.0) mmHg ABG HCO3 31.3 H (22.0-26.0) meq/L ABG O2 Saturation 95.0 L (96.0-97.0) % ABG Base Excess 6.5 H (-2-2.0) Hoang Test Positive O2 Delivery Device Nasal cannula Oxygen Flow Rate 3.0 FiO2 0.00 L (21.00-100.00) % Sodium (136-145) mEq/L Potassium (3.5-5.1) mEq/L Chloride (98-107) mEq/L Carbon Dioxide (21-32) mEq/L Anion Gap (5-15) BUN (7-18) mg/dL Creatinine (0.55-1.02) mg/dL Est Cr Clr Drug Dosing mL/min Estimated GFR (MDRD) (>60) mL/min BUN/Creatinine Ratio (14-18) Glucose (83-115) mg/dL Calcium (8.5-10.1) mg/dL Magnesium (1.8-2.4) mg/dl Total Bilirubin (0.2-1.0) mg/dL AST (15-37) U/L ALT (14-59) U/L Alkaline Phosphatase (46-116) U/L Troponin I (0.00-0.056) ng/mL C-Reactive Protein (<1.0) mg/dL NT-Pro-B Natriuret Pep 5097 H (0-450) pg/mL Total Protein (6.4-8.2) g/dl Albumin (3.4-5.0) g/dl Globulin gm/dL Albumin/Globulin Ratio (1-2) Urine Color Light yellow (Yellow) Urine Appearance Clear (Clear) Urine pH 7.0 (5.0-8.0) Ur Specific [address] 1.015 (1.005-1.030) Urine Protein Negative (Negative) Urine Glucose (UA) Negative (Negative) Urine Ketones Negative (Negative) Urine Occult Blood Trace-intact H (Negative) Urine Nitrite Negative (Negative) Urine Bilirubin Negative (Negative) Urine Urobilinogen 0.2 (0.2-1.0) Ur Leukocyte Esterase Trace H (Negative) Urine RBC 0-5 (0-5) /hpf Urine WBC 5-10 H (0-5) /hpf Ur Squamous Epith Cells 0-5 (0-5) /hpf Urine Bacteria Rare (FEW) /hpf Urine Mucus Not seen (FEW) /hpf 11/08/18 11/08/18 11/08/18 Range/Units 04:38 04:38 04:38 WBC 9.89 (3.98-10.04) K/mm3 RBC 4.05 (3.98-5.22) M/mm3 Hgb 11.9 (11.2-15.7) gm/L Hct 38.1 (34.1-44.9) % MCV 94.1 (79.4-94.8) fl MCH 29.4 (25.6-32.2) pg MCHC 31.2 L (32.2-35.5) g/dl RDW Std Deviation 51.4 H (36.4-46.3) fL Plt Count 230 (182-369) K/mm3 MPV 10.3 (9.4-12.3) fl Neut % (Auto) 73.3 H (34.0-71.1) % Lymph % (Auto) 17.7 L (19.3-51.7) % Hayes % (Auto) 7.5 (4.7-12.5) % Eos % (Auto) 0.8 (0.7-5.8) Baso % (Auto) 0.3 (0.1-1.2) % Neut # (Auto) 7.25 H (1.56-6.13) K/mm3 Lymph # (Auto) 1.75 (1.18-3.74) K/mm3 Hayes # (Auto) 0.74 H (0.24-0.36) K/mm3 Eos # (Auto) 0.08 (0.04-0.36) K/mm3 Baso # (Auto) 0.03 (0.01-0.08) K/mm3 Neutrophils % (Manual) (40-60) % Band Neutrophils % (0-10) % Lymphocytes % (Manual) (20-40) % Atypical Lymphs % % Monocytes % (Manual) (2-10) % Eosinophils % (Manual) (0.7-5.8) % Basophils % (Manual) (0.1-1.2) Platelet Estimate Plt Morphology Comment RBC Morph Comment PT (9.5-12.1) SECONDS INR Puncture Site ABG pH (7.35-7.45) ABG pCO2 (35.0-45.0) mmHg ABG pO2 (80.0-100.0) mmHg ABG HCO3 (22.0-26.0) meq/L ABG O2 Saturation (96.0-97.0) % ABG Base Excess (-2-2.0) Hoang Test O2 Delivery Device Oxygen Flow Rate FiO2 (21.00-100.00) % Sodium 135 L (136-145) mEq/L Potassium 3.2 L (3.5-5.1) mEq/L Chloride 94 L (98-107) mEq/L Carbon Dioxide 35 H (21-32) mEq/L Anion Gap 9.2 (5-15) BUN 17 (7-18) mg/dL Creatinine 1.8 H (0.55-1.02) mg/dL Est Cr Clr Drug Dosing 20.62 mL/min Estimated GFR (MDRD) 27 (>60) mL/min BUN/Creatinine Ratio 9.4 L (14-18) Glucose 109 (83-115) mg/dL Calcium 9.5 (8.5-10.1) mg/dL Magnesium 2.1 (1.8-2.4) mg/dl Total Bilirubin 1.1 H (0.2-1.0) mg/dL AST 16 (15-37) U/L ALT 13 L (14-59) U/L Alkaline Phosphatase 66 (46-116) U/L Troponin I < 0.017 (0.00-0.056) ng/mL C-Reactive Protein (<1.0) mg/dL NT-Pro-B Natriuret Pep 4108 H (0-450) pg/mL Total Protein 6.6 (6.4-8.2) g/dl Albumin 3.3 L (3.4-5.0) g/dl Globulin 3.3 gm/dL Albumin/Globulin Ratio 1.0 (1-2) Urine Color (Yellow) Urine Appearance (Clear) Urine pH (5.0-8.0) Ur Specific [address] (1.005-1.030) Urine Protein (Negative) Urine Glucose (UA) (Negative) Urine Ketones (Negative) Urine Occult Blood (Negative) Urine Nitrite (Negative) Urine Bilirubin (Negative) Urine Urobilinogen (0.2-1.0) Ur Leukocyte Esterase (Negative) Urine RBC (0-5) /hpf Urine WBC (0-5) /hpf Ur Squamous Epith Cells (0-5) /hpf Urine Bacteria (FEW) /hpf Urine Mucus (FEW) /hpf Med Orders - Current: Current Medications Acetaminophen (Tylenol) 650 mg PO Q4H PRN PRN Reason: Pain (Mild 1-3)/fever Albuterol/Ipratropium (Duoneb 3.0-0.5 Mg/3 Ml) 3 ml NEB Q6HRRT [facility] Last Admin: 11/08/18 04:14 Dose: 3 ml Amiodarone HCl (Cordarone) 100 mg PO DAILY [facility] Last Admin: 11/08/18 09:07 Dose: 100 mg Apixaban (Eliquis) 2.5 mg PO BID [facility] Last Admin: 11/08/18 09:07 Dose: 2.5 mg Bupropion HCl (Wellbutrin Xl) 150 mg PO DAILY [facility] Last Admin: 11/08/18 09:06 Dose: 150 mg Cyanocobalamin (Vitamin B12) 1,000 mcg PO DAILY [facility] Last Admin: 11/08/18 09:07 Dose: 1,000 mcg Furosemide (Lasix) 20 mg PO DAILY [facility] Last Admin: 11/08/18 09:07 Dose: 20 mg Melatonin (Melatonin) 3 mg PO BEDTIME PRN PRN Reason: Insomnia Last Admin: 11/07/18 20:09 Dose: 3 mg Metoprolol Tartrate (Lopressor) 50 mg PO BID [facility] Last Admin: 11/08/18 09:07 Dose: 50 mg Ondansetron HCl (Zofran) 4 mg IV Q4H PRN PRN Reason: Nausea/Vomiting Ondansetron HCl (Zofran Odt) 4 mg PO Q4H PRN PRN Reason: nausea, able to take PO Pantoprazole Sodium (Protonix) 40 mg PO DAILY@0700 [facility] Last Admin: 11/08/18 06:29 Dose: 40 mg Potassium Chloride (Klor-Con M20) 20 meq PO BID [facility] Last Admin: 11/08/18 09:07 Dose: 20 meq Simvastatin (Zocor) 10 mg PO BEDTIME [facility] Last Admin: 11/07/18 20:09 Dose: 10 mg Sodium Chloride (Saline Flush) 10 ml FLUSH ASDIRECTED PRN PRN Reason: Keep Vein Open Last Admin: 11/07/18 16:36 Dose: 10 ml Trazodone HCl (Trazodone) 50 mg PO BEDTIME [facility] Last Admin: 11/07/18 20:09 Dose: 50 mg Discontinued Medications Furosemide (Lasix) 40 mg IVPUSH NOW ONE Stop: 11/07/18 16:28 Last Admin: 11/07/18 16:36 Dose: 40 mg Magnesium Sulfate 2 gm/ Premix 50 mls @ 25 mls/hr IV ONETIME ONE Stop: 11/07/18 21:50 Last Admin: 11/07/18 20:13 Dose: 25 mls/hr Potassium Chloride 10 meq/ (Premix) 100 mls @ 100 mls/hr IV Q1H KAYLEE Stop: 11/08/18 08:44 Last Admin: 11/08/18 08:05 Dose: Not Given - Exam Quality Assessment: Supplemental Oxygen General: Alert, Oriented HEENT: Pupils Equal Neck: Supple Lungs: Normal Respiratory Effort, Rales (Improved bibasilar rales) Cardiovascular: Irregular Rhythm GI/Abdominal Exam: Normal Bowel Sounds, No Distention - Problem List & Annotations (1) Acute exacerbation of congestive heart failure SNOMED Code(s): 831831387, 57269689543147 Code(s): I50.9 - HEART FAILURE, UNSPECIFIED Status: Acute Current Visit: Yes Qualifiers: Heart failure type: diastolic Qualified Code(s): I50.33 - Acute on chronic diastolic (congestive) heart failure (2) Chronic atrial fibrillation SNOMED Code(s): 598591283 Code(s): I48.2 - CHRONIC ATRIAL FIBRILLATION Status: Acute Current Visit : Yes (3) Chronic renal insufficiency, stage IV (severe) SNOMED Code(s): 63000277 Code(s): N18.4 - CHRONIC KIDNEY DISEASE, STAGE 4 (SEVERE) Status: Acute Current Visit: Yes (4) Hypomagnesemia SNOMED Code(s): 737754858 Code(s): E83.42 - HYPOMAGNESEMIA Status: Acute Current Visit: Yes - Problem List Review Problem List Initiated/Reviewed/Updated: Yes - My Orders Last 24 Hours: My Active Orders 11/07/18 19:18 Up With Assistance [RC] ASDIRECTED VTE/DVT Education [RC] BID Vital Signs [RC] Q4HR Acetaminophen [Tylenol] 650 mg PO Q4H PRN Melatonin 3 mg PO BEDTIME PRN Ondansetron [Zofran ODT] 4 mg PO Q4H PRN Ondansetron [Zofran] 4 mg IV Q4H PRN Resuscitation Status Routine 11/07/18 19:23 Intake and Output Strict [RC] Q2HR OT Evaluation and Treatment [CONS] Routine PT Evaluation and Treatment [CONS] Routine 11/07/18 19:31 RT Aerosol Therapy [RC] ASDIRECTED 11/07/18 21:00 Albuterol/Ipratropium [DuoNeb 3.0-0.5 MG/3 ML] 3 ml NEB Q6HRRT Apixaban [Eliquis] 2.5 mg PO BID Metoprolol Tartrate [Lopressor] 50 mg PO BID Simvastatin [Zocor] 10 mg PO BEDTIME traZODone 50 mg PO BEDTIME 11/08/18 07:00 Pantoprazole [ProTONIX] 40 mg PO DAILY@0700 11/08/18 09:00 Amiodarone [Cordarone] 100 mg PO DAILY Cyanocobalamin (Vitamin B12) [Vitamin B12] 1,000 mcg PO DAILY Furosemide [Lasix] 20 mg PO DAILY Potassium Chloride [Klor-Con M20] 20 meq PO BID buPROPion [Wellbutrin XL] 150 mg PO DAILY 11/08/18 Breakfast Heart Healthy Diet [DIET] - Plan Plan:: Assessment * 78-year-old female with history of CHF, COPD, stage IV chronic renal insufficiency, and A. fib in acute decompensated heart failure * Hypoxemia secondary to decompensated heart failure * BNP decreased to 4000 but bicarbonate increased to 35 likely secondary to Lasix * Smoker and refuses nicotine replacement * Dementia * Hypokalemia - potassium 3.2 Plan * Switch patient back towards Lasix 20 mg by mouth. * Repeat proBNP in the morning and chest x-ray * Cautiously diurese over the next 2-3 days * DuoNeb every 6 hours * Follow electrolytes closely * Replace potassium orally because she cannot tolerate IV potassium * CODE STATUS: DNR/DNI * Prognosis guarded considering her multiple medical problems and age * Refuses nicotine replacement * Plan discharge in the morning
[2018-11-08] MEDS: Simvastatin 10 MG Tab PO SCH (20:03)
[2018-11-08] MEDS: traZODone 50 MG Tab PO SCH (20:04)
[2018-11-08] MEDS: Melatonin 3 MG Tab PO PRN (20:04)
[2018-11-09] MEDS: Albuterol/Ipratropium 3.0-0.5 MG/3 ML Neb Soln NEB SCH ×2 (03:25→09:32)
--- NOTE | 2018-11-09 07:10 | PCM.DCSUM1 ---
Addendum entered and electronically signed by Abhishek Maravilla PA-C 11/09/18 13:07 : Discharge Summary - Hospital Course Free Text/Narrative:: I personally met [id number] with Rina prior to discharge to discuss her homebound status. It is felt that given her CHF, occasional confusion, and difficulty with transportation Rina will be homebound. It is felt she would benefit from home health services including alf to monitor overall patient and disease status, along with help for medications. She would also benefit from OT to perform a home safety evaluation. These services can be monitored by her PCP, Dr. Vaughan, who can adjust as he sees fit. Diagnosis: Stroke: No - Discharge Data Discharge Date: 11/09/18 Discharge Disposition: Home, Self-Care 01 Condition: Good - Discharge Diagnosis/Problem(s) (1) Acute exacerbation of congestive heart failure SNOMED Code(s): 161521437, 28679992910730 ICD Code: I50.9 - HEART FAILURE, UNSPECIFIED Status: Acute Priority: High Qualifiers: Heart failure type: diastolic Qualified Code(s): I50.33 - Acute on chronic diastolic (congestive) heart failure (2) Chronic atrial fibrillation SNOMED Code(s): 838347508 ICD Code: I48.2 - CHRONIC ATRIAL FIBRILLATION Status: Chronic Priority: Medium (3) Chronic renal insufficiency, stage IV (severe) SNOMED Code(s): 96187505 ICD Code: N18.4 - CHRONIC KIDNEY DISEASE, STAGE 4 (SEVERE) Status: Chronic Priority: Medium (4) Hypomagnesemia SNOMED Code(s): 099085903 ICD Code: E83.42 - HYPOMAGNESEMIA Status: Acute Priority: High - Patient Summary/Data Consults: Consultations 11/07/18 19:23 OT Evaluation and Treatment [CONS] Routine PT Evaluation and Treatment [CONS] Routine - Patient Instructions Diet: Heart Healthy Diet Activity: As Tolerated Driving: Do Not Drive Notify Provider of: Fever, Increased Pain, Nausea and/or Vomiting Other/Special Instructions: Follow-up with primary care provider, Dr. Vaughan within 5-7 days of discharge. Weigh yourself daily. Keep a journal of this and bring this with to all medical appointments. Resume all home medications as prescribed. Spirinolactone prescription has been sent to your pharmacy. Home health services were ordered to assist you. Please follow their directions. Should symptoms return or worsen contact your primary care provider or return to the Emergency Department. - Discharge Plan *PRESCRIPTION DRUG MONITORING PROGRAM REVIEWED*: No *COPY OF PRESCRIPTION DRUG MONITORING REPORT IN PATIENT JEREMY: No Prescriptions/Med Rec: Spironolactone [Aldactone] 25 mg PO DAILY #20 tablet Home Medications: Home Meds Calcium Citrate/Vitamin D3 [Citracal + D Maximum Caplet] 1 tab PO BEDTIME [History] Cyanocobalamin (Vitamin B12) [Vitamin B12] 1,000 mcg PO DAILY 04/09/17 [History] Pravastatin [Pravachol] 20 mg PO BEDTIME 04/09/17 [History] Apixaban [Eliquis] 2.5 mg PO BID 07/23/18 [History] Omeprazole 20 mg PO DAILY 07/24/18 [History] Amiodarone [Cordarone] 100 mg PO DAILY 11/07/18 [History] Furosemide [Lasix] 20 mg PO Q48H 11/07/18 [History] Metoprolol Tartrate [Lopressor] 50 mg PO BID 11/07/18 [History] buPROPion [buPROPion XL] 150 mg PO DAILY 11/07/18 [History] traZODone HCl [Trazodone HCl] 50 mg PO BEDTIME 11/07/18 [History] Spironolactone [Aldactone] 25 mg PO DAILY #20 tablet 11/09/18 [Rx] Oxygen Therapy Mode: Nasal Cannula Oxygen Flow Rate (L/min): 1 Maintain SpO2% greater than: 90 Patient Handouts: Steps to Quit Smoking Referrals: Enoch Vaughan MD [Primary Care Provider] - 11/16/18 11:30 am (Please register at 11:15 am.) - Discharge Summary/Plan Comment DC Time >30 min.: Yes (45 mins ) - General Info Date of Service: 11/09/18 - Patient Data Vitals - Most Recent: Last Vital Signs Temp 97.9 F 11/09/18 07:48 Pulse 90 11/09/18 10:43 Resp 12 11/09/18 10:43 BP 122/74 11/09/18 10:43 Pulse Ox 94 L 11/09/18 10:43 Weight - Most Recent: 167 lb 8 oz I&O - Last 24 hours: Intake & Output 11/08/18 11/09/18 11/09/18 22:59 06:59 14:59 Intake Total 280 100 550 Output Total 600 350 400 Balance -320 -250 150 Lab Results - Last 24 hrs: Laboratory Results - last 24 hr 11/09/18 11/09/18 Range/Units 05:22 05:22 Sodium 135 L (136-145) mEq/L Potassium 3.7 (3.5-5.1) mEq/L Chloride 96 L (98-107) mEq/L Carbon Dioxide 32 (21-32) mEq/L Anion Gap 10.7 (5-15) BUN 23 H (7-18) mg/dL Creatinine 1.8 H (0.55-1.02) mg/dL Est Cr Clr Drug Dosing 20.62 mL/min Estimated GFR (MDRD) 27 (>60) mL/min BUN/Creatinine Ratio 12.8 L (14-18) Glucose 104 (83-115) mg/dL Calcium 9.3 (8.5-10.1) mg/dL Magnesium 1.7 L (1.8-2.4) mg/dl NT-Pro-B Natriuret Pep 2031 H (0-450) pg/mL Med Orders - Current: Current Medications Acetaminophen (Tylenol) 650 mg PO Q4H PRN PRN Reason: Pain (Mild 1-3)/fever Albuterol/Ipratropium (Duoneb 3.0-0.5 Mg/3 Ml) 3 ml NEB Q6HRRT [facility] Last Admin: 11/09/18 09:32 Dose: 3 ml Amiodarone HCl (Cordarone) 100 mg PO DAILY [facility] Last Admin: 11/09/18 08:23 Dose: 100 mg Apixaban (Eliquis) 2.5 mg PO BID [facility] Last Admin: 11/09/18 08:23 Dose: 2.5 mg Bupropion HCl (Wellbutrin Xl) 150 mg PO DAILY [facility] Last Admin: 11/09/18 08:22 Dose: 150 mg Cyanocobalamin (Vitamin B12) 1,000 mcg PO DAILY [facility] Last Admin: 11/09/18 08:23 Dose: 1,000 mcg Furosemide (Lasix) 20 mg PO DAILY [facility] Last Admin: 11/09/18 08:22 Dose: 20 mg Melatonin (Melatonin) 3 mg PO BEDTIME PRN PRN Reason: Insomnia Last Admin: 11/08/18 20:04 Dose: 3 mg Metoprolol Tartrate (Lopressor) 50 mg PO BID [facility] Last Admin: 11/09/18 08:23 Dose: 50 mg Ondansetron HCl (Zofran) 4 mg IV Q4H PRN PRN Reason: Nausea/Vomiting Ondansetron HCl (Zofran Odt) 4 mg PO Q4H PRN PRN Reason: nausea, able to take PO Pantoprazole Sodium (Protonix) 40 mg PO DAILY@0700 [facility] Last Admin: 11/09/18 07:16 Dose: 40 mg Potassium Chloride (Klor-Con M20) 20 meq PO BID [facility] Last Admin: 11/09/18 08:22 Dose: 20 meq Simvastatin (Zocor) 10 mg PO BEDTIME [facility] Last Admin: 11/08/18 20:03 Dose: 10 mg Sodium Chloride (Saline Flush) 10 ml FLUSH ASDIRECTED PRN PRN Reason: Keep Vein Open Last Admin: 11/07/18 16:36 Dose: 10 ml Spironolactone (Aldactone) 25 mg PO DAILY [facility] Last Admin: 11/09/18 10:41 Dose: 25 mg Trazodone HCl (Trazodone) 50 mg PO BEDTIME [facility] Last Admin: 11/08/18 20:04 Dose: 50 mg Discontinued Medications Furosemide (Lasix) 40 mg IVPUSH NOW ONE Stop: 11/07/18 16:28 Last Admin: 11/07/18 16:36 Dose: 40 mg Magnesium Sulfate 2 gm/ Premix 50 mls @ 25 mls/hr IV ONETIME ONE Stop: 11/07/18 21:50 Last Admin: 11/07/18 20:13 Dose: 25 mls/hr Potassium Chloride 10 meq/ (Premix) 100 mls @ 100 mls/hr IV Q1H [facility] Stop: 11/08/18 08:44 Last Admin: 11/08/18 08:05 Dose: Not Given Original Note: Discharge Summary - Hospital Course HPI Initial Comments: 78-year-old female with a history of CHF, atrial fibrillation, and known COPD presented to the clinic not feeling well. Patient has some dizziness and general malaise. When she presented she had oxygen saturations of 63-68% and they put her on 3 L O2 by nasal cannula and sent her to the emergency room. Patient continues to smoke and has a 66 pack year history. Patient is a poor historian and most of the history was received through the emergency room physician and her daughter. Patient denies any chest pain. She states that she has a nonproductive cough. Rate in the emergency room was in the 80s beats per minute. EKG showed A. fib with a rate between 6400, absent P waves with normal axis. She had early R-wave transition. BNP in the emergency room was just over 5000 and chest x-ray was consistent with pulmonary congestion with heart failure. Pertinent positive and negative labs: White count 10.39, hemoglobin 11.1, sodium 138, potassium 4.1, bicarbonate 33 with 11.1 and iron. BUN 17 with creatinine of 1.8 and GFR of 27. Magnesium 1.6 and slightly low. Patient was given 40 mg IV Lasix in the emergency room. It appears that she may not be completely compliant with all of her medications and the cause of her heart failure exacerbation. Diagnosis: Stroke: No - Discharge Data Discharge Date: 11/09/18 (Admit date: 11/07/18) Discharge Disposition: Home, Self-Care 01 Condition: Good - Discharge Diagnosis/Problem(s) (1) Acute exacerbation of congestive heart failure SNOMED Code(s): 587170048, [id number] ICD Code: I50.9 - HEART FAILURE, UNSPECIFIED Status: Acute Priority: High Current Visit: Yes Qualifiers: Heart failure type: diastolic Qualified Code(s): I50.33 - Acute on chronic diastolic (congestive) heart failure (2) Chronic atrial fibrillation SNOMED Code(s): 941389165 ICD Code: I48.2 - CHRONIC ATRIAL FIBRILLATION Status: Chronic Priority: Medium Current Visit: Yes (3) Chronic renal insufficiency, stage IV (severe) SNOMED Code(s): 20098591 ICD Code: N18.4 - CHRONIC KIDNEY DISEASE, STAGE 4 (SEVERE) Status: Chronic Priority: Medium Current Visit: Yes (4) Hypomagnesemia SNOMED Code(s): 169038092 ICD Code: E83.42 - HYPOMAGNESEMIA Status: Acute Priority: High Current Visit: Yes - Patient Summary/Data Consults: Consultations 11/07/18 19:23 OT Evaluation and Treatment [CONS] Routine PT Evaluation and Treatment [CONS] Routine Labs Pending at D/C: None Recommended Follow-up Testing/Procedures: Follow-up with PCP within 5-7 days of discharge, sooner if needed. Hospital Course: Rina was admitted for a CHF exacerbation. She lives at home and there had been some questions about how compliant she is with her medications. She had reportedly recently been switched from PO lasix daily to Q48 hours due to worsening renal function. She was given IV push lasix in the ED and had excellent output. She is down 6 lbs and reports she feels much better. There has been some confusion that waxes and wanes and SW has been working with the family in addressing this. PT/OT did evaluate her and found her safe for return home. She will have home health services including alf to monitor overall disease progress and assist with medications and OT to preform a home safety evaluation. She was able to be weaned off of oxygen today and has done well. CXR remained stable with no acute findings. She reports she smokes 4 cigarettes daily. She was offered nicotine patches while here and on discharge and refused both times. We discussed resources such as her PCP and ND quits, should she change her mind. Dr. hSer did see her prior to discharge and suggested 25mg spironolactone on discharge. Her potassium was low here one day and this was supplemented. It is suspected this is secondary to the IV push Lasix she was getting. She has no concerns. No nursing concerns. She will be discharged on her usual home medications and 25mg spironolactone as discussed. She should follow-up with her PCP within 5-7 days of discharge. As noted there were some concerns over an underlying developing dementia. This should be monitored by her PCP. She will be discharged today. - Patient Instructions Diet: Heart Healthy Diet Activity: As Tolerated Driving: Do Not Drive Notify Provider of: Fever, Increased Pain, Nausea and/or Vomiting - Discharge Plan *PRESCRIPTION DRUG MONITORING PROGRAM REVIEWED*: No *COPY OF PRESCRIPTION DRUG MONITORING REPORT IN PATIENT JEREMY: No Prescriptions/Med Rec: Spironolactone [Aldactone] 25 mg PO DAILY #20 tablet Home Medications: Home Meds Calcium Citrate/Vitamin D3 [Citracal + D Maximum Caplet] 1 tab PO BEDTIME [History] Cyanocobalamin (Vitamin B12) [Vitamin B12] 1,000 mcg PO DAILY 04/09/17 [History] Pravastatin [Pravachol] 20 mg PO BEDTIME 04/09/17 [History] Apixaban [Eliquis] 2.5 mg PO BID 07/23/18 [History] Omeprazole 20 mg PO DAILY 07/24/18 [History] Amiodarone [Cordarone] 100 mg PO DAILY 11/07/18 [History] Furosemide [Lasix] 20 mg PO Q48H 11/07/18 [History] Metoprolol Tartrate [Lopressor] 50 mg PO BID 11/07/18 [History] buPROPion [buPROPion XL] 150 mg PO DAILY 11/07/18 [History] traZODone HCl [Trazodone HCl] 50 mg PO BEDTIME 11/07/18 [History] Spironolactone [Aldactone] 25 mg PO DAILY #20 tablet 11/09/18 [Rx] Oxygen Therapy Mode: Nasal Cannula Patient Handouts: Steps to Quit Smoking Referrals: Enoch Vaughan MD [Primary Care Provider] - 11/16/18 11:30 am (Please register at 11:15 am.) - Discharge Summary/Plan Comment DC Time >30 min.: Yes (45 minutes ) - General Info Date of Service: 11/09/18 Admission Dx/Problem (Free Text: Admission Diagnosis/Problem Admission Diagnosis/Problem CHF, Congestive heart failure Subjective Update: 11/08/18: Patient states that she had difficulty sleeping last night. She did have one episode of tachycardia just into the 115. Patient continues on 1 L nasal cannula O2. 11/09/18: Rina is very anxious to go home. She has been and continues to refuse nicotine patches. No overnight issues and she has been weaned off of oxygen. No nursing or patient concerns. BRANDY did have a discussion with the family about concerns over nighttime confusion. She is A&OX3 today in the room. Functional Status: Reports: Pain Controlled, Tolerating Diet, Ambulating, Urinating. Denies: New Symptoms - Review of Systems General: Reports: No Symptoms. Denies: Fever, Weakness, Fatigue, Malaise HEENT: Reports: No Symptoms. Denies: Headaches Pulmonary: Reports: No Symptoms. Denies: Shortness of Breath, Pleuritic Chest Pain, Cough, Sputum, Wheezing Cardiovascular: Reports: Edema. Denies: Chest Pain, Palpitations, Dyspnea on Exertion, Lightheadedness Gastrointestinal: Reports: No Symptoms. Denies: Abdominal Pain, Constipation, Diarrhea, Nausea, Vomiting Genitourinary: Reports: No Symptoms Musculoskeletal: Reports: No Symptoms Skin: Reports: No Symptoms Neurological: Reports: No Symptoms. Denies: Confusion (none now appears to sundown slightly at night ), Pre-Existing Deficit, Trouble Speaking, Difficulty Walking, Gait Disturbance Psychiatric: Reports: No Symptoms - Patient Data Vitals - Most Recent: Last Vital Signs Temp 97.5 F 11/09/18 03:41 Pulse 84 11/09/18 03:41 Resp 12 11/09/18 03:41 BP 118/93 H 11/09/18 03:41 Pulse Ox 95 11/09/18 03:41 Weight - Most Recent: 167 lb 8 oz I&O - Last 24 hours: Intake & Output 11/08/18 11/09/18 11/09/18 22:59 06:59 14:59 Intake Total 280 100 Output Total 600 350 Balance -320 -250 Lab Results - Last 24 hrs: Laboratory Results - last 24 hr 11/09/18 11/09/18 Range/Units 05:22 05:22 Sodium 135 L (136-145) mEq/L Potassium 3.7 (3.5-5.1) mEq/L Chloride 96 L (98-107) mEq/L Carbon Dioxide 32 (21-32) mEq/L Anion Gap 10.7 (5-15) BUN 23 H (7-18) mg/dL Creatinine 1.8 H (0.55-1.02) mg/dL Est Cr Clr Drug Dosing 20.62 mL/min Estimated GFR (MDRD) 27 (>60) mL/min BUN/Creatinine Ratio 12.8 L (14-18) Glucose 104 (83-115) mg/dL Calcium 9.3 (8.5-10.1) mg/dL Magnesium 1.7 L (1.8-2.4) mg/dl NT-Pro-B Natriuret Pep 2031 H (0-450) pg/mL Med Orders - Current: Current Medications Acetaminophen (Tylenol) 650 mg PO Q4H PRN PRN Reason: Pain (Mild 1-3)/fever Albuterol/Ipratropium (Duoneb 3.0-0.5 Mg/3 Ml) 3 ml NEB Q6HRRT [facility] Last Admin: 11/09/18 03:25 Dose: 3 ml Amiodarone HCl (Cordarone) 100 mg PO DAILY [facility] Last Admin: 11/08/18 09:07 Dose: 100 mg Apixaban (Eliquis) 2.5 mg PO BID [facility] Last Admin: 11/08/18 20:05 Dose: 2.5 mg Bupropion HCl (Wellbutrin Xl) 150 mg PO DAILY [facility] Last Admin: 11/08/18 09:06 Dose: 150 mg Cyanocobalamin (Vitamin B12) 1,000 mcg PO DAILY [facility] Last Admin: 11/08/18 09:07 Dose: 1,000 mcg Furosemide (Lasix) 20 mg PO DAILY [facility] Last Admin: 11/08/18 09:07 Dose: 20 mg Melatonin (Melatonin) 3 mg PO BEDTIME PRN PRN Reason: Insomnia Last Admin: 11/08/18 20:04 Dose: 3 mg Metoprolol Tartrate (Lopressor) 50 mg PO BID [facility] Last Admin: 11/08/18 20:04 Dose: 50 mg Ondansetron HCl (Zofran) 4 mg IV Q4H PRN PRN Reason: Nausea/Vomiting Ondansetron HCl (Zofran Odt) 4 mg PO Q4H PRN PRN Reason: nausea, able to take PO Pantoprazole Sodium (Protonix) 40 mg PO DAILY@0700 [facility] Last Admin: 11/08/18 06:29 Dose: 40 mg Potassium Chloride (Klor-Con M20) 20 meq PO BID [facility] Last Admin: 11/08/18 20:04 Dose: 20 meq Simvastatin (Zocor) 10 mg PO BEDTIME [facility] Last Admin: 11/08/18 20:03 Dose: 10 mg Sodium Chloride (Saline Flush) 10 ml FLUSH ASDIRECTED PRN PRN Reason: Keep Vein Open Last Admin: 11/07/18 16:36 Dose: 10 ml Trazodone HCl (Trazodone) 50 mg PO BEDTIME [facility] Last Admin: 11/08/18 20:04 Dose: 50 mg Discontinued Medications Furosemide (Lasix) 40 mg IVPUSH NOW ONE Stop: 11/07/18 16:28 Last Admin: 11/07/18 16:36 Dose: 40 mg Magnesium Sulfate 2 gm/ Premix 50 mls @ 25 mls/hr IV ONETIME ONE Stop: 11/07/18 21:50 Last Admin: 11/07/18 20:13 Dose: 25 mls/hr Potassium Chloride 10 meq/ (Premix) 100 mls @ 100 mls/hr IV Q1H [facility] Stop: 11/08/18 08:44 Last Admin: 11/08/18 08:05 Dose: Not Given - Exam Quality Assessment: Reports: DVT Prophylaxis General: Reports: Alert, Oriented, Cooperative, No Acute Distress HEENT: Reports: Pupils Equal, Pupils Reactive, Mucous Membr. Moist/[place] Neck: Reports: Supple Lungs: Reports: Clear to Auscultation, Normal Respiratory Effort, Decreased Breath Sounds Cardiovascular: Reports: Regular Rate, Irregular Rhythm GI/Abdominal Exam: Normal Bowel Sounds, Soft, Non-Tender, No Distention, No Abnormal Bruit (Female) Exam: Deferred Rectal (Female) Exam: Deferred Back Exam: Reports: Normal Inspection, Full Range of Motion Extremities: Normal Inspection, Normal Range of Motion, Non-Tender, Normal Capillary Refill, Pedal Edema (trace) Skin: Reports: Warm, Dry, Intact Neurological: Reports: No New Focal Deficit Psy/Mental Status: Reports: Alert, Normal Affect, Normal Mood
[2018-11-09] MEDS: Pantoprazole 40 MG Tab.CR PO SCH (07:16)
[2018-11-09] MEDS: Potassium Chloride 20 MEQ Tab.ER PO SCH (08:22)
[2018-11-09] MEDS: Furosemide 20 MG Tab PO SCH (08:22)
[2018-11-09] MEDS: buPROPion 150 MG Tab.ER PO SCH (08:22)
[2018-11-09] MEDS: Cyanocobalamin (Vitamin B12) 1,000 MCG Tab PO SCH (08:23)
[2018-11-09] MEDS: Amiodarone 200 MG Tab PO SCH (08:23)
[2018-11-09] MEDS: Apixaban 2.5 MG Tab PO SCH (08:23)
[2018-11-09] MEDS: Metoprolol Tartrate 50 MG Tab PO SCH (08:23)
[2018-11-09] MEDS ORDERED: Spironolactone 25 MG Tab PO SCH (09:00)
[2018-11-09 10:52] VITALS: BP 122/74
== END 2018-11-09 12:10 | disposition home or self-care (01) | DRG 291 ==
LOC: JD.ED 15:45 → JD.MS 17:46
PROVIDERS: ADMIT Family Medicine; ATTEND Family Medicine
DX: I13.0 Hypertensive heart and chronic kidney disease with heart failure and stage 1 through stage 4 chronic kidney disease, or unspecified chronic kidney disease (principal); I50.33 Acute on chronic diastolic (congestive) heart failure; N18.4 Chronic kidney disease, stage 4 (severe); I48.2 Chronic atrial fibrillation; E83.42 Hypomagnesemia; E78.00 Pure hypercholesterolemia, unspecified; E11.22 Type 2 diabetes mellitus with diabetic chronic kidney disease; I25.10 Atherosclerotic heart disease of native coronary artery without angina pectoris; F03.90 Unspecified dementia, unspecified severity, without behavioral disturbance, psychotic disturbance, mood disturbance, and anxiety; Z66 Do not resuscitate; J44.9 Chronic obstructive pulmonary disease, unspecified; K21.9 Gastro-esophageal reflux disease without esophagitis; G89.29 Other chronic pain; M54.9 Dorsalgia, unspecified; E66.9 Obesity, unspecified; Z96.659 Presence of unspecified artificial knee joint; F17.210 Nicotine dependence, cigarettes, uncomplicated; Z98.49 Cataract extraction status, unspecified eye; Z90.89 Acquired absence of other organs; Z90.49 Acquired absence of other specified parts of digestive tract; Z79.01 Long term (current) use of anticoagulants; Z68.29 Body mass index [BMI] 29.0-29.9, adult; Z79.899 Other long term (current) drug therapy; Z88.5 Allergy status to narcotic agent; Z91.041 Radiographic dye allergy status
CPT/HCPCS: 36415; 36600; 71045; 80053; 82803; 83735; 83880; 84484; 85007; 85027; 85610; 86140; 93005; 96374; 99285; J1940; 80048; 81001; 85025; 93010; 94640; 94761; 97110-GP; 97116-GP; 97161-GP; 97165-GO; 97530-GO; A9270-GY; J3475; J7620-GY

== ENCOUNTER 2019-10-01 16:04 | Emergency (ER) | payer MEDICARE, OTHER ==
[2019-10-01 16:25] VITALS: BP 73/39; PULSE 87
[2019-10-01] MEDS ORDERED: Metoclopramide 10 MG/2 ML SDV IVPUSH ONE (16:27)
[2019-10-01] MEDS ORDERED: Sodium Chloride 0.9% 1,000 ML IV SCH (16:30)
[2019-10-01] MEDS ORDERED: HYDROmorphone 0.5 MG/0.5 ML Syringe IVPUSH ONE (16:30)
--- NOTE | 2019-10-01 16:34 | EDM.PDOC ---
ED HPI GENERAL MEDICAL PROBLEM - General Chief Complaint: Cardiovascular Problem Stated Complaint: CHEST PAIN Time Seen by Provider: 10/01/19 16:17 Source of Information: Reports: Patient History Limitations: Reports: No Limitations - History of Present Illness INITIAL COMMENTS - FREE TEXT/NARRATIVE: 79-year-old female presents to the ED complaining primarily of severe epigastric retrosternal chest pain with a sharp stabbing component as well as a pressure discomfort since about 0800 hrs. this morning. She states the pain is gradually gotten worse as the day has gone on. It does radiate through to her mid back between the shoulders. Associated nausea without any vomiting. She has not eaten at all today. History of chronic atrial fibrillation and is on Eliquis 2.5 mg twice daily. controlled with metoprolol and amiodarone history of hypertension and high cholesterol. No previous myocardial infarction or stroke. Does have a history of congestive heart failure Onset: Today, Gradual Onset Date: 10/01/19 Onset Time: 08:00 Duration: Hour(s):, Getting Worse, Intermittent (And intermittently becomes much more sharp and stabbing) Location: Reports: Abdomen (Gastric pain rating up into her lower retrosternal.) Quality: Reports: Ache, Stabbing, Other Severity: Moderate (Pain is rated as 6 out of 10 she holds still.) Improves with: Reports: Rest Worsens with: Reports: Other (Be worse with sitting suggesting) Context: Denies: Activity, Exercise, Lifting, Sick Contact, Trauma, Other Associated Symptoms: Reports: Chest Pain, Loss of Appetite, Malaise, Shortness of Breath, Weakness, Other (Is rather agitated and fearful of having to be in the hospital.). Denies: No Other Symptoms (Lower retrosternal chest pain), Confusion, Cough, cough w sputum, Diaphoresis, Fever/Chills, Headaches, Nausea/ Vomiting, Rash, Seizure, Syncope Treatments GUARD DANCE HALL: Reports: Other (see below) (She did apparently take her regular medications this morning.) Upper Abdomen Pain Score (Numeric/FACES): 8 - Related Data Allergies Allergy/AdvReac Type Severity Reaction Status Date / Time morphine AdvReac Confusion Verified 11/07/18 19:44 contrast dye Allergy Hives Uncoded 11/07/18 19:44 Home Meds: Home Meds Calcium Citrate/Vitamin D3 [Citracal + D Maximum Caplet] 1 tab PO BEDTIME [History] Cyanocobalamin (Vitamin B12) [Vitamin B12] 1,000 mcg PO DAILY 04/09/17 [History] Pravastatin [Pravachol] 20 mg PO BEDTIME 04/09/17 [History] Apixaban [Eliquis] 2.5 mg PO BID 07/23/18 [History] Omeprazole 20 mg PO DAILY 07/24/18 [History] Amiodarone [Cordarone] 100 mg PO DAILY 11/07/18 [History] Furosemide [Lasix] 20 mg PO Q48H 11/07/18 [History] Metoprolol Tartrate [Lopressor] 50 mg PO BID 11/07/18 [History] buPROPion [buPROPion XL] 150 mg PO DAILY 11/07/18 [History] traZODone HCl [Trazodone HCl] 50 mg PO BEDTIME 11/07/18 [History] Spironolactone [Aldactone] 25 mg PO DAILY #20 tablet 11/09/18 [Rx] Past Medical History HEENT History: Reports: Impaired Vision Other HEENT History: has upper and lower dentures Cardiovascular History: Reports: Afib (Patient is on Eliquis 2.5 mg twice a day.), CAD, Heart Failure, High Cholesterol, Hypertension Respiratory History: Reports: COPD Gastrointestinal History: Reports: GERD Genitourinary History: Reports: Urinary Incontinence [employer] History: Reports: Musculoskeletal History: Reports: Back Pain, Chronic Other Musculoskeletal History: back surgery Endocrine/Metabolic History: Reports: Diabetes, Type II, Obesity/BMI 30+ Other Endocrine/Metabolic History: pt no longer on DM meds. Hematologic History: Reports: B12 Deficiency - Infectious Disease History Infectious Disease History: Reports: Influenza - Past Surgical History HEENT Surgical History: Reports: Cataract Surgery, Tonsillectomy GI Surgical History: Reports: Cholecystectomy Neurological Surgical History: Reports: Lumbar Spine Other Neurological Surgeries/Procedures: back surgery Musculoskeletal Surgical History: Reports: Knee Replacement Social & Family History - Family History Family Medical History: Noncontributory - Caffeine Use Caffeine Use: Reports: Soda - Living Situation & Occupation Living situation: Reports: , with Family (Son) Occupation: Retired ED ROS GENERAL - Review of Systems Review Of Systems: See Below Constitutional: Reports: Malaise, Weakness, Fatigue, Decreased Appetite. Denies : Fever, Chills, Weight Loss HEENT: Reports: Glasses, Vision Change, Other (Has mild macular degeneration.) Respiratory: Reports: Shortness of Breath, Pleuritic Chest Pain (Shortness of breath is deep breathing makes the epigastric pain worse.). Denies: Cough, Sputum ( There is some sharp stabbing component to the pain in the epigastrium) , Hemoptysis, Other Cardiovascular: Reports: Chest Pain, Blood Pressure Problem, Dyspnea on Exertion , Palpitations. Denies: Claudication, Edema, Lightheadedness, Orthopnea, PND, Syncope Endocrine: Reports: Fatigue (Occasionally aware of rapid heart rate. She is in chronic atrial fibrillation.) GI/Abdominal: Reports: Abdominal Pain (Epigastric abdominal pain.), Constipation : Reports: Frequency, Incontinence (Urge and stress components) Musculoskeletal: Reports: Neck Pain, Shoulder Pain, Back Pain (Back pain with titanium rods and fusion in her lower back), Leg Pain (Especially in the left side due to peripheral vascular disease), Joint Pain (Has had total knee replacements bilaterally. Has bilateral hip pain.) Skin: Reports: Bruising (Is easily as she is on Eliquis) Neurological: Reports: Dizziness, Difficulty Walking (Due to artificial knees and mild peripheral neuropathy in her feet and peripheral vascular disease. 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 Denies: Confusion, Headache, Numbness (Patient with dizziness.), Syncope, Tingling Psychiatric: Reports: Anxiety Hematologic/Lymphatic: Reports: Easy Bruising Immunologic: Reports: No Symptoms ED EXAM, GENERAL - Physical Exam Exam: See Below Exam Limited By: No Limitations General Appearance: Alert, WD/WN, Moderate Distress (Is extremely anxious.), Other (Pressure is currently 109/98. Heart rate is 82 atrial fibrillation on the monitor. Respiratory to be 18 with O2 sats of 95 to 96% on room air) Eye Exam: Bilateral Eye: Normal Inspection, PERRL Throat/Mouth: Normal Inspection, Normal Lips, Normal Oropharynx, Other (Is dry and coated.). No: Normal Teeth Head: Atraumatic, Normocephalic, Other Neck: Normal Inspection (Signs of facial or head trauma), Limited Range of Motion (Previous cervical fusion.), Tender Lateral. No: Carotid Bruit, Lymphadenopathy (L), Lymphadenopathy (R) (Bilateral aspect of the cervical spine ), Thyromegaly Respiratory/Chest: No Respiratory Distress, Lungs Clear, Normal Breath Sounds, No Accessory Muscle Use, Other (Small tenderness particularly ribs 3 4 in the mid ocular line bilaterally) Cardiovascular: No Edema, No Gallop, No JVD, No Murmur, Irregularly Irregular ( Atrial fibrillation controlled rate from 82-115/min). No: Normal Peripheral Pulses, Regular Rate, Rhythm Peripheral Pulses: 0: Dorsalis Pedis (L), Dorsalis Pedis (R), 1+: Posterior Tibial (L), Posterior Tibial (R), 2+: Carotid (L), Carotid (R) GI/Abdominal: Normal Bowel Sounds, Soft, Non-Tender, No Organomegaly, No Abnormal Bruit, No Mass, Pelvis Stable, Other (Has had evidence of previous open cholecystectomy. Appendectomy and total abdominal hysterectomy and BSO.) Back Exam: Decreased Range of Motion (Multiple surgical scars from previous L- spine fusion.). No: CVA Tenderness (L), CVA Tenderness (R) Extremities: Other (Knees show evidence of knee replacement surgery. Has very limited external and internal rotation of either hip due to arthritic change.) Neurological: Alert, Oriented, CN II-XII Intact, Normal Cognition Psychiatric: Anxious Skin Exam: Warm, Dry, Intact, Normal Color, No Rash EKG INTERPRETATION EKG Date: 10/01/19 Time: 16:19 Rhythm: A-Fib (With rate of 72 to 115/min) Rate (Beats/Min): 98 [place]: Normal P-Wave: Absent QRS: Other (Decreased voltage throughout the precordial leads. Early R wave transition with late transition) ST-T: Other (Mild ST segment depression lead I. T wave inversion in leads II, 3 , aVF, V3 to V5. Suspect diffuse repolarization abnormality) QT: Prolonged EKG Interpretation Comments: Abnormal ECG Course - Vital Signs Last Recorded V/S: Last Vital Signs Temp 35.7 C L 10/01/19 16:17 Pulse 87 10/01/19 16:17 Resp 18 10/01/19 16:17 BP 73/39 L 10/01/19 16:17 Pulse Ox 95 10/01/19 16:17 - Orders/Labs/Meds Orders: Active Orders 24 hr Category Date Time Status EKG Documentation Completion [RC] ASDIRECTED Care 10/01/19 16:16 Active EKG Documentation Completion [RC] STAT Care 10/01/19 16:29 Active Sodium Chloride 0.9% [Normal Saline] 1,000 ml Med 10/01/19 16:30 Active IV ASDIRECTED EKG 12 Lead [EK] Stat Ther 10/01/19 16:16 Ordered Medication Orders Sodium Chloride (Normal Saline) 1,000 mls @ 150 mls/hr IV ASDIRECTED KAYLEE Last Admin: 10/01/19 16:51 Dose: 150 mls/hr Labs: Laboratory Tests 10/01/19 10/01/19 10/01/19 Range/Units 17:00 17:00 17:00 WBC 13.54 H (3.98-10.04) K/mm3 RBC 4.23 (3.98-5.22) M/mm3 Hgb 13.1 (11.2-15.7) gm/dl Hct 41.9 (34.1-44.9) % MCV 99.1 H (79.4-94.8) fl MCH 31.0 (25.6-32.2) pg MCHC 31.3 L (32.2-35.5) g/dl RDW Std Deviation 52.3 H (36.4-46.3) fL Plt Count 306 D (182-369) K/mm3 MPV 10.7 (9.4-12.3) fl Neut % (Auto) 73.3 H (34.0-71.1) % Lymph % (Auto) 19.7 (19.3-51.7) % Frio % (Auto) 5.2 (4.7-12.5) % Eos % (Auto) 0.9 (0.7-5.8) Baso % (Auto) 0.3 (0.1-1.2) % Neut # (Auto) 9.92 H (1.56-6.13) K/mm3 Lymph # (Auto) 2.67 (1.18-3.74) K/mm3 Frio # (Auto) 0.71 H (0.24-0.36) K/mm3 Eos # (Auto) 0.12 (0.04-0.36) K/mm3 Baso # (Auto) 0.04 (0.01-0.08) K/mm3 Manual Slide Review Abnormal smear PT 11.4 (9.7-12.0) SECONDS INR 1.05 APTT 29 D (22-31) SECONDS Sodium 136 (136-145) mEq/L Potassium 4.2 (3.5-5.1) mEq/L Chloride 100 (98-107) mEq/L Carbon Dioxide 25 (21-32) mEq/L Anion Gap 15.2 H (5-15) BUN 22 H (7-18) mg/dL Creatinine 2.6 H (0.55-1.02) mg/dL Est Cr Clr Drug Dosing 13.42 mL/min Estimated GFR (MDRD) 18 (>60) mL/min BUN/Creatinine Ratio 8.5 L (14-18) Glucose 110 (83-115) mg/dL Calcium 9.3 (8.5-10.1) mg/dL Magnesium 1.2 L (1.8-2.4) mg/dl Total Bilirubin 0.7 (0.2-1.0) mg/dL AST 18 (15-37) U/L ALT 12 L (14-59) U/L Alkaline Phosphatase 49 (46-116) U/L CK-MB (CK-2) 0.5 (0-3.6) ng/ml Troponin I < 0.017 (0.00-0.056) ng/mL C-Reactive Protein < 0.2 (<1.0) mg/dL NT-Pro-B Natriuret Pep (0-450) pg/mL Total Protein 7.2 (6.4-8.2) g/dl Albumin 3.9 (3.4-5.0) g/dl Globulin 3.3 gm/dL Albumin/Globulin Ratio 1.2 (1-2) 10/01/19 Range/Units 17:00 WBC (3.98-10.04) K/mm3 RBC (3.98-5.22) M/mm3 Hgb (11.2-15.7) gm/dl Hct (34.1-44.9) % MCV (79.4-94.8) fl MCH (25.6-32.2) pg MCHC (32.2-35.5) g/dl RDW Std Deviation (36.4-46.3) fL Plt Count (182-369) K/mm3 MPV (9.4-12.3) fl Neut % (Auto) (34.0-71.1) % Lymph % (Auto) (19.3-51.7) % Frio % (Auto) (4.7-12.5) % Eos % (Auto) (0.7-5.8) Baso % (Auto) (0.1-1.2) % Neut # (Auto) (1.56-6.13) K/mm3 Lymph # (Auto) (1.18-3.74) K/mm3 Frio # (Auto) (0.24-0.36) K/mm3 Eos # (Auto) (0.04-0.36) K/mm3 Baso # (Auto) (0.01-0.08) K/mm3 Manual Slide Review PT (9.7-12.0) SECONDS INR APTT (22-31) SECONDS Sodium (136-145) mEq/L Potassium (3.5-5.1) mEq/L Chloride (98-107) mEq/L Carbon Dioxide (21-32) mEq/L Anion Gap (5-15) BUN (7-18) mg/dL Creatinine (0.55-1.02) mg/dL Est Cr Clr Drug Dosing mL/min Estimated GFR (MDRD) (>60) mL/min BUN/Creatinine Ratio (14-18) Glucose (83-115) mg/dL Calcium (8.5-10.1) mg/dL Magnesium (1.8-2.4) mg/dl Total Bilirubin (0.2-1.0) mg/dL AST (15-37) U/L ALT (14-59) U/L Alkaline Phosphatase (46-116) U/L CK-MB (CK-2) (0-3.6) ng/ml Troponin I (0.00-0.056) ng/mL C-Reactive Protein (<1.0) mg/dL NT-Pro-B Natriuret Pep 2556 H (0-450) pg/mL Total Protein (6.4-8.2) g/dl Albumin (3.4-5.0) g/dl Globulin gm/dL Albumin/Globulin Ratio (1-2) Meds: Medications Generic Name Dose Route Start Last Admin Trade Name Freq PRN Reason Stop Dose Admin Sodium Chloride 1,000 mls @ 150 mls/hr 10/01/19 16:30 10/01/19 16:51 Normal Saline IV 150 mls/hr ASDIRECTED KAYLEE Administration Discontinued Medications Generic Name Dose Route Start Last Admin Trade Name Lin PRN Reason Stop Dose Admin Aspirin 324 mg 10/01/19 16:53 10/01/19 17:56 Aspirin PO 10/01/19 16:54 324 mg ONETIME ONE Administration Dicyclomine HCl 20 mg 10/01/19 17:57 10/01/19 18:06 Bentyl PO 10/01/19 17:58 20 mg ONETIME ONE Administration Furosemide 40 mg 10/01/19 17:57 10/01/19 18:06 Lasix PO 10/01/19 17:58 40 mg ONETIME ONE Administration Hydromorphone HCl 0.25 mg 10/01/19 16:30 10/01/19 17:56 Dilaudid IVPUSH 10/01/19 16:31 0.25 mg ONETIME ONE Administration Lorazepam 0.5 mg 10/01/19 16:39 10/01/19 16:51 Ativan IVPUSH 10/01/19 16:40 0.5 mg ONETIME ONE Administration Lorazepam 0.5 mg 10/01/19 17:41 10/01/19 17:56 Ativan IVPUSH 10/01/19 17:42 Not Given ONETIME ONE Metoclopramide HCl 5 mg 10/01/19 16:27 10/01/19 16:52 Reglan IVPUSH 10/01/19 16:28 5 mg ONETIME ONE Administration - Radiology Interpretation Free Text/Narrative:: 79-year-old female presents to the ED quite anxious but complaining of epigastric retrosternal chest pressure discomfort with a occasional sharp stabbing pains since about 8:00 this morning. She has not eaten at all today. She feels nauseated but has not vomited. She has no fever or chills. Just feels somewhat short of breath as deep breathing makes the epigastric pain worse. She has numerous risk factors for coronary disease with a history of heart failure chronic atrial fibrillation with rate controlled. She is on Eliquis 2.5 mg twice daily because of the atrial fibrillation. Is unclear and she does not seem to be exhibiting heart failure. She is tender in the epigastrium and I am concerned that she may have a hiatal hernia. EGD done by triage nurse shows atrial fibrillation with a rate of 72 to 115/min. There is minimal ST segment depression in leads I only. There is some diffuse T wave changes at 2 ,3 aVF and V3 to V5. Plan IV will be normal saline at 150 mils per hour. 1 view chest x-ray to be done portably. React markers to be done as well as routine labs. Given Reglan 5 mg IV and Ativan 0.5 mg IV as she is quite anxious about being in the hospital. She will also be given Dilaudid 0.25 mg IV for epigastric chest pain relief. She has had previous cholecystectomy. Pressure initially was 73 systolic but it did come up to 95 systolic but nitroglycerin is contraindicated at this time. Give - Re-Assessments/Exams Free Text/Narrative Re-Assessment/Exam: 10/01/19 17:29 pressure dropped down to 86/65. He was given therefore a 200 mill normal saline fluid bolus. Chest x-ray done portably reveals moderate cardiomegaly with prominent thoracic aorta/sitter possible thoracic aortic aneurysm. The mediastinum superiorly is mildly widened as well. There is a diffuse vascular congestion pattern without pleural effusion.slight scarring in the left lung base. Possible small hiatal hernia is appreciated. Hematology reveals an elevated white count at 13.54 with 73% neutrophils. Hemoglobin is 13.1 with hematocrit of 41.9. MCV is slightly elevated at 99.1. Platelet count normal at 306,000. Smear reveals 1+ anisocytosis. 1+ macrocytosis 1+ ovalocyte 10/01/19 17:42 Remains quite anxious and repeats over and over that she just wants to leave the hospital but yet her labs are not yet back and I cannot rule out a myocardial infarction. She is also hypotensive. Blood preasure is currently up to 95/72. Feet Ativan 0.5 mg IV in the hopes of providing some degree of sedation and lessen her anxiety. 10/01/19 17:52 Blood preasure has come up to 112/45. 10/01/19 17:54 Is 11.4 with an INR of 1.05. PTT is 29. Sodium is 136 with a potassium of 4.2. Chloride is 100 with a bicarb of 25. Anion gap is 15.2. BUN is 22 with a creatinine of 0.6. GFR is 18 which is stage IV chronic kidney disease. Kos is 110 with a calcium of 9.3. Magnesium is low at 1.2. Liver function is normal. CK-MB fraction is 0.5 and troponin is less than 0.017. C- reactive protein is less than 0.2. BNP is 2556 which correlates with her chest x-ray. Brigida 7.2 with an albumin fraction of 3.9. For her current chest pain is noncardiac in origin and I suspect it is from hiatal hernia. She will be given Lasix 40 mg p.o. and Bentyl 20 mg p.o. as she is anxious to leave the hospital. Departure - Departure Time of Disposition: 17:58 Disposition: Home, Self-Care 01 Reason for Transfer *Q: Other Condition: Fair Clinical Impression: Non-cardiac chest pain, Hiatal hernia, Chronic renal insufficiency, stage IV ( severe), Chronic atrial fibrillation Instructions: Hiatal Hernia, Gastroesophageal Reflux Disease, Adult, Easy-to- Read Referrals: Enoch Vaughan MD [Primary Care Provider] - Forms: ED Department Discharge Additional Instructions: Evaluation in the emergency room today in regards to diffuse epigastric pit of the stomach pain radiating up into the lower retrosternal chest. Is been present since about 8:00 this morning. No shaded with the development of nausea and sweating spells. Work-up carried out in the ED was done to rule out any heart related illness. In particular, heart attack was ruled out with normal cardiac enzymes. X-ray did reveal a slight increase in the amount of fluid in your lungs and enlarged heart. It also suggested that part of your stomach had herniated up behind your heart anterior chest called a hiatal hernia. Is a common disorder and occurs usually during the night when we are sleeping and often will wake us up or we wake up in the morning with it. It part of your stomach being stuck where the food pipe goes through the diaphragm in your chest. You were given medication in the ED to relieve this pain and a tablet called Bentyl 20 mg before you left the department. You are also given a water pill Lasix 40 mg by mouth to help relieve some of the fluid congestion in your lungs. Of the other investigations done through the ED revealed poor kidney function and you should follow-up with your doctor in this regard. No other changes to your medications are to be made at this time. Suggest a light diet tonight for supper primarily soup or fluids. Sepsis Event Note - Evaluation Sepsis Screening Result: No Definite Risk - Focused Exam Vital Signs: Vital Signs Temp Pulse Resp BP Pulse Ox 10/01/19 16:17 35.7 C L 87 18 73/39 L 95 Date Exam was Performed: 10/01/19 Time Exam was Performed: 18:22 - My Orders Last 24 Hours: My Active Orders 10/01/19 16:16 EKG Documentation Completion [RC] ASDIRECTED EKG 12 Lead [EK] Stat 10/01/19 16:29 EKG Documentation Completion [RC] STAT 10/01/19 16:30 Sodium Chloride 0.9% [Normal Saline] 1,000 ml IV ASDIRECTED - Assessment/Plan Last 24 Hours: My Active Orders 10/01/19 16:16 EKG Documentation Completion [RC] ASDIRECTED EKG 12 Lead [EK] Stat 10/01/19 16:29 EKG Documentation Completion [RC] STAT 10/01/19 16:30 Sodium Chloride 0.9% [Normal Saline] 1,000 ml IV ASDIRECTED
[2019-10-01] MEDS ORDERED: LORazepam 2 MG/ML SDV IVPUSH ONE ×2 (16:39→17:41)
[2019-10-01] MEDS ORDERED: Aspirin 81 MG Tab.Chew PO ONE (16:53)
--- NOTE | 2019-10-01 17:33 | CR ---
Chest: Portable view of the chest was obtained. Comparison: Prior chest x-ray of 11/08/18 and 11/07/18. Heart size appears within normal limits for portable technique. Tortuous or aneurysmal aorta is seen which is stable. Slight scarring is noted within the left base. Lungs otherwise are clear with no acute parenchymal change. Bony structures are grossly intact. Possible small hiatal hernia is noted. Impression: 1. Findings as noted above. 2. Nothing acute is suggested. Diagnostic code #2 This report was dictated in [facility]T
[2019-10-01] MEDS ORDERED: Dicyclomine 10 MG Cap PO ONE (17:57)
[2019-10-01] MEDS ORDERED: Furosemide 40 MG Tab PO ONE (17:57)
== END 2019-10-01 18:37 | disposition home or self-care (01) ==
LOC: JD.ED 16:04
DX: K44.9 Diaphragmatic hernia without obstruction or gangrene (principal); I48.20 Chronic atrial fibrillation, unspecified; I13.0 Hypertensive heart and chronic kidney disease with heart failure and stage 1 through stage 4 chronic kidney disease, or unspecified chronic kidney disease; E11.22 Type 2 diabetes mellitus with diabetic chronic kidney disease; N18.4 Chronic kidney disease, stage 4 (severe); I50.9 Heart failure, unspecified; I25.10 Atherosclerotic heart disease of native coronary artery without angina pectoris; E78.00 Pure hypercholesterolemia, unspecified; K21.9 Gastro-esophageal reflux disease without esophagitis; E66.9 Obesity, unspecified; Z68.30 Body mass index [BMI] 30.0-30.9, adult; Z88.5 Allergy status to narcotic agent; Z91.041 Radiographic dye allergy status; Z79.01 Long term (current) use of anticoagulants; Z79.899 Other long term (current) drug therapy
CPT/HCPCS: 36415; 71045; 80053; 82553; 83735; 83880; 84484; 85025; 85610; 85730; 86140; 93005; 96361; 96374; 96375; 99285; A9270; J1170; J2060; J2765; J7030; 93010

== ENCOUNTER 2019-10-11 13:07 | Emergency (ER) | payer MEDICARE, OTHER ==
[2019-10-11] MEDS ORDERED: Ondansetron 4 MG Tab.DIS PO ONE (14:03)
--- NOTE | 2019-10-11 14:10 | EDM.PDOC ---
ED HPI GENERAL MEDICAL PROBLEM - General Chief Complaint: Abdominal Pain Stated Complaint: ABDOMINAL PAIN Time Seen by Provider: 10/11/19 13:41 Source of Information: Reports: Patient, RN Notes Reviewed History Limitations: Reports: No Limitations - History of Present Illness INITIAL COMMENTS - FREE TEXT/NARRATIVE: Patient is an 79-year-old female who presents to the ED for the evaluation of a multitude of symptoms. There are not a lot of focal complaints noted at today' s visit, patient complains of "everything being wrong". She has a mild headache , nausea, and a small skin abscess on her left breast, that states when she bumped it yesterday, it ruptured, and there was quite a bit of pustular material that came out of it. Patient notes she had 1 of these lesions on the left lower medial leg, and right upper groin as well that were white, and "ro like". Patient denies any sort of shortness of breath, chest pain, fever/chills , cough. 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 Patient's primary care provider is Dr. Vaughan. Patient notes that it has been years since she has had any sort of mammography imaging as well. Frontal Headache Pain Score (Numeric/FACES): 5 - Related Data Allergies Allergy/AdvReac Type Severity Reaction Status Date / Time morphine AdvReac Severe Confusion Verified 10/11/19 13:26 contrast dye Allergy Severe Hives Uncoded 10/11/19 13:26 Home Meds: Home Meds Calcium Citrate/Vitamin D3 [Citracal + D Maximum Caplet] 1 tab PO BEDTIME [History] Cyanocobalamin (Vitamin B12) [Vitamin B12] 1,000 mcg PO DAILY 04/09/17 [History] Pravastatin [Pravachol] 20 mg PO BEDTIME 04/09/17 [History] Apixaban [Eliquis] 2.5 mg PO BID 07/23/18 [History] Omeprazole 20 mg PO DAILY 07/24/18 [History] Amiodarone [Cordarone] 100 mg PO DAILY 11/07/18 [History] Furosemide [Lasix] 20 mg PO Q48H 11/07/18 [History] Metoprolol Tartrate [Lopressor] 50 mg PO BID 11/07/18 [History] buPROPion [buPROPion XL] 150 mg PO DAILY 11/07/18 [History] traZODone HCl [Trazodone HCl] 50 mg PO BEDTIME 11/07/18 [History] Spironolactone [Aldactone] 25 mg PO DAILY #20 tablet 11/09/18 [Rx] cephALEXin [Cephalexin] 500 mg PO BID #14 capsule 10/11/19 [Rx] Past Medical History HEENT History: Reports: Impaired Vision Other HEENT History: has upper and lower dentures Cardiovascular History: Reports: Afib, CAD, Heart Failure, High Cholesterol, Hypertension Respiratory History: Reports: COPD Gastrointestinal History: Reports: GERD Genitourinary History: Reports: Urinary Incontinence [employer]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 Hematologic History: Reports: B12 Deficiency - Infectious Disease History Infectious Disease History: Reports: Influenza - Past Surgical History HEENT Surgical History: Reports: Cataract Surgery, Tonsillectomy GI Surgical History: Reports: Cholecystectomy Neurological Surgical History: Reports: Lumbar Spine Other Neurological Surgeries/Procedures: back surgery Musculoskeletal Surgical History: Reports: Knee Replacement Social & Family History - Family History Family Medical History: Noncontributory - Tobacco Use Smoking Status *Q: Former Smoker Years of Tobacco use: 70 Used Tobacco, but Quit: Yes Month/Year Tobacco Last Used: 03/2019 - Caffeine Use Caffeine Use: Reports: Soda - Recreational Drug Use Recreational Drug Use: No - Living Situation & Occupation Living situation: Reports: , with Family (Son) Occupation: Retired ED ROS GENERAL - Review of Systems Review Of Systems: See Below Constitutional: Denies: Fever, Chills, Weakness, Decreased Appetite Respiratory: Denies: Shortness of Breath, Cough Cardiovascular: Denies: Chest Pain GI/Abdominal: Reports: Nausea. Denies: Diarrhea, Vomiting Neurological: Reports: Headache (frontal) ED EXAM, GI/ABD - Physical Exam Exam: See Below Exam Limited By: No Limitations General Appearance: Alert, WD/WN, No Apparent Distress, Anxious (mildy, pt talks very fast and monopolizes the conversation) Eyes: Bilateral: Normal Appearance Ears: Normal External Exam Nose: Normal Inspection Throat/Mouth: Normal Inspection, Normal Lips, Normal Teeth, Normal Gums, Normal Oropharynx, Normal Voice, No Airway Compromise Head: Atraumatic, Normocephalic Neck: Normal Inspection Respiratory/Chest: No Respiratory Distress, Lungs Clear, Normal Breath Sounds, No Accessory Muscle Use, Chest Non-Tender Cardiovascular: Normal Peripheral Pulses, Regular Rate, Rhythm, No Murmur GI/Abdominal Exam: Normal Bowel Sounds, Soft, Non-Tender, No Distention, No Mass Extremities: Normal Inspection, Normal Capillary Refill Neurological: Alert, Oriented, Normal Cognition, No Motor/Sensory Deficits Psychiatric: Normal Affect, Normal Mood, Anxious (mildly) Skin Exam: Warm, Dry, Intact, Normal Color, No Rash, Wound/Incision (healing wound/scab noted to left breast in upper right quadrant, close to areola mild redness/tenderness with some induration but no fluctuation.) Course - Vital Signs Last Recorded V/S: Last Vital Signs Temp 97.1 F 10/11/19 13:20 Pulse 80 10/11/19 13:20 Resp 22 H 10/11/19 13:20 BP 115/84 10/11/19 13:20 Pulse Ox 98 10/11/19 13:20 - Orders/Labs/Meds Orders: Active Orders 24 hr Category Date Time Status CULTURE URINE [RM] Routine Lab 10/11/19 15:02 Ordered Labs: Laboratory Tests 10/11/19 10/11/19 10/11/19 Range/Units 14:15 14:15 14:35 WBC 9.68 (3.98-10.04) K/mm3 RBC 3.67 L (3.98-5.22) M/mm3 Hgb 11.5 D (11.2-15.7) gm/dl Hct 37.0 (34.1-44.9) % MCV 100.8 H (79.4-94.8) fl MCH 31.3 (25.6-32.2) pg MCHC 31.1 L (32.2-35.5) g/dl RDW Std Deviation 53.1 H (36.4-46.3) fL Plt Count 261 (182-369) K/mm3 MPV 10.7 (9.4-12.3) fl Neut % (Auto) 68.0 (34.0-71.1) % Lymph % (Auto) 23.0 (19.3-51.7) % Shelby % (Auto) 5.6 (4.7-12.5) % Eos % (Auto) 2.3 (0.7-5.8) Baso % (Auto) 0.3 (0.1-1.2) % Neut # (Auto) 6.58 H (1.56-6.13) K/mm3 Lymph # (Auto) 2.23 (1.18-3.74) K/mm3 Shelby # (Auto) 0.54 H (0.24-0.36) K/mm3 Eos # (Auto) 0.22 (0.04-0.36) K/mm3 Baso # (Auto) 0.03 (0.01-0.08) K/mm3 Sodium 136 (136-145) mEq/L Potassium 4.2 (3.5-5.1) mEq/L Chloride 100 (98-107) mEq/L Carbon Dioxide 28 (21-32) mEq/L Anion Gap 12.2 (5-15) BUN 14 (7-18) mg/dL Creatinine 2.0 H (0.55-1.02) mg/dL Est Cr Clr Drug Dosing 18.25 mL/min Estimated GFR (MDRD) 24 (>60) mL/min BUN/Creatinine Ratio 7.0 L (14-18) Glucose 103 (83-115) mg/dL Calcium 8.6 (8.5-10.1) mg/dL Total Bilirubin 0.6 (0.2-1.0) mg/dL AST 16 (15-37) U/L ALT 12 L (14-59) U/L Alkaline Phosphatase 62 (46-116) U/L Total Protein 6.3 L (6.4-8.2) g/dl Albumin 3.4 (3.4-5.0) g/dl Globulin 2.9 gm/dL Albumin/Globulin Ratio 1.2 (1-2) Urine Color Yellow (Yellow) Urine Appearance Clear (Clear) Urine pH 6.0 (5.0-8.0) Ur Specific Timblin 1.020 (1.005-1.030) Urine Protein Negative (Negative) Urine Glucose (UA) Negative (Negative) Urine Ketones Negative (Negative) Urine Occult Blood Negative (Negative) Urine Nitrite Negative (Negative) Urine Bilirubin Negative (Negative) Urine Urobilinogen 0.2 (0.2-1.0) Ur Leukocyte Esterase Trace H (Negative) Urine RBC Not seen (0-5) /hpf Urine WBC 20-30 H (0-5) /hpf Ur Squamous Epith Cells 0-5 (0-5) /hpf Urine Bacteria Few (FEW) /hpf Urine Mucus Not seen (FEW) /hpf Meds: Medications Discontinued Medications Generic Name Dose Route Start Last Admin Trade Name Lin PRN Reason Stop Dose Admin Ondansetron HCl 4 mg 10/11/19 14:03 10/11/19 14:09 Zofran Odt PO 10/11/19 14:04 4 mg ONETIME ONE Administration - Re-Assessments/Exams Free Text/Narrative Re-Assessment/Exam: 10/11/19 14:14 Patient presents to the ED for a multitude of symptoms. Her history is very nonfocal, but she seems to be worried most about the skin lesions that she has been noticing. She is not seen any provider for these in the past. Have ordered some basic labs to rule out any sort of infectious process going on. 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 Will likely send her home with antibiotics for suspected MRSA breast abscess. Of note, the patient checked in with abdomen pain , but did not complain of any sort of abdomen pain on exam, but did have some nausea. 10/11/19 14:45 Abdomen x-ray demonstrates a normal bowel gas pattern and extensive back surgery. I did appreciate some stool throughout her colon which theoretically could be causing some nausea and/or intermittent pains. 10/11/19 14:54 Patient's laboratory evaluation was come back, essentially within normal limits for her specific clinical course. The urinalysis did show 20-30 white blood cells per high-power field on a trace leukocyte Estrace, which would be suggestive of a UTI in nature. Patient will be discharged with some antibiotics and have her follow-up with Dr. Vaughan next week for reevaluation and further management if needed. Did want to send the patient home on Bactrim, but with her renal insufficiency, there was caution advised due to suspected concurrent hyperkalemia. Will try Keflex twice daily for 7 days at this time. We will have her follow-up in clinic regarding the abscess and/or lesion on her breast if not much better by next week. Departure - Departure Time of Disposition: 15:00 Disposition: Home, Self-Care 01 Condition: Good Clinical Impression: Cellulitis of left breast UTI (urinary tract infection) Qualifiers: Urinary tract infection type: acute cystitis Hematuria presence: without hematuria Qualified Code(s): N30.00 - Acute cystitis without hematuria - Discharge Information *PRESCRIPTION DRUG MONITORING PROGRAM REVIEWED*: No *COPY OF PRESCRIPTION DRUG MONITORING REPORT IN PATIENT JEREMY: No Prescriptions: cephALEXin [Cephalexin] 500 mg PO BID #14 capsule Instructions: Urinary Tract Infection, Adult, [id number], Cellulitis, Adult, [id number] Referrals: Enoch Vaughan MD [Primary Care Provider] - Forms: ED Department Discharge Additional Instructions: You have been evaluated in the ED for your urinary symptoms. Your urinalysis was consistent with an acute urinary tract infection. Your urine was sent for culture, and you will be notified if you should need a change in your antibiotic. This may take up to 48 hours to result. You may take AZO for urinary pain relief. This is available over the counter, and can be attained at any retail store like [employer] or any pharmacy. Please be aware that this medication will make your urine turn orange. You have been given a prescription for cephalexin, 500 mg 1 tablet 2 times a day for 7 days. This has been electronically sent to the pharmacy of your choice. Please increase your oral fluid intake and try to stay adequately hydrated. Regarding the lesion on your left breast and other skin lesions, the cephalexin will likely provide coverage for any sort of bacterial infection in those areas. Would like to have you follow-up with your regular care provider, sometime within the next week or 2 to make sure your symptoms are getting better as expected. Please return to the ED if your symptoms change or worsen. Sepsis Event Note - Evaluation Sepsis Screening Result: No Definite Risk - Focused Exam Vital Signs: Vital Signs Temp Pulse Resp BP Pulse Ox 10/11/19 13:20 97.1 F 80 22 H 115/84 98 Date Exam was Performed: 10/11/19 Time Exam was Performed: 15:07 - My Orders Last 24 Hours: My Active Orders 10/11/19 15:02 CULTURE URINE [RM] Routine - Assessment/Plan Last 24 Hours: My Active Orders 10/11/19 15:02 CULTURE URINE [RM] Routine
--- NOTE | 2019-10-11 14:38 | CR ---
Abdomen: Supine and upright views the abdomen were obtained. Comparison: No previous abdominal imaging. Extensive spine surgery is noted. Bowel gas pattern appears normal. Vascular calcification is seen. No free air is seen. Impression: 1. Findings as noted above. 2. Nothing acute is seen. Diagnostic code #2 This report was dictated in MDT
[2019-10-11 15:28] VITALS: BP 103/62; PULSE 88
== END 2019-10-11 15:20 | disposition home or self-care (01) ==
LOC: JD.ED 13:07
DX: N30.00 Acute cystitis without hematuria (principal); N61.0 Mastitis without abscess; I48.91 Unspecified atrial fibrillation; I25.10 Atherosclerotic heart disease of native coronary artery without angina pectoris; I11.0 Hypertensive heart disease with heart failure; I50.9 Heart failure, unspecified; J44.9 Chronic obstructive pulmonary disease, unspecified; K21.9 Gastro-esophageal reflux disease without esophagitis; E11.9 Type 2 diabetes mellitus without complications; E66.9 Obesity, unspecified; Z88.5 Allergy status to narcotic agent; Z68.29 Body mass index [BMI] 29.0-29.9, adult; Z91.041 Radiographic dye allergy status; Z79.01 Long term (current) use of anticoagulants; Z79.899 Other long term (current) drug therapy; Z87.891 Personal history of nicotine dependence
CPT/HCPCS: 36415; 74019; 80053; 81001; 85025; 87086; 87088; 87186; 99284; A9270

== ENCOUNTER 2020-04-07 10:52 | Emergency (ER) | payer MEDICARE, OTHER ==
[2020-04-07 11:13] VITALS: BP 82/51; PULSE 103
[2020-04-07] MEDS ORDERED: Sodium Chloride 0.9% 10 ML Syringe FLUSH PRN (11:34)
[2020-04-07] MEDS ORDERED: Sodium Chloride 0.9% 1,000 ML IV ONE (11:34)
[2020-04-07] MEDS ORDERED: Ondansetron 4 MG/2 ML SDV IVPUSH ONE (11:44)
[2020-04-07] MEDS ORDERED: LORazepam 2 MG/ML SDV IVPUSH ONE (11:47)
--- NOTE | 2020-04-07 11:54 | EDM.PDOC ---
ED HPI GENERAL MEDICAL PROBLEM - General Chief Complaint: Respiratory Problem Stated Complaint: LOW OXYGEN SENT BY CLINIC Time Seen by Provider: 04/07/20 11:16 Source of Information: Reports: Patient, RN Notes Reviewed History Limitations: Reports: No Limitations - History of Present Illness INITIAL COMMENTS - FREE TEXT/NARRATIVE: Patient is an 79-year-old female who presents to the ED via direction from her primary care provider for "low oxygen levels". Patient states that she went to the clinic today, she is just not really been feeling well. She was noted to have "low O2 sats" at the clinic, and states she was sent over here for further evaluation. Her primary care provider is Dr. Vaughan. On presentation, the patient's O2 sats are in the upper 90s on room air, when she is still in home. The patient's pulse is mildly elevated at 103, temperature is 97.2 F, respiratory rate of 24, and her blood pressure is mildly low at 82/51. A recheck of this did bring it up into the 100s systolically. The patient notes however though that the last week she has been having multiple loose stools throughout the day, and she has been feeling nauseated, generalized weakness, and having a cough at night. She has not talked to her family members about this as she did not want to call them in the middle the night. She has not had any fevers or chills that she can account for. She states she has a history of chronic low back pain, but states that she is having some low abdomen pain, but denies any urinary issues. She notes she has had a major loss of appetite, and states that nothing tastes good. 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 Lower Back Pain Score (Numeric/FACES): 10 - Related Data Allergies Allergy/AdvReac Type Severity Reaction Status Date / Time morphine AdvReac Severe Confusion Verified 04/07/20 11:04 contrast dye Allergy Severe Hives Uncoded 10/11/19 13:26 Home Meds: Home Meds Calcium Citrate/Vitamin D3 [Citracal + D Maximum Caplet] 1 tab PO BEDTIME 04/09/17 [History] Cyanocobalamin (Vitamin B12) [Vitamin B12] 1,000 mcg PO DAILY 04/09/17 [History] Pravastatin [Pravachol] 20 mg PO BEDTIME 11/19/17 [History] Apixaban [Eliquis] 2.5 mg PO BID 07/23/18 [History] Omeprazole 20 mg PO DAILY 07/24/18 [History] Amiodarone [Cordarone] 100 mg PO DAILY 11/07/18 [History] Furosemide [Lasix] 20 mg PO Q48H 11/07/18 [History] Metoprolol Tartrate [Lopressor] 50 mg PO BID 11/07/18 [History] buPROPion [buPROPion XL] 150 mg PO DAILY 11/07/18 [History] traZODone HCl [Trazodone HCl] 50 mg PO BEDTIME 11/07/18 [History] Spironolactone [Aldactone] 25 mg PO DAILY #20 tablet 11/09/18 [Rx] cephALEXin [Cephalexin] 500 mg PO BID #14 capsule 10/11/19 [Rx] Past Medical History HEENT History: Reports: Impaired Vision Other HEENT History: has upper and lower dentures Cardiovascular History: Reports: Afib, CAD, Heart Failure, High Cholesterol, Hypertension Respiratory History: Reports: COPD Gastrointestinal History: Reports: GERD Genitourinary History: Reports: Urinary 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 Hematologic History: Reports: B12 Deficiency - Infectious Disease History Infectious Disease History: Reports: Influenza - Past Surgical History HEENT Surgical History: Reports: Cataract Surgery, Tonsillectomy GI Surgical History: Reports: Cholecystectomy Neurological Surgical History: Reports: Lumbar Spine Other Neurological Surgeries/Procedures: back surgery Musculoskeletal Surgical History: Reports: Knee Replacement Other Musculoskeletal Surgeries/Procedures:: bilateral Social & Family History - Family History Family Medical History: No Pertinent Family History Neurological: Reports: CVA - Tobacco Use Tobacco Use Status *Q: Former Tobacco User Used Tobacco, but Quit: Yes Month/Year Tobacco Last Used: 03/2019 - Caffeine Use Caffeine Use: Reports: Soda - Recreational Drug Use Recreational Drug Use: No - Living Situation & Occupation Living situation: Reports: , with Family (Son) Occupation: Retired ED ROS GENERAL - Review of Systems Review Of Systems: Comprehensive ROS is negative, except as noted in HPI. ED EXAM, GENERAL - Physical Exam Exam: See Below Exam Limited By: No Limitations General Appearance: Alert, WD/WN, No Apparent Distress Eye Exam: Bilateral Eye: EOMI, Normal Inspection, PERRL Throat/Mouth: Normal Inspection, Normal Lips, Normal Teeth, Normal Gums, Normal Oropharynx, Normal Voice, No Airway Compromise Head: Atraumatic, Normocephalic Respiratory/Chest: No Respiratory Distress, Lungs Clear, Normal Breath Sounds, No Accessory Muscle Use, Chest Non-Tender Cardiovascular: Normal Peripheral Pulses, Regular Rate, Rhythm, No Edema, No Murmur Peripheral Pulses: 2+: Radial (L), Radial (R) Extremities: Normal Inspection, Normal Capillary Refill Neurological: Alert, Oriented, Normal Cognition, No Motor/Sensory Deficits Psychiatric: Normal Affect, Normal Mood Skin Exam: Warm, Dry, Intact, Normal Color, No Rash Course - Vital Signs Last Recorded V/S: Last Vital Signs Temp 97.2 F 04/07/20 11:08 Pulse 103 H 04/07/20 11:08 Resp 24 H 04/07/20 11:08 BP 82/51 L 04/07/20 11:08 Pulse Ox 99 04/07/20 11:08 - Orders/Labs/Meds Orders: Active Orders 24 hr Category Date Time Status EKG Documentation Completion [RC] STAT Care 04/07/20 11:33 Ordered Peripheral IV Care [RC] . DIRECTED Care 04/07/20 11:34 Ordered Chest 1V Frontal [CR] Stat Exams 04/07/20 11:32 Ordered C-REACTIVE PROTEIN [CHEM] Stat Lab 04/07/20 11:33 Ordered CBC WITH MANUAL DIFF [HEME] Stat Lab 04/07/20 11:33 Ordered COMPREHENSIVE METABOLIC PN,CMP [CHEM] Stat Lab 04/07/20 11:33 Ordered CORONAVIRUS COVID-19 YAMILEX [MOLEC] Stat Lab 04/07/20 11:33 Ordered D-DIMER QUANTITATIVE [COAG] Stat Lab 04/07/20 11:33 Ordered FERRITIN [CHEM] Stat Lab 04/07/20 11:33 Ordered INR,PT,PROTHROMBIN TIME [COAG] Stat Lab 04/07/20 11:33 Ordered LACTATE DEHYDROGENASE,LDH [CHEM] Stat Lab 04/07/20 11:33 Ordered LACTATE SEPSIS W/ REFLEX [CHEM] Stat Lab 04/07/20 11:33 Ordered MAGNESIUM [CHEM] Stat Lab 04/07/20 11:33 Ordered PRO B-TYPE NATRIUR PEPT,BNPPRO [CHEM] Stat Lab 04/07/20 11:33 Ordered PTT,PARTIAL THROMBOPLSTIN TIME [COAG] Stat Lab 04/07/20 11:33 Ordered TROPONIN I [CHEM] Stat Lab 04/07/20 11:33 Ordered UA W/MICROSCOPIC [URIN] Stat Lab 04/07/20 11:35 Ordered Sodium Chloride 0.9% [Normal Saline] 1,000 ml Med 04/07/20 11:34 Ordered IV ONETIME Sodium Chloride 0.9% [Saline Flush] Med 04/07/20 11:34 Ordered 10 ml FLUSH ASDIRECTED PRN Peripheral IV Insertion Adult [OM.PC] Routine Oth 04/07/20 11:34 Ordered Medication Orders Sodium Chloride (Normal Saline) 1,000 mls @ 500 mls/hr IV ONETIME ONE Stop: 04/07/20 13:33 Sodium Chloride (Saline Flush) 10 ml FLUSH ASDIRECTED PRN PRN Reason: Keep Vein Open Meds: Medications Generic Name Dose Route Start Last Admin Trade Name Freq PRN Reason Stop Dose Admin Sodium Chloride 1,000 mls @ 500 mls/hr 04/07/20 11:34 Normal Saline IV 04/07/20 13:33 ONETIME ONE Sodium Chloride 10 ml 04/07/20 11:34 Saline Flush FLUSH ASDIRECTED PRN Keep Vein Open - Re-Assessments/Exams Free Text/Narrative Re-Assessment/Exam: 04/07/20 11:43 Patient presents to the ED for the evaluation of her "low oxygen sats". She has great oxygen saturations while being in the ER here, but has had a cough, some nausea, no other generalized complaints. We will get some labs, and rule out COVID-19 at this time. She is having some low abdomen discomfort, which is highly suspect for possible UTI also causing some of her nausea. She will get some fluids due to the low blood pressure readings and some nausea medications and will go from there. 04/07/20 11:54 I was told by nursing staff, that the patient is increasingly anxious, her IV has blown, and she is wanting to leave at this time. At this point to be AMA, nurse is getting paperwork and will let her go and have her try to follow-up with her primary care provider. Departure - Departure Time of Disposition: 11:54 Disposition: Against Medical Advice 07 Condition: Undetermined Clinical Impression: Anxiety, Lower abdominal pain, Low blood pressure reading - Discharge Information Referrals: Enoch Vaughan MD [Primary Care Provider] - Sepsis Event Note (ED) - Evaluation Sepsis Screening Result: No Definite Risk - Focused Exam Vital Signs: Vital Signs Temp Pulse Resp BP Pulse Ox 04/07/20 11:08 97.2 F 103 H 24 H 82/51 L 99 - My Orders Last 24 Hours: My Active Orders 04/07/20 11:32 Chest 1V Frontal [CR] Stat 04/07/20 11:33 EKG Documentation Completion [RC] STAT C-REACTIVE PROTEIN [CHEM] Stat CBC WITH MANUAL DIFF [HEME] Stat COMPREHENSIVE METABOLIC PN,CMP [CHEM] Stat CORONAVIRUS COVID-19 YAMILEX [MOLEC] Stat D-DIMER QUANTITATIVE [COAG] Stat FERRITIN [CHEM] Stat INR,PT,PROTHROMBIN TIME [COAG] Stat LACTATE DEHYDROGENASE,LDH [CHEM] Stat LACTATE SEPSIS W/ REFLEX [CHEM] Stat MAGNESIUM [CHEM] Stat PRO B-TYPE NATRIUR PEPT,BNPPRO [CHEM] Stat PTT,PARTIAL THROMBOPLSTIN TIME [COAG] Stat TROPONIN I [CHEM] Stat 04/07/20 11:34 Peripheral IV Care [RC] . DIRECTED Sodium Chloride 0.9% [Normal Saline] 1,000 ml IV ONETIME Sodium Chloride 0.9% [Saline Flush] 10 ml FLUSH ASDIRECTED PRN Peripheral IV Insertion Adult [OM.PC] Routine 04/07/20 11:35 UA W/MICROSCOPIC [URIN] Stat - Assessment/Plan Last 24 Hours: My Active Orders 04/07/20 11:32 Chest 1V Frontal [CR] Stat 04/07/20 11:33 EKG Documentation Completion [RC] STAT C-REACTIVE PROTEIN [CHEM] Stat CBC WITH MANUAL DIFF [HEME] Stat COMPREHENSIVE METABOLIC PN,CMP [CHEM] Stat CORONAVIRUS COVID-19 YAMILEX [MOLEC] Stat D-DIMER QUANTITATIVE [COAG] Stat FERRITIN [CHEM] Stat INR,PT,PROTHROMBIN TIME [COAG] Stat LACTATE DEHYDROGENASE,LDH [CHEM] Stat LACTATE SEPSIS W/ REFLEX [CHEM] Stat MAGNESIUM [CHEM] Stat PRO B-TYPE NATRIUR PEPT,BNPPRO [CHEM] Stat PTT,PARTIAL THROMBOPLSTIN TIME [COAG] Stat TROPONIN I [CHEM] Stat 04/07/20 11:34 Peripheral IV Care [RC] . DIRECTED Sodium Chloride 0.9% [Normal Saline] 1,000 ml IV ONETIME Sodium Chloride 0.9% [Saline Flush] 10 ml FLUSH ASDIRECTED PRN Peripheral IV Insertion Adult [OM.PC] Routine 04/07/20 11:35 UA W/MICROSCOPIC [URIN] Stat
== END 2020-04-07 12:25 | disposition left against medical advice (07) ==
LOC: JD.ED 10:52
DX: R10.30 Lower abdominal pain, unspecified (principal); F41.9 Anxiety disorder, unspecified; I95.9 Hypotension, unspecified; I48.91 Unspecified atrial fibrillation; I25.10 Atherosclerotic heart disease of native coronary artery without angina pectoris; I11.0 Hypertensive heart disease with heart failure; I50.9 Heart failure, unspecified; E78.00 Pure hypercholesterolemia, unspecified; J44.9 Chronic obstructive pulmonary disease, unspecified; K21.9 Gastro-esophageal reflux disease without esophagitis; E11.9 Type 2 diabetes mellitus without complications; E66.9 Obesity, unspecified; Z68.30 Body mass index [BMI] 30.0-30.9, adult; Z87.891 Personal history of nicotine dependence; Z88.5 Allergy status to narcotic agent; Z91.041 Radiographic dye allergy status; Z79.899 Other long term (current) drug therapy; Z79.01 Long term (current) use of anticoagulants
CPT/HCPCS: 36415; 80053; 82728; 83605; 83615; 83735; 83880; 84484; 85007; 85027; 85379; 85610; 85730; 86140; 99283; 99285-25

== ENCOUNTER 2020-04-11 05:41 | Emergency (ER) | payer MEDICARE, OTHER ==
[2020-04-11 06:41] VITALS: BP 95/79; PULSE 102
--- NOTE | 2020-04-11 07:00 | EDM.PDOC ---
ED HPI GENERAL MEDICAL PROBLEM - General Chief Complaint: Gastrointestinal Problem Stated Complaint: low oxygen low blood pressure Time Seen by Provider: 04/11/20 06:58 Source of Information: Reports: Patient, RN Notes Reviewed - History of Present Illness INITIAL COMMENTS - FREE TEXT/NARRATIVE: 79 yr old female comes in with C/O watery diarrhea. She states this started about 2 wks ago. Eating makes it worse. No nausea, abd pain or vomiting. No known fever or chills. Has had occasional cough. No chest pain or difficulty breathing at time of exam. Abdomen Pain Score (Numeric/FACES): 4 - Related Data Allergies Allergy/AdvReac Type Severity Reaction Status Date / Time morphine AdvReac Severe Confusion Verified 04/11/20 06:16 contrast dye Allergy Severe Hives Uncoded 10/11/19 13:26 Home Meds: Home Meds Calcium Citrate/Vitamin D3 [Citracal + D Maximum Caplet] 1 tab PO BEDTIME [History] Cyanocobalamin (Vitamin B12) [Vitamin B12] 1,000 mcg PO DAILY 04/09/17 [History] Pravastatin [Pravachol] 20 mg PO BEDTIME 04/09/17 [History] Apixaban [Eliquis] 2.5 mg PO BID 07/23/18 [History] Omeprazole 20 mg PO DAILY 07/24/18 [History] Amiodarone [Cordarone] 100 mg PO DAILY 11/07/18 [History] Furosemide [Lasix] 20 mg PO Q48H 11/07/18 [History] Metoprolol Tartrate [Lopressor] 50 mg PO BID 11/07/18 [History] buPROPion [buPROPion XL] 150 mg PO DAILY 11/07/18 [History] traZODone HCl [Trazodone HCl] 50 mg PO BEDTIME 11/07/18 [History] Spironolactone [Aldactone] 25 mg PO DAILY #20 tablet 11/09/18 [Rx] cephALEXin [Cephalexin] 500 mg PO BID #14 capsule 10/11/19 [Rx] Past Medical History HEENT History: Reports: Impaired Vision Other HEENT History: has upper and lower dentures Cardiovascular History: Reports: Afib, CAD, Heart Failure, High Cholesterol, Hypertension Respiratory History: Reports: COPD Gastrointestinal History: Reports: GERD Genitourinary History: Reports: Urinary Incontinence 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 Hematologic History: Reports: B12 Deficiency Immunologic History: Reports: None Oncologic (Cancer) History: Reports: None Dermatologic History: Reports: None - Infectious Disease History Infectious Disease History: Reports: Influenza - Past Surgical History HEENT Surgical History: Reports: Cataract Surgery, Tonsillectomy GI Surgical History: Reports: Cholecystectomy Neurological Surgical History: Reports: Lumbar Spine Other Neurological Surgeries/Procedures: back surgery Musculoskeletal Surgical History: Reports: Knee Replacement Other Musculoskeletal Surgeries/Procedures:: bilateral Social & Family History - Family History Family Medical History: No Pertinent Family History Neurological: Reports: CVA - Caffeine Use Caffeine Use: Reports: Soda - Living Situation & Occupation Living situation: Reports: , with Family (Son) Occupation: Retired ED ROS GENERAL - Review of Systems Review Of Systems: See Below Constitutional: Denies: Fever, Chills HEENT: Denies: Sinus Problem, Throat Pain Respiratory: Reports: Cough (occasional). Denies: Shortness of Breath Cardiovascular: Denies: Chest Pain GI/Abdominal: Reports: Diarrhea, Decreased Appetite. Denies: Abdominal Pain, Nausea, Vomiting Musculoskeletal: Reports: Back Pain. Denies: Shoulder Pain, Arm Pain Skin: Reports: Bruising Neurological: Reports: No Symptoms ED EXAM, GI/ABD - Physical Exam Exam: See Below General Appearance: Alert, No Apparent Distress Eyes: Bilateral: Normal Appearance Throat/Mouth: Other (mouth is dry) Respiratory/Chest: No Respiratory Distress, Lungs Clear, Normal Breath Sounds Cardiovascular: Irregularly Irregular GI/Abdominal Exam: Soft, Non-Tender. No: Guarding Extremities: Normal Inspection. No: Pedal Edema, Leg Pain, Increased Warmth, Redness Neurological: Alert, No Motor/Sensory Deficits Skin Exam: Warm, Dry, Normal Color, Other (scattered bruises bilat arms) Course - Vital Signs Last Recorded V/S: Last Vital Signs Temp 98.2 F 04/11/20 06:37 Pulse 102 H 04/11/20 06:37 Resp 16 04/11/20 06:37 BP 95/79 04/11/20 06:37 Pulse Ox 78 L 04/11/20 06:37 - Orders/Labs/Meds Orders: Active Orders 24 hr Category Date Time Status Peripheral IV Care [RC] . DIRECTED Care 04/11/20 07:11 Active Chest 1V Frontal [CR] Stat Exams 04/11/20 07:46 Taken BLOOD GAS ARTERIAL [BG] Stat Lab 04/11/20 07:54 Ordered Sodium Chloride 0.9% [Normal Saline] 1,000 ml Med 04/11/20 07:15 Active IV ONETIME Sodium Chloride 0.9% [Saline Flush] Med 04/11/20 07:11 Active 10 ml FLUSH ASDIRECTED PRN Peripheral IV Insertion Adult [OM.PC] Stat Oth 04/11/20 07:11 Ordered Medication Orders Sodium Chloride (Normal Saline) 1,000 mls @ 999 mls/hr IV ONETIME KAYLEE Last Admin: 04/11/20 07:45 Dose: 999 mls/hr Documented by: BEATRICE Sodium Chloride (Saline Flush) 10 ml FLUSH ASDIRECTED PRN PRN Reason: Keep Vein Open Last Admin: 04/11/20 09:54 Dose: 10 ml Documented by: BEATRICE Labs: Laboratory Tests 04/11/20 04/11/20 04/11/20 Range/Units 08:05 08:05 08:05 WBC 7.77 (3.98-10.04) K/mm3 RBC 3.64 L (3.98-5.22) M/mm3 Hgb 11.5 (11.2-15.7) gm/dl Hct 37.0 (34.1-44.9) % MCV 101.6 H (79.4-94.8) fl MCH 31.6 (25.6-32.2) pg MCHC 31.1 L (32.2-35.5) g/dl RDW Std Deviation 57.1 H (36.4-46.3) fL Plt Count 206 (182-369) K/mm3 MPV 10.6 (9.4-12.3) fl Neut % (Auto) 82.2 H (34.0-71.1) % Lymph % (Auto) 12.2 L (19.3-51.7) % [place] % (Auto) 4.6 L (4.7-12.5) % Eos % (Auto) 0.4 L (0.7-5.8) Baso % (Auto) 0.1 (0.1-1.2) % Neut # (Auto) 6.38 H (1.56-6.13) K/mm3 Lymph # (Auto) 0.95 L (1.18-3.74) K/mm3 [place] # (Auto) 0.36 (0.24-0.36) K/mm3 Eos # (Auto) 0.03 L (0.04-0.36) K/mm3 Baso # (Auto) 0.01 (0.01-0.08) K/mm3 Sodium 134 L (136-145) mEq/L Potassium 3.6 (3.5-5.1) mEq/L Chloride 97 L (98-107) mEq/L Carbon Dioxide 24 (21-32) mEq/L Anion Gap 16.6 H (5-15) BUN 27 H (7-18) mg/dL Creatinine 2.9 H (0.55-1.02) mg/dL Est Cr Clr Drug Dosing 12.59 mL/min Estimated GFR (MDRD) 16 (>60) mL/min BUN/Creatinine Ratio 9.3 L (14-18) Glucose 93 (83-115) mg/dL Calcium 8.6 (8.5-10.1) mg/dL Total Bilirubin 0.5 (0.2-1.0) mg/dL AST 26 (15-37) U/L ALT 13 L (14-59) U/L Alkaline Phosphatase 44 L (46-116) U/L NT-Pro-B Natriuret Pep 4072 H (0-450) pg/mL Total Protein 6.4 (6.4-8.2) g/dl Albumin 3.0 L (3.4-5.0) g/dl Globulin 3.4 gm/dL Albumin/Globulin Ratio 0.9 L (1-2) Meds: Medications Generic Name Dose Route Start Last Admin Trade Name Freq PRN Reason Stop Dose Admin Sodium Chloride 1,000 mls @ 999 mls/hr 04/11/20 07:15 04/11/20 07:45 Normal Saline IV 999 mls/hr ONETIME KAYLEE Administration Sodium Chloride 10 ml 04/11/20 07:11 04/11/20 09:54 Saline Flush FLUSH 10 ml ASDIRECTED PRN Administration Keep Vein Open - Re-Assessments/Exams Free Text/Narrative Re-Assessment/Exam: 04/11/20 10:07. Inital readings of 02 sats were low, 98 % on 2 L NC at time of my exam. I ordered gases on room air. Unfortunately the initial ABG's were done on the 2 L. We put her back on room air, ABG's room air showed pO2 69, 7.37, 36.2. CXR cardiomegally but no acute findings. Creatnine mildly elevated from baseline at 2.9. Have given 1 liter of NS IV. Will start her on probiotic twice daily, have her stop her lasix and spironolactone for 1 week. Follow up clinic in 4 to 5 days. Discharge instr. as documented. Departure - Departure Time of Disposition: 09:33 Disposition: Home, Self-Care 01 Condition: Fair Clinical Impression: Renal insufficiency Diarrhea Qualifiers: Diarrhea type: unspecified type Qualified Code(s): R19.7 - Diarrhea, unspecified - Discharge Information Instructions: Diarrhea, Adult, [id number] Referrals: Enoch Vaughan MD [Primary Care Provider] - Forms: ED Department Discharge Additional Instructions: Probiotic (available OTC)twice daily for 1 week or until after symptoms of diarrhea have completely resolved. Avoid milk and all dairy products for now. Clear liquids and careful bland diet as tolerated. Stop the lasix and spironolactone (Aldactone) for [address] Stephens in about 4 to 5 days for recheck, call Monday for appointment. Return to ED as needed if symptoms worsening in any way. Sepsis Event Note (ED) - Evaluation Sepsis Screening Result: No Definite Risk - Focused Exam Vital Signs: Vital Signs Temp Pulse Resp BP Pulse Ox 04/11/20 06:37 98.2 F 102 H 16 95/79 78 L 04/11/20 06:13 98.2 F 82 16 124/75 96 - My Orders Last 24 Hours: My Active Orders 04/11/20 07:11 Peripheral IV Care [RC] . DIRECTED Sodium Chloride 0.9% [Saline Flush] 10 ml FLUSH ASDIRECTED PRN Peripheral IV Insertion Adult [OM.PC] Stat 04/11/20 07:15 Sodium Chloride 0.9% [Normal Saline] 1,000 ml IV ONETIME 04/11/20 07:46 Chest 1V Frontal [CR] Stat 04/11/20 07:54 BLOOD GAS ARTERIAL [BG] Stat - Assessment/Plan Last 24 Hours: My Active Orders 04/11/20 07:11 Peripheral IV Care [RC] . DIRECTED Sodium Chloride 0.9% [Saline Flush] 10 ml FLUSH ASDIRECTED PRN Peripheral IV Insertion Adult [OM.PC] Stat 04/11/20 07:15 Sodium Chloride 0.9% [Normal Saline] 1,000 ml IV ONETIME 04/11/20 07:46 Chest 1V Frontal [CR] Stat 04/11/20 07:54 BLOOD GAS ARTERIAL [BG] Stat
[2020-04-11] MEDS ORDERED: Sodium Chloride 0.9% 10 ML Syringe FLUSH PRN (07:11)
[2020-04-11] MEDS ORDERED: Sodium Chloride 0.9% 1,000 ML IV SCH (07:15)
--- NOTE | 2020-04-13 09:15 | CR ---
PROCEDURE INFORMATION: Exam: XR Chest, 1 View Exam date and time: 04/11/2020 8:03 AM Age: 79 years old Clinical indication: Other: Hypoxia TECHNIQUE: Imaging protocol: XR of the chest Views: 1 view. COMPARISON: CR Chest 1V Frontal 10/01/2019 4:40 PM FINDINGS: Tubes, catheters and devices: Overlying EKG wires Lungs: Discoid atelectasis on the left No focal consolidation.. Pleural space: Unremarkable. No pleural effusion. No pneumothorax. Heart/Mediastinum: Cardiomegaly Vasculature: Tortuous aorta Bones/joints: Degenerative changes in the glenohumeral joints IMPRESSION: No focal consolidation.. Thank you for allowing us to participate in the care of your patient. Dictated and Authenticated by: Columba Raya MD 04/11/2020 10:33 AM Central Time ([place] & [place]) YVONNE
== END 2020-04-11 10:00 | disposition home or self-care (01) ==
LOC: JD.ED 05:41
DX: R19.7 Diarrhea, unspecified (principal); N28.9 Disorder of kidney and ureter, unspecified; I48.91 Unspecified atrial fibrillation; I25.10 Atherosclerotic heart disease of native coronary artery without angina pectoris; E78.00 Pure hypercholesterolemia, unspecified; I11.0 Hypertensive heart disease with heart failure; I50.9 Heart failure, unspecified; E11.9 Type 2 diabetes mellitus without complications; J44.9 Chronic obstructive pulmonary disease, unspecified; E66.9 Obesity, unspecified; K21.9 Gastro-esophageal reflux disease without esophagitis; F41.9 Anxiety disorder, unspecified; Z68.30 Body mass index [BMI] 30.0-30.9, adult; Z88.5 Allergy status to narcotic agent; Z91.041 Radiographic dye allergy status; Z79.01 Long term (current) use of anticoagulants; Z79.899 Other long term (current) drug therapy
CPT/HCPCS: 36415; 36600; 71045; 80053; 82803; 83880; 85025; 99284; J7030; 99283

== ENCOUNTER 2020-04-13 08:06 | Inpatient (IN) | payer MEDICARE, OTHER ==
[2020-04-13] MEDS ORDERED: Ondansetron 4 MG/2 ML SDV IVPUSH ONE ×2 (08:42→12:06)
[2020-04-13] MEDS ORDERED: Sodium Chloride 0.9% 10 ML Syringe FLUSH PRN ×2 (08:42→12:14)
[2020-04-13] MEDS ORDERED: Sodium Chloride 0.9% 1,000 ML IV SCH (08:45)
[2020-04-13] MEDS ORDERED: LORazepam 2 MG/ML SDV ONE ×2 (10:12→12:57)
[2020-04-13] MEDS ORDERED: LORazepam 2 MG/ML SDV IVPUSH ONE ×4 (10:14→12:58)
--- NOTE | 2020-04-13 10:27 | EDM.PDOC ---
ED HPI GENERAL MEDICAL PROBLEM - General Chief Complaint: Gastrointestinal Problem Stated Complaint: VOMITING AND DIARRHEA,BLOOD IN STOOL Time Seen by Provider: 04/13/20 08:27 Source of Information: Reports: Patient History Limitations: Reports: No Limitations - History of Present Illness INITIAL COMMENTS - FREE TEXT/NARRATIVE: The patient presents from home for a cough, nausea, vomiting and diarrhea. This has been going on for about a week. She was seen here on the 17th and left AMA. She was then seen a couple days ago and found to have renal insufficiency and diarrhea. She continues to have a cough, nausea, vomiting and diarrhea. She says her butt is sore. She says she did notice some blood. She has a productive cough at times. She has a history of A-fib and she is on eliquis. She has a history of COPD. Onset: Gradual Duration: Week(s): Severity: Moderate Improves with: Reports: None Worsens with: Reports: None Associated Symptoms: Reports: Cough, Nausea/Vomiting, Shortness of Breath. Denies: Chest Pain, Fever/Chills, Headaches - Related Data Allergies Allergy/AdvReac Type Severity Reaction Status Date / Time morphine AdvReac Severe Confusion Verified 04/13/20 08:23 contrast dye Allergy Severe Hives Uncoded 04/13/20 08:23 Home Meds: Home Meds Calcium Citrate/Vitamin D3 [Citracal + D Maximum Caplet] 1 tab PO BEDTIME 03/22 02/05 [History] Cyanocobalamin (Vitamin B12) [Vitamin B12] 1,000 mcg PO DAILY 04/09/17 [History] Pravastatin [Pravachol] 20 mg PO BEDTIME 04/09/17 [History] Apixaban [Eliquis] 2.5 mg PO BID 07/23/18 [History] Omeprazole 20 mg PO DAILY 07/24/18 [History] Amiodarone [Cordarone] 100 mg PO DAILY 11/07/18 [History] Furosemide [Lasix] 20 mg PO Q48H 11/07/18 [History] Metoprolol Tartrate [Lopressor] 50 mg PO BID 11/07/18 [History] buPROPion [buPROPion XL] 150 mg PO DAILY 11/07/18 [History] traZODone HCl [Trazodone HCl] 50 mg PO BEDTIME 11/07/18 [History] Spironolactone [Aldactone] 25 mg PO DAILY #20 tablet 11/09/18 [Rx] cephALEXin [Cephalexin] 500 mg PO BID #14 capsule 10/11/19 [Rx] Past Medical History HEENT History: Reports: Impaired Vision Other HEENT History: has upper and lower dentures Cardiovascular History: Reports: Afib, CAD, Heart Failure, High Cholesterol, Hypertension Respiratory History: Reports: COPD Gastrointestinal History: Reports: GERD Genitourinary History: Reports: Urinary Incontinence 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 Hematologic History: Reports: B12 Deficiency Immunologic History: Reports: None Oncologic (Cancer) History: Reports: None Dermatologic History: Reports: None - Infectious Disease History Infectious Disease History: Reports: Influenza - Past Surgical History HEENT Surgical History: Reports: Cataract Surgery, Tonsillectomy GI Surgical History: Reports: Cholecystectomy Neurological Surgical History: Reports: Lumbar Spine Other Neurological Surgeries/Procedures: back surgery Musculoskeletal Surgical History: Reports: Knee Replacement Other Musculoskeletal Surgeries/Procedures:: bilateral Social & Family History - Family History Family Medical History: No Pertinent Family History Neurological: Reports: CVA - Tobacco Use Tobacco Use Status *Q: Former Tobacco User Used Tobacco, but Quit: Yes Month/Year Tobacco Last Used: 03/2019 - Caffeine Use Caffeine Use: Reports: Soda - Recreational Drug Use Recreational Drug Use: No - Living Situation & Occupation Living situation: Reports: , with Family (Son) Occupation: Retired ED ROS GENERAL - Review of Systems Review Of Systems: See Below Constitutional: Reports: Weakness, Fatigue HEENT: Reports: No Symptoms Respiratory: Reports: Shortness of Breath, Cough Cardiovascular: Reports: No Symptoms Endocrine: Reports: No Symptoms GI/Abdominal: Reports: Diarrhea, Nausea, Vomiting. Denies: Abdominal Pain : Reports: No Symptoms Musculoskeletal: Reports: No Symptoms ED EXAM, GI/ABD - Physical Exam Exam: See Below Exam Limited By: No Limitations General Appearance: Alert, No Apparent Distress Ears: Normal External Exam Nose: Normal Inspection Head: Atraumatic, Normocephalic Neck: Normal Inspection Respiratory/Chest: No Respiratory Distress, Decreased Breath Sounds Cardiovascular: Regular Rate, Rhythm, No Edema, No Murmur GI/Abdominal Exam: Soft, Non-Tender, No Organomegaly, No Mass Rectal (Female) Exam: Heme - Stool, Other (Rectal area has erythema) Back Exam: Normal Inspection Extremities: Normal Inspection Neurological: Alert, Oriented, No Motor/Sensory Deficits Course - Vital Signs Last Recorded V/S: Last Vital Signs Temp 97.4 F 04/13/20 08:19 Pulse 126 H 04/13/20 08:19 Resp 18 04/13/20 08:19 BP 146/133 H 04/13/20 08:19 Pulse Ox 95 04/13/20 11:10 - Orders/Labs/Meds Orders: Active Orders 24 hr Category Date Time Status EKG Documentation Completion [RC] ASDIRECTED Care 04/13/20 11:26 Active Oxygen Therapy [RC] PRN Care 04/13/20 08:42 Active Peripheral IV Care [RC] . DIRECTED Care 04/13/20 08:43 Active C DIFFICILE PCR W/REFLEX [MOLEC] Stat Lab 04/13/20 08:44 Ordered STOOL CULTURE/SHIGA TOXIN [MREF] Stat Lab 04/13/20 08:44 Ordered Magnesium Sulfate/Water [Magnesium Sulfate in Water Med 04/13/20 10:45 Active Premix] 2 gm in 50 ml IV Q1H Sodium Chloride 0.9% [Normal Saline] 1,000 ml Med 04/13/20 08:45 Active IV ASDIRECTED Sodium Chloride 0.9% [Saline Flush] Med 04/13/20 08:42 Active 10 ml FLUSH ASDIRECTED PRN ED Antiemetic Medication Reflex [OM.PC] Stat Oth 04/13/20 08:42 Ordered Peripheral IV Insertion Adult [OM.PC] Stat Oth 04/13/20 08:42 Ordered EKG 12 Lead [EK] Stat Ther 04/13/20 11:26 Ordered Medication Orders Sodium Chloride (Normal Saline) 1,000 mls @ 125 mls/hr IV ASDIRECTED KAYLEE Last Admin: 04/13/20 08:57 Dose: 125 mls/hr Documented by: JOSE Magnesium Sulfate (Magnesium Sulfate In Water Premix) 2 gm in 50 mls @ 25 mls/hr IV Q1H KAYLEE Last Admin: 04/13/20 11:09 Dose: 25 mls/hr Documented by: JOSE Sodium Chloride (Saline Flush) 10 ml FLUSH ASDIRECTED PRN PRN Reason: Keep Vein Open Last Admin: 04/13/20 08:57 Dose: 10 ml Documented by: JOSE Labs: Laboratory Tests 04/13/20 04/13/20 04/13/20 Range/Units 08:22 08:22 08:22 WBC 6.78 (3.98-10.04) K/mm3 RBC 3.77 L (3.98-5.22) M/mm3 Hgb 11.7 (11.2-15.7) gm/dl Hct 38.1 (34.1-44.9) % MCV 101.1 H (79.4-94.8) fl MCH 31.0 (25.6-32.2) pg MCHC 30.7 L (32.2-35.5) g/dl RDW Std Deviation 58.1 H (36.4-46.3) fL Plt Count 224 (182-369) K/mm3 MPV 11.2 (9.4-12.3) fl Neut % (Auto) 78.1 H (34.0-71.1) % Lymph % (Auto) 15.0 L (19.3-51.7) % [place] % (Auto) 5.9 (4.7-12.5) % Eos % (Auto) 0.3 L (0.7-5.8) Baso % (Auto) 0.1 (0.1-1.2) % Neut # (Auto) 5.29 (1.56-6.13) K/mm3 Lymph # (Auto) 1.02 L (1.18-3.74) K/mm3 [place] # (Auto) 0.40 H (0.24-0.36) K/mm3 Eos # (Auto) 0.02 L (0.04-0.36) K/mm3 Baso # (Auto) 0.01 (0.01-0.08) K/mm3 PT 12.3 H (9.7-12.0) SECONDS INR 1.15 APTT 37.6 H (21.7-31.4) SECONDS D-Dimer, Quantitative 0.25 (0.19-0.50) mg/L Sodium 134 L (136-145) mEq/L Potassium 3.5 (3.5-5.1) mEq/L Chloride 98 (98-107) mEq/L Carbon Dioxide 24 (21-32) mEq/L Anion Gap 15.5 H (5-15) BUN 24 H (7-18) mg/dL Creatinine 2.7 H (0.55-1.02) mg/dL Est Cr Clr Drug Dosing 12.70 mL/min Estimated GFR (MDRD) 17 (>60) mL/min BUN/Creatinine Ratio 8.9 L (14-18) Glucose 109 (83-115) mg/dL Lactic Acid (0.4-2.0) mmol/L Calcium 8.4 L (8.5-10.1) mg/dL Magnesium 1.0 L (1.8-2.4) mg/dl Ferritin (8-252) ng/ml Total Bilirubin 0.6 (0.2-1.0) mg/dL AST 30 (15-37) U/L ALT 14 (14-59) U/L Alkaline Phosphatase 38 L (46-116) U/L Troponin I < 0.017 (0.00-0.056) ng/mL NT-Pro-B Natriuret Pep (0-450) pg/mL Total Protein 6.3 L (6.4-8.2) g/dl Albumin 2.9 L (3.4-5.0) g/dl Globulin 3.4 gm/dL Albumin/Globulin Ratio 0.9 L (1-2) Lipase 351 (73-393) U/L Urine Color (Yellow) Urine Appearance (Clear) Urine pH (5.0-8.0) Ur Specific Reagan (1.005-1.030) Urine Protein (Negative) Urine Glucose (UA) (Negative) Urine Ketones (Negative) Urine Occult Blood (Negative) Urine Nitrite (Negative) Urine Bilirubin (Negative) Urine Urobilinogen (0.2-1.0) Ur Leukocyte Esterase (Negative) Urine RBC (0-5) /hpf Urine WBC (0-5) /hpf Ur Squamous Epith Cells (0-5) /hpf Urine Bacteria (FEW) /hpf Coarse Granular Casts (0-5) /hpf Urine Mucus (FEW) /hpf SARS-CoV-2 RNA (YAMILEX) (NEGATIVE) 11/23/20 11/23/20 11/23/20 Range/Units 08:22 08:22 08:42 WBC (3.98-10.04) K/mm3 RBC (3.98-5.22) M/mm3 Hgb (11.2-15.7) gm/dl Hct (34.1-44.9) % MCV (79.4-94.8) fl MCH (25.6-32.2) pg MCHC (32.2-35.5) g/dl RDW Std Deviation (36.4-46.3) fL Plt Count (182-369) K/mm3 MPV (9.4-12.3) fl Neut % (Auto) (34.0-71.1) % Lymph % (Auto) (19.3-51.7) % [place] % (Auto) (4.7-12.5) % Eos % (Auto) (0.7-5.8) Baso % (Auto) (0.1-1.2) % Neut # (Auto) (1.56-6.13) K/mm3 Lymph # (Auto) (1.18-3.74) K/mm3 [place] # (Auto) (0.24-0.36) K/mm3 Eos # (Auto) (0.04-0.36) K/mm3 Baso # (Auto) (0.01-0.08) K/mm3 PT (9.7-12.0) SECONDS INR APTT (21.7-31.4) SECONDS D-Dimer, Quantitative (0.19-0.50) mg/L Sodium (136-145) mEq/L Potassium (3.5-5.1) mEq/L Chloride (98-107) mEq/L Carbon Dioxide (21-32) mEq/L Anion Gap (5-15) BUN (7-18) mg/dL Creatinine (0.55-1.02) mg/dL Est Cr Clr Drug Dosing mL/min Estimated GFR (MDRD) (>60) mL/min BUN/Creatinine Ratio (14-18) Glucose (83-115) mg/dL Lactic Acid (0.4-2.0) mmol/L Calcium (8.5-10.1) mg/dL Magnesium (1.8-2.4) mg/dl Ferritin 353 H (8-252) ng/ml Total Bilirubin (0.2-1.0) mg/dL AST (15-37) U/L ALT (14-59) U/L Alkaline Phosphatase (46-116) U/L Troponin I (0.00-0.056) ng/mL NT-Pro-B Natriuret Pep 5444 H (0-450) pg/mL Total Protein (6.4-8.2) g/dl Albumin (3.4-5.0) g/dl Globulin gm/dL Albumin/Globulin Ratio (1-2) Lipase (73-393) U/L Urine Color Yellow (Yellow) Urine Appearance Clear (Clear) Urine pH 6.0 (5.0-8.0) Ur Specific [place] > or = 1.030 (1.005-1.030) Urine Protein 2+ H (Negative) Urine Glucose (UA) Negative (Negative) Urine Ketones Negative (Negative) Urine Occult Blood Negative (Negative) Urine Nitrite Negative (Negative) Urine Bilirubin Negative (Negative) Urine Urobilinogen 0.2 (0.2-1.0) Ur Leukocyte Esterase Negative (Negative) Urine RBC 0-5 (0-5) /hpf Urine WBC 0-5 (0-5) /hpf Ur Squamous Epith Cells 0-5 (0-5) /hpf Urine Bacteria Few (FEW) /hpf Coarse Granular Casts 0-5 (0-5) /hpf Urine Mucus Not seen (FEW) /hpf SARS-CoV-2 RNA (YAMILEX) (NEGATIVE) 04/13/20 04/13/20 Range/Units 08:58 09:10 WBC (3.98-10.04) K/mm3 RBC (3.98-5.22) M/mm3 Hgb (11.2-15.7) gm/dl Hct (34.1-44.9) % MCV (79.4-94.8) fl MCH (25.6-32.2) pg MCHC (32.2-35.5) g/dl RDW Std Deviation (36.4-46.3) fL Plt Count (182-369) K/mm3 MPV (9.4-12.3) fl Neut % (Auto) (34.0-71.1) % Lymph % (Auto) (19.3-51.7) % [place] % (Auto) (4.7-12.5) % Eos % (Auto) (0.7-5.8) Baso % (Auto) (0.1-1.2) % Neut # (Auto) (1.56-6.13) K/mm3 Lymph # (Auto) (1.18-3.74) K/mm3 [place] # (Auto) (0.24-0.36) K/mm3 Eos # (Auto) (0.04-0.36) K/mm3 Baso # (Auto) (0.01-0.08) K/mm3 PT (9.7-12.0) SECONDS INR APTT (21.7-31.4) SECONDS D-Dimer, Quantitative (0.19-0.50) mg/L Sodium (136-145) mEq/L Potassium (3.5-5.1) mEq/L Chloride (98-107) mEq/L Carbon Dioxide (21-32) mEq/L Anion Gap (5-15) BUN (7-18) mg/dL Creatinine (0.55-1.02) mg/dL Est Cr Clr Drug Dosing mL/min Estimated GFR (MDRD) (>60) mL/min BUN/Creatinine Ratio (14-18) Glucose (83-115) mg/dL Lactic Acid 0.9 (0.4-2.0) mmol/L Calcium (8.5-10.1) mg/dL Magnesium (1.8-2.4) mg/dl Ferritin (8-252) ng/ml Total Bilirubin (0.2-1.0) mg/dL AST (15-37) U/L ALT (14-59) U/L Alkaline Phosphatase (46-116) U/L Troponin I (0.00-0.056) ng/mL NT-Pro-B Natriuret Pep (0-450) pg/mL Total Protein (6.4-8.2) g/dl Albumin (3.4-5.0) g/dl Globulin gm/dL Albumin/Globulin Ratio (1-2) Lipase (73-393) U/L Urine Color (Yellow) Urine Appearance (Clear) Urine pH (5.0-8.0) Ur Specific [place] (1.005-1.030) Urine Protein (Negative) Urine Glucose (UA) (Negative) Urine Ketones (Negative) Urine Occult Blood (Negative) Urine Nitrite (Negative) Urine Bilirubin (Negative) Urine Urobilinogen (0.2-1.0) Ur Leukocyte Esterase (Negative) Urine RBC (0-5) /hpf Urine WBC (0-5) /hpf Ur Squamous Epith Cells (0-5) /hpf Urine Bacteria (FEW) /hpf Coarse Granular Casts (0-5) /hpf Urine Mucus (FEW) /hpf SARS-CoV-2 RNA (YAMILEX) Positive H (NEGATIVE) Meds: Medications Generic Name Dose Route Start Last Admin Trade Name Freq PRN Reason Stop Dose Admin Sodium Chloride 1,000 mls @ 125 mls/hr 04/13/20 08:45 04/13/20 08:57 Normal Saline IV 125 mls/hr ASDIRECTED KAYLEE Administration Magnesium Sulfate 2 gm in 50 mls @ 25 mls/hr 04/13/20 10:45 04/13/20 11:09 Magnesium Sulfate In Water Premix IV 25 mls/hr Q1H KAYLEE Administration Sodium Chloride 10 ml 04/13/20 08:42 04/13/20 08:57 Saline Flush FLUSH 10 ml ASDIRECTED PRN Administration Keep Vein Open Discontinued Medications Generic Name Dose Route Start Last Admin Trade Name Arcenioq PRN Reason Stop Dose Admin Dexamethasone 6 mg 04/13/20 10:44 04/13/20 11:08 Decadron IVPUSH 04/13/20 10:45 6 mg ONETIME ONE Administration Diltiazem HCl 10 mg 04/13/20 11:28 Cardizem IVPUSH 04/13/20 11:29 ONETIME ONE Lorazepam Confirm 04/13/20 10:12 04/13/20 10:14 Ativan Administered 04/13/20 10:13 Not Given Dose 2 mg .ROUTE .STK-MED ONE Lorazepam 0.5 mg 04/13/20 10:14 04/13/20 10:17 Ativan IVPUSH 04/13/20 10:15 0.5 mg ONETIME ONE Administration Lorazepam 0.5 mg 04/13/20 10:15 04/13/20 10:17 Ativan IVPUSH 04/13/20 10:16 Not Given ONETIME ONE Ondansetron HCl 4 mg 04/13/20 08:42 04/13/20 08:57 Zofran IVPUSH 04/13/20 08:43 4 mg ONETIME ONE Administration - Re-Assessments/Exams Free Text/Narrative Re-Assessment/Exam: 04/13/20 10:51 I ordered an IV NS at 125mL/hr, O2, labs, UA and a CXR. Her CXR shows no pneumonia. Her CBC looks good. Her D-dimer is negative. Her Na is low at 134. Her anion gap is elevated at 15.5. Her BUN is elevated at 24. Her creatinine is 2.7. Two days ago it was 2.9. Her baseline appears to be about 2. 04/13/20 11:29 She is COVID positive. I ordered some dexamethasone 6mg IV. She was anxious so I gave her some ativan. I talked with Dr Perera and he agreed to the admission. Her heart rate increased so I ordered cardizem 10mg IV. Departure - Departure Time of Disposition: 11:30 Disposition: Admitted As Inpatient 64 Condition: Fair Clinical Impression: COVID-19, Hypoxia, Atrial fibrillation with RVR - Discharge Information Referrals: PCP,None [Primary Care Provider] - Forms: ED Department Discharge Sepsis Event Note (ED) - Evaluation Sepsis Screening Result: No Definite Risk - Focused Exam Vital Signs: Vital Signs Temp Pulse Resp BP Pulse Ox Pulse Ox 04/13/20 11:10 95 04/13/20 10:13 84 L 04/13/20 08:19 97.4 F 126 H 18 146/133 H 95 - My Orders Last 24 Hours: My Active Orders 04/13/20 08:42 Oxygen Therapy [RC] PRN Sodium Chloride 0.9% [Saline Flush] 10 ml FLUSH ASDIRECTED PRN ED Antiemetic Medication Reflex [OM.PC] Stat Peripheral IV Insertion Adult [OM.PC] Stat 04/13/20 08:43 Peripheral IV Care [RC] . DIRECTED 04/13/20 08:44 C DIFFICILE PCR W/REFLEX [MOLEC] Stat STOOL CULTURE/SHIGA TOXIN [MREF] Stat 04/13/20 08:45 Sodium Chloride 0.9% [Normal Saline] 1,000 ml IV ASDIRECTED 04/13/20 10:45 Magnesium Sulfate/Water [Magnesium Sulfate in Water Premix] 2 gm in 50 ml IV Q1H 04/13/20 11:26 EKG Documentation Completion [RC] ASDIRECTED EKG 12 Lead [EK] Stat - Assessment/Plan Last 24 Hours: My Active Orders 04/13/20 08:42 Oxygen Therapy [RC] PRN Sodium Chloride 0.9% [Saline Flush] 10 ml FLUSH ASDIRECTED PRN ED Antiemetic Medication Reflex [OM.PC] Stat Peripheral IV Insertion Adult [OM.PC] Stat 04/13/20 08:43 Peripheral IV Care [RC] . DIRECTED 04/13/20 08:44 C DIFFICILE PCR W/REFLEX [MOLEC] Stat STOOL CULTURE/SHIGA TOXIN [MREF] Stat 04/13/20 08:45 Sodium Chloride 0.9% [Normal Saline] 1,000 ml IV ASDIRECTED 04/13/20 10:45 Magnesium Sulfate/Water [Magnesium Sulfate in Water Premix] 2 gm in 50 ml IV Q1H 04/13/20 11:26 EKG Documentation Completion [RC] ASDIRECTED EKG 12 Lead [EK] Stat
--- NOTE | 2020-04-13 10:31 | CR ---
PROCEDURE INFORMATION: Exam: XR Chest, 1 View Exam date and time: 04/13/2020 9:08 AM Age: 80 years old Clinical indication: Cough TECHNIQUE: Imaging protocol: XR of the chest Views: 1 view. COMPARISON: CR Chest 1V Frontal 04/11/2020 8:03 AM FINDINGS: Lungs: No focal peripheral lung consolidation, air bronchogram formation, or silhouette sign. Pleural space: No pleural effusion or pneumothorax. Heart/Mediastinum: The cardiac silhouette is enlarged. Vasculature: The thoracic aorta is atherosclerotic and tortuous. Bones/joints: Prior posterior emerson fusion in the lumbar spine. Bilateral glenohumeral joint degeneration. IMPRESSION: No pneumonia. Thank you for allowing us to participate in the care of your patient. Dictated and Authenticated by: Cory Emanuel MD 04/13/2020 10:51 AM Central Time ([place] & [place]) MTDD
[2020-04-13] MEDS ORDERED: Dexamethasone 4 MG/ML SDV IVPUSH ONE (10:44)
[2020-04-13] MEDS: Magnesium Sulfate/Water 2 GM/50 ML BAG IV SCH ×3 (11:09→13:21)
[2020-04-13] MEDS ORDERED: Diltiazem 50 MG/10 ML SDV IVPUSH ONE (11:28)
--- NOTE | 2020-04-13 12:01 | PCM.HP.2 ---
H&P History of Present Illness - General Date of Service: 04/13/20 Admit Problem/Dx: admit with covid symptoms (rapid test positive.) / dehydration /afib with rvr and mild low b.p. Source of Information: Patient History Limitations: Reports: Altered Mental Status, Respiratory Distress - History of Present Illness Duration of Symptoms: Reports: Day(s):, Week(s): Location: Reports: Chest, Abdomen, Generalized Severity: Moderate Improves with: Reports: None Worsens with: Reports: None Associated Symptoms: Reports: No Other Symptoms - Related Data Allergies/Adverse Reactions: Allergies Allergy/AdvReac Type Severity Reaction Status Date / Time morphine AdvReac Severe Confusion Verified 04/13/20 08:23 contrast dye Allergy Severe Hives Uncoded 04/13/20 08:23 Home Medications: Home Meds Calcium Citrate/Vitamin D3 [Citracal + D Maximum Caplet] 1 tab PO BEDTIME 04/09/17 [History] Cyanocobalamin (Vitamin B12) [Vitamin B12] 1,000 mcg PO DAILY 04/09/17 [History] Pravastatin [Pravachol] 20 mg PO BEDTIME 04/09/17 [History] Apixaban [Eliquis] 2.5 mg PO BID 07/23/18 [History] Omeprazole 20 mg PO DAILY 07/24/18 [History] Amiodarone [Cordarone] 100 mg PO DAILY 11/07/18 [History] Furosemide [Lasix] 20 mg PO Q48H 11/07/18 [History] Metoprolol Tartrate [Lopressor] 50 mg PO BID 11/07/18 [History] buPROPion [buPROPion XL] 150 mg PO DAILY 11/07/18 [History] traZODone HCl [Trazodone HCl] 50 mg PO BEDTIME 11/07/18 [History] Spironolactone [Aldactone] 25 mg PO DAILY #20 tablet 11/09/18 [Rx] cephALEXin [Cephalexin] 500 mg PO BID #14 capsule 10/11/19 [Rx] Past Medical History HEENT History: Reports: Impaired Vision Other HEENT History: has upper and lower dentures Cardiovascular History: Reports: Afib, CAD, Heart Failure, High Cholesterol, Hypertension Respiratory History: Reports: COPD Gastrointestinal History: Reports: GERD Genitourinary History: Reports: Urinary Incontinence [employer] History: Reports: Musculoskeletal History: Reports: Back Pain, Chronic Other Musculoskeletal History: back surgery Neurological History: Reports: None Psychiatric History: Reports: Anxiety Endocrine/Metabolic History: Reports: Diabetes, Type II, Obesity/BMI 30+ Other Endocrine/Metabolic History: pt no longer on DM meds. Hematologic History: Reports: B12 Deficiency Immunologic History: Reports: None Oncologic (Cancer) History: Reports: None Dermatologic History: Reports: None - Infectious Disease History Infectious Disease History: Reports: Novel Coronavirus - Past Surgical History HEENT Surgical History: Reports: Cataract Surgery, Tonsillectomy GI Surgical History: Reports: Cholecystectomy Neurological Surgical History: Reports: Lumbar Spine Other Neurological Surgeries/Procedures: back surgery Musculoskeletal Surgical History: Reports: Knee Replacement Other Musculoskeletal Surgeries/Procedures:: bilateral Social & Family History - Family History Family Medical History: No Pertinent Family History Neurological: Reports: CVA - Tobacco Use Tobacco Use Status *Q: Former Tobacco User Used Tobacco, but Quit: Yes Month/Year Tobacco Last Used: 03/2019 - Caffeine Use Caffeine Use: Reports: Soda - Recreational Drug Use Recreational Drug Use: No - Living Situation & Occupation Living situation: Reports: , with Family (Son) Occupation: Retired H&P Review of Systems - Review of Systems: Review Of Systems: See Below General: Reports: Fever, Malaise, Fatigue, Decreased Appetite HEENT: Reports: No Symptoms Pulmonary: Reports: Shortness of Breath, Wheezing, Cough Cardiovascular: Reports: Palpitations, Dyspnea on Exertion Gastrointestinal: Reports: Anorexia, Diarrhea, Nausea, Vomiting Genitourinary: Reports: No Symptoms Musculoskeletal: Reports: No Symptoms Skin: Reports: No Symptoms Psychiatric: Reports: No Symptoms, Confusion Neurological: Reports: No Symptoms Hematologic/Lymphatic: Reports: No Symptoms Exam - Exam Exam: See Below - Vital Signs Vital Signs: Last Vital Signs Temp 36.3 C 04/13/20 08:19 Pulse 126 H 04/13/20 08:19 Resp 18 04/13/20 08:19 BP 146/133 H 04/13/20 08:19 Pulse Ox 95 04/13/20 11:10 Weight: 77.564 kg - Exam General: Mild Distress HEENT: PERRLA, Hearing Intact, Mucosa Moist & [place], Nares Patent, Normal Nasal S eptum, Posterior Pharynx Clear, Conjunctiva Clear, EOMI, EACs Clear, TMs Clear Neck: Supple, Trachea Midline, 2 Lungs: Clear to Auscultation, Normal Respiratory Effort, Decreased Breath Sounds, Crackles Cardiovascular: Irregular Rhythm, Tachycardia GI/Abdominal Exam: Normal Bowel Sounds, Soft, Non-Tender, No Organomegaly, No Distention, No Abnormal Bruit, No Mass, Pelvis Stable Back Exam: Normal Inspection, Full Range of Motion, NT Extremities: Normal Inspection, Normal Range of Motion, Non-Tender, No Pedal Edema, Normal Capillary Refill Skin: Warm, Dry, Intact Neurological: Cranial Nerves Intact, Reflexes Equal Bilateral Neuro Extensive - Mental Status: Alert, Oriented x3, Normal Mood/Affect, Normal Cognition Neuro Extensive - Motor, Sensory, Reflexes: CN II-XII Intact, Normal Gait, Normal Reflexes Psychiatric: Alert - Patient Data Lab Results Last 24 hrs: Laboratory Results - last 24 hr 04/13/20 04/13/20 04/13/20 Range/Units 08:22 08:22 08:22 WBC 6.78 (3.98-10.04) K/mm3 RBC 3.77 L (3.98-5.22) M/mm3 Hgb 11.7 (11.2-15.7) gm/dl Hct 38.1 (34.1-44.9) % MCV 101.1 H (79.4-94.8) fl MCH 31.0 (25.6-32.2) pg MCHC 30.7 L (32.2-35.5) g/dl RDW Std Deviation 58.1 H (36.4-46.3) fL Plt Count 224 (182-369) K/mm3 MPV 11.2 (9.4-12.3) fl Neut % (Auto) 78.1 H (34.0-71.1) % Lymph % (Auto) 15.0 L (19.3-51.7) % [place] % (Auto) 5.9 (4.7-12.5) % Eos % (Auto) 0.3 L (0.7-5.8) Baso % (Auto) 0.1 (0.1-1.2) % Neut # (Auto) 5.29 (1.56-6.13) K/mm3 Lymph # (Auto) 1.02 L (1.18-3.74) K/mm3 [place] # (Auto) 0.40 H (0.24-0.36) K/mm3 Eos # (Auto) 0.02 L (0.04-0.36) K/mm3 Baso # (Auto) 0.01 (0.01-0.08) K/mm3 PT 12.3 H (9.7-12.0) SECONDS INR 1.15 APTT 37.6 H (21.7-31.4) SECONDS D-Dimer, Quantitative 0.25 (0.19-0.50) mg/L Sodium 134 L (136-145) mEq/L Potassium 3.5 (3.5-5.1) mEq/L Chloride 98 (98-107) mEq/L Carbon Dioxide 24 (21-32) mEq/L Anion Gap 15.5 H (5-15) BUN 24 H (7-18) mg/dL Creatinine 2.7 H (0.55-1.02) mg/dL Est Cr Clr Drug Dosing 12.70 mL/min Estimated GFR (MDRD) 17 (>60) mL/min BUN/Creatinine Ratio 8.9 L (14-18) Glucose 109 (83-115) mg/dL Lactic Acid (0.4-2.0) mmol/L Calcium 8.4 L (8.5-10.1) mg/dL Magnesium 1.0 L (1.8-2.4) mg/dl Ferritin (8-252) ng/ml Total Bilirubin 0.6 (0.2-1.0) mg/dL AST 30 (15-37) U/L ALT 14 (14-59) U/L Alkaline Phosphatase 38 L (46-116) U/L Troponin I < 0.017 (0.00-0.056) ng/mL NT-Pro-B Natriuret Pep (0-450) pg/mL Total Protein 6.3 L (6.4-8.2) g/dl Albumin 2.9 L (3.4-5.0) g/dl Globulin 3.4 gm/dL Albumin/Globulin Ratio 0.9 L (1-2) Lipase 351 (73-393) U/L Urine Color (Yellow) Urine Appearance (Clear) Urine pH (5.0-8.0) Ur Specific [place] (1.005-1.030) Urine Protein (Negative) Urine Glucose (UA) (Negative) Urine Ketones (Negative) Urine Occult Blood (Negative) Urine Nitrite (Negative) Urine Bilirubin (Negative) Urine Urobilinogen (0.2-1.0) Ur Leukocyte Esterase (Negative) Urine RBC (0-5) /hpf Urine WBC (0-5) /hpf Ur Squamous Epith Cells (0-5) /hpf Urine Bacteria (FEW) /hpf Coarse Granular Casts (0-5) /hpf Urine Mucus (FEW) /hpf SARS-CoV-2 RNA (YAMILEX) (NEGATIVE) 04/13/20 04/13/20 04/13/20 Range/Units 08:22 08:22 08:42 WBC (3.98-10.04) K/mm3 RBC (3.98-5.22) M/mm3 Hgb (11.2-15.7) gm/dl Hct (34.1-44.9) % MCV (79.4-94.8) fl MCH (25.6-32.2) pg MCHC (32.2-35.5) g/dl RDW Std Deviation (36.4-46.3) fL Plt Count (182-369) K/mm3 MPV (9.4-12.3) fl Neut % (Auto) (34.0-71.1) % Lymph % (Auto) (19.3-51.7) % [place] % (Auto) (4.7-12.5) % Eos % (Auto) (0.7-5.8) Baso % (Auto) (0.1-1.2) % Neut # (Auto) (1.56-6.13) K/mm3 Lymph # (Auto) (1.18-3.74) K/mm3 [place] # (Auto) (0.24-0.36) K/mm3 Eos # (Auto) (0.04-0.36) K/mm3 Baso # (Auto) (0.01-0.08) K/mm3 PT (9.7-12.0) SECONDS INR APTT (21.7-31.4) SECONDS D-Dimer, Quantitative (0.19-0.50) mg/L Sodium (136-145) mEq/L Potassium (3.5-5.1) mEq/L Chloride (98-107) mEq/L Carbon Dioxide (21-32) mEq/L Anion Gap (5-15) BUN (7-18) mg/dL Creatinine (0.55-1.02) mg/dL Est Cr Clr Drug Dosing mL/min Estimated GFR (MDRD) (>60) mL/min BUN/Creatinine Ratio (14-18) Glucose (83-115) mg/dL Lactic Acid (0.4-2.0) mmol/L Calcium (8.5-10.1) mg/dL Magnesium (1.8-2.4) mg/dl Ferritin 353 H (8-252) ng/ml Total Bilirubin (0.2-1.0) mg/dL AST (15-37) U/L ALT (14-59) U/L Alkaline Phosphatase (46-116) U/L Troponin I (0.00-0.056) ng/mL NT-Pro-B Natriuret Pep 5444 H (0-450) pg/mL Total Protein (6.4-8.2) g/dl Albumin (3.4-5.0) g/dl Globulin gm/dL Albumin/Globulin Ratio (1-2) Lipase (73-393) U/L Urine Color Yellow (Yellow) Urine Appearance Clear (Clear) Urine pH 6.0 (5.0-8.0) Ur Specific [place] > or = 1.030 (1.005-1.030) Urine Protein 2+ H (Negative) Urine Glucose (UA) Negative (Negative) Urine Ketones Negative (Negative) Urine Occult Blood Negative (Negative) Urine Nitrite Negative (Negative) Urine Bilirubin Negative (Negative) Urine Urobilinogen 0.2 (0.2-1.0) Ur Leukocyte Esterase Negative (Negative) Urine RBC 0-5 (0-5) /hpf Urine WBC 0-5 (0-5) /hpf Ur Squamous Epith Cells 0-5 (0-5) /hpf Urine Bacteria Few (FEW) /hpf Coarse Granular Casts 0-5 (0-5) /hpf Urine Mucus Not seen (FEW) /hpf SARS-CoV-2 RNA (YAMILEX) (NEGATIVE) 04/13/20 04/13/20 Range/Units 08:58 09:10 WBC (3.98-10.04) K/mm3 RBC (3.98-5.22) M/mm3 Hgb (11.2-15.7) gm/dl Hct (34.1-44.9) % MCV (79.4-94.8) fl MCH (25.6-32.2) pg MCHC (32.2-35.5) g/dl RDW Std Deviation (36.4-46.3) fL Plt Count (182-369) K/mm3 MPV (9.4-12.3) fl Neut % (Auto) (34.0-71.1) % Lymph % (Auto) (19.3-51.7) % [place] % (Auto) (4.7-12.5) % Eos % (Auto) (0.7-5.8) Baso % (Auto) (0.1-1.2) % Neut # (Auto) (1.56-6.13) K/mm3 Lymph # (Auto) (1.18-3.74) K/mm3 [place] # (Auto) (0.24-0.36) K/mm3 Eos # (Auto) (0.04-0.36) K/mm3 Baso # (Auto) (0.01-0.08) K/mm3 PT (9.7-12.0) SECONDS INR APTT (21.7-31.4) SECONDS D-Dimer, Quantitative (0.19-0.50) mg/L Sodium (136-145) mEq/L Potassium (3.5-5.1) mEq/L Chloride (98-107) mEq/L Carbon Dioxide (21-32) mEq/L Anion Gap (5-15) BUN (7-18) mg/dL Creatinine (0.55-1.02) mg/dL Est Cr Clr Drug Dosing mL/min Estimated GFR (MDRD) (>60) mL/min BUN/Creatinine Ratio (14-18) Glucose (83-115) mg/dL Lactic Acid 0.9 (0.4-2.0) mmol/L Calcium (8.5-10.1) mg/dL Magnesium (1.8-2.4) mg/dl Ferritin (8-252) ng/ml Total Bilirubin (0.2-1.0) mg/dL AST (15-37) U/L ALT (14-59) U/L Alkaline Phosphatase (46-116) U/L Troponin I (0.00-0.056) ng/mL NT-Pro-B Natriuret Pep (0-450) pg/mL Total Protein (6.4-8.2) g/dl Albumin (3.4-5.0) g/dl Globulin gm/dL Albumin/Globulin Ratio (1-2) Lipase (73-393) U/L Urine Color (Yellow) Urine Appearance (Clear) Urine pH (5.0-8.0) Ur Specific [place] (1.005-1.030) Urine Protein (Negative) Urine Glucose (UA) (Negative) Urine Ketones (Negative) Urine Occult Blood (Negative) Urine Nitrite (Negative) Urine Bilirubin (Negative) Urine Urobilinogen (0.2-1.0) Ur Leukocyte Esterase (Negative) Urine RBC (0-5) /hpf Urine WBC (0-5) /hpf Ur Squamous Epith Cells (0-5) /hpf Urine Bacteria (FEW) /hpf Coarse Granular Casts (0-5) /hpf Urine Mucus (FEW) /hpf SARS-CoV-2 RNA (YAMILEX) Positive H (NEGATIVE) Result Diagrams: 04/13/20 08:22 04/13/20 08:22 Sepsis Event Note - Evaluation Sepsis Screening Result: No Definite Risk Possible Source of Sepsis: Pulmonary - Focused Exam Vital Signs: Vital Signs Temp Pulse Resp BP Pulse Ox Pulse Ox 04/13/20 11:10 95 04/13/20 10:13 84 L 04/13/20 08:19 36.3 C 126 H 18 146/133 H 95 Respiratory Effort Without Exertion: Dyspneic Heart Sounds: Other (see below) (afib rate 120s) Capillary Refill, Detail: Less than/Equal to (</=) 2 Seconds Pulse Description: 2+ Normal - Bedside Monitoring Bedside Ultrasound Performed: No Passive Leg Raise/Fluid Bolus: Negative Date Bedside Monitoring was Performed: 04/13/20 Time Bedside Monitoring was Performed: 12:35 - Problem List (1) Atrial fibrillation with RVR SNOMED Code(s): 737415097025311 ICD Code: I48.91 - UNSPECIFIED ATRIAL FIBRILLATION Status: Acute Priority: Medium Current Visit: Yes Onset Date: ~04/13/20 Problem Details: chronic afib on low dose elaquis. on amioderone and metoprolol and lasix for compenstaed chf (2) COVID-19 SNOMED Code(s): 171535432 ICD Code: U07.1 - COVID-19 Status: Acute Priority: Medium Current Visit: Yes Onset Date: ~04/13/20 Problem Details: resp and gi symptoms a with weakness starting 5 days ago / pos test 04/13. treated with remsivir /o2/ conv plasma and dex. (3) Hypoxia SNOMED Code(s): 178317732 ICD Code: R09.02 - HYPOXEMIA Status: Acute Priority: Medium Current Vi sit: Yes (4) Diarrhea SNOMED Code(s): 58854409 ICD Code: R19.7 - DIARRHEA, UNSPECIFIED Status: Acute Priority: Medium Current Visit: No Onset Date: ~04/09/20 Problem Details: c diff and culture ordered Qualifiers: Diarrhea type: unspecified type Qualified Code(s): R19.7 - Diarrhea, unspecified (5) Lower abdominal pain SNOMED Code(s): 48428972 ICD Code: R10.30 - LOWER ABDOMINAL PAIN, UNSPECIFIED Status: Acute Priority: Medium Current Visit: No Onset Date: ~04/09/20 (6) Renal insufficiency SNOMED Code(s): 102336605, 430047799 ICD Code: N28.9 - DISORDER OF KIDNEY AND URETER, UNSPECIFIED Status: Acute Priority: Medium Current Visit: No Onset Date: ~04/13/20 Problem Details: creatinine baseline not known ( ? around 2-2.2) and currently 2.7 Problem List Initiated/Reviewed/Updated: Yes Orders Last 24hrs: Active Orders 24 hr Category Date Time Status EKG Documentation Completion [RC] ASDIRECTED Care 04/13/20 11:26 Active Oxygen Therapy [RC] PRN Care 04/13/20 08:42 Active Peripheral IV Care [RC] . DIRECTED Care 04/13/20 08:43 Active C DIFFICILE PCR W/REFLEX [MOLEC] Stat Lab 04/13/20 08:44 Ordered STOOL CULTURE/SHIGA TOXIN [MREF] Stat Lab 04/13/20 08:44 Ordered Magnesium Sulfate/Water [Magnesium Sulfate in Water Med 04/13/20 10:45 Active Premix] 2 gm in 50 ml IV Q1H Sodium Chloride 0.9% [Normal Saline] 1,000 ml Med 04/13/20 08:45 Active IV ASDIRECTED Sodium Chloride 0.9% [Saline Flush] Med 04/13/20 08:42 Active 10 ml FLUSH ASDIRECTED PRN ED Antiemetic Medication Reflex [OM.PC] Stat Oth 04/13/20 08:42 Ordered Peripheral IV Insertion Adult [OM.PC] Stat Oth 04/13/20 08:42 Ordered EKG 12 Lead [EK] Stat Ther 04/13/20 11:26 Ordered Medication Orders Sodium Chloride (Normal Saline) 1,000 mls @ 125 mls/hr IV ASDIRECTED KAYLEE Last Admin: 04/13/20 08:57 Dose: 125 mls/hr Documented by: JOSE Magnesium Sulfate (Magnesium Sulfate In Water Premix) 2 gm in 50 mls @ 25 mls/hr IV Q1H KAYLEE Last Admin: 04/13/20 11:09 Dose: 25 mls/hr Documented by: JOSE Sodium Chloride (Saline Flush) 10 ml FLUSH ASDIRECTED PRN PRN Reason: Keep Vein Open Last Admin: 04/13/20 08:57 Dose: 10 ml Documented by: JOSE Assessment/Plan Comment:: 80 year female with 5 day hx of weakness now resp symptoms a and nausea vomiting and mild confusion. pmh of afib rate controlled on anticoagualtion. hx of renal insuff and hyperlipidemia . no known cad but rvr on admit today . weakness and lives mostly by herself. p.e crackles and resp mildly increased with cough . sats 86 %. lungs few crackles at bases. trace edema . mildly confused but hard of hearing. asssess 1/ covid first week with mild resp distress / no infiltrates chronic chf. chronic renal insuff extent unknown. mild anemia . trop and didimer normal . no signs of multiorgan failure or sepsis/ diarrhea and recently treated with keflex. plan : start covid supportive care. afib rate control. dehydration v.s chronic renal failure . assess chf and fluid status daily and running conservative fluids for now . hypotension mild 100-110 may be chronic . no signs infection and currently hold antibiotics boh - Mortality Measure Prognosis:: Good
[2020-04-13] MEDS ORDERED: Ondansetron 4 MG Tab.DIS PO PRN (12:14)
[2020-04-13] MEDS ORDERED: Enoxaparin 30 MG/0.3 ML Syringe SUBCUT SCH (12:30)
[2020-04-13] MEDS ORDERED: QUEtiapine 25 MG Tab PO ONE ×2 (13:23→16:00)
[2020-04-13] MEDS ORDERED: REMDESIVIR 200 MG in Sodium Chloride 0.9% 250 ML IV ONE (14:30)
[2020-04-13] MEDS ORDERED: Diltiazem 100 MG in Sodium Chloride 0.9% 100 ML IV SCH (16:15)
[2020-04-13] MEDS: Sodium Chloride 0.9% 1,000 ML IV SCH ×2 (16:58→20:20)
[2020-04-13] MEDS ORDERED: DOPamine/Dextrose 5%-Water 400 MG/250 ML BAG IV SCH (17:45)
[2020-04-13] MEDS ORDERED: Midodrine 5 MG Tab PO ONE (18:30)
[2020-04-13] MEDS: Calcium Carbonate/Vitamin D3 600 MG-200 Units Tab PO SCH (20:05)
[2020-04-13] MEDS: Pantoprazole 40 MG Tab.CR PO SCH (20:06)
[2020-04-13] MEDS: Apixaban 2.5 MG Tab PO SCH (20:06)
[2020-04-13] MEDS: traZODone 50 MG Tab PO SCH (20:07)
[2020-04-13] MEDS: Metoprolol Tartrate 50 MG Tab PO SCH (20:07)
[2020-04-13] MEDS ORDERED: Apixaban 2.5 MG Tab PO SCH (21:00)
[2020-04-13] MEDS ORDERED: traZODone 50 MG Tab PO ONE (21:00)
[2020-04-13] MEDS ORDERED: LORazepam 2 MG/ML SDV IVPUSH PRN (21:00)
[2020-04-13] MEDS: Simvastatin 10 MG Tab PO SCH (21:42)
[2020-04-14] MEDS: LORazepam 2 MG/ML SDV IVPUSH PRN ×7 (03:43→23:55)
[2020-04-14] MEDS ORDERED: Haloperidol Lactate 5 MG/ML SDV IVPUSH ONE ×2 (05:10→06:20)
[2020-04-14] MEDS: Diltiazem IR 60 MG Tab PO SCH ×2 (06:28→13:51)
[2020-04-14] MEDS ORDERED: Haloperidol Lactate 5 MG/ML SDV IVPUSH PRN (07:49)
[2020-04-14] MEDS: Pantoprazole 40 MG Tab.CR PO SCH ×2 (07:59→20:25)
[2020-04-14] MEDS: Dexamethasone 10 MG/ML SDV IVPUSH SCH (07:59)
[2020-04-14] MEDS: Apixaban 2.5 MG Tab PO SCH ×2 (07:59→20:11)
[2020-04-14] MEDS: Cyanocobalamin (Vitamin B12) 1,000 MCG Tab PO SCH (07:59)
[2020-04-14 08:00] VITALS: PULSE 145
[2020-04-14] MEDS: Nystatin Crm 30 GM Tube TOP SCH ×2 (08:00→20:11)
[2020-04-14] MEDS: Metoprolol Tartrate 50 MG Tab PO SCH ×2 (08:00→20:11)
[2020-04-14] MEDS ORDERED: Furosemide 40 MG/4 ML VIAL IVPUSH ONE (08:40)
[2020-04-14] MEDS ORDERED: Amiodarone 200 MG Tab PO SCH (09:00)
[2020-04-14] MEDS ORDERED: buPROPion 150 MG Tab.ER PO SCH (09:00)
--- NOTE | 2020-04-14 09:27 | CR ---
PROCEDURE INFORMATION: Exam: XR Chest, 1 View Exam date and time: 04/14/2020 8:47 AM Age: 80 years old Clinical indication: Other: Covid-19 TECHNIQUE: Imaging protocol: XR of the chest Views: 1 view. COMPARISON: CR Chest 1V Frontal 04/13/2020 9:08 AM FINDINGS: Lungs: The lung volumes are decreased with vascular crowding secondary to elevation of the diaphragms which is likely on the basis of poor inspiratory effort. Mild ground-glass airspace disease within the lower lung meza bilaterally. Minimal atelectasis at the lung bases. Pleural space: Unremarkable. No pleural effusion. No pneumothorax. Heart/Mediastinum: The heart is enlarged. Bones/joints: Status post thoracolumbar fusion. IMPRESSION: Mild ground-glass airspace disease within the lower lung meza bilaterally. Followup radiographs recommended after appropriate therapy. Thank you for allowing us to participate in the care of your patient. Dictated and Authenticated by: Alen Silveira MD 04/14/2020 10:23 AM Central Time ([place] & [place]) [email or web address]
[2020-04-14] MEDS: Magnesium Sulfate/Water 2 GM/50 ML BAG IV SCH (09:28)
[2020-04-14] MEDS: QUEtiapine 25 MG Tab PO PRN ×2 (10:21→13:51)
[2020-04-14] MEDS ORDERED: hydrOXYzine HCl 25 MG/ML SDV IM PRN ×2 (10:44→11:33)
[2020-04-14] MEDS: Sodium Chloride 0.9% 1,000 ML IV SCH ×2 (10:58→20:45)
[2020-04-14] MEDS ORDERED: Midodrine 5 MG Tab PO SCH ×2 (11:00→17:00)
[2020-04-14] MEDS ORDERED: Midodrine 5 MG Tab PO ONE (11:34)
[2020-04-14] MEDS ORDERED: REMDESIVIR 100 MG in Sodium Chloride 0.9% 100 ML IV SCH (14:30)
[2020-04-14] MEDS ORDERED: diphenhydrAMINE 25 MG Cap PO PRN (15:54)
[2020-04-14] MEDS ORDERED: diphenhydrAMINE 50 MG/ML SDV IVPUSH PRN (15:54)
[2020-04-14] MEDS ORDERED: Sodium Chloride 0.9% 250 ML IV SCH (16:00)
[2020-04-14] MEDS ORDERED: Sodium Chloride 0.9% 250 ML IV ONE (16:01)
--- NOTE | 2020-04-14 16:54 | PCM.PN ---
- General Info Date of Service: 04/14/20 Admission Dx/Problem (Free Text): admit with covid symptoms (rapid test positive.) / dehydration /afib with rvr and mild low b.p./acute confusional state Subjective Update: 04/14/20 afebrile currently/ hypotensive requiring midodrine x 2 and current i.v at 75 cc hour. lasix given x one. b.p meds held /decreased sec to cardizem drip. map from 40-68//hr afib 110-140 but she is very confused. lungs decreasedb.s bilaterally abd benign but did not eat much this am or last p.m neuro confused and pulling lines and one to one care despite mutliple doses of lorazepam/ quintapine then haldol. now trying hydroxazine . daughter maria isabel has not slept in 5 days and confusion started 4 days ago. no other neurologic findings on exam. no hx of def. dementia known but very forgetful . lytes / probnp >6400. creat stable trop normal. sed rate 32 d dimer pending. xray on admit moderate infiltrates not lobar with atel and increased vasc. heart enlarged. assess: covid resp failure on 6 liters day 5-6 of symptoms day 2 remsivir and decodron/convalescent plasma given this am. hypoxia expected to worsen. chf : acute on chronic suspecteda nd lasix given and will decrease fluids and control rate for afib. anemia mild and monitor hgn 11.4 confusion delerium induced by covid and hypoxia as well as chf. cont to treat to stabilize . renal status good . nutritional status fair. monitor b.s per protocol on decodron. steriod pychosis possible but expect severe life threatening resp distress/ards and platlets low /hypotensive and at risk for cytokine storm . plan and update reviewed with family this am by nurses and in aggr ement with aggressive treatment and aware of severity . boh Functional Status: Reports: Pain Controlled - Review of Systems General: Reports: Weakness, Other (hallucinations and delerium ) Pulmonary: Reports: Shortness of Breath Cardiovascular: Reports: Dyspnea on Exertion, Edema, Lightheadedness Gastrointestinal: Reports: No Symptoms Genitourinary: Reports: Other (perineal dermatitis/yeast looking ) Musculoskeletal: Reports: No Symptoms Skin: Reports: Rash Neurological: Reports: Confusion Psychiatric: Reports: Confusion - Patient Data Vitals - Most Recent: Last Vital Signs Temp 36.2 C 04/14/20 16:00 Pulse 145 H 04/14/20 08:00 Resp 19 04/14/20 16:00 BP 87/64 L 04/14/20 16:00 Pulse Ox 94 L 04/14/20 16:00 Weight - Most Recent: 77.564 kg I&O - Last 24 Hours: Intake & Output 04/14/20 04/14/20 04/14/20 06:59 14:59 22:59 Intake Total 846 691 Output Total 325 1675 200 Balance 521 -1675 491 Lab Results Last 24 Hours: Laboratory Results - last 24 hr 04/14/20 04/14/20 04/14/20 Range/Units 05:13 05:13 05:13 WBC 4.19 (3.98-10.04) K/mm3 RBC 3.41 L (3.98-5.22) M/mm3 Hgb 10.9 L (11.2-15.7) gm/dl Hct 34.2 (34.1-44.9) % MCV 100.3 H (79.4-94.8) fl MCH 32.0 (25.6-32.2) pg MCHC 31.9 L (32.2-35.5) g/dl RDW Std Deviation 55.6 H (36.4-46.3) fL Plt Count 180 L (182-369) K/mm3 MPV 11.0 (9.4-12.3) fl Neut % (Auto) 83.6 H (34.0-71.1) % Lymph % (Auto) 11.2 L (19.3-51.7) % [place]duffie % (Auto) 5.0 (4.7-12.5) % Eos % (Auto) 0 L (0.7-5.8) Baso % (Auto) 0.2 (0.1-1.2) % Neut # (Auto) 3.50 (1.56-6.13) K/mm3 Lymph # (Auto) 0.47 L (1.18-3.74) K/mm3 [place]ff[place] # (Auto) 0.21 L (0.24-0.36) K/mm3 Eos # (Auto) 0.00 L (0.04-0.36) K/mm3 Baso # (Auto) 0.01 (0.01-0.08) K/mm3 Manual Slide Review Abnormal smear ESR 25 H (0-20) mm/hr Sodium (136-145) mEq/L Potassium (3.5-5.1) mEq/L Chloride (98-107) mEq/L Carbon Dioxide (21-32) mEq/L Anion Gap (5-15) BUN (7-18) mg/dL Creatinine (0.55-1.02) mg/dL Est Cr Clr Drug Dosing mL/min Estimated GFR (MDRD) (>60) mL/min BUN/Creatinine Ratio (14-18) Glucose (83-115) mg/dL Calcium (8.5-10.1) mg/dL Troponin I (0.00-0.056) ng/mL NT-Pro-B Natriuret Pep 6028 H (0-450) pg/mL 20 Range/Units 09:00 WBC (3.98-10.04) K/mm3 RBC (3.98-5.22) M/mm3 Hgb (11.2-15.7) gm/dl Hct (34.1-44.9) % MCV (79.4-94.8) fl MCH (25.6-32.2) pg MCHC (32.2-35.5) g/dl RDW Std Deviation (36.4-46.3) fL Plt Count (182-369) K/mm3 MPV (9.4-12.3) fl Neut % (Auto) (34.0-71.1) % Lymph % (Auto) (19.3-51.7) % [place]duffie % (Auto) (4.7-12.5) % Eos % (Auto) (0.7-5.8) Baso % (Auto) (0.1-1.2) % Neut # (Auto) (1.56-6.13) K/mm3 Lymph # (Auto) (1.18-3.74) K/mm3 [place]ff[place] # (Auto) (0.24-0.36) K/mm3 Eos # (Auto) (0.04-0.36) K/mm3 Baso # (Auto) (0.01-0.08) K/mm3 Manual Slide Review ESR (0-20) mm/hr Sodium 137 (136-145) mEq/L Potassium 4.2 (3.5-5.1) mEq/L Chloride 104 (98-107) mEq/L Carbon Dioxide 22 (21-32) mEq/L Anion Gap 15.2 H (5-15) BUN 17 (7-18) mg/dL Creatinine 1.7 H (0.55-1.02) mg/dL Est Cr Clr Drug Dosing 20.18 mL/min Estimated GFR (MDRD) 29 (>60) mL/min BUN/Creatinine Ratio 10.0 L (14-18) Glucose 139 H (83-115) mg/dL Calcium 7.8 L (8.5-10.1) mg/dL Troponin I < 0.017 (0.00-0.056) ng/mL NT-Pro-B Natriuret Pep (0-450) pg/mL Roverto Results Last 24 Hours: Microbiology 04/13/20 11:25 Stool Culture - Preliminary Stool / Feces Shiga Toxin I & II - Final Med Orders - Current: Current Medications Apixaban (Eliquis) 2.5 mg PO BID [facility] Last Admin: 04/14/20 07:59 Dose: 2.5 mg Documented by: Calcium Carbonate (Calcium Carbonate/Vitamin D 600 Mg-200 Unit) 1 tab PO BEDTIME [facility] Last Admin: 04/13/20 20:05 Dose: 1 tab Documented by: Cyanocobalamin (Vitamin B12) 1,000 mcg PO DAILY [facility] Last Admin: 04/14/20 07:59 Dose: 1,000 mcg Documented by: Dexamethasone (Decadron) 6 mg IVPUSH DAILY [facility] Stop: 04/22/20 09:01 Last Admin: 04/14/20 07:59 Dose: 6 mg Documented by: Diazepam (Valium) 5 mg IVPUSH Q4H PRN PRN Reason: Anxiety Last Admin: 04/14/20 12:00 Dose: 5 mg Documented by: Diltiazem HCl (Cardizem) 60 mg PO Q8H [facility] Last Admin: 04/14/20 13:51 Dose: 60 mg Documented by: Diphenhydramine HCl (Benadryl) 25 mg IVPUSH Q4H PRN PRN Reason: Anxiety Diphenhydramine HCl (Benadryl) 25 mg PO Q4H PRN PRN Reason: Anxiety Haloperidol Lactate (Haldol) 2 mg IVPUSH Q8H PRN PRN Reason: Anxiety Last Admin: 04/14/20 07:56 Dose: 2 mg Documented by: Remdesivir 100 mg/ Sodium (Chloride) 100 mls @ 100 mls/hr IV Q24H [facility] Stop: 04/17/20 15:29 Last Admin: 04/14/20 13:57 Dose: 100 mls/hr Documented by: Diltiazem HCl 100 mg/ Sodium (Chloride) 100 mls @ 5 mls/hr IV TITRATE [facility]; Protocol Last Titration: 04/13/20 22:10 Dose: 5 mg/hr, 5 mls/hr Documented by: Sodium Chloride (Normal Saline) 1,000 mls @ 75 mls/hr IV ASDIRECTED [facility] Last Admin: 04/14/20 10:58 Dose: 75 mls/hr Documented by: Dopamine HCl/Dextrose (Dopamine In D5w 400 Mg/250 Ml) 400 mg in 250 mls @ 5.817 mls/hr IV TITRATE KAYLEE; Protocol Lorazepam (Ativan) 1 mg IVPUSH Q2HR PRN PRN Reason: Anxiety Last Admin: 04/14/20 13:51 Dose: 1 mg Documented by: Metoprolol Tartrate (Lopressor) 50 mg PO BID [facility] Last Admin: 04/14/20 08:00 Dose: 50 mg Documented by: Midodrine (Midodrine) 5 mg PO TIDAC [facility] Nystatin (Nystatin Crm) 1 gm TOP BID [facility] Last Admin: 04/14/20 08:00 Dose: 1 gram Documented by: Ondansetron HCl (Zofran Odt) 8 mg PO Q6H PRN PRN Reason: Nausea/Vomiting Pantoprazole Sodium (Protonix) 40 mg PO BID [facility] Last Admin: 04/14/20 07:59 Dose: 40 mg Documented by: Quetiapine Fumarate (Seroquel) 25 mg PO Q4H PRN PRN Reason: Anxiety Last Admin: 04/14/20 13:51 Dose: 25 mg Documented by: Simvastatin (Zocor) 10 mg PO BEDTIME [facility] Last Admin: 04/13/20 21:42 Dose: 10 mg Documented by: Sodium Chloride (Saline Flush) 10 ml FLUSH ASDIRECTED PRN PRN Reason: Keep Vein Open Last Admin: 04/13/20 08:57 Dose: 10 ml Documented by: Sodium Chloride (Saline Flush) 10 ml FLUSH ASDIRECTED PRN PRN Reason: Keep Vein Open Trazodone HCl (Trazodone) 50 mg PO BEDTIME [facility] Last Admin: 04/13/20 20:07 Dose: 50 mg Documented by: Discontinued Medications Amiodarone HCl (Cordarone) 100 mg PO DAILY [facility] Apixaban (Eliquis) 2.5 mg PO BID [facility] Bupropion HCl (Wellbutrin Xl) 150 mg PO DAILY [facility] Last Admin: 04/14/20 07:59 Dose: 150 mg Documented by: Dexamethasone (Decadron) 6 mg IVPUSH ONETIME ONE Stop: 04/13/20 10:45 Last Admin: 04/13/20 11:08 Dose: 6 mg Documented by: Diltiazem HCl (Cardizem) 10 mg IVPUSH ONETIME ONE Stop: 04/13/20 11:29 Last Admin: 04/13/20 11:37 Dose: 10 mg Documented by: Furosemide (Lasix) 40 mg IVPUSH NOW ONE Stop: 04/14/20 08:41 Last Admin: 04/14/20 08:56 Dose: 40 mg Documented by: Haloperidol Lactate (Haldol) 2 mg IVPUSH ONETIME ONE Stop: 04/14/20 05:11 Last Admin: 04/14/20 05:20 Dose: 2 mg Documented by: Haloperidol Lactate (Haldol) 2 mg IVPUSH ONETIME ONE Stop: 04/14/20 06:21 Last Admin: 04/14/20 06:28 Dose: 2 mg Documented by: Hydroxyzine HCl (Vistaril) 25 mg IM Q4H PRN PRN Reason: Anxiety Last Admin: 04/14/20 10:59 Dose: 25 mg Documented by: Hydroxyzine HCl (Vistaril) 50 mg IM Q4H PRN PRN Reason: Anxiety Last Admin: 04/14/20 11:37 Dose: 50 mg Documented by: Sodium Chloride (Normal Saline) 1,000 mls @ 125 mls/hr IV ASDIRECTED [facility] Last Admin: 04/13/20 08:57 Dose: 125 mls/hr Documented by: Magnesium Sulfate (Magnesium Sulfate In Water Premix) 2 gm in 50 mls @ 25 mls/hr IV Q1H [facility] Last Admin: 04/14/20 09:28 Dose: Not Given Documented by: Remdesivir 200 mg/ Sodium (Chloride) 250 mls @ 250 mls/hr IV ONETIME ONE Stop: 04/13/20 15:29 Last Admin: 04/13/20 14:23 Dose: 250 mls/hr Documented by: Sodium Chloride (Normal Saline) 250 mls @ 999 mls/hr IV ASDIRECTED [facility] Sodium Chloride (Normal Saline) 250 mls @ 999 mls/hr IV ONETIME ONE Stop: 04/14/20 16:16 Last Admin: 04/14/20 16:15 Dose: 999 mls/hr Documented by: Lorazepam (Ativan) Confirm Administered Dose 2 mg .ROUTE .STK-MED ONE Stop: 04/13/20 10:13 Last Admin: 04/13/20 10:14 Dose: Not Given Documented by: Lorazepam (Ativan) 0.5 mg IVPUSH ONETIME ONE Stop: 04/13/20 10:15 Last Admin: 04/13/20 10:17 Dose: 0.5 mg Documented by: Lorazepam (Ativan) 0.5 mg IVPUSH ONETIME ONE Stop: 04/13/20 10:16 Last Admin: 04/13/20 10:17 Dose: Not Given Documented by: Lorazepam (Ativan) 0.5 mg IVPUSH ONETIME ONE Stop: 04/13/20 12:06 Last Admin: 04/13/20 12:17 Dose: 0.5 mg Documented by: Lorazepam (Ativan) 1 mg IVPUSH ONETIME ONE Stop: 04/13/20 12:59 Last Admin: 04/13/20 13:00 Dose: 1 mg Documented by: Lorazepam (Ativan) Confirm Administered Dose 2 mg .ROUTE .STK-MED ONE Stop: 04/13/20 12:58 Last Admin: 04/13/20 13:21 Dose: Not Given Documented by: Lorazepam (Ativan) 1 mg IVPUSH Q4H PRN PRN Reason: Agitation Last Admin: 04/14/20 00:55 Dose: 1 mg Documented by: Midodrine (Midodrine) 7.5 mg PO STAT ONE Stop: 04/13/20 18:31 Last Admin: 04/13/20 18:49 Dose: 7.5 mg Documented by: Midodrine (Midodrine) 2.5 mg PO TIDAC [facility] Last Admin: 04/14/20 11:16 Dose: 2.5 mg Documented by: Midodrine (Midodrine) 2.5 mg PO STAT ONE Stop: 04/14/20 11:35 Last Admin: 04/14/20 11:36 Dose: 2.5 mg Documented by: Ondansetron HCl (Zofran) 4 mg IVPUSH ONETIME ONE Stop: 04/13/20 08:43 Last Admin: 04/13/20 08:57 Dose: 4 mg Documented by: Ondansetron HCl (Zofran) 4 mg IVPUSH ONETIME ONE Stop: 04/13/20 12:07 Last Admin: 04/13/20 12:16 Dose: 4 mg Documented by: Quetiapine Fumarate (Seroquel) 25 mg PO ONETIME ONE Stop: 04/13/20 13:24 Last Admin: 04/13/20 13:40 Dose: 25 mg Documented by: Quetiapine Fumarate (Seroquel) 25 mg PO ONETIME ONE Stop: 04/13/20 16:01 Last Admin: 04/13/20 16:25 Dose: 25 mg Documented by: Trazodone HCl (Trazodone) 50 mg PO ONETIME ONE Stop: 04/13/20 21:01 Last Admin: 04/13/20 21:42 Dose: 50 mg Documented by: - Exam Quality Assessment: Supplemental Oxygen General: Moderate Distress HEENT: Pupils Equal Neck: Supple Lungs: Rhonchi Cardiovascular: Irregular Rhythm GI/Abdominal Exam: Normal Bowel Sounds, Soft, Non-Tender, No Organomegaly, No Distention, No Abnormal Bruit, No Mass, Pelvis Stable (Female) Exam: Other (rash ) Back Exam: Normal Inspection, Full Range of Motion Extremities: Normal Inspection, Normal Range of Motion, Non-Tender, No Pedal Edema, Normal Capillary Refill Peripheral Pulses: 2+: Brachial (R), Radial (L) Skin: Warm, Dry, Intact Neurological: No New Focal Deficit Psy/Mental Status: Agitated (hallucinations ) Sepsis Event Note - Evaluation Sepsis Screening Result: No Definite Risk - Focused Exam Vital Signs: Vital Signs Temp Pulse Resp BP BP Pulse Ox 04/14/20 16:00 36.2 C 19 87/64 L 94 L 04/14/20 12:00 36.3 C 14 87/63 L 99 04/14/20 08:00 36.6 C 145 H 22 H 124/55 L 124/55 L 93 L 04/14/20 07:00 36.2 C 124/55 L 04/14/20 06:00 36.2 C 15 99/60 93 L 04/14/20 05:00 36.2 C 123 H 20 83/72 L 95 - Problem List & Annotations (1) Atrial fibrillation with RVR SNOMED Code(s): 161981932828445 Code(s): I48.91 - UNSPECIFIED ATRIAL FIBRILLATION Status: Acute Priority: Medium Current Visit: Yes Onset Date: ~04/13/20 Annotation/Comment:: chronic afib on low dose elaquis. on amioderone and metoprolol and lasix for compenstaed chf. able to control rate overnight with cardizem drip and changed to p.o this am . chf worsening and i>> os lasix given x one (2) COVID-19 SNOMED Code(s): 072784828 Code(s): U07.1 - COVID-19 Status: Acute Priority: Medium Current Visit: Yes Onset Date: ~04/13/20 Annotation/Comment:: resp and gi symptoms a with weakness starting 5 days ago / pos test 04/13. treated with remsivir /o2/ conv plasma and dex. (3) Hypoxia SNOMED Code(s): 657617667 Code(s): R09.02 - HYPOXEMIA Status: Acute Priority: Medium Current Visit: Yes Onset Date: ~04/14/20 Annotation/Comment:: sats stable currently chf mildly worse (4) Diarrhea SNOMED Code(s): 87865268 Code(s): R19.7 - DIARRHEA, UNSPECIFIED Status: Acute Priority: Medium Current Visit: No Onset Date: ~04/09/20 Qualifiers: Diarrhea type: unspecified type Qualified Code(s): R19.7 - Diarrhea, unspecified Annotation/Comment:: c diff and culture ordered /// negative// diarreha resolved mostly (5) Lower abdominal pain SNOMED Code(s): 94675451 Code(s): R10.30 - LOWER ABDOMINAL PAIN, UNSPECIFIED Status: Acute Priority: Medium Current Visit: No Onset Date: ~04/09/20 Annotation/Comment:: resolving (6) Renal insufficiency SNOMED Code(s): 030441049, 517763247 Code(s): N28.9 - DISORDER OF KIDNEY AND URETER, UNSPECIFIED Status: Acute Priority: Medium Current Visit: No Onset Date: ~04/13/20 Annotation/Comment:: creatinine baseline not known ( ? around 2-2.2) and currently 2.7 ////// now down to 1.7 and suspect that may be baseline. (7) Dermatitis associated with incontinence SNOMED Code(s): 478901259 Code(s): L25.8 - UNSPECIFIED CONTACT DERMATITIS DUE TO OTHER AGENTS; R32 - UNSPECIFIED URINARY INCONTINENCE Status: Acute Priority: Medium Current Visit: Yes Onset Date: 04/14/20 Annotation/Comment:: yeast and stool dermatitis and breakdown treated with barrier anad yeast cream (8) Low blood pressure reading SNOMED Code(s): 326160205 Code(s): R03.1 - NONSPECIFIC LOW BLOOD-PRESSURE READING Status: Acute Priority: High Current Visit: No Onset Date: ~04/13/20 Annotation/Comment:: midodrine started and weaning i.v fluids to 25 - Problem List Review Problem List Initiated/Reviewed/Updated: Yes - My Orders Last 24 Hours: My Active Orders 04/13/20 16:15 Diltiazem [Cardizem] 100 mg Sodium Chloride 0.9% [Normal Saline] 100 ml IV TITRATE 04/13/20 16:30 Sodium Chloride 0.9% [Normal Saline] 1,000 ml IV ASDIRECTED 04/13/20 Dinner Regular Diet [DIET] 04/13/20 17:45 DOPamine/Dextrose 5%-Water [DOPamine in D5W 400 MG/250 ML] 400 mg in 250 ml IV TITRATE 04/13/20 18:31 Resuscitation Status Routine 04/13/20 19:45 Enrique Catheter Insertion [Insert Urinary Catheter] [OM.PC] Q24H 04/13/20 19:46 Urinary Catheter Assessment [RC] Q4HR 04/13/20 22:31 Communication Order [RC] 04/14/20 03:03 LORazepam [Ativan] 1 mg IVPUSH Q2HR PRN 04/14/20 06:00 Diltiazem IR [Cardizem] 60 mg PO Q8H 04/14/20 07:49 Haloperidol Lactate [Haldol] 2 mg IVPUSH Q8H PRN diazePAM [Valium] 5 mg IVPUSH Q4H PRN 04/14/20 09:00 Nystatin [Nystatin Crm] 1 gm TOP BID 04/14/20 10:04 QUEtiapine [SEROqueL] 25 mg PO Q4H PRN 04/14/20 15:54 diphenhydrAMINE [Benadryl] 25 mg IVPUSH Q4H PRN diphenhydrAMINE [Benadryl] 25 mg PO Q4H PRN 04/14/20 17:00 Midodrine 5 mg PO TIDAC 04/15/20 05:11 SEDIMENTATION RATE AUTO [HEME] AM 04/15/20 08:37 Chest 1V Frontal [CR] DAILY 04/15/20 08:38 TROPONIN I [CHEM] DAILY 04/15/20 08:39 BMP [BASIC METABOLIC PANEL,BMP] [CHEM] DAILY CBC WITH AUTO DIFF [HEME] DAILY 04/15/20 12:14 CBC WITH AUTO DIFF [HEME] DAILY 04/16/20 08:38 TROPONIN I [CHEM] DAILY 04/16/20 08:39 BMP [BASIC METABOLIC PANEL,BMP] [CHEM] DAILY CBC WITH AUTO DIFF [HEME] DAILY 04/16/20 12:14 CBC WITH AUTO DIFF [HEME] DAILY - Assessment Assessment:: 04/14/20 afebrile currently/ hypotensive requiring midodrine x 2 and current i.v at 75 cc hour. lasix given x one. b.p meds held /decreased sec to cardizem drip. map from 40-68//hr afib 110-140 but she is very confused. lungs decreasedb.s bilaterally abd benign but did not eat much this am or last p.m neuro confused and pulling lines and one to one care despite mutliple doses of lorazepam/ quintapine then haldol. now trying hydroxazine . daughter maria isabel has not slept in 5 days and confusion started 4 days ago. no other neurologic findings on exam. no hx of def. dementia known but very forgetful . lytes / probnp >6400. creat stable trop normal. sed rate 32 d dimer pending. xray on admit moderate infiltrates not lobar with atel and increased vasc. heart enlarged. assess: covid resp failure on 6 liters day 5-6 of symptoms day 2 remsivir and decodron/convalescent plasma given this am. hypoxia expected to worsen. chf : acute on chronic suspecteda nd lasix given and will decrease fluids and control rate for afib. anemia mild and monitor hgn 11.4 confusion delerium induced by covid and hypoxia as well as chf. cont to treat to stabilize . renal status good . nutritional status fair. monitor b.s per protocol on decodron. steriod pychosis possible but expect severe life threatening resp distress/ards and platlets low /hypotensive and at risk for cytokine storm . plan and update reviewed with family this am by nurses and in aggrement with aggressive treatment and aware of severity . boh - Plan Plan:: 80 year female with 5 day hx of weakness now resp symptoms a and nausea vomiting and mild confusion. pmh of afib rate controlled on anticoagualtion. hx of renal insuff and hyperlipidemia . no known cad but rvr on admit today . weakness and lives mostly by herself. p.e crackles and resp mildly increased with cough . sats 86 %. lungs few crackles at bases. trace edema . mildly confused but hard of hearing. asssess 1/ covid first week with mild resp distress / no infiltrates chronic chf. chronic renal insuff extent unknown. mild anemia . trop and didimer normal . no signs of multiorgan failure or sepsis/ diarrhea and recently treated with keflex. plan : start covid supportive care. afib rate control. dehydration v.s chronic renal failure . assess chf and fluid status daily and running conservative fluids for now . hypotension mild 100-110 may be chronic . no signs infection and currently hold antibiotics boh 04/14/20 afebrile currently/ hypotensive requiring midodrine x 2 and current i.v at 75 cc hour. lasix given x one. b.p meds held /decreased sec to cardizem drip. map from 40-68//hr afib 110-140 but she is very confused. lungs decreasedb.s bilaterally abd benign but did not eat much this am or last p.m neuro confused and pulling lines and one to one care despite mutliple doses of lorazepam/ quintapine then haldol. now trying hydroxazine . daughter maria isabel has not slept in 5 days and confusion started 4 days ago. no other neurologic findings on exam. no hx of def. dementia known but very forgetful . lytes / probnp >6400. creat stable trop normal. sed rate 32 d dimer pending. xray on admit moderate infiltrates not lobar with atel and increased vasc. heart enlarged. assess: covid resp failure on 6 liters day 5-6 of symptoms day 2 remsivir and decodron/convalescent plasma given this am. hypoxia expected to worsen. chf : acute on chronic suspecteda nd lasix given and will decrease fluids and control rate for afib. anemia mild and monitor hgn 11.4 confusion delerium induced by covid and hypoxia as well as chf. cont to treat to stabilize . renal status good . nutritional status fair. monitor b.s per protocol on decodron. steriod pychosis possible but expect severe life threatening resp distress/ards and platlets low /hypotensive and at risk for cytokine storm . plan and update reviewed with family this am by nurses and in aggrement with aggressive treatment and aware of severity . boh
[2020-04-14] MEDS: Midodrine 5 MG Tab PO SCH (20:11)
[2020-04-14] MEDS: traZODone 50 MG Tab PO SCH (20:12)
[2020-04-14] MEDS: Calcium Carbonate/Vitamin D3 600 MG-200 Units Tab PO SCH (20:12)
[2020-04-14] MEDS: Simvastatin 10 MG Tab PO SCH (20:12)
[2020-04-14] MEDS ORDERED: Diltiazem 50 MG/10 ML SDV IVPUSH ONE (21:48)
[2020-04-14] MEDS ORDERED: Losartan 100 MG Tab PO SCH (22:00)
[2020-04-15] MEDS ORDERED: Losartan 100 MG Tab PO SCH (02:40)
[2020-04-15] MEDS: LORazepam 2 MG/ML SDV IVPUSH PRN ×7 (02:51→16:30)
[2020-04-15] MEDS: Midodrine 5 MG Tab PO SCH ×2 (04:32→08:13)
[2020-04-15] MEDS: Diltiazem IR 60 MG Tab PO SCH ×2 (04:32→06:42)
[2020-04-15] MEDS ORDERED: DOPamine/Dextrose 5%-Water 400 MG/250 ML BAG IV SCH (08:40)
--- NOTE | 2020-04-15 08:55 | CR ---
PROCEDURE INFORMATION: Exam: XR Chest, 1 View Exam date and time: 04/15/2020 7:43 AM Age: 80 years old Clinical indication: Condition or disease; Other: Covid TECHNIQUE: Imaging protocol: XR of the chest Views: 1 view. COMPARISON: CR Chest 1V Frontal 04/14/2020 8:47 AM FINDINGS: Lungs: The lung volumes are decreased with vascular crowding secondary to elevation of the diaphragms which is likely on the basis of poor inspiratory effort. Worsening ground-glass airspace disease at the lower lung meza bilaterally since the prior examination. New dense consolidation at the left lung base since the prior examination. Pleural space: Unremarkable. No pleural effusion. No pneumothorax. Heart/Mediastinum: The heart is enlarged. Vasculature: The aorta demonstrates moderate atherosclerotic calcification and ectasia. Bones/joints: Status post lumbar fusion IMPRESSION: 1. Worsening ground-glass airspace disease at the lower lung meza bilaterally since the prior examination. 2. New dense consolidation at the left lung base since the prior examination. Thank you for allowing us to participate in the care of your patient. Dictated and Authenticated by: Alen Silveira MD 04/15/2020 9:21 AM Central Time ([place] & [place]) [facility]
[2020-04-15] MEDS: Dexamethasone 10 MG/ML SDV IVPUSH SCH (09:23)
[2020-04-15] MEDS: Apixaban 2.5 MG Tab PO SCH (09:27)
[2020-04-15] MEDS: Metoprolol Tartrate 50 MG Tab PO SCH (09:27)
[2020-04-15] MEDS ORDERED: Albumin 25% 12.5 GM/50 ML BAG IV ONE (09:51)
[2020-04-15] MEDS: Cyanocobalamin (Vitamin B12) 1,000 MCG Tab PO SCH (10:13)
[2020-04-15] MEDS: Nystatin Crm 30 GM Tube TOP SCH (10:14)
[2020-04-15] MEDS ORDERED: Pantoprazole 40 MG Vial IV SCH (10:15)
[2020-04-15] MEDS: Pantoprazole 40 MG Tab.CR PO SCH (10:15)
[2020-04-15 10:23] VITALS: BP 86/69
[2020-04-15] MEDS ORDERED: Scopolamine 1.5 MG Transdermal Patch TRDERM PRN (11:34)
[2020-04-15] MEDS ORDERED: Atropine 1% Ophth Soln 5 ML BOTTLE SL PRN (11:35)
[2020-04-15] MEDS: HYDROmorphone 1 MG/ML Syringe IVPUSH PRN ×3 (14:56→16:12)
--- NOTE | 2020-04-24 07:27 | PCM.PN ---
- General Info Date of Service: 04/15/20 Admission Dx/Problem (Free Text): 04/13/20 80 year old female with a history of atrial fibrillation on Eliquis and COPD as a former smoker that quit in 03/2019. She was in the ED and now admitted to hospital Patient presented to the ED with a cough, nausea, vomiting, and diarrhea She stated that her symptoms had been going on for about 1 week Stated that she was in the ED on the but had left AMA Stated that she was seen a couple days prior to presenting to the ED and was found to have renal insufficiency and diarrhea She had complaints of a sore butt, noticing some blood, and a productive cough She tested positive for COVID They ordered dexamethasone 6 MG IV She was anxious so they gave her Ativan Her heart rate increased so they ordered Cardizem 10 MG IV Review of response shows persistent RVR with lower blood pressure 70-110 systolic during afternoon She is confused Hypoxia controlled so far with O2 via nasal canula She was given quetiapine to try and decrease anxiety with some good result pulling lines and confused severely Renal status still impaired after IV fluid replacement Anemia and chronic renal insufficiency suspected with proteinuria and low protein state noted. boh 04/14/20 afebrile currently hypotensive requiring midodrine x2 and current i.v at 75 cc hour Lasix given x one b.p medications held/decreased secondary to Cardizem drip map from 40-68 heart rate with atrial fibration 110- 140 blood pressure but she is very confused lungs decreased breath sounds bilaterally abdominal benign but did not eat much this am or last pm neuro confused and pulling lines and one to one care despite multiple doses of lorazepam/quetiapine then Haldol and now trying hydroxyzine daughter states has not slept in 5 days and confusion started 4 days ago She has no other neurologic findings on exam and no history of def. dementia known but very forgetful electrolytes and Pro BNP >6400 with creat stable troponin normal and sed rate 32 d-dimer pending x-ray on admit moderate infiltrates not lobar with atelectasis and increased vasc. heart enlarged assess: covid respiratory failure on 6 liters day 5-6 of symptoms day 2 remdesivir and Decadron/convalescent plasma given this am hypoxia expected to worsen. CHF acute on chronic suspected and Lasix given and will decrease fluids and control rate for atrial fibrillation anemia mild and monitor hemoglobin 11.4 confusion delirium induced by covid and hypoxia as well as CHF continue to treat to stabilize renal status good nutritional status fair monitor b.s per protocol on Decadron steroid psychosis possible but expect severe life threatening respiratory distress/ARDS and platelets low/hypotensive and at risk for cytokine storm plan and update reviewed with family this am by nurses and in agreement with aggressive treatment and aware of severity. boh 04/15/2020 Nurse states that she has continued to have difficulty with sedation, pulling lines, and being confused Nurse states that her blood pressure is 81/60 with a heart rate of 76 Nurse states that her respiratory rate is 21 with her O2 saturations being at 92% at a O2 flow rate of 8 Nurse states that her total output as of this morning is 2,360 mL Her NT BNP is up to 9,005 from 6,028 previously and it has continued to have an incline being 5,444 before that Hemoglobin is at 11.1 with a d-dimer at 0.34 and creatinine at 1.8 Her recent chest x-ray showed worsening ground-glass airspace disease at the lower lung meza bilaterally and new dense consolidation at the left lung base since the prior examination Discussed her labs and chest x-ray Discussed starting dopamine/dextrose 5% water IV titrate at dose of 3 MCG/KG/MIN Discussed giving her Lasix 20 MG IV Discussed starting 2 units of plasma treatment due to COVID and hopefully it will also help bring up her blood pressure Continue Decadron 6 MG IV and remdesivir 100 MG IV for continued treatment of COVID Subjective Update: 04/15/2020 Nurse states that she has continued to have difficulty with sedation, pulling lines, and being confused Nurse states that her blood pressure is 81/60 with a heart rate of 76 Nurse states that her respiratory rate is 21 with her O2 saturations being at 92% at a O2 flow rate of 8 Nurse states that her total output as of this morning is 2,360 mL Her NT BNP is up to 9,005 from 6,028 previously and it has continued to have an incline being 5,444 before that Hemoglobin is at 11.1 with a d-dimer at 0.34 and creatinine at 1.8 Her recent chest x-ray showed worsening ground-glass airspace disease at the lower lung meza bilaterally and new dense consolidation at the left lung base since the prior examination Discussed her labs and chest x-ray Discussed starting dopamine/dextrose 5% water IV titrate at dose of 3 MCG/KG/MIN Discussed giving her Lasix 20 MG IV Discussed starting 2 units of plasma treatment due to COVID and hopefully it will also help bring up her blood pressure Continue Decadron 6 MG IV and remdesivir 100 MG IV for continued treatment of COVID 04/15/20 9 am Leaona sleeping after sedation yesterday . i/os cvs. i.v hep locked. intermittant hypotension requiring i.v initially . b.p currently 90 syst. and map of 60 occasional hypertensive swings when she wakes up . oral dry mm afib vent rate from 72-130 but came down nicely as night went on . minimal ectopy . resp :increased from 6 liters n.c to full face mask 100% with sats 88-94%/ resp becoming slightly to mod. labored at times. bs decreased and course and occ. wheeze. feet warm and hands well perfused . slight edema noted. slight jvd. abd benign npo sec. to resp and neuro sedation. ms benign skin no lesions. lab d dimer little change. bnp increased to 9000.trop unchanged . c reat 1.8 . hgn decreased to 11. chest xray shows increased plearal effusion left and hugo chf vasc markings.. patchy infiltrates both lungs. assess: covid with severe ards. patient in danger of needing intubation anddiscussed with family(Jonathan) knowing she is no cpr/no intubation.prognosis is critical and deteriorating form resp standpoint. trial of plasm and single unit prbcs discussed with roblesix to releive pulm congestion. family agrees and would like update. later catracho am . underlying chf increasing cardiac output and chf without signs of clinical ami. renal insuff stable but urine output starting to decrease form 50 hour through night to 25 /hour. boh 04/15/20 noon family updated and they would like to switch to comfort measures after discussing lack of progress in resp stabilization with impending full blown ards and increasing hypoxia. will respect Rina wishes with family visitation being arranged before decreasing pressors and support. comfort measures to be started then. 04/15/20 2pm family has restrictions on visitation sec to likely pos status and undergoing testing prior to visitation./ cont supportive care boh 04/15/20 4 pm rina resting and no changes in resp but heart rate climbing and urine output has decreased and suspect multiorgan shut down has begun. comfort measures in place. boh . Functional Status: Reports: Pain Controlled - Review of Systems General: Reports: Weakness HEENT: Reports: No Symptoms Pulmonary: Reports: Shortness of Breath, Wheezing Cardiovascular: Reports: Dyspnea on Exertion, Edema, Lightheadedness Gastrointestinal: Reports: No Symptoms Genitourinary: Reports: Other (perineal dermatitis) Musculoskeletal: Reports: No Symptoms Skin: Reports: Rash (perineal dermatitis) Neurological: Reports: Confusion, Other (hallucinations and delerium) Psychiatric: Reports: Confusion, Hallucinations, Other (delerium) - Patient Data Vitals - Most Recent: Last Vital Signs Temp 97.0 F 04/15/20 08:00 Pulse 145 H 04/14/20 08:00 Resp 21 H 04/15/20 08:00 BP 81/60 L 04/15/20 08:00 Pulse Ox 92 L 04/15/20 08:00 Weight - Most Recent: 76.839 kg I&O - Last 24 Hours: Intake & Output 04/14/20 04/15/20 04/15/20 22:59 06:59 14:59 Intake Total 691 150 Output Total 410 275 30 Balance 281 -125 -30 Lab Results Last 24 Hours: Laboratory Results - last 24 hr 04/14/20 04/15/20 04/15/20 Range/Units 09:00 05:23 05:23 WBC (3.98-10.04) K/mm3 RBC (3.98-5.22) M/mm3 Hgb (11.2-15.7) gm/dl Hct (34.1-44.9) % MCV (79.4-94.8) fl MCH (25.6-32.2) pg MCHC (32.2-35.5) g/dl RDW Std Deviation (36.4-46.3) fL Plt Count (182-369) K/mm3 MPV (9.4-12.3) fl Neut % (Auto) (34.0-71.1) % Lymph % (Auto) (19.3-51.7) % Boyle % (Auto) (4.7-12.5) % Eos % (Auto) (0.7-5.8) Baso % (Auto) (0.1-1.2) % Neut # (Auto) (1.56-6.13) K/mm3 Lymph # (Auto) (1.18-3.74) K/mm3 Boyle # (Auto) (0.24-0.36) K/mm3 Eos # (Auto) (0.04-0.36) K/mm3 Baso # (Auto) (0.01-0.08) K/mm3 Manual Slide Review ESR 20 (0-20) mm/hr D-Dimer, Quantitative 0.34 (0.19-0.50) mg/L Sodium 137 (136-145) mEq/L Potassium 4.2 (3.5-5.1) mEq/L Chloride 104 (98-107) mEq/L Carbon Dioxide 22 (21-32) mEq/L Anion Gap 15.2 H (5-15) BUN 17 (7-18) mg/dL Creatinine 1.7 H (0.55-1.02) mg/dL Est Cr Clr Drug Dosing 20.18 mL/min Estimated GFR (MDRD) 29 (>60) mL/min BUN/Creatinine Ratio 10.0 L (14-18) Glucose 139 H (83-115) mg/dL Calcium 7.8 L (8.5-10.1) mg/dL Troponin I < 0.017 (0.00-0.056) ng/mL NT-Pro-B Natriuret Pep (0-450) pg/mL 04/15/20 04/15/20 04/15/20 Range/Units 05:23 05:23 05:23 WBC 11.79 H (3.98-10.04) K/mm3 RBC 3.47 L (3.98-5.22) M/mm3 Hgb 11.1 L (11.2-15.7) gm/dl Hct 35.6 (34.1-44.9) % MCV 102.6 H (79.4-94.8) fl MCH 32.0 (25.6-32.2) pg MCHC 31.2 L (32.2-35.5) g/dl RDW Std Deviation 57.7 H (36.4-46.3) fL Plt Count 201 (182-369) K/mm3 MPV 10.7 (9.4-12.3) fl Neut % (Auto) 91.3 H (34.0-71.1) % Lymph % (Auto) 5.3 L (19.3-51.7) % Boyle % (Auto) 3.2 L (4.7-12.5) % Eos % (Auto) 0 L (0.7-5.8) Baso % (Auto) 0.2 (0.1-1.2) % Neut # (Auto) 10.77 H (1.56-6.13) K/mm3 Lymph # (Auto) 0.62 L (1.18-3.74) K/mm3 Boyle # (Auto) 0.38 H (0.24-0.36) K/mm3 Eos # (Auto) 0.00 L (0.04-0.36) K/mm3 Baso # (Auto) 0.02 (0.01-0.08) K/mm3 Manual Slide Review Abnormal smear ESR (0-20) mm/hr D-Dimer, Quantitative (0.19-0.50) mg/L Sodium 142 (136-145) mEq/L Potassium 3.8 (3.5-5.1) mEq/L Chloride 108 H (98-107) mEq/L Carbon Dioxide 27 (21-32) mEq/L Anion Gap 10.8 (5-15) BUN 19 H (7-18) mg/dL Creatinine 1.8 H (0.55-1.02) mg/dL Est Cr Clr Drug Dosing 19.06 mL/min Estimated GFR (MDRD) 27 (>60) mL/min BUN/Creatinine Ratio 10.6 L (14-18) Glucose 124 H (83-115) mg/dL Calcium 7.2 L (8.5-10.1) mg/dL Troponin I < 0.017 (0.00-0.056) ng/mL NT-Pro-B Natriuret Pep 9005 H (0-450) pg/mL Roverto Results Last 24 Hours: Microbiology 04/13/20 11:25 Stool Culture - Preliminary Stool / Feces Shiga Toxin I & II - Final Med Orders - Current: Current Medications Apixaban (Eliquis) 2.5 mg PO BID KAYLEE Last Admin: 04/14/20 20:11 Dose: Not Given Documented by: Calcium Carbonate (Calcium Carbonate/Vitamin D 600 Mg-200 Unit) 1 tab PO BEDTIME KAYLEE Last Admin: 04/14/20 20:12 Dose: Not Given Documented by: Cyanocobalamin (Vitamin B12) 1,000 mcg PO DAILY KAYLEE Last Admin: 04/14/20 07:59 Dose: 1,000 mcg Documented by: Dexamethasone (Decadron) 6 mg IVPUSH DAILY KAYLEE Stop: 04/22/20 09:01 Last Admin: 04/14/20 07:59 Dose: 6 mg Documented by: Diazepam (Valium) 5 mg IVPUSH Q4H PRN PRN Reason: Anxiety Last Admin: 04/14/20 12:00 Dose: 5 mg Documented by: Diltiazem HCl (Cardizem) 60 mg PO Q8H KAYLEE Last Admin: 04/15/20 06:42 Dose: Not Given Documented by: Diphenhydramine HCl (Benadryl) 25 mg IVPUSH Q4H PRN PRN Reason: Anxiety Diphenhydramine HCl (Benadryl) 25 mg PO Q4H PRN PRN Reason: Anxiety Haloperidol Lactate (Haldol) 2 mg IVPUSH Q8H PRN PRN Reason: Anxiety Last Admin: 04/14/20 07:56 Dose: 2 mg Documented by: Remdesivir 100 mg/ Sodium (Chloride) 100 mls @ 100 mls/hr IV Q24H KAYLEE Stop: 04/17/20 15:29 Last Admin: 04/14/20 13:57 Dose: 100 mls/hr Documented by: Diltiazem HCl 100 mg/ Sodium (Chloride) 100 mls @ 5 mls/hr IV TITRATE KAYLEE; Protocol Last Titration: 04/13/20 22:10 Dose: 5 mg/hr, 5 mls/hr Documented by: Sodium Chloride (Normal Saline) 1,000 mls @ 75 mls/hr IV ASDIRECTED KAYLEE Last Infusion: 04/14/20 21:16 Dose: 0 mls/hr Documented by: Dopamine HCl/Dextrose (Dopamine In D5w 400 Mg/250 Ml) 400 mg in 250 mls @ 8.726 mls/hr IV TITRATE KAYLEE; Protocol Lorazepam (Ativan) 1 mg IVPUSH Q2HR PRN PRN Reason: Anxiety Last Admin: 04/15/20 02:51 Dose: 1 mg Documented by: Metoprolol Tartrate (Lopressor) 50 mg PO BID [facility] Last Admin: 04/14/20 20:11 Dose: Not Given Documented by: Midodrine (Midodrine) 5 mg PO Q6H [facility] Last Admin: 04/15/20 08:13 Dose: Not Given Documented by: Nystatin (Nystatin Crm) 1 gm TOP BID [facility] Last Admin: 04/14/20 20:11 Dose: 1 gram Documented by: Ondansetron HCl (Zofran Odt) 8 mg PO Q6H PRN PRN Reason: Nausea/Vomiting Pantoprazole Sodium (Protonix) 40 mg PO BID [facility] Last Admin: 04/14/20 20:25 Dose: Not Given Documented by: Quetiapine Fumarate (Seroquel) 25 mg PO Q4H PRN PRN Reason: Anxiety Last Admin: 04/14/20 13:51 Dose: 25 mg Documented by: Simvastatin (Zocor) 10 mg PO BEDTIME [facility] Last Admin: 04/14/20 20:12 Dose: Not Given Documented by: Sodium Chloride (Saline Flush) 10 ml FLUSH ASDIRECTED PRN PRN Reason: Keep Vein Open Last Admin: 04/13/20 08:57 Dose: 10 ml Documented by: Sodium Chloride (Saline Flush) 10 ml FLUSH ASDIRECTED PRN PRN Reason: Keep Vein Open Trazodone HCl (Trazodone) 50 mg PO BEDTIME [facility] Last Admin: 04/14/20 20:12 Dose: Not Given Documented by: Discontinued Medications Amiodarone HCl (Cordarone) 100 mg PO DAILY [facility] Apixaban (Eliquis) 2.5 mg PO BID [facility] Bupropion HCl (Wellbutrin Xl) 150 mg PO DAILY [facility] Last Admin: 04/14/20 07:59 Dose: 150 mg Documented by: Dexamethasone (Decadron) 6 mg IVPUSH ONETIME ONE Stop: 04/13/20 10:45 Last Admin: 04/13/20 11:08 Dose: 6 mg Documented by: Diltiazem HCl (Cardizem) 10 mg IVPUSH ONETIME ONE Stop: 04/13/20 11:29 Last Admin: 04/13/20 11:37 Dose: 10 mg Documented by: Diltiazem HCl (Cardizem) 10 mg IVPUSH ONETIME ONE Stop: 04/14/20 21:49 Last Admin: 04/15/20 04:32 Dose: Not Given Documented by: Furosemide (Lasix) 40 mg IVPUSH NOW ONE Stop: 04/14/20 08:41 Last Admin: 04/14/20 08:56 Dose: 40 mg Documented by: Haloperidol Lactate (Haldol) 2 mg IVPUSH ONETIME ONE Stop: 04/14/20 05:11 Last Admin: 04/14/20 05:20 Dose: 2 mg Documented by: Haloperidol Lactate (Haldol) 2 mg IVPUSH ONETIME ONE Stop: 04/14/20 06:21 Last Admin: 04/14/20 06:28 Dose: 2 mg Documented by: Hydroxyzine HCl (Vistaril) 25 mg IM Q4H PRN PRN Reason: Anxiety Last Admin: 04/14/20 10:59 Dose: 25 mg Documented by: Hydroxyzine HCl (Vistaril) 50 mg IM Q4H PRN PRN Reason: Anxiety Last Admin: 04/14/20 11:37 Dose: 50 mg Documented by: Sodium Chloride (Normal Saline) 1,000 mls @ 125 mls/hr IV ASDIRECTED KAYLEE Last Admin: 04/13/20 08:57 Dose: 125 mls/hr Documented by: Magnesium Sulfate (Magnesium Sulfate In Water Premix) 2 gm in 50 mls @ 25 mls/hr IV Q1H KAYLEE Last Admin: 04/14/20 09:28 Dose: Not Given Documented by: Remdesivir 200 mg/ Sodium (Chloride) 250 mls @ 250 mls/hr IV ONETIME ONE Stop: 04/13/20 15:29 Last Admin: 04/13/20 14:23 Dose: 250 mls/hr Documented by: Dopamine HCl/Dextrose (Dopamine In D5w 400 Mg/250 Ml) 400 mg in 250 mls @ 5.817 mls/hr IV TITRATE KAYLEE; Protocol Sodium Chloride (Normal Saline) 250 mls @ 999 mls/hr IV ASDIRECTED KAYLEE Sodium Chloride (Normal Saline) 250 mls @ 999 mls/hr IV ONETIME ONE Stop: 04/14/20 16:16 Last Admin: 04/14/20 16:15 Dose: 999 mls/hr Documented by: Lorazepam (Ativan) Confirm Administered Dose 2 mg .ROUTE .STK-MED ONE Stop: 04/13/20 10:13 Last Admin: 04/13/20 10:14 Dose: Not Given Documented by: Lorazepam (Ativan) 0.5 mg IVPUSH ONETIME ONE Stop: 04/13/20 10:15 Last Admin: 04/13/20 10:17 Dose: 0.5 mg Documented by: Lorazepam (Ativan) 0.5 mg IVPUSH ONETIME ONE Stop: 04/13/20 10:16 Last Admin: 04/13/20 10:17 Dose: Not Given Documented by: Lorazepam (Ativan) 0.5 mg IVPUSH ONETIME ONE Stop: 04/13/20 12:06 Last Admin: 04/13/20 12:17 Dose: 0.5 mg Documented by: Lorazepam (Ativan) 1 mg IVPUSH ONETIME ONE Stop: 04/13/20 12:59 Last Admin: 04/13/20 13:00 Dose: 1 mg Documented by: Lorazepam (Ativan) Confirm Administered Dose 2 mg .ROUTE .STK-MED ONE Stop: 04/13/20 12:58 Last Admin: 04/13/20 13:21 Dose: Not Given Documented by: Lorazepam (Ativan) 1 mg IVPUSH Q4H PRN PRN Reason: Agitation Last Admin: 04/14/20 00:55 Dose: 1 mg Documented by: Losartan Potassium (Cozaar) 100 mg PO DAILY KAYLEE Stop: 04/15/20 02:41 Last Admin: 04/15/20 02:48 Dose: 100 mg Documented by: Midodrine (Midodrine) 7.5 mg PO STAT ONE Stop: 04/13/20 18:31 Last Admin: 04/13/20 18:49 Dose: 7.5 mg Documented by: Midodrine (Midodrine) 2.5 mg PO TIDAC [facility] Last Admin: 04/14/20 11:16 Dose: 2.5 mg Documented by: Midodrine (Midodrine) 5 mg PO TIDAC KAYLEE Midodrine (Midodrine) 2.5 mg PO STAT ONE Stop: 04/14/20 11:35 Last Admin: 04/14/20 11:36 Dose: 2.5 mg Documented by: Ondansetron HCl (Zofran) 4 mg IVPUSH ONETIME ONE Stop: 04/13/20 08:43 Last Admin: 04/13/20 08:57 Dose: 4 mg Documented by: Ondansetron HCl (Zofran) 4 mg IVPUSH ONETIME ONE Stop: 04/13/20 12:07 Last Admin: 04/13/20 12:16 Dose: 4 mg Documented by: Quetiapine Fumarate (Seroquel) 25 mg PO ONETIME ONE Stop: 04/13/20 13:24 Last Admin: 04/13/20 13:40 Dose: 25 mg Documented by: Quetiapine Fumarate (Seroquel) 25 mg PO ONETIME ONE Stop: 04/13/20 16:01 Last Admin: 04/13/20 16:25 Dose: 25 mg Documented by: Trazodone HCl (Trazodone) 50 mg PO ONETIME ONE Stop: 04/13/20 21:01 Last Admin: 04/13/20 21:42 Dose: 50 mg Documented by: - Exam Quality Assessment: Supplemental Oxygen (high flow at 8) General: Moderate Distress HEENT: Pupils Equal, Pupils Reactive, EOMI, Mucous Membr. Moist/[place] Neck: Supple Lungs: Rhonchi Cardiovascular: Irregular Rhythm GI/Abdominal Exam: Normal Bowel Sounds, Soft, Non-Tender, No Organomegaly, No Distention, No Abnormal Bruit, No Mass, Pelvis Stable (Female) Exam: Other (rash of perineal dermititis) Back Exam: Normal Inspection, Full Range of Motion Extremities: Normal Inspection, Normal Range of Motion, Non-Tender, No Pedal Edema, Normal Capillary Refill Skin: Warm, Dry, Intact Neurological: No New Focal Deficit Psy/Mental Status: Agitated, Hallucinations Sepsis Event Note - Evaluation Sepsis Screening Result: No Definite Risk - Focused Exam Vital Signs: Vital Signs Temp Resp BP BP BP Pulse Ox Pulse Ox 04/15/20 08:00 97.0 F 21 H 81/60 L 92 L 04/15/20 05:41 92 L 04/15/20 04:00 97.5 F 20 95/69 93 L 04/15/20 02:54 96 04/15/20 02:48 135/98 H 04/15/20 00:45 98 04/15/20 00:00 97.8 F 20 104/90 97 04/14/20 21:28 92 L 04/14/20 21:04 94 L - Problem List & Annotations (1) Atrial fibrillation with RVR SNOMED Code(s): 224208392224450 Code(s): I48.91 - UNSPECIFIED ATRIAL FIBRILLATION Status: Acute Priority: Medium Onset Date: ~04/13/20 Annotation/Comment:: chronic afib on low dose elaquis. on amioderone and metoprolol and lasix for compenstaed chf. able to control rate overnight with cardizem drip and changed to p.o this am . chf worsening and i>> os lasix given x one (2) COVID-19 SNOMED Code(s): 340223252 Code(s): U07.1 - COVID-19 Status: Acute Priority: Medium Onset Date: ~04/13/20 Annotation/Comment:: resp and gi symptoms a with weakness starting 5 days ago / pos test 04/13. treated with remsivir /o2/ conv plasma and dex. (3) Dermatitis associated with incontinence SNOMED Code(s): 366325524 Code(s): L25.8 - UNSPECIFIED CONTACT DERMATITIS DUE TO OTHER AGENTS; R32 - UNSPECIFIED URINARY INCONTINENCE Status: Acute Priority: Medium Onset Date: 04/14/20 Annotation/Comment:: yeast and stool dermatitis and breakdown treated with barrier anad yeast cream (4) Hypoxia SNOMED Code(s): 367399999 Code(s): R09.02 - HYPOXEMIA Status: Acute Priority: Medium Onset Date: ~04/14/20 Annotation/Comment:: sats stable currently chf mildly worse (5) Low blood pressure reading SNOMED Code(s): 989729566 Code(s): R03.1 - NONSPECIFIC LOW BLOOD-PRESSURE READING Status: Acute Priority: High Onset Date: ~04/13/20 Annotation/Comment:: midodrine started and weaning i.v fluids to 25 (6) Lower abdominal pain SNOMED Code(s): 58036591 Code(s): R10.30 - LOWER ABDOMINAL PAIN, UNSPECIFIED Status: Acute Priority: Medium Onset Date: ~04/09/20 Annotation/Comment:: resolving - Problem List Review Problem List Initiated/Reviewed/Updated: Yes - Assessment Assessment:: 04/13/20 80 year old female with a history of atrial fibrillation on Eliquis and COPD as a former smoker that quit in 03/2019. She was in the ED and now admitted to hospital Patient presented to the ED with a cough, nausea, vomiting, and diarrhea She stated that her symptoms had been going on for about 1 week Stated that she was in the ED on the but had left AMA Stated that she was seen a couple days prior to presenting to the ED and was found to have renal insufficiency and diarrhea She had complaints of a sore butt, noticing some blood, and a productive cough She tested positive for COVID They ordered dexamethasone 6 MG IV She was anxious so they gave her Ativan Her heart rate increased so they ordered Cardizem 10 MG IV Review of response shows persistent RVR with lower blood pressure 70-110 systolic during afternoon She is confused Hypoxia controlled so far with O2 via nasal canula She was given quetiapine to try and decrease anxiety with some good result pulling lines and confused severely Renal status still impaired after IV fluid replacement Anemia and chronic renal insufficiency suspected with proteinuria and low protein state noted. boh 04/14/20 afebrile currently hypotensive requiring midodrine x2 and current i.v at 75 cc hour Lasix given x one b.p medications held/decreased secondary to Cardizem drip map from 40-68 heart rate with atrial fibration 110- 140 blood pressure but she is very confused lungs decreased breath sounds bilaterally abdominal benign but did not eat much this am or last pm neuro confused and pulling lines and one to one care despite multiple doses of lorazepam/quetiapine then Haldol and now trying hydroxyzine daughter states has not slept in 5 days and confusion started 4 days ago She has no other neurologic findings on exam and no history of def. dementia known but very forgetful electrolytes and Pro BNP >6400 with creat stable troponin normal and sed rate 32 d-dimer pending x-ray on admit moderate infiltrates not lobar with atelectasis and increased vasc. heart enlarged assess: covid respiratory failure on 6 liters day 5-6 of symptoms day 2 remdesivir and Decadron/convalescent plasma given this am hypoxia expected to worsen. CHF acute on chronic suspected and Lasix given and will decrease fluids and control rate for atrial fibrillation anemia mild and monitor hemoglobin 11.4 confusion delirium induced by covid and hypoxia as well as CHF continue to treat to stabilize renal status good nutritional status fair monitor b.s per protocol on Decadron steroid psychosis possible but expect severe life threatening respiratory distress/ARDS and platelets low/hypotensive and at risk for cytokine storm plan and update reviewed with family this am by nurses and in agreement with aggressive treatment and aware of severity. boh 04/15/2020 Nurse states that she has continued to have difficulty with sedation, pulling lines, and being confused Nurse states that her blood pressure is 81/60 with a heart rate of 76 Nurse states that her respiratory rate is 21 with her O2 saturations being at 92% at a O2 flow rate of 8 Nurse states that her total output as of this morning is 2,360 mL Her NT BNP is up to 9,005 from 6,028 previously and it has continued to have an incline being 5,444 before that Hemoglobin is at 11.1 with a d-dimer at 0.34 and creatinine at 1.8 Her recent chest x-ray showed worsening ground-glass airspace disease at the lower lung meza bilaterally and new dense consolidation at the left lung base since the prior examination Discussed her labs and chest x-ray Discussed starting dopamine/dextrose 5% water IV titrate at dose of 3 MCG/KG/MIN Discussed giving her Lasix 20 MG IV Discussed starting 2 units of plasma treatment due to COVID and hopefully it will also help bring up her blood pressure Continue Decadron 6 MG IV and remdesivir 100 MG IV for continued treatment of COVID. 04/15/20 patient switched to comfort measures after discussion with family . patient of resp failure and chf sec. to covid and underlying chf . boh - Plan Plan:: 04/13/2020 80 year old female with a history of atrial fibrillation on Eliquis and COPD as a former smoker that quit in 03/2019. She was in the ED and now admitted to hospital no known CAD but RVR on admit today weakness and lives mostly by herself pulmonary exam had crackles and respiratory mildly increased with cough while oxygen saturations are at 86% lungs few crackles at bases trace edema mildly confused but hard of hearing assess: covid first week with mild respiratory distress and no infiltrates chronic CHF chronic renal insufficiency extent unknown mild anemia with troponin and d-dimer normal no signs of multiorgan failure or sepsis diarrhea and recently treated with Keflex plan: start covid supportive care atrial fibrillation rate control dehydration v.s chronic renal failure assess CHF and fluid status daily and running conservative fluids for now hypotension mild 100-110 may be chronic no signs infection and currently hold antibiotics boh 11/24/20 afebrile currently hypotensive requiring midodrine x2 and current i.v at 75 cc hour Lasix given x one b.p medications held/decreased secondary to Cardizem drip map from 40-68 heart rate with atrial fibration 110- 140 blood pressure but she is very confused lungs decreased breath sounds bilaterally abdominal benign but did not eat much this am or last pm neuro confused and pulling lines and one to one care despite multiple doses of lorazepam/quetiapine then Haldol and now trying hydroxyzine daughter states has not slept in 5 days and confusion started 4 days ago She has no other neurologic findings on exam and no history of def. dementia known but very forgetful electrolytes and Pro BNP >6400 with creat stable troponin normal and sed rate 32 d-dimer pending x-ray on admit moderate infiltrates not lobar with atelectasis and increased vasc. heart enlarged assess: covid respiratory failure on 6 liters day 5-6 of symptoms day 2 remdesivir and Decadron/convalescent plasma given this am hypoxia expected to worsen. CHF acute on chronic suspected and Lasix given and will decrease fluids and control rate for atrial fibrillation anemia mild and monitor hemoglobin 11.4 confusion delirium induced by covid and hypoxia as well as CHF continue to treat to stabilize renal status good nutritional status fair monitor b.s per protocol on Decadron steroid psychosis possible but expect severe life threatening respiratory distress/ARDS and platelets low/hypotensive and at risk for cytokine storm plan and update reviewed with family this am by nurses and in agreement with aggressive treatment and aware of severity. boh 04/15/2020 Nurse states that she has continued to have difficulty with sedation, pulling lines, and being confused Nurse states that her blood pressure is 81/60 with a heart rate of 76 Nurse states that her respiratory rate is 21 with her O2 saturations being at 92% at a O2 flow rate of 8 Nurse states that her total output as of this morning is 2,360 mL Her NT BNP is up to 9,005 from 6,028 previously and it has continued to have an incline being 5,444 before that Hemoglobin is at 11.1 with a d-dimer at 0.34 and creatinine at 1.8 Her recent chest x-ray showed worsening ground-glass airspace disease at the lower lung meza bilaterally and new dense consolidation at the left lung base since the prior examination Discussed her labs and chest x-ray Discussed starting dopamine/dextrose 5% water IV titrate at dose of 3 MCG/KG/MIN Discussed giving her Lasix 20 MG IV Discussed starting 2 units of plasma treatment due to COVID and hopefully it will also help bring up her blood pressure Continue Decadron 6 MG IV and remdesivir 100 MG IV for continued treatment of COVID
--- NOTE | 2020-04-24 07:36 | PCM.DCSUM1 ---
Discharge Summary - Hospital Course Free Text/Narrative:: [facility] Progress Note Patient Name: RINA SHIPMAN Date of : 1940 Patient Status: Inpatient Attending Provider: Martinez Soriano Date: 04/15/20 08:54 Initialization Date: 04/15/20 08:54 - General Info Date of Service: 04/15/20 Admission Dx/Problem (Free Text): 04/13/20 80 year old female with a history of atrial fibrillation on Eliquis and COPD as a former smoker that quit in 03/2019. She was in the ED and now admitted to hospital Patient presented to the ED with a cough, nausea, vomiting, and diarrhea She stated that her symptoms had been going on for about 1 week Stated that she was in the ED on the but had left AMA Stated that she was seen a couple days prior to presenting to the ED and was found to have renal insufficiency and diarrhea She had complaints of a sore butt, noticing some blood, and a productive cough She tested positive for COVID They ordered dexamethasone 6 MG IV She was anxious so they gave her Ativan Her heart rate increased so they ordered Cardizem 10 MG IV Review of response shows persistent RVR with lower blood pressure 70-110 systolic during afternoon She is confused Hypoxia controlled so far with O2 via nasal canula She was given quetiapine to try and decrease anxiety with some good result pulling lines and confused severely Renal status still impaired after IV fluid replacement Anemia and chronic renal insufficiency suspected with proteinuria and low protein state noted. boh 04/14/20 afebrile currently hypotensive requiring midodrine x2 and current i.v at 75 cc hour Lasix given x one b.p medications held/decreased secondary to Cardizem drip map from 40-68 heart rate with atrial fibration 110- 140 blood pressure but she is very confused lungs decreased breath sounds bilaterally abdominal benign but did not eat much this am or last pm neuro confused and pulling lines and one to one care despite multiple doses of lorazepam/quetiapine then Haldol and now trying hydroxyzine daughter states has not slept in 5 days and confusion started 4 days ago She has no other neurologic findings on exam and no history of def. dementia known but very forgetful electrolytes and Pro BNP >6400 with creat stable troponin normal and sed rate 32 d-dimer pending x-ray on admit moderate infiltrates not lobar with atelectasis and increased vasc. heart enlarged assess: covid respiratory failure on 6 liters day 5-6 of symptoms day 2 remdesivir and Decadron/convalescent plasma given this am hypoxia expected to worsen. CHF acute on chronic suspected and Lasix given and will decrease fluids and control rate for atrial fibrillation anemia mild and monitor hemoglobin 11.4 confusion delirium induced by covid and hypoxia as well as CHF continue to treat to stabilize renal status good nutritional status fair monitor b.s per protocol on Decadron steroid psychosis possible but expect severe life threatening respiratory distress/ARDS and platelets low/hypotensive and at risk for cytokine storm plan and update reviewed with family this am by nurses and in agreement with aggressive treatment and aware of severity. sherry 04/15/2020 Nurse states that she has continued to have difficulty with sedation, pulling lines, and being confused Nurse states that her blood pressure is 81/60 with a heart rate of 76 Nurse states that her respiratory rate is 21 with her O2 saturations being at 92% at a O2 flow rate of 8 Nurse states that her total output as of this morning is 2,360 mL Her NT BNP is up to 9,005 from 6,028 previously and it has continued to have an incline being 5,444 before that Hemoglobin is at 11.1 with a d-dimer at 0.34 and creatinine at 1.8 Her recent chest x-ray showed worsening ground-glass airspace disease at the lower lung meza bilaterally and new dense consolidation at the left lung base since the prior examination Discussed her labs and chest x-ray Discussed starting dopamine/dextrose 5% water IV titrate at dose of 3 MCG/KG/MIN Discussed giving her Lasix 20 MG IV Discussed starting 2 units of plasma treatment due to COVID and hopefully it will also help bring up her blood pressure Continue Decadron 6 MG IV and remdesivir 100 MG IV for continued treatment of COVID Subjective Update: 04/15/2020 Nurse states that she has continued to have difficulty with sedation, pulling lines, and being confused Nurse states that her blood pressure is 81/60 with a heart rate of 76 Nurse states that her respiratory rate is 21 with her O2 saturations being at 92% at a O2 flow rate of 8 Nurse states that her total output as of this morning is 2,360 mL Her NT BNP is up to 9,005 from 6,028 previously and it has continued to have an incline being 5,444 before that Hemoglobin is at 11.1 with a d-dimer at 0.34 and creatinine at 1.8 Her recent chest x-ray showed worsening ground-glass airspace disease at the lower lung meza bilaterally and new dense consolidation at the left lung base since the prior examination Discussed her labs and chest x-ray Discussed starting dopamine/dextrose 5% water IV titrate at dose of 3 MCG/KG/MIN Discussed giving her Lasix 20 MG IV Discussed starting 2 units of plasma treatment due to COVID and hopefully it will also help bring up her blood pressure Continue Decadron 6 MG IV and remdesivir 100 MG IV for continued treatment of COVID 04/15/20 9 am Leaona sleeping after sedation yesterday . i/os cvs. i.v hep locked. intermittant hypotension requiring i.v initially . b.p currently 90 syst. and map of 60 occasional hypertensive swings when she wakes up . oral dry mm afib vent rate from 72-130 but came down nicely as night went on . minimal ectopy . resp :increased from 6 liters n.c to full face mask 100% with sats 88-94%/ resp becoming slightly to mod. labored at times. bs decreased and course and occ. wheeze. feet warm and hands well perfused . slight edema noted. slight jvd. abd benign npo sec. to resp and neuro sedation. ms benign skin no lesions. lab d dimer little change. bnp increased to 9000.trop unchanged . creat 1.8 . hgn decreased to 11. chest xray shows increased plearal effusion left and hugo chf vasc markings.. patchy infiltrates both lungs. assess: covid with severe ards. patient in danger of needing intubation anddiscussed with family(Jonathan) knowing she is no cpr/no intubation.prognosis is critical and deteriorating form resp standpoint. trial of plasm and single unit prbcs discussed with deyanira to releive pulm congestion. family agrees and would like update. later catracho am . underlying chf increasing cardiac output and chf without signs of clinical ami. renal insuff stable but urine output starting to decrease form 50 hour through night to 25 /hour. boh 04/15/20 noon family updated and they would like to switch to comfort measures after discussing lack of progress in resp stabilization with impending full blown ards and increasing hypoxia. will respect Rina wishes with family visitation being arranged before decreasing pressors and support. comfort measures to be started then. 04/15/20 2pm family has restrictions on visitation sec to likely pos status and undergoing testing prior to visitation./ cont supportive care boh 04/15/20 4 pm rina resting and no changes in resp but heart rate climbing and urine output has decreased and suspect multiorgan shut down has begun. comfort measures in place. boh . Functional Status: Reports: Pain Controlled HPI Initial Comments: patient in hosp after comfort measures initiated for intractable hypoxia and resp failure with chf . time of 1815 on 04/15/20. patient dnr/dni and family visited before . Brief History: patient sec to resp failure/hypoxia and multiorgan failure related to covid infection . Modified [place] Scale: Modified Homero Scale Score: 6 - Discharge Data Discharge Date: 04/15/20 Discharge Disposition: Preliminary Cause of *Q: Respiratory Failure Event(s) Leading to Patient's *Q: resp and multiorgan failure sec to covid//sars Condition: - Referral to Home Health Primary Care Physician: PCP None - Discharge Diagnosis/Problem(s) (1) Atrial fibrillation with RVR SNOMED Code(s): 409028489936268 ICD Code: I48.91 - UNSPECIFIED ATRIAL FIBRILLATION Status: Acute Priority: High Onset Date: ~04/13/20 Problem Details: chronic afib on low dose elaquis. on amioderone and metoprolol and lasix for compenstaed chf. able to control rate overnight with cardizem drip and changed to p.o this am . chf worsening and i>> os lasix given x one (2) COVID-19 SNOMED Code(s): 643208463 ICD Code: U07.1 - COVID-19 Status: Acute Priority: High Onset Date: ~04/13/20 Problem Details: resp and gi symptoms a with weakness starting 5 days ago / pos test 04/13. treated with remsivir /o2/ conv plasma and dex. (3) Dermatitis associated with incontinence SNOMED Code(s): 335800770 ICD Code: L25.8 - UNSPECIFIED CONTACT DERMATITIS DUE TO OTHER AGENTS; R32 - UNSPECIFIED URINARY INCONTINENCE Status: Acute Priority: Medium Onset Date: 04/14/20 Problem Details: yeast and stool dermatitis and breakdown treated with barrier anad yeast cream (4) Hypoxia SNOMED Code(s): 377340041 ICD Code: R09.02 - HYPOXEMIA Status: Acute Priority: High Onset Date: ~04/14/20 Problem Details: sats stable currently chf mildly worse (5) Low blood pressure reading SNOMED Code(s): 570968375 ICD Code: R03.1 - NONSPECIFIC LOW BLOOD-PRESSURE READING Status: Acute Priority: High Onset Date: ~04/13/20 Problem Details: midodrine started and weaning i.v fluids to 25 (6) Lower abdominal pain SNOMED Code(s): 93492336 ICD Code: R10.30 - LOWER ABDOMINAL PAIN, UNSPECIFIED Status: Acute Priority: Medium Onset Date: ~04/09/20 Problem Details: resolving - Discharge Plan *PRESCRIPTION DRUG MONITORING PROGRAM REVIEWED*: Not Applicable *COPY OF PRESCRIPTION DRUG MONITORING REPORT IN PATIENT JEREMY: Not Applicable Home Medications: Home Meds Calcium Citrate/Vitamin D3 [Citracal + D Maximum Caplet] 1 tab PO BEDTIME 04/09/17 [History] Cyanocobalamin (Vitamin B12) [Vitamin B12] 1,000 mcg PO DAILY 04/09/17 [History] Apixaban [Eliquis] 2.5 mg PO BID 04/13/20 [History] Furosemide 20 mg PO Q2D 04/13/20 [History] Levothyroxine 75 mcg PO ACBREAKFAST 04/13/20 [History] Metoprolol Tartrate 50 mg PO BID 04/13/20 [History] Omeprazole 20 mg PO BID 04/13/20 [History] Pravastatin [Pravachol] 20 mg PO DAILY 04/13/20 [History] Spironolactone [Aldactone] 12.5 mg PO DAILY 04/13/20 [History] buPROPion [buPROPion XL] 150 mg PO DAILY 04/13/20 [History] traZODone HCl [Trazodone HCl] 50 mg PO BEDTIME 04/13/20 [History] Oxygen Therapy Mode: High Flow Humidification Patient Handouts: COVID-19, Heart Failure Action Plan, Sepsis, Diagnosis, Adult, COVID-19: How to Protect Yourself and Others - [facility] [place] 2] Forms: ED Department Discharge Referrals: PCP,None [Primary Care Provider] - - Discharge Summary/Plan Comment DC Time >30 min.: No Discharge Summary/Plan Comment: 04/15/20 patient switched to comfoprt measures sec to intractable resp failure and no cpr/no intubation. - General Info Date of Service: 04/15/20 Admission Dx/Problem (Free Text: 04/13/20 80 year old female with a history of atrial fibrillation on Eliquis and COPD as a former smoker that quit in 03/2019. She was in the ED and now admitted to hospital Patient presented to the ED with a cough, nausea, vomiting, and diarrhea She stated that her symptoms had been going on for about 1 week Stated that she was in the ED on the but had left AMA Stated that she was seen a couple days prior to presenting to the ED and was found to have renal insufficiency and diarrhea She had complaints of a sore butt, noticing some blood, and a productive cough She tested positive for COVID They ordered dexamethasone 6 MG IV She was anxious so they gave her Ativan Her heart rate increased so they ordered Cardizem 10 MG IV Review of response shows persistent RVR with lower blood pressure 70-110 systolic during afternoon She is confused Hypoxia controlled so far with O2 via nasal canula She was given quetiapine to try and decrease anxiety with some good result pulling lines and confused severely Renal status still impaired after IV fluid replacement Anemia and chronic renal insufficiency suspected with proteinuria and low protein state noted. boh 04/14/20 afebrile currently hypotensive requiring midodrine x2 and current i.v at 75 cc hour Lasix given x one b.p medications held/decreased secondary to Cardizem drip map from 40-68 heart rate with atrial fibration 110- 140 blood pressure but she is very confused lungs decreased breath sounds bilaterally abdominal benign but did not eat much this am or last pm neuro confused and pulling lines and one to one care despite multiple doses of lorazepam/quetiapine then Haldol and now trying hydroxyzine daughter states has not slept in 5 days and confusion started 4 days ago She has no other neurologic findings on exam and no history of def. dementia known but very forgetful electrolytes and Pro BNP >6400 with creat stable troponin normal and sed rate 32 d-dimer pending x-ray on admit moderate infiltrates not lobar with atelectasis and increased vasc. heart enlarged assess: covid respiratory failure on 6 liters day 5-6 of symptoms day 2 remdesivir and Decadron/convalescent plasma given this am hypoxia expected to worsen. CHF acute on chronic suspected and Lasix given and will decrease fluids and control rate for atrial fibrillation anemia mild and monitor hemoglobin 11.4 confusion delirium induced by covid and hypoxia as well as CHF continue to treat to stabilize renal status good nutritional status fair monitor b.s per protocol on Decadron steroid psychosis possible but expect severe life threatening respiratory distress/ARDS and platelets low/hypotensive and at risk for cytokine storm plan and update reviewed with family this am by nurses and in agreement with aggressive treatment and aware of severity. sherry 04/15/2020 Nurse states that she has continued to have difficulty with sedation, pulling lines, and being confused Nurse states that her blood pressure is 81/60 with a heart rate of 76 Nurse states that her respiratory rate is 21 with her O2 saturations being at 92% at a O2 flow rate of 8 Nurse states that her total output as of this morning is 2,360 mL Her NT BNP is up to 9,005 from 6,028 previously and it has continued to have an incline being 5,444 before that Hemoglobin is at 11.1 with a d-dimer at 0.34 and creatinine at 1.8 Her recent chest x-ray showed worsening ground-glass airspace disease at the lower lung meza bilaterally and new dense consolidation at the left lung base since the prior examination Discussed her labs and chest x-ray Discussed starting dopamine/dextrose 5% water IV titrate at dose of 3 MCG/KG/MIN Discussed giving her Lasix 20 MG IV Discussed starting 2 units of plasma treatment due to COVID and hopefully it will also help bring up her blood pressure Continue Decadron 6 MG IV and remdesivir 100 MG IV for continued treatment of COVID Subjective Update: 04/15/2020 Nurse states that she has continued to have difficulty with sedation, pulling lines, and being confused Nurse states that her blood pressure is 81/60 with a heart rate of 76 Nurse states that her respiratory rate is 21 with her O2 saturations being at 92% at a O2 flow rate of 8 Nurse states that her total output as of this morning is 2,360 mL Her NT BNP is up to 9,005 from 6,028 previously and it has continued to have an incline being 5,444 before that Hemoglobin is at 11.1 with a d-dimer at 0.34 and creatinine at 1.8 Her recent chest x-ray showed worsening ground-glass airspace disease at the lower lung meza bilaterally and new dense consolidation at the left lung base since the prior examination Discussed her labs and chest x-ray Discussed starting dopamine/dextrose 5% water IV titrate at dose of 3 MCG/KG/MIN Discussed giving her Lasix 20 MG IV Discussed starting 2 units of plasma treatment due to COVID and hopefully it will also help bring up her blood pressure Continue Decadron 6 MG IV and remdesivir 100 MG IV for continued treatment of COVID 04/15/20 9 am Leaona sleeping after sedation yesterday . i/os cvs. i.v hep locked. intermittant hypotension requiring i.v initially . b.p currently 90 syst. and map of 60 occasional hypertensive swings when she wakes up . oral dry mm afib vent rate from 72-130 but came down nicely as night went on . minimal ectopy . resp :increased from 6 liters n.c to full face mask 100% with sats 88-94%/ resp becoming slightly to mod. labored at times. bs decreased and course and occ. wheeze. feet warm and hands well perfused . slight edema noted. slight jvd. abd benign npo sec. to resp and neuro sedation. ms benign skin no lesions. lab d dimer little change. bnp increased to 9000.trop unchanged . creat 1.8 . hgn decreased to 11. chest xray shows increased plearal effusion left and hugo chf vasc markings.. patchy infiltrates both lungs. assess: covid with severe ards. patient in danger of needing intubation anddiscussed with family(Jonathan) knowing she is no cpr/no intubation.prognosis is critical and deteriorating form resp standpoint. trial of plasm and single unit prbcs discussed with deyanira to releive pulm congestion. family agrees and would like update. later catracho am . underlying chf increasing cardiac output and chf without signs of clinical ami. renal insuff stable but urine output starting to decrease form 50 hour through night to 25 /hour. boh 04/15/20 noon family updated and they would like to switch to comfort measures after discussing lack of progress in resp stabilization with impending full blown ards and increasing hypoxia. will respect Rina wishes with family visitation being arranged before decreasing pressors and support. comfort measures to be started then. 04/15/20 2pm family has restrictions on visitation sec to likely pos status and undergoing testing prior to visitation./ cont supportive care boh 04/15/20 4 pm rina resting and no changes in resp but heart rate climbing and urine output has decreased and suspect multiorgan shut down has begun. comfort measures in place. boh . Functional Status: Reports: Pain Controlled - Review of Systems General: Reports: Weakness, Fatigue Pulmonary: Reports: Shortness of Breath, Wheezing, Other Cardiovascular: Reports: Dyspnea on Exertion, Orthopnea, PND, Edema Gastrointestinal: Reports: No Symptoms Genitourinary: Reports: No Symptoms, Other Musculoskeletal: Reports: No Symptoms Skin: Reports: Rash Neurological: Reports: Confusion, Pre-Existing Deficit, Trouble Speaking, Difficulty Walking, Weakness Psychiatric: Reports: Confusion, Hallucinations - Patient Data Vitals - Most Recent: Last Vital Signs Temp 36.1 C 04/15/20 08:00 Pulse 145 H 04/14/20 08:00 Resp 21 H 04/15/20 08:00 BP 86/69 L 04/15/20 10:00 Pulse Ox 92 L 04/15/20 08:00 Weight - Most Recent: 76.839 kg Med Orders - Current: Current Medications Discontinued Medications Amiodarone HCl (Cordarone) 100 mg PO DAILY [facility] Apixaban (Eliquis) 2.5 mg PO BID [facility] Apixaban (Eliquis) 2.5 mg PO BID [facility] Last Admin: 04/15/20 09:27 Dose: Not Given Documented by: Atropine Sulfate (Atropine 1% Ophth Soln) 1 ml SL Q2H PRN PRN Reason: secretions Bupropion HCl (Wellbutrin Xl) 150 mg PO DAILY [facility] Last Admin: 04/14/20 07:59 Dose: 150 mg Documented by: Calcium Carbonate (Calcium Carbonate/Vitamin D 600 Mg-200 Unit) 1 tab PO BEDTIME [facility] Last Admin: 04/14/20 20:12 Dose: Not Given Documented by: Cyanocobalamin (Vitamin B12) 1,000 mcg PO DAILY [facility] Last Admin: 04/15/20 10:13 Dose: Not Given Documented by: Dexamethasone (Decadron) 6 mg IVPUSH ONETIME ONE Stop: 11/23/20 10:45 Last Admin: 04/13/20 11:08 Dose: 6 mg Documented by: Dexamethasone (Decadron) 6 mg IVPUSH DAILY [facility] Stop: 04/22/20 09:01 Last Admin: 04/15/20 09:23 Dose: 6 mg Documented by: Diazepam (Valium) 5 mg IVPUSH Q4H PRN PRN Reason: Anxiety Last Admin: 04/14/20 12:00 Dose: 5 mg Documented by: Diltiazem HCl (Cardizem) 10 mg IVPUSH ONETIME ONE Stop: 04/13/20 11:29 Last Admin: 04/13/20 11:37 Dose: 10 mg Documented by: Diltiazem HCl (Cardizem) 60 mg PO Q8H [facility] Last Admin: 04/15/20 06:42 Dose: Not Given Documented by: Diltiazem HCl (Cardizem) 10 mg IVPUSH ONETIME ONE Stop: 04/14/20 21:49 Last Admin: 04/15/20 04:32 Dose: Not Given Documented by: Diphenhydramine HCl (Benadryl) 25 mg IVPUSH Q4H PRN PRN Reason: Anxiety Diphenhydramine HCl (Benadryl) 25 mg PO Q4H PRN PRN Reason: Anxiety Furosemide (Lasix) 40 mg IVPUSH NOW ONE Stop: 04/14/20 08:41 Last Admin: 04/14/20 08:56 Dose: 40 mg Documented by: Haloperidol Lactate (Haldol) 2 mg IVPUSH ONETIME ONE Stop: 04/14/20 05:11 Last Admin: 04/14/20 05:20 Dose: 2 mg Documented by: Haloperidol Lactate (Haldol) 2 mg IVPUSH ONETIME ONE Stop: 04/14/20 06:21 Last Admin: 04/14/20 06:28 Dose: 2 mg Documented by: Haloperidol Lactate (Haldol) 2 mg IVPUSH Q8H PRN PRN Reason: Anxiety Last Admin: 04/14/20 07:56 Dose: 2 mg Documented by: Hydromorphone HCl (Dilaudid) 2 mg IVPUSH Q30M PRN PRN Reason: Dyspnea Last Admin: 04/15/20 16:12 Dose: 2 mg Documented by: Hydroxyzine HCl (Vistaril) 25 mg IM Q4H PRN PRN Reason: Anxiety Last Admin: 04/14/20 10:59 Dose: 25 mg Documented by: Hydroxyzine HCl (Vistaril) 50 mg IM Q4H PRN PRN Reason: Anxiety Last Admin: 04/14/20 11:37 Dose: 50 mg Documented by: Sodium Chloride (Normal Saline) 1,000 mls @ 125 mls/hr IV ASDIRECTED [facility] Last Admin: 04/13/20 08:57 Dose: 125 mls/hr Documented by: Magnesium Sulfate (Magnesium Sulfate In Water Premix) 2 gm in 50 mls @ 25 mls/hr IV Q1H [facility] Last Admin: 04/14/20 09:28 Dose: Not Given Documented by: Remdesivir 200 mg/ Sodium (Chloride) 250 mls @ 250 mls/hr IV ONETIME ONE Stop: 04/13/20 15:29 Last Admin: 04/13/20 14:23 Dose: 250 mls/hr Documented by: Remdesivir 100 mg/ Sodium (Chloride) 100 mls @ 100 mls/hr IV Q24H [facility] Stop: 04/17/20 15:29 Last Admin: 04/14/20 13:57 Dose: 100 mls/hr Documented by: Diltiazem HCl 100 mg/ Sodium (Chloride) 100 mls @ 5 mls/hr IV TITRATE [facility]E; Protocol Last Titration: 04/13/20 22:10 Dose: 5 mg/hr, 5 mls/hr Documented by: Sodium Chloride (Normal Saline) 1,000 mls @ 75 mls/hr IV ASDIRECTED KAYLEE Last Infusion: 04/14/20 21:16 Dose: 0 mls/hr Documented by: Dopamine HCl/Dextrose (Dopamine In D5w 400 Mg/250 Ml) 400 mg in 250 mls @ 5.817 mls/hr IV TITRATE [facility]; Protocol Sodium Chloride (Normal Saline) 250 mls @ 999 mls/hr IV ASDIRECTED KAYLEE Sodium Chloride (Normal Saline) 250 mls @ 999 mls/hr IV ONETIME ONE Stop: 04/14/20 16:16 Last Admin: 04/14/20 16:15 Dose: 999 mls/hr Documented by: Dopamine HCl/Dextrose (Dopamine In D5w 400 Mg/250 Ml) 400 mg in 250 mls @ 8.726 mls/hr IV TITRATE KAYLEE; Protocol Last Titration: 04/15/20 15:01 Dose: 0 mcg/kg/min, 0 mls/hr Documented by: Albumin Human (Flexbumin 25%) 12.5 gm in 50 mls @ 25 mls/hr IV ONETIME ONE Stop: 04/15/20 11:50 Last Admin: 04/15/20 10:08 Dose: 19 mls/hr Documented by: Lorazepam (Ativan) Confirm Administered Dose 2 mg .ROUTE .STK-MED ONE Stop: 04/13/20 10:13 Last Admin: 04/13/20 10:14 Dose: Not Given Documented by: Lorazepam (Ativan) 0.5 mg IVPUSH ONETIME ONE Stop: 04/13/20 10:15 Last Admin: 04/13/20 10:17 Dose: 0.5 mg Documented by: Lorazepam (Ativan) 0.5 mg IVPUSH ONETIME ONE Stop: 04/13/20 10:16 Last Admin: 04/13/20 10:17 Dose: Not Given Documented by: Lorazepam (Ativan) 0.5 mg IVPUSH ONETIME ONE Stop: 04/13/20 12:06 Last Admin: 04/13/20 12:17 Dose: 0.5 mg Documented by: Lorazepam (Ativan) 1 mg IVPUSH ONETIME ONE Stop: 04/13/20 12:59 Last Admin: 04/13/20 13:00 Dose: 1 mg Documented by: Lorazepam (Ativan) Confirm Administered Dose 2 mg .ROUTE .STK-MED ONE Stop: 04/13/20 12:58 Last Admin: 04/13/20 13:21 Dose: Not Given Documented by: Lorazepam (Ativan) 1 mg IVPUSH Q4H PRN PRN Reason: Agitation Last Admin: 04/14/20 00:55 Dose: 1 mg Documented by: Lorazepam (Ativan) 1 mg IVPUSH Q2HR PRN PRN Reason: Anxiety Last Admin: 04/15/20 10:00 Dose: 1 mg Documented by: Lorazepam (Ativan) 2 mg IVPUSH Q15M PRN PRN Reason: Dyspnea Last Admin: 04/15/20 16:30 Dose: 2 mg Documented by: Losartan Potassium (Cozaar) 100 mg PO DAILY KAYLEE Stop: 04/15/20 02:41 Last Admin: 04/15/20 02:48 Dose: 100 mg Documented by: Metoprolol Tartrate (Lopressor) 50 mg PO BID [facility] Last Admin: 04/15/20 09:27 Dose: Not Given Documented by: Midodrine (Midodrine) 7.5 mg PO STAT ONE Stop: 04/13/20 18:31 Last Admin: 04/13/20 18:49 Dose: 7.5 mg Documented by: Midodrine (Midodrine) 2.5 mg PO TIDAC [facility] Last Admin: 04/14/20 11:16 Dose: 2.5 mg Documented by: Midodrine (Midodrine) 5 mg PO TIDAC [facility] Midodrine (Midodrine) 2.5 mg PO STAT ONE Stop: 04/14/20 11:35 Last Admin: 04/14/20 11:36 Dose: 2.5 mg Documented by: Midodrine (Midodrine) 5 mg PO Q6H [facility] Last Admin: 04/15/20 08:13 Dose: Not Given Documented by: Miscellaneous Information (Remove Patch) 1 ea TRDERM Q72H PRN PRN Reason: SECRETIONS Nystatin (Nystatin Crm) 1 gm TOP BID [facility] Last Admin: 04/15/20 10:14 Dose: 1 gram Documented by: Ondansetron HCl (Zofran) 4 mg IVPUSH ONETIME ONE Stop: 04/13/20 08:43 Last Admin: 04/13/20 08:57 Dose: 4 mg Documented by: Ondansetron HCl (Zofran) 4 mg IVPUSH ONETIME ONE Stop: 04/13/20 12:07 Last Admin: 04/13/20 12:16 Dose: 4 mg Documented by: Ondansetron HCl (Zofran Odt) 8 mg PO Q6H PRN PRN Reason: Nausea/Vomiting Pantoprazole Sodium (Protonix) 40 mg PO BID [facility] Last Admin: 04/15/20 10:15 Dose: Not Given Documented by: Pantoprazole Sodium (Protonix Iv) 40 mg IV Q24H [facility] Last Admin: 04/15/20 11:39 Dose: Not Given Documented by: Quetiapine Fumarate (Seroquel) 25 mg PO ONETIME ONE Stop: 04/13/20 13:24 Last Admin: 04/13/20 13:40 Dose: 25 mg Documented by: Quetiapine Fumarate (Seroquel) 25 mg PO ONETIME ONE Stop: 04/13/20 16:01 Last Admin: 04/13/20 16:25 Dose: 25 mg Documented by: Quetiapine Fumarate (Seroquel) 25 mg PO Q4H PRN PRN Reason: Anxiety Last Admin: 04/14/20 13:51 Dose: 25 mg Documented by: Scopolamine (Transderm-Scop) 1.5 mg TRDERM Q72H PRN PRN Reason: secretions Last Admin: 04/15/20 12:22 Dose: 1.5 mg Documented by: Simvastatin (Zocor) 10 mg PO BEDTIME [facility] Last Admin: 04/14/20 20:12 Dose: Not Given Documented by: Sodium Chloride (Saline Flush) 10 ml FLUSH ASDIRECTED PRN PRN Reason: Keep Vein Open Last Admin: 04/13/20 08:57 Dose: 10 ml Documented by: Sodium Chloride (Saline Flush) 10 ml FLUSH ASDIRECTED PRN PRN Reason: Keep Vein Open Trazodone HCl (Trazodone) 50 mg PO BEDTIME [facility] Last Admin: 04/14/20 20:12 Dose: Not Given Documented by: Trazodone HCl (Trazodone) 50 mg PO ONETIME ONE Stop: 04/13/20 21:01 Last Admin: 04/13/20 21:42 Dose: 50 mg Documented by: - Exam Quality Assessment: Reports: Supplemental Oxygen General: Reports: Obtunded HEENT: Reports: Pupils Equal, Pupils Reactive, EOMI, Mucous Membr. Moist/[place] Neck: Reports: Supple Lungs: Reports: Decreased Breath Sounds, Wheezing, Other Cardiovascular: Reports: Irregular Rhythm GI/Abdominal Exam: Normal Bowel Sounds, Soft, Non-Tender, No Organomegaly, No Distention, No Abnormal Bruit, No Mass, Pelvis Stable (Female) Exam: Deferred Rectal (Female) Exam: Deferred Back Exam: Reports: Normal Inspection, Full Range of Motion Extremities: Slow Capillary Refill Skin: Reports: Cool Wound/Incisions: Reports: Erythema Improving Neurological: Reports: No New Focal Deficit Psy/Mental Status: Reports: Agitated
== END 2020-04-15 18:16 | disposition expired | DRG 177 ==
LOC: JD.ED 08:06 → JD.ICU 13:58
PROVIDERS: ADMIT Pediatrics; ATTEND Pediatrics
PROC: XW033E5 Introduction of Remdesivir Anti-infective into Peripheral Vein, Percutaneous Approach, New Technology Group 5 (ICD-10-PCS; principal; 2020-04-13)
DX: U07.1 COVID-19 (principal); J96.91 Respiratory failure, unspecified with hypoxia; I48.20 Chronic atrial fibrillation, unspecified; I13.0 Hypertensive heart and chronic kidney disease with heart failure and stage 1 through stage 4 chronic kidney disease, or unspecified chronic kidney disease; R19.7 Diarrhea, unspecified; R10.30 Lower abdominal pain, unspecified; I50.9 Heart failure, unspecified; N18.9 Chronic kidney disease, unspecified; D63.1 Anemia in chronic kidney disease; E86.0 Dehydration; I95.9 Hypotension, unspecified; J44.9 Chronic obstructive pulmonary disease, unspecified; H54.7 Unspecified visual loss; I25.10 Atherosclerotic heart disease of native coronary artery without angina pectoris; E78.00 Pure hypercholesterolemia, unspecified; K21.9 Gastro-esophageal reflux disease without esophagitis; R32 Unspecified urinary incontinence; M54.9 Dorsalgia, unspecified; G89.29 Other chronic pain; E11.22 Type 2 diabetes mellitus with diabetic chronic kidney disease; E66.9 Obesity, unspecified; E53.8 Deficiency of other specified B group vitamins; Z96.653 Presence of artificial knee joint, bilateral; F03.90 Unspecified dementia, unspecified severity, without behavioral disturbance, psychotic disturbance, mood disturbance, and anxiety; L25.8 Unspecified contact dermatitis due to other agents; E78.5 Hyperlipidemia, unspecified; R41.0 Disorientation, unspecified; Z09 Encounter for follow-up examination after completed treatment for conditions other than malignant neoplasm; Z86.19 Personal history of other infectious and parasitic diseases; Z88.5 Allergy status to narcotic agent; Z91.041 Radiographic dye allergy status; Z79.899 Other long term (current) drug therapy; Z98.49 Cataract extraction status, unspecified eye; Z98.890 Other specified postprocedural states; Z90.49 Acquired absence of other specified parts of digestive tract; Z87.891 Personal history of nicotine dependence; Z82.3 Family history of stroke; Z79.01 Long term (current) use of anticoagulants; Z99.81 Dependence on supplemental oxygen; Z68.31 Body mass index [BMI] 31.0-31.9, adult
CPT/HCPCS: 36415; 51702; 71045; 71045-26; 80048; 80053; 81001; 82728; 83605; 83690; 83735; 83880; 84484; 85025; 85379; 85610; 85652; 85730; 86850; 86870; 86900; 86901; 87045; 87046; 87493; 87899; 93005; 93010; 96365; 96375; 99284; 99285-25; A9270-GY; J1100; J1170; J1265; J1630; J1940; J2060; J2405; J3360; J3410; J3475; J3490; J7030; J7050; P9047; U0002